=== PATIENT | female | born 1945 | race Caucasian/White ===

== ENCOUNTER 2022-12-19 10:20 | Emergency (ER) | payer MEDICARE, SELFPAY ==
[2022-12-19 10:25] VITALS: BP 154/72; PULSE 69; RESP 18; TEMP 36.7; O2SAT 98; BMI 26.5
--- NOTE | 2022-12-19 12:38 | ED.GENADUL1 ---
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 Patient was accidentally poked in her left eye last evening with a straw around 11 PM. Patient does not wear contacts. Patient does wear glasses. This did not happen at work. Patient is having tearing from her left eye secondary to irritation. Patient feels like there is an eyelash in the left eye. Patient has no redness around the eye. Patient has no other acute complaints at this time. Patient has no blurred vision, loss of vision, or painful vision. Patient does have a history of glaucoma. Patient does have an eye physician to follow-up with. Patient was worried about a scratch and infection. No yellow, greenish or purulent drainage. Patient's only having tearing from her left eye. No acute complaints at this time. This was accidental trauma to the left eye with a straw. . All systems are negative except as noted/marked. All systems reviewed and otherwise negative. . Nurses note and vital signs reviewed and patient is not hypoxic. General: The patient appears well and in no apparent distress. Patient is resting comfortably on cart. Patient is not toxic, lethargic, or listless Skin: Warm, dry, no pallor noted. There is no rash noted. No petechiae, purpura. Head: Normocephalic, atraumatic Eye: Normal conjunctiva, no drainage, EOMI. PERRL. Patient is tearing from the left eye, please see procedure note. Ears, Nose, Mouth, and Throat: oral mucosa is moist. Nares patent. Mouth without vesicles. Cardiovascular: Regular Rate and Rhythm, no murmur, gallop, rub Respiratory: Patient is in no distress, no accessory muscle use, lungs are clear to auscultation, no wheezing, rales or rhonchi Musculoskeletal: Patient has full range of motion of all of the extremities, no motor, sensory, or focal neurological deficits Neurological: A&O x3, normal speech Psychiatric: Cooperative Related Data Home Medications Medication Instructions Recorded Confirmed carvedilol 25 mg tablet 25 mg PO Q12H 12/19/22 12/19/22 Previous Rx's Medication Instructions Recorded tobramycin 0.3 % eye ointment 0.5 inch ophthalmic (eye) Q4H 7 12/19/22 (Tobrex) days #3.5 grams Allergies Allergy/AdvReac Type Severity Reaction Status Date / Time Penicillins AdvReac Intermediate Verified 12/19/22 10:38 Exam Constitutional Vital Signs, click to edit/add: Last Vital Signs Temp 98.1 F 12/19/22 10:25 Pulse 84 12/19/22 12:49 Resp 18 12/19/22 12:49 BP 138/98 H 12/19/22 12:49 Pulse Ox 97 12/19/22 12:49 O2 Del Method Room Air 12/19/22 12:49 Course Vital Signs Vital signs: Vital Signs Temperature 98.1 F 12/19/22 10:25 Pulse Rate 69 12/19/22 10:25 Respiratory Rate 18 12/19/22 10:25 Blood Pressure 154/72 H 12/19/22 10:25 Pulse Oximetry 98 12/19/22 10:25 Oxygen Delivery Method Room Air 12/19/22 10:25 Temperature 98.1 F 12/19/22 10:25 Pulse Rate 84 12/19/22 12:49 Respiratory Rate 18 12/19/22 12:49 Blood Pressure 138/98 H 12/19/22 12:49 Pulse Oximetry 97 12/19/22 12:49 Oxygen Delivery Method Room Air 12/19/22 12:49 Medical Decision Making MDM Narrative Medical decision making narrative: Patient has a corneal abrasion. Patient will be prescribed erythromycin ointment and will use tdar-[id number]-[id number] Naphcon drops to help with inflammation. Patient will call her eye doctor on Wednesday. Patient is instructed to use Tylenol Motrin as needed for pain as well. Patient does not appear to have much pain to left side compared to the tearing that she's having. Patient stated it was only aggravating, itchy, tearing, but no pain. No loss of vision or vision changes. Patient does wear glasses. No signs of infection, Cellulitis, or purulent drainage. No other acute complaints at this time. Discharge Plan Discharge Chief Complaint: Eye Problems Clinical Impression: Injury of conjunctiva and corneal abrasion of left eye without foreign body, Corneal abrasion Patient Disposition: Home, Self-Care Condition: Good Prescriptions / Home Meds: New Tobrex 0.3 % ointment 0.5 inch ophthalmic (eye) Q4H 7 Days Qty: 3.5 0RF No Action carvedilol 25 mg tablet 25 mg PO Q12H Instructions: Corneal Abrasion (ED) Additional Instructions: Use myna-dui-ubjunyx anti-inflammatory eyedrops Naphcon A to help with pain. Use the topical antibiotic eyedrops as well to help promote skin healing and prevent infection. Stand Alone Forms: Portal Instructions Referrals: Madison Perry MD [Primary Care Provider] - 1 week Discharge Date/Time: 12/19/22 12:51 Procedures ED Procedure Instructions Procedures Procedures: Procedure note of left eye. Patient had 3 tetracaine drops placed in the left eye. Visual acuity was done as well. Please acuity was done with glasses. Patient had upper and lower eyelid inverted, no foreign bodies noted. Patient patient has no foreign body noted to the left eye. Patient did have fluorescein drops placed, patient has a moderate size corneal abrasion over the pupil of her left thigh, approximately 3 x 2 mm in size. Patient also has a small corneal abrasion approximately 1 mm at the 9 o'clock position of the left eye. Patient has equal ocular motion, no signs of any other trauma or infection. Patient has no pain to the eye.
[2022-12-19 12:49] VITALS: BP 138/98; PULSE 84; RESP 18; O2SAT 97
== END 2022-12-19 12:51 | disposition home or self-care (01) ==
PROVIDERS: Emergency Provider Emergency Medicine; PCP Family Medicine
DX: S05.02XA Injury of conjunctiva and corneal abrasion without foreign body, left eye, initial encounter (principal); W22.8XXA Striking against or struck by other objects, initial encounter
CPT/HCPCS: 99284

== ENCOUNTER 2023-04-05 10:15 | Outpatient (OUT) | payer MEDICARE, SELFPAY ==
[2023-04-05 10:51] LABS: Basophils Absolute Auto 0.1 10^3/uL (0.0-0.1); Basophils Percent Auto 1.3 % (0.2-2.0); Eosinophils Absolute Auto 0.1 10^3/uL (0.0-0.7); Eosinophils Percent Auto 2.9 % (0.9-7.0); Hematocrit 40.5 % (36.0-48.0); Immature Granulocytes Abs Auto 0.03 10^3/uL (0.00-0.03); Immature Granulocytes Pct Auto 0.6 % (0.0-0.5); Lymphocytes Absolute Auto 1.2 10^3/uL (1.2-3.8); Lymphocytes Percent Auto 24.1 % (20.5-60.0); Mean Corpuscular HGB Conc 32.1 g/dL (29.9-35.2); Mean Corpuscular Hemoglobin 29.3 pg (26.7-34.0); Mean Corpuscular Volume 91.4 fL (81.0-99.0); Mean Platelet Volume 10.7 fL (9.5-13.5); Monocytes Absolute Auto 0.5 10^3/uL (0.3-0.8); Monocytes Percent Auto 9.6 % (1.7-12.0); Neutrophils Absolute Auto 2.9 10^3/uL (1.4-6.5); Neutrophils Percent Auto 61.5 % (43.0-75.0); Platelet Count 155 10^3/uL (150-450); Red Blood Count 4.43 10^6/uL (4.20-5.40); Red Cell Distribution Width 13.8 % (11.0-15.0); White Blood Count 4.8 10^3/uL (4.0-11.0)
[2023-04-05 11:16] LABS: Alanine Aminotransferase 23 U/L (14-59); Albumin Level 3.8 g/dL (3.4-5.0); Alkaline Phosphatase 72 U/L (46-116); Anion Gap 11.6; Aspartate Amino Transferase 12 U/L (15-37); BUN Creatinine Ratio 44.3; Bilirubin Total 0.3 mg/dL (0.2-1.0); Calcium 9.2 mg/dL (8.5-10.1); Carbon Dioxide 27.3 mmol/L (21.0-32.0); Chloride 108 mmol/L (98-107); Estimated GFR (African America >60 (>=60); Estimated GFR (Non-African Ame >60 (>=60); Globulin 3.8 g/dL; Glucose 92 mg/dL (74-106); Potassium 3.9 mmol/L (3.5-5.1); Sodium 143 mmol/L (136-145); Thyroid Stimulating Hormone 2.647 uIU/mL (0.358-3.740); Total Protein 7.6 g/dL (6.4-8.2)
[2023-04-05 18:42] LABS: Estimated Average Glucose 123 mg/dL; Glycohemoglobin A1C 5.9 % (4.5-6.2)
== END 2023-04-05 10:16 | disposition home or self-care (01) ==
LOC: LAB 10:18
PROVIDERS: PCP Family Medicine; Visit Provider Family Medicine
DX: E11.65 Type 2 diabetes mellitus with hyperglycemia (principal); I42.9 Cardiomyopathy, unspecified; R60.0 Localized edema; G62.9 Polyneuropathy, unspecified
CPT/HCPCS: 36415; 80053; 82728; 83036; 83880; 84443; 85025

== ENCOUNTER 2023-04-14 09:29 | Outpatient (OUT) | payer MEDICARE, SELFPAY ==
--- NOTE | 2023-04-14 09:31 | MM_ITS ---
Patient Name: NICK MCKEON MR#: [id number] : 1945 Exam Date: 04/14/2023 Ordering Doctor: DR Madison Perry M.D. RADIOLOGY REPORT PROCEDURE: MM TOMOSYNTHESIS SCREENING BI COMPARISON: MG [facility] SCRN W CAD DIG, 06/28/2013. MG M[facility]M [facility] DIAG W CAD DIG, 02/13/2015. INDICATIONS: Screening for malignant neoplasm Calculator Name NCI Breast Cancer Risk Assessment Tool 5 Year Breast Cancer Risk 1.50% Lifetime Breast Cancer Risk 3.10% Personal Breast Cancer No Personal Ovarian Cancer No Treatments None Family Cancers Daughter with ovarian cancer at age 43. LOCATION: [facility] BREAST COMPOSITION: Heterogeneously dense,which may obscure small masses. FINDINGS: DIAGNOSTIC CATEGORY 1--NEGATIVE. NO CHANGE FROM COMPARISON ASSESSMENT. Scattered benign-appearing calcifications are present. Scattered benign-appearing lymph nodes are present. RIGHT BREAST: No significant suspicious finding. LEFT BREAST: No significant suspicious finding. RECOMMENDATIONS: ROUTINE MAMMOGRAM AND CLINICAL EVALUATION IN 12 MONTHS. PLEASE NOTE: A NORMAL MAMMOGRAM DOES NOT EXCLUDE THE POSSIBILITY OF BREAST CANCER. A CLINICALLY SUSPICIOUS PALPABLE LUMP SHOULD BE BIOPSIED. Dictated by: Vinicio Young MD on 04/15/2023 at 07:44 Approved by: Vinicio Young MD on 04/15/2023 at 07:46
== END 2023-04-14 09:30 | disposition home or self-care (01) ==
LOC: MAMMO 09:29
PROVIDERS: PCP Family Medicine; Visit Provider Family Medicine
DX: Z12.31 Encounter for screening mammogram for malignant neoplasm of breast (principal); Z80.41 Family history of malignant neoplasm of ovary
CPT/HCPCS: 77063; 77067

== ENCOUNTER 2023-05-12 10:18 | Outpatient (OUT) | payer MEDICARE, OTHER, SELFPAY ==
--- NOTE | 2023-05-12 10:24 | XR_ITS ---
[address] [address] Patient Name: NICK MCKEON MRN: [id number] date: 1945 Sex: F Assigned Patient Location: [facility] Current Patient Location: [facility] Accession/Order Number: [id number] Exam Date: 05/12/2023 10:35 Report Date: 05/12/2023 11:00 At the request of: ADRIAN SINGH Procedure: XR chest 2V EXAM: CHEST 2 VIEWS HISTORY: Chronic Cough R05.3 TECHNIQUE: PA and lateral views chest. COMPARISON: None. FINDINGS: The lungs are mildly hyperinflated. There is no focal lung consolidation, pleural effusion or pneumothorax. Pulmonary vasculature is within normal limits. The cardiomediastinal silhouette is normal. XR/XR chest 2V IMPRESSION: 1. No acute cardiopulmonary disease. Electronically authenticated by: PARRIS SCOTT Date: 05/12/2023 11:00
== END 2023-05-12 10:19 | disposition home or self-care (01) ==
PROVIDERS: PCP Family Medicine; Visit Provider Family Medicine
DX: R05.3 Chronic cough (principal)
CPT/HCPCS: 71046

== ENCOUNTER 2023-07-06 11:29 | Outpatient (OUT) | payer MEDICARE, OTHER, SELFPAY ==
--- OUTSIDE RECORDS SUMMARY | 2023-07-06 11:43 | XMS_ITS | CCD ---
Author Name Unknown Address [address] [place] [address] Organization [facility] Care Team Providers Care Supply Chain Tech Name Role Phone Luis New Unavailable Unavailable Zahlcristal, Luis Unavailable Unavailable Luis New Unavailable Unavailable MADISON SINGH~[phone] UNKNOWN Unavailable Unavailable TIMMIS, DR STEINBERG Consulting Unavailable TIMMIS, DR STEINBERG Admitting Unavailable SINGH, DR MADISON Gonzalez Primary Care Unavailable TIMMIS, DR STEINBERG Attending Unavailable SOLDIERS GR[place], DR JOSE ALEJANDRO Jiménez Consulting Unavailable REQUEST, DR WEBSTER LISTED Attending Unavaila ble REQUEST, DR WEBSTER LISTED Consulting Unavaila ble REQUEST, DR WEBSTER LISTED Admitting Unavaila ble Unavailable Unavailable None, No PCP Unavailable Unavailable Madison Singh Unavailable Madison Singh Unavailable MD Madison Singh Attending Provider Madison Singh Attending Unavailable Madison Singh Admitting Unavailable NO FAMILY, PHYSICIAN Primary Care Unavailable Allergies Allergy Classification Reported Allergen(s) Allergy Type Date of Onset Reaction(s) Facility Penicillins (antibiotic) (1 source) Penicillins Drug Allergy 01-17-20 13 [facility] Repository (5 sources) penicillin; Translations: [penicillin] Drug Allergy 06-08-19 14 AOF, Unknown [facility] Repository (6 sources) Hmg-Coa Reductase Inhibitors (Statins); Translations: [Statins] Allergy to drug (finding) [facility] 250 DO Work Phone: (6 sources) Penicillins; Translations: [Penicillins] Allergy to drug (finding) [facility] 250 DO Work Phone: (8 sources) HMG-CoA reductase inhibitor Drug allergy 10-05-19 19 Unknown [facility] Other (8 sources) Penicillins (Antibiotic) Propensity to adverse reactions rash [facility] Other (8 sources) raNITIdine Drug Allergy 12-11-19 16 Unknown [facility] Other (4 sources) Allergies Reconciled Propensity to adverse reactions Unknown [facility] Other (8 sources) Substance with penicillin structure and antibacterial mechanism of action (substance) Drug allergy 02-29-20 18 PENICILLINS [facility] Other (4 sources) patient allergy list reviewed by nurse or physicia Propensity to adverse reactions 12-11-19 16 Comment:Done [facility] Other Medications Current Medications Medication Drug Class(es) Dates Sig (Normalized) Sig (Original) ascorbic acid 500 mg oral tablet (9 sources) Vitamin C take 1 tablet by yamile th every twenty-four hours Vitamin C 500 MG 1 tablet Orally Once a day for 30 day(s) Active take 1 capsule by mouth once ajay ly Vitamin C 500 MG Oral Capsule TAKE 1 CAPSULE Daily Quantity: 0 Refills: 0 Ordered: 09-Sep-2021 DO Active Aspir-81 81 MG (1 source) take 1 tablet by mouth once daily Aspir-81 81 MG 1 tablet Orally Once a day for 30 day(s) Active azithromycin 250 mg oral tablet (3 sources) Macrolide Antimicrobial Start : 05-18 Azithromycin 250 MG as directed Orally 2 tabs po today, then 1 tab daily x 4 more days for 5 Apr, Active B Complex (1 source) B Complex as dir ected Orally Active calcium carbonate 1500 mg / cholecalciferol 200 unt oral tablet (1 source) Vitamin D take 1 tablet by mouth once daily at mealtime Calcium + D 600-200 MG-UNIT 1 tablet with food Orally Once a day for 30 day(s) Active carvedilol 25 mg oral tablet (14 sources) alpha-Adrenergic Amber, beta-Adrenergic Amber Start : 07-28 Carvedilol 25MG Carvedilol( 25MG Oral two times daily ) Active -Hx Entry Oral two times daily for 0 *Pick strength-form from [employer] for eRX* Nov, Active [facility] Vitamin C 500MG (8 sources) Start : 12-15 take 500 mg by mouth once daily [facility] Vitamin C 500MG [facility] Vitamin C( 500MG Oral daily ) Active -Hx Entry Oral daily for 0 *Pick strength-form from [employer] for eRX* Nov, Active Glucosamine Complex (1 source) Glucosamine Comp shant as directed Orally Active latanoprost 0.05 mg/ml ophthalmic solution (1 source) Prostaglandin Analog take 1 drop(s) into the eye(s) once daily in the evening Latanoprost 0.005 % 1 drop into affected eye in the evening Ophthalmic Once a day Active 24 hr loratadine 10 mg / pseudoephedrine sulfate 240 mg extended release oral tablet (8 sources) alpha-Adrenergic Agonist take 1 tablet by mouth every twenty-four hours Allergy Relief D-24 10-240 MG 1 tablet Orally Once a day for 30 day(s) Active methylPREDNISolone 4 mg oral tablet (3 sources) Corticosteroid Start : 05-18 methylPREDNISolone 4 MG as directed Orally for 6 days Apr, Active Multivitamins (1 source) Multivitamins as directed Orally Active pravastatin sodium 10 mg oral tablet (1 source) HMG-CoA Reductase Inhibitor take 1 tablet by mouth every twenty-four hours Pravastatin Sodium 10 MG 1 tablet Orally Once a day for 30 day(s) Active predniSONE 10 mg oral tablet (1 source) Start : 12-15 take 1 tablet by mouth once daily Prednisone 10 MG predniSONE 10MG, 1 (one) Tablet 2 tabs po x 3 days then 1 tabs daily x 3 days # 9, 12/15/2021, No Refill. Active Oral 2 tabs po x 3 days then 1 tabs daily x 3 days for 0 Nov, Active raNITIdine 300 mg oral tablet (1 source) Histamine-2 Receptor Antagonist Start : 01-28 take 1 tablet by mouth once daily Zantac 300 MG 1 tablet Orally once daily Dec, Active True Metrix Blood Glucose Test - (8 sources) True Metrix Bloo d Glucose Test - USE DAILY TO TEST BLOOD SUGAR E11.65 for 90 Active Veramyst 27.5 MCG/SPRAY (8 sources) Start : 01-28 take 2 puff(s) nasal route once daily Veramyst 27.5 MCG/SPRAY 2 puffs in each nostril Nasally Once a day for 30 day(s) Dec, Active Completed/Discontinued Medications Medication Drug Class(es) Dates Sig (Normalized) Sig (Original) loratadine 10 mg oral tablet (1 source) take 1 tablet by mouth once daily Loratadine 10 MG Oral Tablet TAKE 1 TABLET DAILY. Quantity: 0 Refills: 0 Ordered: 09-Sep-2021 DO Active nitroglycerin 0.4 mg sublingual tablet (5 sources) Nitrate Vasodilator Start: 08-01-2021 Nitroglycerin 0.4 MG Sublingual Tablet Sublingual PLACE 1 TABLET UNDER THE TONGUE EVERY 5 MINUTES FOR UP TO 3 DOSES NEEDED FOR CHEST PAIN.CALL 911 IF PAIN PERSISTS. Quantity: 25 Refills: 3 Ordered: 01-Aug-2021 Robert Lynn DO Start : 01-Aug-2021 Active new start Problems Active Problems Problem Classification Problem Date Documented Date Episodic/Chronic Abdominal pain (2 sources) Unspecified abdominal pain; Translations: [Unspecified abdominal pain] Onset: 06-23-2023 Episodic Allergic reactions (8 sources) Allergic contact dermatitis due to plants, except food; Translations: [Allergic contact dermatitis due to plants, except food] Onset: 02-10-2016 Episodic Cardiac dysrhythmias (6 sources) Palpitations; Translations: [Palpitations] Episodic Diabetes mellitus with complications (14 sources) Hyperglycemia due to type 2 diabetes mellitus; Translations: [Type 2 diabetes mellitus with hyperglycemia] Onset: 07-19-2018 Chronic Diabetes mellitus without complication (1 source) Diabetes mellitus; Translations: [Diabetes mellitus without mention of complication, type II or unspecified type, not stated as uncontrolled] Chronic Disorders of lipid metabolism (6 sources) Hyperlipidemia; Translations: [Other and unspecified hyperlipidemia] Chronic Esophageal disorders (8 sources) Gastroesophageal reflux disease without esophagitis; Translations: [Gastro-esophageal reflux disease without esophagitis] Onset: 11-26-2016 Chronic Essential hypertension (6 sources) Hypertensive disorder; Translations: [Unspecified essential hypertension] Chronic Genitourinary symptoms and ill-defined conditions (8 sources) Genitourinary symptoms; Translations: [Unspecified symptoms and signs involving the genitourinary system] Episodic Glaucoma (4 sources) Glaucoma; Translations: [Unspecified glaucoma] Onset: 06-08-2013 Chronic Immunizations and screening for infectious disease (4 sources) Vaccination given; Translations: [Encounter for immunization] Episodic Nonmalignant breast conditions (4 sources) Pain of breast; Translations: [Mastodynia] Episodic Nonspecific chest pain (6 sources) Chest pain; Translations: [Chest pain, unspecified] Episodic Other ear and sense organ disorders (4 sources) Unspecified hearing loss, left ear; Translations: [UNSPECIFIED HEARING LOSS LEFT EAR] Onset: 10-23-2020 Chronic Other ear and sense organ disorders (4 sources) Impacted cerumen; Translations: [Impacted cerumen, bilateral] Episodic Other lower respiratory disease (4 sources) Cough; Translations: [Cough] Episodic Other nervous system disorders (7 sources) Polyneuropathy; Translations: [Polyneuropathy, unspecified] Chronic Other nervous system disorders (2 sources) Polyneuropathy, unspecified Chronic Other nervous system disorders (4 sources) Abnormal gait; Translations: [Other abnormalities of gait and mobility] Episodic Other nutritional; endocrine; and metabolic disorders (1 source) Overweight in adulthood with body mass index of 25 or more but less than 30; Translations: [Overweight] Episodic Other screening for suspected conditions (not mental disorders or infectious disease) (2 sources) Encounter for screening mammogram for malignant neoplasm of breast Episodic Other skin disorders (4 sources) Hypertrophic condition of skin; Translations: [Other hypertrophic disorders of the skin] Episodic Other upper respiratory disease (4 sources) Allergic rhinitis; Translations: [Allergic rhinitis, unspecified] Onset: 11-26-2016 Chronic Krystal-; endo-; and myocarditis; cardiomyopathy (except that caused by tuberculosis or sexually transmitted disease) (20 sources) Cardiomyopathy; Translations: [Other primary cardiomyopathies] Onset: 06-08-2013 Chronic Residual codes; unclassified (5 sources) Body mass index 20-24 - normal; Translations: [Body Mass Index between 19-24, adult] Episodic Residual codes; unclassified (6 sources) Insomnia; Translations: [Insomnia, unspecified] Episodic Residual codes; unclassified (2 sources) Localized edema Episodic Past or Other Problems Problem Classification Problem Date Documented Date Episodic/Chronic Hemorrhoids (4 sources) External hemorrhoids without complication; Translations: [External hemorrhoids without mention of complication] Onset: 01-25-2018 Episodic Malaise and fatigue (4 sources) Fatigue; Translations: [Other fatigue] Onset: 06-15-2013 Episodic Other circulatory disease (4 sources) H/O: cardiovascular disease; Translations: [Personal history of other diseases of circulatory system] Onset: 06-08-2013 Episodic Other ear and sense organ disorders (4 sources) Acute non-infective otitis externa; Translations: [Unspecified acute noninfective otitis externa, unspecified ear] Onset: 12-11-2015 Episodic Other injuries and conditions due to external causes (4 sources) Nonvenomous insect bite of multiple sites; Translations: [Other, multiple, and unspecified sites, insect bite, nonvenomous, without mention of infection] Onset: 11-26-2016 Episodic Other non-traumatic joint disorders (4 sources) Arthralgia of the lower leg; Translations: [Pain in joint, lower leg] Onset: 07-27-2016 Episodic Other skin disorders (4 sources) Atrophoderma; Translations: [Unspecified hypertrophic and atrophic condition of skin] Onset: 06-14-2018 Episodic Other skin disorders (4 sources) Disorder of skin and/or subcutaneous tissue; Translations: [Unspecified disorder of skin and subcutaneous tissue] Onset: 06-30-2018 Episodic Residual codes; unclassified (4 sources) Requires influenza virus vaccination; Translations: [Need for prophylactic vaccination and inoculation, Influenza] Onset: 02-28-2018 Episodic Unclassified (1 source) Never smoked tobacco; Translations: [Never a smoker] Unclassified (4 sources) Gynecological examination normal; Translations: [Routine gynecological examination] Unclassified (1 source) Chronic cough R05.3 Results Test Name Value Interpretation Reference Range Facility Urinalysis - DIPSTICKon 06-01 Appearance (U) Hazy [facility] Other Bilirubin Ql (U) Negative [employer] Other Color (U) Dark Yellow [facility] Other Glucose Ql (U) Negative [facility] Other Hemoglobin Ql (U) Negative [facility] Other Ketones Ql (U) Negative [facility] Other Leukocyte esterase Test strip Ql (U) Negative [facility] Other Nitrite Ql (U) Negative [facility] Other pH (U) 5.0 [pH] [facility] Other Protein Ql (U) + [facility] Other Specific gravity (U) [Rel density] 1.025 [facility] Other Urobilinogen (U) [Mass/Vol] 0.2 mg/dL [facility] Other Urinalysis - DIPSTICK [facility] Other Urine Cultureon 06-23-2023 Bacteria identified Cx Nom (U) ORGANISM: Klebsiella pneumoniae (O:KLEPNE) [place] Count 15,000 Aerobic SOY Charge (NMIC56) --- SUSCEPTIBILITY -- ORGANISM: O:KLEPNE ANTIBIOTIC INTERPRETATION SOY Amikacin S <16 Amoxacillin/K Clavulanate S <8 Ampicillin/Sulbactam S <4 Aztreonam S <4 Cefazolin S <2 Cefepime S <2 Ceftazidime S <1 Ceftazidime/Avibactam S <4 Ceftolozane/Tazobactam S <2 Ceftriaxone S <1 Cefuroxime S <4 Ciprofloxacin S <0.25 Ertapenem S <0.5 Gentamicin S <2 Levofloxacin S <0.5 Meropenem S <1 Meropenem/Vaborbactam S <2 Nitrofurantoin I 64 Piperacillin/Tazobacta m S <8 Tetracycline S <4 Tigecycline S <2 Tobramycin S <2 Trimethoprim/Sulfameth oxazole S <0.5 S = SUSCEPTIBLE I = INTERMEDIATE R = RESISTANT BLANK = DATA NOT AVAILABLE, OR DRUG NOT ADVISABLE OR TESTED R* = RESISTANCE DUE TO EXTENDED SPECTRUM BETA-LACTAMASES ESBL = EXTENDED SPECTRUM BETA-LACTAMASE TFG = THYMIDINE-DEPENDENT STRAIN LORRIE = BETA-LACTAMASE POSITIVE IB = INDUCIBLE BETA-LACTAMASE. APPEARS IN PLACE OF 'S' WITH SPECIES KNOWN TO POSSESS INDUCIBLE BETA-LACTAMASES. POTENTIALLY THEY MAY BECOME RESISTANT TO ALL B-LACTAM DRUGS. PERFORMED BY: [place] [address] PATHOLOGIST [employer]IST LEAH ACE M.D. Normal [facility] Comment on above: Performed By: #### C UU #### [address] Office Visit (Cardiology)on 09-09-2021 Follow-up visit Diagnoses/Problems Assessed Nonischemic cardiomyopathy (425.4) (I42.8) Diabetes (250.00) (E11.9) Hyperlipidemia (272.4) (E78.5) Hypertension (401.9) (I10) Overweight with body mass index (BMI) of 26 to 26.9 in adult (278.02,V85.22) (E66.3,Z68.26) Never a smoker Orders Hypertension Renew: Carvedilol 25 MG Oral Tablet; Take 1 tablet twice daily Overweight with body mass index (BMI) of 26 to 26.9 in adult Healthy Weight Tips; Status:Complete - Retrospective Authorization; Done: [id number] SocHx: Never a smoker Tobacco Use Screening; Status:Complete; Done: [id number] Tobacco Use Screening; Status:Complete; Done: [id number] Patient Instructions By signing my name below, I, Ivonne Saenz LPN, Scribe, attest that this documentation has been prepared under the direction and in the presence of Dr. Robert Lynn DO. All medical record entries made by the Scribe were at my direction and personally dictated by me. I have reviewed the chart and agree that the record accurately reflects my personal performance of the history, physical exam, discussion and plan. Please bring all medicines, vitamins, and herbal supplements with you when you come to the office. Prescriptions will not be filled unless you are compliant with your follow up appointments or have a follow up appointment scheduled as per instruction of your physician. Refills should be requested at the time of your visit Follow up as needed Chief Complaint NICK MCKEON is being seen for an annual follow-up of. Patient is a 75-year-old healthy female who returns for follow-up and doing well. She has history of nonischemic cardiomyopathy originally with severe LV dysfunction and has now normal LV function as evidenced by 2 separate imaging protocols. Last perfusion stress test from this past year was totally normal with normal ejection fraction. She does have mild essential hypertension we reviewed her blood pressure log, which reveals primarily well-controlled blood pressure other than 2 accelerated events within the last month. Recommendations, follow-up on a as needed basis, continue monitoring blood pressure, abstain from salt, encourage normal sleep patterns, will follow-up as needed Current Meds Medication NameInstruction Carvedilol 25 MG Oral TabletTake 1 tablet twice daily Loratadine 10 MG Oral TabletTAKE 1 TABLET DAILY. Nitroglycerin 0.4 MG Sublingual Tablet SublingualPLACE 1 TABLET UNDER THE TONGUE EVERY 5 MINUTES FOR UP TO 3 DOSES NEEDED FOR CHEST PAIN.CALL 911 IF PAIN PERSISTS. Vitamin C 500 MG Oral CapsuleTAKE 1 CAPSULE Daily Allergies Medication Penicillins Recorded By: Gogo Lombardo; 07/09/2021 10:00:54 AM rash Statins Recorded By: Gogo Lombardo; 07/09/2021 10:00:54 AM myalgias Social History Problems Caffeine use (V49.89) (Z78.9) Never a smoker No illicit drug use Social alcohol use (V49.89) (Z78.9) Review of Systems Constitutional: not feeling tired. Cardiovascular: no intermittent leg claudication and as noted in HPI. Respiratory: no cough and no shortness of breath. Gastrointestinal: no change in bowel habits and no blood in stools. Integumentary: no skin rashes. Neurological: no seizures and no frequent falls. All other systems have been reviewed and are negative for complaint. Vitals Vital Signs Recorded: [id number] 09:16AM Heart Rate69, L Radial Xptjexvo978, LUE, Sitting Ghjgxebye48, LUE, Sitting Height5 ft 4 in Ofrasp622 lb 12.8 oz BMI Jtaorizghu66.23 kg/m2 BSA Calculated1.74 Tobacco Useb) No PHQ-2 #1. Over the last 2 weeks have you felt down, depressed or hopeless? (If yes, answer PHQ-9 below)No PHQ-2 #2. Over the last 2 weeks have you felt little interest or pleasure in doing things? (If yes, answer PHQ-9 below)No Fall Screeninga) No falls within the last year Signatures Electronically signed by : Robert Lynn DO; Sep 09 2021 10:03AM EST (Author) Normal [employer] Tobacco Screening.on 022 Adult depression screening assessment No [facility] 250 DO Work Phone: Fall risk assessment a) No falls within the last year [facility] 250 DO Work Phone: Tobacco use status [facility] b) No [facility] 250 DO Work Phone: [facility] CARDIAC STRESS/REST INJE CTIONon 08-27-2021 [facility] CARDIAC STRESS/REST INJECTION Patient Name: NICK MCKEON STUDY: MYOCARDIAL PERFUSION STRESS TEST WITH EXERCISE Performing facility: [facility], [address] [place] [address], [address] Provider: Consuelo Lynn DO, [facility] PCP: Dr. Almas Singh Supervising provider: Consuelo Lynn DO FACParvin INDICATION: Chest Pain; Palpitations Hyperlipidemia HTN Cardiomyopathy HISTORY: Gender: F; Age: 75 y/o ; Height: 0 cm; Weight: 0 kg. High Cholesterol; HTN; Palpitations; Denies smoking. Cardiac catheterization on 2001. COMPARISON: Previous nuclear testing completed at [facility]. ACCESSION NUMBER(S): [id number]; [id number]; [id number] ORDERING CLINICIAN: ROBERT LYNN TECHNIQUE: ONE DAY protocol. Stress injection: Date:08-27-21, 35.0 mCi of Myoview IV at peak exercise. Rest injection: Date: 08-27-21, 11.5 mCi of Myoview IV at rest. Imaging was performed by gated tomographic technique. STRESS TEST DATA: Resting heart rate was 74 BPM. Resting blood pressure was 136/90 mmHg. The patient exercised using a Hans exercise protocol. 09:17 minutes exercised. 87% MPHR achieved for age. 10.5 METS achieved. Maximum heart rate was 127 BPM. Maximum blood pressure was 170/58 mmHg. DTS 4. TEST TERMINATED DUE TO: HR achieved, technical problems FINDINGS: STRESS TEST RESULTS: Resting electrocardiogram revealed normal sinus rhythm with non-specific ST and T changes. The patient had no significant ECG changes with maximal stress. The patient did not have chest pains/symptoms during the procedure. There was a normal recovery phase. There were no significant dysrhythmias. IMAGING RESULTS: Image quality was good. Rest and stress tomographic images were reviewed and revealed normal perfusion without evidence of ischemia, myocardial infarction, or left ventricular dilatation with stress. Overall left ventricular systolic function appeared to be normal without regional wall motion abnormalities. LV ejection fraction was 59 %. TID is 0.93 and is normal. There was no evidence of attenuation artifact. IMPRESSION: Normal exercise Myoview cardiac perfusion stress test. No evidence of ischemia or myocardial infarction by perfusion imaging. Normal left ventricular systolic function, ejection fraction 59%. No exercise provoked significant ischemic ECG changes or chest pain symptoms. When compared to a study from 2008 the perfusion scan is similar. Electronically signed by: TORO MAJOR MD Normal [facility] No Panel Informationon 08-27 Please click on the link to view the study images Normal -[facility] 250 DO Work Phone: Normal -[facility] 250 DO Work Phone: CREATININEon 10-23-2020 Creatinine [Mass/Vol] 0.90 mg/dL Normal 0.52-1.04 The [facility] Comment on above: Performed By: #### C BERNARDA #### [facility] [address] [place] [id number] Dean Mojgan EGFR-AF UGANDAN >60 Normal >=60 The [facility] Comment on above: Performed By: #### C BERNARDA #### [facility] [address] [id number] Dean Mojgan EGFR-NON AF UGANDAN >60 Normal >=60 [facility] Comment on above: Performed By: #### C BERNARDA #### [facility] [address] [place], [place] [id number] Dean Mojgan MRI BRAIN WO W CONon 021 MRI BRAIN WO W CON EXAMINATION: MRI BRA IN WO CON HISTORY: Hearing loss of left ear COMPARISON: No relevant comparison available. TECHNIQUE: A variety of imaging planes and parameters were utilized for visualization of suspected pathology. Images were performed with 12 ml Dotarem contrast. FINDINGS: CEREBRUM: No edema, hemorrhage, mass, acute infarction, or inappropriate atrophy. Moderate scattered hyperintense foci are present, typical for a patient of this age, most commonly caused by small vessel ischemic changes. CEREBELLUM: No edema, hemorrhage, mass, acute infarction, or inappropriate atrophy. BRAINSTEM: No edema, hemorrhage, mass, acute infarction, or inappropriate atrophy. CSF SPACES: Ventricles, cisterns, and sulci are appropriate for age. No hydrocephalus, subarachnoid hemorrhage, or mass. SKULL: No mass or other significant visible lesion. SINUSES: Limited views demonstrate no significant mucosal thickening or fluid. ORBITS: Limited views are unremarkable. OTHER: No abnormal meningeal or parenchymal enhancement. IMPRESSION: Moderate white matter disease. Chronic small vessel ischemic changes are favored. No acute infarct No abnormal enhancement within the internal auditory canals to suggest an acoustic neuroma Electronically authenticated by: JOSE ALEJANDRO MAJOR Date: 2020-10-23 10:21 Normal [facility] Coding Summary.on 06-23-2017 Coding Summary. 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 However, the narrative phrase printed from the coding software may appear abbreviated, or result in slightly different terminology. Coded By: Gabriella Rodriguez Date Saved: 06/23/2017 09:04 am Normal [facility] Vital Signs Date Time Vital Sign Value Performing Clinician Facility 05-12-2023 09:45-0500 Body height 162.56 cm Madison Singh Other [facility] Other 05-12-2023 09:45-0500 Body mass index (BMI) [Ratio] 28.9 kg/m2 Madison Singh Other [facility] Other 05-12-2023 09:45-0500 Body temperature 98 [degF] Madison Singh Other [facility] Other 05-12-2023 09:45-0500 Body weight 76.39 kg Madison iSngh Other [facility] Other 05-12-2023 09:45-0500 Diastolic blood pressure 66 mm[Hg] Madison Singh Other [facility] Other 05-12-2023 09:45-0500 SaO2% (BldA) [Mass fraction] 96 % Madison Singh Other [facility] Other 05-12-2023 09:45-0500 Systolic blood pressure 103 mm[Hg] Madison Singh Other [facility] Other 04-05-2023 09:00-0500 Body height 162.56 cm Madison Singh Other [facility] Other 04-05-2023 09:00-0500 Body mass index (BMI) [Ratio] 28.59 kg/m2 Madison Singh Other [facility] Other 04-05-2023 09:00-0500 Body weight 75.57 kg Madison Singh Other [facility] Other 04-05-2023 09:00-0500 Diastolic blood pressure 80 mm[Hg] Madison Singh Other [facility] Other 04-05-2023 09:00-0500 Systolic blood pressure 150 mm[Hg] Madison Singh Other [facility] Other 09-09-2021 09:16-0400 Body height 162.56 cm Madison Singh Work Phone: [facility] 250 DO Work Phone: 09-09-2021 09:16-0400 Body mass index (BMI) [Ratio] 26.23 kg/m2 Madison Singh Work Phone: [facility] 250 DO Work Phone: 09-09-2021 09:16-0400 Body surface area Derived from formula 1.74 m2 Madison Singh Work Phone: [facility] 250 DO Work Phone: 09-09-2021 09:16-0400 Body weight 69.31 kg Madison Singh Work Phone: [facility] 250 DO Work Phone: 09-09-2021 09:16-0400 Diastolic blood pressure 80 mm[Hg] Madison Singh Work Phone: [facility] 250 DO Work Phone: 09-09-2021 09:16-0400 Heart rate 69 /min Madison Singh Work Phone: [facility] 250 DO Work Phone: 09-09-2021 09:16-0400 Systolic blood pressure 130 mm[Hg] Madison Singh Work Phone: [facility] 250 DO Work Phone: 08-27-2021 08:00-0400 59 1 No PCP None [facility] Work Phone: Comment on above: [id number] Encounters Encounter Date Encounter Type Care Provider Facility Start: 06-23-2023 Nursing evaluation o f patient and report Madison Singh [facility] Start: 06-23-2023 End: 06-23-2023 ambulatory Madison Singh [facility] [email or web address] Other Start: 06-23-2023 End: 06-23-2023 Departed Referred MD Madison Singh Work Phone: [facility] [place] Work Phone: Start: 05-18-2023 End: 05-18-2023 ambulatory Madison Singh Other [facility] Other Start: 05-18-2023 Telephone encounter Madison Singh [facility] Start: 05-12-2023 End: 05-12-2023 ambulatory Madison Singh Other [facility] Other Start: 05-12-2023 Office outpatient vi sit 15 minutes Madison Singh [facility] Start: 05-12-2023 End: 05-12-2023 Patient encounter procedure MD Madison Singh Work Phone: [facility] Work Phone: Start: 04-28-2023 End: 04-28-2023 ambulatory Madison Singh Other [facility] Other Start: 04-28-2023 Telephone encounter Madison Singh [facility] Start: 04-06-2023 End: 04-06-2023 ambulatory Madison Singh Other [facility] Other Start: 04-06-2023 Telephone encounter Madison Singh [facility] Start: 04-05-2023 End: 04-05-2023 ambulatory Madison Singh Other [facility] Other Start: 04-05-2023 Patient encounter procedure Madison Singh [facility] Start: 04-05-2023 End: 04-05-2023 Patient encounter procedure MD Madison Singh Work Phone: [facility] Work Phone: Start: 02-04-2023 End: 02-04-2023 ambulatory Madison Singh Other [facility] Other Start: 02-04-2023 Nursing evaluation o f patient and report Madison Singh [facility] Start: 12-15-2021 Adult health examination Madison Singh Other [facility] Other Start: 09-09-2021 Office outpatient vi sit 15 minutes Madison Singh Work Phone: [facility] 250 DO Work Phone: Start: 09-01-2021 Chart Update No PCP None [facility] 250 DO Work Phone: Start: 08-27-2021 Patient encounter procedure No PCP None [facility] Work Phone: Start: 08-01-2021 AUDIT No PCP None [facility] 250 DO Work Phone: Start: 08-01-2021 Telephone encounter Lizzy Truong [employer] Work Phone: [facility] 250 DO Work Phone: Start: 07-28-2021 Rx Renewal Robert mabry DO Work Phone: [facility] 250 DO Work Phone: Start: 10-23-2020 End: 10-24-[address] MARYAN FOLEY Facility:[facility] Start: 08-05-2020 End: 08-06-[address] WEBSTER LISTED REQUEST Facility: Start: 06-22-2017 End: 06-22-2017 Ambulatory Luis [place] [place] Date Procedure Procedure Detail Performing Clinician Start: 10-04-2018 Screening mammography Olamide lawrence Singh Other Start: 06-15-2013 General examination of patient Madison Singh Other Cataract surgery Robert sarah DO Work Phone: Screening for malign ant neoplasm of breast Madison Singh Other Total colonoscopy Robert may DO Work Phone: Plan of Treatment Date Care Activity Detail Author Start: 06-23-2023 Bacteria identified in Urine by Culture [facility] Start: 09-09-2021 FUV, Provider: Robert Lynn, Status: Pen, Time: 9:00 AM FUV, Provider: Robert Lynn, Status: Pen, Time: 9:00 [facility] Work Phone: Start: 08-27-2021 STRESS NUC, Provider : NIKITA HHVI NUCLEAR 01,[id number], Status: Pen, Time: 8:00 AM STRESS NUC, Provider: NIKITA HHVI NUCLEAR 01,[id number], Status: Pen, Time: 8:00 AM [facility] 250 DO Work Phone: Immunizations Immunization Date Immunization Notes Care Provider Sherita jara 02-04-2023 influenza, high dose seasonal, preservative-free Madison Singh Other [employer] Other 02-18-2022 influenza virus vaccine, split virus (incl. purified surface antigen) Madison Singh Other [employer] Other 03-28-2021 Moderna COVID-19 Vaccine 100 MCG/0.5ML Intramuscular Suspension No PCP None [facility] 250 DO Work Phone: 02-07-2021 influenza virus vaccine, split virus (incl. purified surface antigen) Madison Singh Other [employer] Other 08-05-2020 Claudia COVID-19 Vaccine 0.5 ML Intramuscular Suspension Robert Lynn DO Work Phone: [facility] 250 DO Work Phone: 02-29-2020 influenza virus vaccine, split virus (incl. purified surface antigen) aMdison Singh Other [employer] Other 02-29-2020 influenza virus vaccine, unspecified formulation Robert Lynn DO Work Phone: [facility] 250 DO Work Phone: 02-28-2019 influenza virus vaccine, unspecified formulation Robert Lynn DO Work Phone: [facility] 250 DO Work Phone: 02-27-2019 influenza virus vaccine, split virus (incl. purified surface antigen) Madison Singh Other [employer] Other 02-28-2018 influenza virus vaccine, split virus (incl. purified surface antigen) Madison Singh Other [employer] Other 02-28-2018 Influenza, injectabl e, Madin Ginger Canine Kidney, quadrivalent with preservative No PCP None [place] [address] DO Work Phone: 01-29-2018 influenza virus vaccine, unspecified formulation Robert Lynn DO Work Phone: [place] [address] DO Work Phone: 02-11-2017 influenza virus vaccine, split virus (incl. purified surface antigen) Madison Singh Other [employer] Other 02-11-2017 influenza, high dose seasonal, preservative-free No PCP None [place] [address] DO Work Phone: 01-29-2017 influenza virus vaccine, unspecified formulation Robert Lynn DO Work Phone: [facility] 250 DO Work Phone: 02-10-2016 influenza virus vaccine, split virus (incl. purified surface antigen) Madison Singh Other [employer] Other 01-30-2016 influenza, injectabl e, quadrivalent, preservative free No PCP None [facility] 250 DO Work Phone: 03-27-2015 tetanus and diphther ia toxoids, adsorbed, preservative free, for adult use (5 Lf of tetanus toxoid and 2 Lf of diphtheria toxoid) Madison Singh Other [employer] Other 01-29-2015 influenza virus vaccine, unspecified formulation Robert Lynn DO Work Phone: [facility] [employer] DO Work Phone: 03-23-2014 tetanus and diphther ia toxoids, adsorbed, preservative free, for adult use (5 Lf of tetanus toxoid and 2 Lf of diphtheria toxoid) Madison Singh Other [employer] Other 02-28-2014 influenza virus vaccine, whole virus Robert Lynn DO Work Phone: [facility] [employer] DO Work Phone: 04-30-2012 pneumococcal polysaccharide vaccine, 23 valent Robert Lynn DO Work Phone: [facility] [employer] DO Work Phone: 04-11-2012 pneumococcal polysaccharide vaccine, 23 valent Madison Singh Other [employer] Other 02-29-2012 pneumococcal polysaccharide vaccine, 23 valent No PCP None [facility] [employer] DO Work Phone: 05-31-2011 influenza virus vaccine, unspecified formulation [facility] Lynn [facility] Work Phone: 05-31-2010 influenza virus vaccine, unspecified formulation Robert Lynn DO Work Phone: [facility] [employer] 250 DO Work Phone: 05-31-2009 influenza virus vaccine, unspecified formulation Robert Lynn DO Work Phone: [facility] [employer] 250 DO Work Phone: 03-31-2009 influenza virus vaccine, unspecified formulation Robert Lynn DO Work Phone: [facility] 250 DO Work Phone: Payers Date Payer Category Payer Private Health Insurance [id number] 2023 Self-pay 2017 Medicare [id number] 1958 Medicare [id number] 1958 Self-pay [id number] 1958 Unknown [id number] 1945 Unknown [id number] [facility] [id number] Unknown [id number] Unknown Unknown Julian [id number] Unknown [id number] Social History Date Type Detail Facility Social alcohol use Social alcohol use [facility] 250 DO Work Phone: Sex Assigned At Sex Assigned At Bir th [employer] Other Start: 1945 Sex Assigned At Female F [facility] Medical Equipment Procedure Code Equipment Code Equipment Origin al Text Equipment Identifier Dates Start: 05-05-2021 Evaluation note 06-23-2023 Note Date & Type Note Facility 06-23-2023 Evaluation note Encounter Date Diagnosis Assessment Notes May, Flank pain (ICD-10 - R10.9) [facility] Other Evaluation note 05-12-2023 Note Date & Type Note Facility 05-12-2023 Evaluation note Encounter Date Diagnosis Assessment Notes Apr, Chronic cough (ICD-10 - R05.3) Eval CXR due to length of cough. r/o pneumonia or other interstitial markings. Finish antibiotics and steroids. Call if cough continues for potential pulm referral. [facility] Other Evaluation note 04-05-2023 Note Date & Type Note Facility 04-05-2023 Evaluation note Encounter Date Diagnosis Assessment Notes Mar, Medicare annual wellness visit, subsequent (ICD-10 - Z00.00) Personalized health advice was given to the beneficiary including a written plan for screenings discussed and provided. Advanced care planning reviewed and/or information given as requested. Additional counseling was provided here today in regards to, [ ]. The above visit was performed by [ ], under direct supervision of [ ]. Document reviewed and amended by provider signed below. Mar, Type 2 diabetes mellitus with hyperglycemia, without long-term current use of insulin (ICD-10 - E11.65) Due for labs. Checks glucose at home. Notes mild weight gain after decreasing activity due to foot problems Mar, Lower extremity edema (ICD-10 - R60.0) Eval BNP to r/o CHF. trace edema presently Mar, Screening mammogram, encounter for (ICD-10 - Z12.31) Mar, Peripheral polyneuropathy (ICD-10 - G62.9) Discussed vitamin levels that could cause nerve pain. May, Cardiomyopathy, unspecified (ICD-10 - I42.9) CARDIOMYOPATHY assess labs [facility] Other Evaluation note Note Date & Type Note Facility Evaluation note No Information [employer] Other Evaluation note Note Date & Type Note Facility Evaluation note No assessment information [facility] Work Phone: History general Narrative - Reported Note Date & Type Note Facility History general Narrative - Reported Type Surgical History Problem Title : Card iac surgery, Problem Status : Active, Surgical History Problem Title : Dila tion and Curettage of Uterus, Problem Status : Active, Surgical History Problem Title : Gum surgery, Problem Status : Active, Surgical History Problem Title : past surgical history reviewed, Problem Description : past surgical history reviewed, Problem Comment : reviewed - no changes required, Problem Status : Active, Surgical History Problem Title : surg ical procedures, hx of, Problem Description : surgical procedures, hx of, Problem Comment : D&C [place] teeth Oral surgery Cataract Colonoscopy Normal - 06/16/2010, Problem Status : Active, Surgical History Problem Title : surg ical procedures, hx of, Problem Description : surgical procedures, hx of, Problem Comment : D&C [place] teeth Oral surgery Cataract, Problem Status : Active, Surgical History Problem Title : Tong ue surgery, Problem Status : Active, [facility] Other History general Narrative - Reported Note Date & Type Note Facility History general Narrative - Reported Type Medical History Problem Title : comp liance with medical treatment, Problem Description : compliance with medical treatment, Problem Comment : Done, Problem Status : Active,, Medical History Problem Title : Depr ession Screening, Problem Description : Depression Screening, Problem Comment : Negative, Problem Status : Active,, Medical History Problem Title : Depr ession: Baseline PHQ-9 total score?, Problem Description : Depression: Baseline PHQ-9 total score?, Problem Comment : 0, Problem Status : Active,, Medical History Problem Title : EXPO SURE TO NON-STD INFECTION: The patient has not been exposed to AIDS, HIV, hepatitis, TB, influenza, MMR, DPT, polio or tetanus. There have been no recent rashes or viral illnesses, Problem Status : Active,, Medical History Problem Title : Fall assessment-Total score, Problem Description : Fall assessment-Total score, Problem Comment : Complete Low Risk, Problem Status : Active,, Medical History Problem Title : Fall Risk Assessment: I am worried about falling, Problem Description : Fall Risk Assessment: I am worried about falling, Problem Comment : No, Problem Status : Active,, Medical History Problem Title : Fall Risk Assessment: Sometimes I feel unsteady when I am walking, Problem Description : Fall Risk Assessment: Sometimes I feel unsteady when I am walking, Problem Comment : No, Problem Status : Active,, Medical History Problem Title : fall s in the last twelve months, Problem Description : falls in the last twelve months, Problem Comment : Yes, Problem Status : Active,, Medical History Problem Title : Fall s: Risk Assessment - Patient screened for falls, fall risk, Problem Description : Falls: Risk Assessment - Patient screened for falls, fall risk, Problem Comment : Done, Problem Status : Active,, Medical History Problem Title : Inju ry sustained from fall(s)?, Problem Description : Injury sustained from fall(s)?, Problem Comment : No, Problem Status : Active,, Medical History Problem Title : Is P atient on Medicare. Used for Residency Programs to evaluate precepting guidelines from Medicare, Problem Description : Is Patient on Medicare. Used for Residency Programs to evaluate precepting guidelines from Medicare, Problem Comment : Yes, Problem Status : Active,, Medical History Problem Title : [facility]: Congestive heart failure, Problem Status : Active,, Medical History Problem Title : [facility]: Glaucoma, Problem Status : Active,, Medical History Problem Title : [facility] Annual Wellness Exam, Problem Description : Medicare Annual Wellness Exam, Problem Comment : [id number], Problem Status : Active,, Medical History Problem Title : [facility] Part B,CMOD Checklist #1, Problem Description : Medicare Part B,CMOD Checklist #1, Problem Comment : Yes, Problem Status : Active,, Medical History Problem Title : no k nown problems, Problem Description : no known problems, Problem Comment : F, Problem Status : Active,, Medical History Problem Title : Numb er of previous fall in past year, Problem Description : Number of previous fall in past year, Problem Comment : 0, Problem Status : Active,, Medical History Problem Title : past medical history E&M, Problem Description : past medical history E&M, Problem Comment : Hx cardiomyopathy - Dr. Lynn Hx Rheumatic fever w resultant hearing loss Glaucoma, Problem Status : Active,, Medical History Problem Title : past medical history reviewed, Problem Description : past medical history reviewed, Problem Comment : reviewed - no changes required, Problem Status : Active,, Medical History Problem Title : Corina ent Health Questionaire 9 item inventory, Problem Description : Patient Health Questionaire 9 item inventory, Problem Comment : None, Problem Status : Active,, Medical History Problem Title : PHQ- 9 (patient questionnaire) score, Problem Description : PHQ-9 (patient questionnaire) score, Problem Comment : 0, Problem Status : Active,, Medical History Problem Title : PHQ- 9 Diagnosis, Problem Description : PHQ-9 Diagnosis, Problem Comment : No indication of depression, Problem Status : Active,, Medical History Problem Title : PHQ2 Questionairre Score, Problem Description : PHQ2 Questionairre Score, Problem Comment : 0, Problem Status : Active,, Medical History Problem Title : PHQ9 Question One score, Problem Description : PHQ9 Question One score, Problem Comment : 0, Problem Status : Active,, Medical History Problem Title : PHQ9 Question Two score, Problem Description : PHQ9 Question Two score, Problem Comment : 0, Problem Status : Active,, Medical History Problem Title : Prob lems Reconciled, Problem Status : Active,, Medical History Problem Title : Time for Timed Up and Go (TUG), Problem Description : Time for Timed Up and Go (TUG), Problem Comment : Good < 12 seconds, Problem Status : Active,, Medical History Problem Title : Time d Up and Go Test, Problem Description : Timed Up and Go Test, Problem Comment : Patient exhibits No Problems, Problem Status : Active,, Medical History Problem Title : ABBASI SFUSION HISTORY: Patient has a history of receiving blood or blood product transfusion(s), Problem Status : Active,, Medical History Problem Title : very low density lipoproteins, Problem Description : very low density lipoproteins, Problem Comment : 29.0, Problem Status : Active,, Surgical History Problem Title : Card iac surgery, Problem Status : Active, Surgical History Problem Title : Dila tion and Curettage of Uterus, Problem Status : Active, Surgical History Problem Title : Gum surgery, Problem Status : Active, Surgical History Problem Title : past surgical history reviewed, Problem Description : past surgical history reviewed, Problem Comment : reviewed - no changes required, Problem Status : Active, Surgical History Problem Title : surg ical procedures, hx of, Problem Description : surgical procedures, hx of, Problem Comment : D&C [place] teeth Oral surgery Cataract Colonoscopy Normal - 06/16/2010, Problem Status : Active, Surgical History Problem Title : surg ical procedures, hx of, Problem Description : surgical procedures, hx of, Problem Comment : D&C [place] teeth Oral surgery Cataract, Problem Status : Active, Surgical History Problem Title : Grupo ue surgery, Problem Status : Active, [facility] Other History general Narrative - Reported Note Date & Type Note Facility History general Narrative - Reported Type Medical History Cardiomyopathy Medical History 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, without long-term current use of insulin Medical History Peripheral polyneuropathy Surgical History Cardiac surgery Surgical History Dilation and Curettage of Uteru s Surgical History Gum surgery Surgical History D&C [place] teeth Surgical History Problem Title : Tong ue surgery, Problem Status : Active, Hospitalization History see surgical history [facility] Other Summary Purpose Family History No Family History Records FoundUnknown Family Member Name Dates Details Family history of coronary a rtery disease: Father(V17.3, Z82.49) Status:Active Family history of diabetes m ellitus: Mother, Father, Sibling(V18.0, Z83.3) Status:Active Unknown Family Member Name Dates Details Family history of coronary a rtery disease: Father(V17.3, Z82.49) Status:Active Family history of diabetes m ellitus: Mother, Father, Sibling(V18.0, Z83.3) Status:Active Unknown Family Member Name Dates Details Family history of coronary a rtery disease: Father(V17.3, Z82.49) Status:Active Family history of diabetes m ellitus: Mother, Father, Sibling(V18.0, Z83.3) Status:Active Unknown Family Member Name Dates Details Family history of coronary a rtery disease: Father(V17.3, Z82.49) Status:Active Family history of diabetes m ellitus: Mother, Father, Sibling(V18.0, Z83.3) Status:Active Unknown Family Member Name Dates Details Family history of coronary a rtery disease: Father(V17.3, Z82.49) Status:Active Family history of diabetes m ellitus: Mother, Father, Sibling(V18.0, Z83.3) Status:Active Unknown Family Member Name Dates Details Family history of coronary a rtery disease: Father(V17.3, Z82.49) Status:Active Family history of diabetes m ellitus: Mother, Father, Sibling(V18.0, Z83.3) Status:Active Advance Directives No Advanced Directives Records FoundNo Advanced Directives Records FoundNo Advanced Directives Records FoundNo Advanced Directives Records FoundNo Advanced Directives Records Found Chief Complaint * NICK MCKEON is being seen for an annual follow-up of. * Patient is a 75-year-old healthy female who returns for follow-up and doing well. She has history of nonischemic cardiomyopathy originally with severe LV dysfunction and has now normal LV function asevidenced by 2 separate imaging protocols. Last perfusion stress test from this past year was totally normal with normal ejection fraction. She does have mild essential hypertension we reviewed her blood pressure log, which reveals primarily well-controlled blood pressure other than 2 accelerated events within the last month. * Recommendations, follow-up on a as needed basis, continue monitoring blood pressure, abstain from salt, encourage normal sleep patterns, will follow-up as needed Chief Complaint and Reason for Visit Chief Complaint Wellness On Going Cough For Months Additional Source Comments INFORMATION SOURCE (unrecogn ized section and content) DATE CREATED AUTHOR 11/22/2017 [facility] DATE CREATED AUTHOR AUTHOR'S ORGANIZ ATION 11/01/2020 [facility] DATE CREATED AUTHOR AUTHOR'S ORGANIZ ATION 09/10/2021 [employer] DATE CREATED AUTHOR AUTHOR'S ORGANIZ ATION 10/11/2021 [facility] DATE CREATED AUTHOR AUTHOR'S ORGANIZ ATION 06/30/2023 [facility] REASON FOR VISIT (unrecogniz ed section and content) FLU ShotlabsWELLNESSglucose meterWELLNESSOn Going Cough for MonthsCXRUA-Pain Care Teams (unrecognized sec tion and content) Team Status: Inactive Member Role Status Dates Madison Singh MD Attending Provider Active art: April 05, 2023 End: April 05, 2023 Team Status: Inactive Member Role Status Dates Madison Singh MD Attending Provider Active art: May 12, 2023 End: May 12, 2023 Team Status: Inactive Member Role Status Dates Madison Singh MD Attending Provider Active art: June 23, 2023 End: June 23, 2023 Goals (unrecognized section and content) Goals may be documented in a n alternate section FOR RECORDS PERTAINING TO PATIENTS WHO ARE OR HAVE BEEN ENROLLED IN A CHEMICAL DEPENDENCY/SUBSTANCEABUSE PROGRAM, SOME INFORMATION MAY BE OMITTED. This clinical summary was aggregated from multiple sources. Caution should be exercised in using it in the provision of clinical care. This summary normalizes information from multiple sources, and as a consequence, information in this document may materially change the coding, format and clinical context of patient data. In addition, data may be omitted in some cases. CLINICAL DECISIONS SHOULD BE BASED ON THE PRIMARY CLINICAL RECORDS. [facility] [employer] provides no warranty or guarantee of the accuracy or completeness of information in this document.
[2023-07-06 12:13] LABS: Bilirubin Urine NEGATIVE (NEGATIVE); Blood Urine NEGATIVE (NEGATIVE); Clarity Urine CLEAR (CLEAR); Color Urine LT. YELLOW (YELLOW); Glucose Urine UA NEGATIVE (NEGATIVE); Ketones Urine NEGATIVE (NEGATIVE); Leukocyte Esterase Urine NEGATIVE (NEGATIVE); Nitrite Urine NEGATIVE (NEGATIVE); Protein Urine NEGATIVE (NEG/TRACE); Urobilinogen Urine 0.2 EU/dL (0.2-1.0); pH Urine 5.5 (5.0-9.0)
== END 2023-07-06 11:30 | disposition home or self-care (01) ==
PROVIDERS: PCP Family Medicine; Visit Provider Family Medicine
DX: R30.0 Dysuria (principal)
CPT/HCPCS: 81003; 87086

== ENCOUNTER 2023-11-19 12:27 | Outpatient (OUT) | payer MEDICARE, OTHER, SELFPAY ==
--- NOTE | 2023-11-19 | CT_ITS ---
The [address] [address] Patient Name: NICK MCKEON MRN: [id number] date: 1945 Sex: F Assigned Patient Location: LAB Current Patient Location: LAB Accession/Order Number: [id number] Exam Date: 11/19/2023 14:00 Report Date: 11/19/2023 14:52 At the request of: ADRIAN SINGH Procedure: CT abdomen pelvis w con EXAM: CT abdomen pelvis w con HISTORY: LEFT LOWER QUADRANT ABDOMINAL PAIN. COMPARISON: None. TECHNIQUE: Images of the abdomen and pelvis were obtained with IV contrast. Dose reduction techniques were achieved by using automated exposure control and/or adjustment of mA and/or kV according to patient size and/or use of iterative reconstruction technique. FINDINGS: Lung bases are clear. No adrenal mass or adenopathy. No obstructive uropathy. Portal vein is patent. No biliary obstruction. Dense aortic atherosclerosis without aneurysm. There is no bowel obstruction, pneumatosis, or pneumoperitoneum. Edema is noted in the right lower quadrant and there is an area of irregular peripherally enhancing fluid collection measuring 1.8 x 1.2 x 3.6 cm. There is thickening of the wall of the cecum and adjacent ileum and the proximal appendix appears edematous with the distal appendix not well delineated. There is no pelvic adenopathy or ascites. Uterus is atrophic. Bladder is decompressed. CT/CT abdomen pelvis w con IMPRESSION: Inflammation in the right lower quadrant with wall thickening of the cecum, distal ileum, and appendix as well as a small fluid collection as documented. Constellation of findings in this region is most likely related to perforated appendicitis with small periappendiceal abscess although terminal ileitis is also on the differential. There is no evidence of visceral perforation or bowel obstruction. The fluid collection is unlikely amenable to drainage. Electronically authenticated by: THALIA LUNA Date: 11/19/2023 14:52
--- OUTSIDE RECORDS SUMMARY | 2023-11-19 12:31 | XMS_ITS | CCD ---
Author Organization [facility] CliniSysd Care Team Providers Care Academic Dean Name Role Phone Luis New Unavailable Unavailable Luis New Unavailable Unavailable Luis New Unavailable Unavailable MADISON SINGH~[phone] UNKNOWN Unavailable Unavailable TIMMIMain, DR STEINBERG Consulting Unavailable TIMMIS, DR STEINBERG Admitting Unavailable SINGH, DR MADISON Gonzalez Primary Care Unavailable TIMMIS, DR STEINBERG Attending Unavailable WEST, DR JOSE ALEJANDRO Jiménez Consulting Unavailable REQUEST, DR WEBSTER LISTED Attending Unavaila ble REQUEST, DR WEBSTER LISTED Consulting Unavaila ble REQUEST, DR WEBSTER LISTED Admitting Unavaila ble Unavailable Unavailable None, No PCP Unavailable Unavailable Madison Singh Unavailable Madison Singh Unavailable MD Madison Singh Attending Provider [phone] Madison Singh Attending Unavailable Madison Singh Admitting Unavailable NO FAMILY, PHYSICIAN Primary Care Unavailable Allergies Allergy Classification Reported Allergen(s) Allergy Type Date of Onset Reaction(s) Facility Penicillins (antibiotic) (2 sources) Penicillins Drug Allergy 01-17-20 13 PENICILLINS [facility] Repository raNITIdine (1 source) raNITIdine Drug Allergy 11-19-19 24 [facility] (5 sources) penicillin; Translations: [penicillin] Drug Allergy 06-08-19 14 AOF, Unknown [facility] Repository (6 sources) Hmg-Coa Reductase Inhibitors (Statins); Translations: [Statins] Allergy to drug (finding) [facility] 250 DO Work Phone: (6 sources) Penicillins; Translations: [Penicillins] Allergy to drug (finding) [facility] 250 DO Work Phone: (10 sources) HMG-CoA reductase inhibitor Drug allergy 10-05-19 19 Unknown [facility] Other (10 sources) Penicillins (Antibiotic) Propensity to adverse reactions rash [facility] Other (10 sources) raNITIdine Drug Allergy 12-11-19 16 Unknown [facility] Other (4 sources) Allergies Reconciled Propensity to adverse reactions Unknown [facility] Other (10 sources) Substance with penicillin structure and antibacterial mechanism of action (substance) Drug allergy 02-29-20 18 PENICILLINS [facility] Other (4 sources) patient allergy list reviewed by nurse or physicia Propensity to adverse reactions 12-11-19 16 Comment:Done [facility] Other (1 source) Penicillins Drug allergy (disorder) 05-12-20 [facility] Repository (1 source) raNITIdine Drug Allergy 05-12-20 [facility] Repository (2 sources) Fbrvgkh-ENY-WmE Reductase Inhibitor Drug allergy (disorder) 05-12-20 Hives [facility] Repository Medications Current Medications Medication Drug Class(es) Dates Sig (Normalized) Sig (Original) ascorbic acid 500 mg oral tablet (12 sources) Vitamin C Start: 11-19-2023 take 1 tablet by mouth once daily Ascorbic Acid (Vitamin C) Active 1 TAB PO Daily November 19, 2023 12:00am [employer] tablet Orally Once a day; Note: Source Status: Taking; Provider: Orlando Wallace ( ) take 1 tablet by yamile th every [...] day(s) Active azithromycin 250 mg oral tablet (5 sources) Macrolide Antimicrobial Start: 023 Azithromycin 250 MG as directed Orally 2 tabs po today, then 1 tab daily x 4 more days for 5 Apr, Active B Complex (1 source) B Complex as directed Orally Active calcium carbonate 1500 mg / cholecalciferol 200 unt oral tablet (1 source) Vitamin D take 1 tablet by mouth once daily at mealtime Calcium + D 600-200 MG-UNIT 1 tablet with food Orally Once a day for 30 day(s) Active carvedilol 25 mg oral tablet (20 sources) alpha-Adrenergic Amber, beta-Adrenergic Amber Start: End: take 1 tablet by mouth twice daily at mealtime Carvedilol Active 0 .ROUTE .COMPLEX 180 November 05, 2023 12:16pm TAKE 1 TABLET BY MOUTH TWICE A DAY WITH FOOD FOR 90 DAYS Start: 08-09-2023 End: 08-09-2023 take 25 mg by mouth twice daily Carvedilol Discontinued 25 MG PO Twice daily August 09, 2023 12:00am August 09, 2023 1:09pm Start: 07-28-2021 Carvedilol 25M G Carvedilol( 25MG Oral two times daily ) Active -Hx Entry Oral two times daily for 0 *Pick strength-form from [employer] for eRX* Nov, Active cetirizine hydrochloride 10 mg oral tablet (1 source) Histamine-1 Receptor Antagonist Start: 11-19-2023 take 1 tablet by mouth once daily Cetirizine (24hour Allergy) 10 mg tablet Active 10 MG PO Daily November 19, 2023 12:00am [facility] Vitamin C 500MG (10 sources) Start: 12-15-2021 take 500 mg by mouth once daily [facility] Vitamin [facility] 500MG [facility] Vitamin C( 500MG Oral daily ) Active -Hx Entry Oral daily for 0 *Pick strength-form from [employer] for eRX* Nov, Active Glucosamine Complex (1 [...] sulfate 240 mg extended release oral tablet (10 sources) alpha-Adrenergic Agonist take 1 tablet by mouth every twenty-fou r hours Allergy Relief D-24 10-240 MG 1 tablet Orally Once a day for 30 day(s) Active methylPREDNISolone 4 mg oral tablet (5 sources) Corticosteroid Start: 05-18-2023 methylPREDNISolone 4 MG as directed Orally for 6 days Apr, Active Multivitamins (1 source) Multivitamins as directed Orally Active pravastatin sodium 10 mg oral tablet (1 source) HMG-CoA Reductase Inhibitor take 1 tablet by mouth every twenty-fou r hours Pravastatin Sodium 10 MG 1 tablet Orally Once a day for 30 day(s) Active predniSONE 10 mg oral tablet (1 source) Start: 12-15-2021 take 1 tablet by mouth once daily Prednisone 10 MG predniSONE 10MG, 1 (one) Tablet 2 tabs po x 3 days then 1 tabs daily x 3 days # 9, 12/15/2021, No Refill. Active Oral 2 tabs po x 3 days then 1 tabs daily x 3 days for 0 Nov, Active raNITIdine 300 mg oral tablet (1 source) Histamine-2 Receptor Antagonist Start: 01-28-2011 take 1 tablet by mouth once daily Zantac 300 MG 1 tablet Orally once daily Dec, Active True Metrix Blood Glucose Test - (10 sources) True Metrix Bloo d Glucose Test - USE DAILY TO TEST BLOOD SUGAR E11.65 for 90 Active Veramyst 27.5 MCG/SPRAY (10 sources) Start: 01-28-2011 take 2 puff(s) nasal route once daily Veramyst 27.5 MCG/SPRAY 2 puffs in each nostril Nasally Once a day for 30 day(s) Dec, Active Completed/Discontinued Medications Medication Drug Class(es) Dates Sig (Normalized) Sig (Original) fluticasone furoate 0.0275 mg/actuat metered dose nasal spray (1 source) Corticosteroid Start: 11-19-2023 End: 11-19-2023 take 1 spray(s) nasal route once daily Fluticasone Furoate Discontinued 1 SPRAY INTRANASAL Daily November 19, 2023 12:00am November 19, 2023 11:30am into each nostril loratadine 10 mg oral tablet (1 source) [...] Problem Date Documented Date Episodic/Chronic Abdominal pain (4 sources) Unspecified abdominal pain; Translations: [Left lower quadrant pain] Onset: 06-23-2023 Episodic Allergic reactions (8 sources) Allergic contact dermatitis due to plants, except food; Translations: [Allergic contact dermatitis due to plants, except food] Onset: 02-10-2016 Episodic Cardiac dysrhythmias (6 sources) Palpitations; Translations: [Palpitations] Episodic Diabetes mellitus with complications (17 sources) Hyperglycemia due to type 2 diabetes [...] hypertension] Chronic Genitourinary symptoms and ill-defined conditions (9 sources) Genitourinary symptoms; Translations: [Unspecified symptoms and [...] Translations: [Cough] Episodic Other nervous system disorders (9 sources) Polyneuropathy; Translations: [Polyneuropathy, unspecified] Chronic Other [...] Urinalysis - DIPSTICKon 06-01 Appearance (U) Hazy [employer] Other Bilirubin Ql (U) Negative [employer] Other Color (U) Dark Yellow [facility] Other Glucose Ql (U) Negative [employer] Other Hemoglobin Ql (U) Negative [employer] Other Ketones Ql (U) Negative [employer] Other Leukocyte esterase Test strip Ql (U) Negative [facility] Other Nitrite Ql (U) Negative [employer] Other pH (U) 5.0 [pH] [facility] Other Protein Ql (U) + [employer] Other Specific gravity (U) [Rel density] 1.025 [facility] Other Urobilinogen (U) [Mass/Vol] 0.2 mg/dL [facility] Other Urinalysis - DIPSTICK [facility] Other Urine Cultureon 06-23-2023 Bacteria identified Cx Nom (U) ORGANISM: Klebsiella pneumoniae (O:KLEPNE) [place] Count 15,000 Aerobic SOY Charge ([id number]) --- [...] RESISTANT TO ALL B-LACTAM DRUGS. PERFORMED BY: [place] [id number] PATHOLOGIST ELECTRONICS TECHNICIAN APPRENTICE LEAH ACE M.D. [facility] Comment on above: Performed By: #### C UU #### [address] Office Visit (Cardiology)on 09-09-2021 Follow-up visit [...] Weight Tips; Status:Complete - Retrospective Authorization; Done: [id number] SocHx: Never a smoker Tobacco Use Screening; Status:Complete; Done: 09Sep2021 Tobacco Use Screening; Status:Complete; Done: 09Sep2021 Patient Instructions By signing my name below, I, Ivonne Saenz LPN, Scribe, attest that this documentation has been prepared under the direction and in the presence of Dr. Robert Lynn DO. All medical record entries made by the Anaisibe were at my direction and personally dictated [...] visit Follow up as needed Chief Complaint CECILIA NGUYEN is being seen for an annual follow-up [...] negative for complaint. Vitals Vital Signs Recorded: 09Sep2021 09:16AM Heart Rate69, L Radial Ebocamza970, LUE, Sitting Ydauwnmke29, LUE, Sitting Height5 ft 4 in Hfjurp372 lb 12.8 oz BMI Satefeisvd11.23 kg/m2 BSA Calculated1.74 Tobacco Useb) No PHQ-2 [...] Sep 09 2021 10:03AM EST (Author) Normal hike Tobacco Screening.on 022 Adult depression screening assessment [facility] DO Work Phone: Fall risk assessment a) No falls within the last year [facility] 250 DO Work Phone: Tobacco use status CP b) No -[facility] 250 DO Work Phone: [facility] CARDIAC STRESS/REST INJE CTIONon 08-27-2021 [facility] CARDIAC STRESS/REST INJECTION Patient Name: CECILIA NGUYEN STUDY: MYOCARDIAL PERFUSION STRESS TEST WITH EXERCISE Performing facility: [facility], [address] [place] [address], [address], [place] [address] [facility] Provider: Consuelo Lynn DO, FACC PCP: Dr. Almas Singh Supervising provider: Consuelo Lynn DO, FACC INDICATION: Chest Pain; Palpitations Hyperlipidemia HTN Cardiomyopathy HISTORY: Gender: F; Age: 75 y/o ; Height: 0 cm; Weight: 0 kg. High Cholesterol; HTN; Palpitations; Denies smoking. Cardiac catheterization on 2001. COMPARISON: Previous nuclear testing completed at [facility]. ACCESSION NUMBER(S): [id number]; [id number]; [id number] ORDERING CLINICIAN: ROBERT LYNN TECHNIQUE: ONE DAY [...] Electronically signed by: TORO MAJOR MD Normal [facility] No Panel Informationon 08-27 Please click on the link to view the study images Normal -[facility] 250 DO Work Phone: Normal -[facility] 250 DO Work Phone: CREATININEon 10-23-2020 Creatinine [Mass/Vol] 0.90 mg/dL Normal 0.52-1.04 [facility] Comment on above: Performed By: #### C BERNARDA #### [facility] [address] [place] [address] Dean Ulrich EGFR-AF ANGOLAN >60 Normal >=60 [facility] Comment on above: Performed By: #### C BERNARDA #### [facility] [address] [place] [address] Deancisco Contrerasen EGFR-NON AF ANGOLAN >60 Normal >=60 [facility] Comment on above: Performed By: #### C BERNARDA #### [facility] [address] [place] [address] Dean Ulrich MRI BRAIN WO W CONon 021 MRI BRAIN WO W CON EXAMINATION: MRI BRA IN WO W CON HISTORY: Hearing loss of left ear [...] JOSE ALEJANDRO MAJOR Date: 2020-10-23 10:21 Normal [facility] Coding Summary.on 06-23-2017 Coding Summary. 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 SECONDARY: PYMT PROC APC STAT DESCRIPTION DOCTOR NAME DATE 98477 5481 T Discission of secondary Luis New [...] Rodriguez Date Saved: 06/23/2017 09:04 am Normal [facility] Vital Signs Date Time Vital Sign Value Performing Clinician Facility 11-19-2023 11:20-0400 Body height 162.56 cm [facility] 11-19-2023 11:20-0400 Body mass index (BMI) [Ratio] 27.5 kg/m2 [facility] 11-19-2023 11:20-0400 Body temperature 98 [degF] [facility] 11-19-2023 11:20-0400 Body weight 72.8 kg [facility] 11-19-2023 11:20-0400 Diastolic blood pressure 59 mm[Hg] [facility] 11-19-2023 11:20-0400 Heart rate 80 /min [facility] 11-19-2023 11:20-0400 Systolic blood pressure 93 mm[Hg] [facility] 05-12-2023 09:45-0500 Body height 162.56 cm Madison Singh Other [facility] Other 05-12-2023 09:45-0500 Body mass index (BMI) [Ratio] 28.9 kg/m2 Madison Singh Other [facility] Other 05-12-2023 09:45-0500 Body temperature 98 [degF] Madison Singh Other [facility] Other 05-12-2023 09:45-0500 Body weight 76.39 kg Madison Singh Other [facility] Other 05-12-2023 09:45-0500 Diastolic blood pressure 66 mm[Hg] Madison Singh Other [facility] Other 05-12-2023 09:45-0500 SaO2% (BldA) [Mass fraction] 96 % Madison Singh Other [facility] Other 05-12-2023 09:45-0500 Systolic blood pressure 103 mm[Hg] Madison Singh Other [facility] Other 04-05-2023 09:00-0500 Body height 162.56 cm Madison Singh Other [facility] Other 04-05-2023 09:00-0500 Body mass index (BMI) [Ratio] 28.59 kg/m2 Madison Singh Other [facility] Other 04-05-2023 09:00-0500 Body weight 75.57 kg Madison Singh Other [facility] Other 04-05-2023 09:00-0500 Diastolic blood pressure 80 mm[Hg] Madison Singh Other [facility] Other 04-05-2023 09:00-0500 Systolic blood pressure 150 mm[Hg] Madison Singh Other [place] [facility] Other 09-09-2021 09:16-0400 Body height 162.56 cm Madison Singh Work Phone: [facility] 250 DO Work Phone: 09-09-2021 09:16-0400 Body mass index (BMI) [Ratio] 26.23 kg/m2 Madison Singh Work Phone: [facility] 250 DO Work Phone: 09-09-2021 09:16-0400 Body surface area Derived from formula 1.74 m2 Madison Singh Work Phone: [facility] 250 DO Work Phone: 09-09-2021 09:16-0400 Body weight 69.31 kg Madison Singh Work Phone: [facility] 250 DO Work Phone: 09-09-2021 09:16-0400 Diastolic blood pressure 80 mm[Hg] Madison Singh Work Phone: [facility] 250 DO Work Phone: 09-09-2021 09:16-0400 Heart rate 69 /min Madison Singh Work Phone: [facility] 250 DO Work Phone: 09-09-2021 09:16-0400 Systolic blood pressure 130 mm[Hg] Madison Singh Work Phone: [facility] 250 DO Work Phone: 08-27-2021 08:00-0400 59 1 No PCP None [facility] [place] Work Phone: Comment on above: [id number] Encounters Encounter Date Encounter Type Care Provider Facility Start: 11-19-2023 End: 11-19-2023 ambulatory [facility] Work Phone: Start: 11-19-2023 End: 11-19-2023 Patient encounter procedure [facility] Physician [facility] Work Phone: Start: 07-06-2023 End: 07-06-2023 ambulatory Madison Singh Other [facility] Other Start: 07-06-2023 Telephone encounter Madison Singh [facility] Start: 07-05-2023 End: 07-05-2023 ambulatory Madison Singh Other [facility] Other Start: 07-05-2023 Telephone encounter Madison Singh [facility] Start: 06-23-2023 Nursing evaluation o f patient and report Madison Singh [facility] Start: 06-23-2023 End: 06-23-2023 ambulatory Madison Singh [place] [facility] Other Start: 06-23-2023 End: 06-23-2023 Departed Referred MD Madison Singh Work Phone: [facility] [place] Work Phone: Start: 05-18-2023 End: 05-18-2023 ambulatory Madison Singh Other [facility] Other Start: 05-18-2023 Telephone encounter Madison Singh [facility] Start: 05-12-2023 End: 05-12-2023 ambulatory Madison Singh Other [facility] Other Start: 05-12-2023 Office outpatient vi sit 15 minutes Madison Singh [facility] Start: 05-12-2023 End: 05-12-2023 Patient encounter procedure MD Madison Singh Work Phone: [facility] Physician [facility] Work Phone: Start: 04-28-2023 End: 04-28-2023 ambulatory Madison Singh Other [facility] Other Start: 04-28-2023 Telephone encounter Madison Singh [facility] Start: 04-06-2023 End: 04-06-2023 ambulatory Madison Singh Other [facility] Other Start: 04-06-2023 Telephone encounter Madison Orlando [facility] Start: 04-05-2023 End: 04-05-2023 ambulatory Madison Singh Other [facility] Other Start: 04-05-2023 Patient encounter procedure Madison Singh [facility] Start: 04-05-2023 End: 04-05-2023 Patient encounter procedure MD Madison Singh Work Phone: [facility] Physician [facility] Work Phone: Start: 02-04-2023 End: 02-04-2023 ambulatory Madison Orlando Other [facility] Other Start: 02-04-2023 Nursing evaluation o f patient and report Madison Orlando [facility] Start: 12-15-2021 Adult health examination Madison Singh Other [facility] Other Start: 09-09-2021 Office outpatient vi sit 15 minutes Madison Singh Work Phone: [facility] 250 DO Work Phone: Start: 09-01-2021 Chart Update No PCP None -[facility] 250 DO Work Phone: Start: 08-27-2021 Patient encounter procedure No PCP None [facility] [place] Work Phone: Start: 08-01-2021 AUDIT No PCP None [facility] 250 DO Work Phone: Start: 08-01-2021 Telephone encounter Lizzy Truong REVIEW ASSISTANT-DISCHARGE RN Work Phone: [facility] 250 DO Work Phone: Start: 07-28-2021 Rx Renewal Robert mabry DO Work Phone: [facility] 250 DO Work Phone: Start: 10-23-2020 End: 10-24-[address] MARYAN FOLEY Facility: Start: 08-05-2020 End: 08-06-2020 ambulatory NONE LISTED REQUEST Facility: Start: 06-22-2017 End: 06-22-2017 Ambulatory Luis New Facility:[facility] Procedures Date Procedure Procedure Detail Performing Clinician [...] 06-23-2023 Bacteria identified in Urine by Culture [facility] Start: 09-09-2021 FUV, Provider: Robert Lynn, Status: Pen, Time: 9:00 AM FUV, Provider: Robert Lynn, Status: Pen, Time: 9:00 AM [facility] 250 DO Work Phone: Start: 08-27-2021 STRESS NUC, Provider : NIKITA HHVI NUCLEAR ,[id number], Status: Pen, Time: 8:00 AM STRESS NUC, Provider: NIKITA HHVI NUCLEAR ,[id number], Status: Pen, Time: 8:00 AM [facility] 250 DO Work Phone: Comprehensive metabo lic 2000 panel - Serum or Plasma [facility] CT Abdomen and Pelvi s W contrast IV [facility] Immunizations Immunization Date Immunization Notes Care Provider Fa cility 02-04-2023 influenza virus vaccine, unspecified formulation [facility] 02-04-2023 influenza, high dose seasonal, preservative-free Madison Singh Other [facility] Other 02-18-2022 influenza virus vaccine, split virus (incl. purified surface antigen) Madison Singh Other [facility] Other 02-18-2022 influenza virus vaccine, unspecified formulation [facility] 03-28-2021 Moderna COVID-19 Vaccine 100 MCG/0.5ML Intramuscular Suspension No PCP None [facility] 250 DO Work Phone: 02-07-2021 influenza virus vaccine, split virus (incl. purified surface antigen) Madison Singh Other [facility] Other 02-07-2021 influenza virus vaccine, unspecified formulation [facility] 08-05-2020 Claudia COVID-19 Vaccine 0.5 ML Intramuscular Suspension Robert Lynn DO Work Phone: [facility] 250 DO Work Phone: 02-29-2020 influenza virus vaccine, split virus (incl. purified surface antigen) Madison Singh Other [facility] Other 02-29-2020 influenza virus vaccine, unspecified formulation Robert Lynn DO Work Phone: [facility] 02-28-2019 influenza virus vaccine, unspecified formulation Robert Lynn DO Work Phone: [facility] 250 DO Work Phone: 02-27-2019 influenza virus vaccine, split virus (incl. purified surface antigen) Madison Singh Other [facility] Other 02-27-2019 influenza virus vaccine, unspecified formulation [facility] 02-28-2018 influenza virus vaccine, split virus (incl. purified surface antigen) Madison Singh Other [facility] Other 02-28-2018 influenza virus vaccine, unspecified formulation [facility] 02-28-2018 Influenza, injectabl e, Madin [place] Canine Kidney, quadrivalent with preservative No [facility]CP [facility] Work Phone: 01-29-2018 influenza virus vaccine, unspecified formulation Robert Lynn DO Work [facility]: [facility] Work Phone: 02-11-2017 influenza virus vaccine, split virus (incl. purified surface antigen) Madison Singh Other [facility] Other 02-11-2017 influenza virus vaccine, unspecified formulation [facility] 02-11-2017 influenza, high dose seasonal, preservative-free No PCP None [facility] 250 DO Work Phone: 01-29-2017 influenza virus vaccine, unspecified formulation Robert Lynn DO Work Phone: [facility] 250 DO Work Phone: 02-10-2016 influenza virus vaccine, split virus (incl. purified surface antigen) Madison Singh Other [facility] Other 02-10-2016 influenza virus vaccine, unspecified formulation [facility] 01-30-2016 influenza, injectabl e, quadrivalent, preservative free No PCP None [facility] 250 DO Work Phone: 03-27-2015 tetanus and diphther ia toxoids, adsorbed, preservative free, for adult use (5 Lf of tetanus toxoid and 2 Lf of diphtheria toxoid) Madison Singh Other [facility] 01-29-2015 influenza virus vaccine, unspecified formulation Robert Lynn DO Work Phone: [facility] 250 DO Work Phone: 03-23-2014 tetanus and diphther ia toxoids, adsorbed, preservative free, for adult use (5 Lf of tetanus toxoid and 2 Lf of diphtheria toxoid) Madison Singh Other [facility] 02-28-2014 influenza virus vaccine, whole virus Robert Lynn DO Work Phone: [facility] 250 DO Work Phone: 04-30-2012 pneumococcal polysaccharide vaccine, 23 valent Robert Lynn DO [facility] Work Phone: 04-11-2012 pneumococcal polysaccharide vaccine, 23 valent Madison Singh Other [facility] 02-29-2012 pneumococcal polysaccharide vaccine, 23 valent No PCP None [facility] 250 DO Work Phone: 05-31-2011 influenza virus vaccine, unspecified formulation [facility] Lynn DO [facility] Work Phone: 05-31-2010 influenza virus vaccine, unspecified formulation Robert Lynn DO Work Phone: [facility] Work Phone: 05-31-2009 influenza virus vaccine, unspecified formulation [facility] Lynn DO [facility] Work Phone: 03-31-2009 influenza virus vaccine, unspecified formulation Robert Lynn DO Work Phone: [facility] 250 DO Work Phone: Payers Date Payer Category Payer Private Health Insurance [facility] [id number] 2023 Self-pay 2017 Medicare [id number] 1958 Medicare [id number] 1958 Self-pay [id number] 1958 Unknown [id number] 1945 Unknown [id number] [facility] [id number] Unknown [id number] Unknown Unknown [place] [id number] Unknown [id number] Social History Date Type Detail Facility Social alcohol use Social alcohol use - [facility] 250 DO Work Phone: Sex Assigned At Sex Assigned At [facility] [facility] Other Start: 1945 Sex Assigned At Female F [facility] Start: 05-12-2023 Tobacco smoking status [facility] Tobacco smoking consumption unknown (finding) [facility] Equipment Procedure Code Equipment Code Equipment Origin al Text Equipment Identifier Dates Start: 05-05-2021 Blood Sugar Diagnostic (True Metrix Glucose Test Strip) strip Start: 11-08-2023 Lancets (Ultra T hin Lancets) 30 gauge misc Start: 08-17-2023 Blood Sugar Diagnostic (Onetouch Ultra Test) strip Start: 08-17-2023 End: 11-01-2023 Blood Sugar Diagnostic (True Metrix Glucose Test Strip) strip Start: 11-01-2023 End: 11-01-2023 Blood Sugar Diagnostic (True Metrix Glucose Test Strip) strip Start: 11-01-2023 End: 11-08-2023 Evaluation note 07-05-2023 Note Date & Type Note Facility 07-05-2023 Evaluation note Encounter Date Diagnosis Assessment Notes Jul, Dysuria (ICD-10 - R30.0) [place] [facility] Other Evaluation note 06-23-2023 Note Date & Type Note Facility 06-23-2023 Evaluation note Encounter Date Diagnosis Assessment Notes May, Flank pain (ICD-10 - R10.9) [facility] Other Evaluation note 05-12-2023 Note Date & Type Note Facility 05-12-2023 Evaluation note Encounter Date Diagnosis Assessment Notes Apr, Chronic cough (ICD-10 - R05.3) Eval CXR due to length of cough. r/o pneumonia or other interstitial markings. Finish antibiotics and steroids. Call if cough continues for potential pulm referral. [facility] Other Evaluation note 04-05-2023 Note Date & [...] unspecified (ICD-10 - I42.9) CARDIOMYOPATHY assess labs [facility] Other Evaluation note Note Date & Type Note Facility Evaluation note No Information [employer] Other Evaluation note Note Date & Type Note Facility Evaluation note No assessment information availa [facility] Work Phone: Evaluation note Note Date & Type Note Facility Evaluation note Diagnosis Onset Date LLQ abdominal pain acute [facility] Work Phone: History general Narrative - Reported [...] procedures, hx of, Problem Comment : D&C [place] teeth Oral surgery Cataract Colonoscopy Normal - 06/16/2010, Problem Status : Active, Surgical History Problem Title : surg ical procedures, hx of, Problem Description : surgical procedures, hx of, Problem Comment : D&C [place] teeth Oral surgery Cataract, Problem Status : Active, Surgical History Problem Title : Tong ue surgery, Problem Status : Active, [facility] Other History general Narrative - Reported Note [...] : Active,, Medical History Problem Title : [facility] MARIA LUISA: Congestive heart failure, Problem Status : Active,, Medical History Problem Title : [facility]: Glaucoma, Problem Status : Active,, Medical History Problem Title : [facility] Annual Wellness Exam, Problem Description : Medicare Annual Wellness Exam, Problem Comment : [id number], Problem Status : Active,, Medical History Problem Title : [facility] Part B,CMOD Checklist #1, Problem Description : [...] procedures, hx of, Problem Comment : D&C [place] teeth Oral surgery Cataract Colonoscopy Normal - 06/16/2010, Problem Status : Active, Surgical History Problem Title : surg ical procedures, hx of, Problem Description : surgical procedures, hx of, Problem Comment : D&C [place] teeth Oral surgery Cataract, Problem Status : Active, Surgical History Problem Title : Tong ue surgery, Problem Status : Active, [facility] Other History general Narrative - Reported Note Date & Type Note Facility History general Narrative - Reported Type Medical History Cardiomyopathy Medical History 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, without long-term current use of insulin Medical History Peripheral polyneuropathy Surgical History Cardiac surgery Surgical History Dilation and Curettage of Uteru s Surgical History Gum surgery Surgical History D&C [place] teeth Surgical History Problem Title : [employer] [facility] surgery, Problem Status : Active, Hospitalization History see surgical history [facility] Other Summary Purpose Family History Unknown Family Member Name Dates Details Family [...] m ellitus: Mother, Father, Sibling(V18.0, Z83.3) Status:Active Relationship Condition Age at Onset Recorded Date/T adrian brother Diabetes mellitus Unknown Heart disease Unknown Hypertension Unknown daughter History of ovarian cancer Unknown father Heart disease Unknown History of stroke Unknown Unknown Diabetes mellitus Unknown Not Specified Diabetes mellitus Unknown natural son Asthma Unknown sister Diabetes mellitus Unknown Advance Directives Advance Directive Response Recorded Date/ Time Advance Directives No June 25, 2023 10:16am Chief Complaint * CECILIA NGUYEN is being seen for an annual follow-up [...] Complaint Wellness On Going Cough For Months Chief Complaint stomach cramps , liq uids bowels Reason for Visit LLQ abdominal pain Additional Source Comments INFORMATION SOURCE (unrecogn ized section and content) DATE CREATED AUTHOR 11/22/2017 [facility] DATE CREATED AUTHOR AUTHOR'S ORGANIZ ATION 11/01/2020 [facility] DATE CREATED AUTHOR AUTHOR'S ORGANIZ ATION 09/10/2021 [employer] DATE CREATED AUTHOR AUTHOR'S ORGANIZ ATION 10/11/2021 [facility] DATE CREATED AUTHOR AUTHOR'S ORGANIZ ATION 07/09/2023 [facility] REASON FOR VISIT (unrecogniz ed section and content) FLU ShotlabsWELLNESSglucose meterWELLNESSOn Going Cough for MonthsCXRUA-PainmessageUA Care Teams (unrecognized sec tion and content) Team Status: Inactive Member Role Status Dates Madison Singh MD Attending Provider Active St art: April 05, 2023 End: April 05, 2023 Team Status: Inactive Member Role Status Dates Madison Singh MD Attending Provider Active St art: May 12, 2023 End: May 12, 2023 Team Status: Inactive Member Role Status Dates Madison Singh MD Attending Provider Active St art: June 23, 2023 End: June 23, 2023 Team Status: Active Member Role Status Dates PHYSICIAN NO FAMILY Primary Care Provider Active Team Status: Inactive Member Role Status Dates PHYSICIAN NO FAMILY Primary Care Provider Active Start: November 19, 2023 End: November 19, 2023 Madison Singh MD Attending Provider Active St art: November 19, 2023 End: November 19, 2023 Goals (unrecognized section and content) Goals [...] BE BASED ON THE PRIMARY CLINICAL RECORDS. [employer] provides no warranty or guarantee of the accuracy or completeness of information in this document.
[2023-11-19 13:00] LABS: Alanine Aminotransferase 18 U/L (14-59); Albumin Globulin Ratio 0.7; Albumin Level 3.1 g/dL (3.4-5.0); Alkaline Phosphatase 87 U/L (46-116); Anion Gap 18.5; Aspartate Amino Transferase 13 U/L (15-37); BUN Creatinine Ratio 21.8; Bilirubin Total 0.8 mg/dL (0.2-1.0); Carbon Dioxide 21.3 mmol/L (21.0-32.0); Chloride 102 mmol/L (98-107); Estimated GFR (African America 53 (>=60); Estimated GFR (Non-African Ame 44 (>=60); Globulin 4.5 g/dL; Glucose 99 mg/dL (74-106); Potassium 3.8 mmol/L (3.5-5.1); Sodium 138 mmol/L (136-145); Total Protein 7.6 g/dL (6.4-8.2)
[2023-11-19 13:02] LABS: Basophils Percent Auto 0.4 % (0.2-2.0); Eosinophils Absolute Auto 0.1 10^3/uL (0.0-0.7); Hematocrit 38.3 % (36.0-48.0); Hemoglobin 12.4 g/dL (12.0-16.0); Immature Granulocytes Abs Auto 0.04 10^3/uL (0.00-0.03); Immature Granulocytes Pct Auto 0.4 % (0.0-0.5); Lymphocytes Absolute Auto 0.9 10^3/uL (1.2-3.8); Lymphocytes Percent Auto 9.7 % (20.5-60.0); Mean Corpuscular HGB Conc 32.4 g/dL (29.9-35.2); Mean Corpuscular Hemoglobin 28.4 pg (26.7-34.0); Mean Corpuscular Volume 87.8 fL (81.0-99.0); Monocytes Absolute Auto 0.8 10^3/uL (0.3-0.8); Neutrophils Absolute Auto 7.6 10^3/uL (1.4-6.5); Neutrophils Percent Auto 80.5 % (43.0-75.0); Platelet Count 167 10^3/uL (150-450); Red Blood Count 4.36 10^6/uL (4.20-5.40); Red Cell Distribution Width 13.7 % (11.0-15.0); White Blood Count 9.5 10^3/uL (4.0-11.0)
== END 2023-11-19 12:28 | disposition home or self-care (01) ==
PROVIDERS: PCP Family Medicine; Visit Provider Family Medicine
DX: R10.32 Left lower quadrant pain (principal)
CPT/HCPCS: 36415; 74177; 80053; 85025; Q9967

== ENCOUNTER 2023-11-19 14:59 | Inpatient (IN) | payer MEDICARE, SELFPAY ==
--- NOTE | 2023-11-19 | CONS_ITS ---
CONSULTATION CONSULTATION DATE: ??11/19/2023 CHIEF COMPLAINT:? Abdominal pain, abnormal CT scan, diarrhea. HISTORY OF PRESENT ILLNESS: Patient is a 77-year-old female with history of hypertension, glaucoma, lupus anticoagulant disorder, who was in her normal state of health until four days ago, when she developed crampy bilateral lower abdominal pain. This was associated with some nausea and anorexia.? She was drinking liquids fine.? No emesis.? No fevers or chills.? This persisted for several days and yesterday she developed frequent loose stools that were watery with no blood.? She did see her physician. Dr. Perry, today who ordered some blood work, as well as a STAT abdominal/pelvic CT scan.? She had normal white blood cell count.? CT revealed evidence of thickening and inflammation of the cecum and terminal ileum with some small fluid collection around the terminal ileum.? The appendix was not significantly dilated, but was obviously caught up in this inflammatory process.? There was no free air.? No air within the fluid collection.? Patient was referred to the emergency room and admitted for further evaluation and workup. She has not gotten anything for pain.? Reports that she is not having severe pain, just the intermittent cramping, which is worse with eating, so she has not been eating, just drinking, which has not exacerbated the problem.? She has had no dysuria, frequency, urgency or hematuria.? No emesis. Continues to be afebrile.? She has had no previous abdominal surgeries.?? She does report that she had a colonoscopy five years ago at [facility], which she was told was normal.? She denies any recent travel, has had no recent antibiotic therapy.? No change in medications or [id number] medications.? No significant aspirin or NSAID use.? She does not smoke or use illicit drugs.? Negative for GI malignancy or inflammatory bowel disease.? ALLERGIES:? Patient does report allergies to penicillin which causes a rash. CORONARY MEDICATIONS:? Carvedilol for hypertension. PAST SURGICAL HISTORY:? Significant for cataract surgery as well as previous right heart catheterization.? FAMILY HISTORY:? Positive for diabetes in her parents and siblings, as well as hypertension. SOCIAL HISTORY:? Patient is a .? She denies tobacco use, alcohol use, illicit drug us. REVIEW OF SYSTEMS: ?Ten system review of systems is negative for recent weight loss or weight gain.? She denies increased fatigue or light-headedness.? She has had no earache or tinnitus.? No sinus congestion.? No sore throat or hoarseness.? No chest pain, palpitations or syncope.? No chronic cough, shortness of breath or hemoptysis.? She has had the crampy abdominal pain and nausea, anorexia, as well as frequent watery stools.? No melena, hematochezia or bright red blood per rectum.? No dysuria, frequency, urgency or hematuria.? No headaches, seizures or tremors.? No easy bruising or bleeding.? No heat or cold intolerance.? No polydipsia, polyphagia or polyuria. PHYSICAL EXAM:? VITAL SIGNS:? Patient is afebrile.? Blood pressure is 122/73.? Pulse is 80 and regular.? Respiratory rate is 16.? O2 saturation is 94% on room air.? GENERAL:? In general, she is a well developed, well nourished, elderly female, in no acute distress.? HEENT:? Normocephalic, atraumatic.? Sclerae anicteric.? Conjunctiva not injected.? Oral mucosa is moist without lesions.? NECK:? Supple.? There is no adenopathy, thyromegaly or JVD. LUNGS:? Clear bilaterally.? CARDIAC EXAM:? Regular rhythm and rate without appreciable murmurs, rubs or gallops. ABDOMEN:? Slightly distended.? It is soft.? There are normal active bowel sounds.? There is mild bilateral lower abdominal tenderness without peritoneal signs.? No masses.? No hepatosplenomegaly.? No hernias noted.? No CVA tenderness.? SKIN:? Warm and dry without lesions, rashes or ulcers. NEURO EXAM:? Non-focal.? Non-lateralizing.? Patient is awake, alert, oriented with appropriate affect. IMAGING/LABORATORY DATA: CT scan images were personally reviewed, as were the laboratory evaluation. ASSESSMENT: A 77-year-old female with four day history of crampy abdominal pain, now with frequent watery stools, anorexia and CT scan with evidence of inflammatory changes in the right lower quadrant, particularly of the terminal ileum and cecum, as well as a small fluid collection without air.? Normal white blood cell count, afebrile.? Of note is the patient does report two other episodes of these exact symptoms; one that was in May and one in August, she had attributed to UTIs; although she was never treated with antibiotics and these resolved spontaneously. Gastroenteritis, terminal ileitis versus cecal diverticulitis or even possibly a ruptured appendicitis, although I believe, given her clinical presentation, history and current findings and CT findings, that ruptured appendicitis is less likely. PLAN:? Certainly, at this point, four days out, with the inflammatory changes that would be treated with antibiotics as well as the diverticulitis or enteritis, I think the treatment would not change.? I recommend supportive care with bowel rest, IV hydration, empiric Levaquin and Flagyl since patient is allergic to penicillins, and I did order stool for enteric pathogen panel.? We will follow her serial labs and exams and continue supportive care. CC:? Madison Perry M.D. BHARAT
[2023-11-19 15:06] VITALS: BP 142/82; PULSE 85; TEMP 36.7; O2SAT 96; BMI 60.5
--- NOTE | 2023-11-19 15:24 | ED.ABDPAIN1 ---
HPI - Abdominal Pain General Chief Complaint: Abdominal Pain Stated Complaint: r side pain, poss appendix Time Seen by Provider: 11/19/23 15:04 Source: patient Mode of arrival: walk-in Limitations: no limitations History of Present Illness HPI narrative: 77-year-old female presents for abdominal pain. She has had it for 4 days and it has been across her lower abdomen has gotten worse in the right lower quadrant. She saw her PCP today who ordered some outpatient blood work and a CAT scan. The CAT scan was read by the radiologist as most likely acute ruptured appendicitis. She has had no fever. She has not been able to really eat or drink much in the past 3 days. Related Data Home Medications ?Medication ?Instructions ?Recorded ?Confirmed carvedilol 25 mg tablet 25 mg PO Q12H 12/19/22 11/19/23 Allergies Allergy/AdvReac Type Severity Reaction Status Date / Time Penicillins AdvReac Intermediate Verified 11/19/23 15:05 Review of Systems ROS Narrative A ten point review of systems is negative except as noted above. Exam Narrative Exam Narrative: Nurses note and vital signs reviewed and patient is not hypoxic. General: The patient appears well and in no apparent distress. Patient is resting comfortably on cart. Skin: Warm, dry, no pallor noted. There is no rash noted. Head: Normocephalic, atraumatic Eye: Normal conjunctiva, no drainage Ears, Nose, Mouth, and Throat: oral mucosa is moist. Nares patent. Cardiovascular: Regular Rate and Rhythm Respiratory: Patient is in no distress, no accessory muscle use, lungs are clear to auscultation, no wheezing, rales or rhonchi Back: non-tender GI: Tender in the right lower quadrant particular at McBurney's point. Musculoskeletal: The patient has no evidence of calf tenderness, no pitting edema, symmetrical pulses noted bilaterally Neurological: A&O, normal speech Psychiatric: Cooperative Constitutional Vital Signs, click to edit/add: Last Vital Signs Temp 98.1 F 11/19/23 15:06 Pulse 85 11/19/23 15:06 Resp 16 11/19/23 15:06 BP 142/82 H 11/19/23 15:06 Pulse Ox 96 11/19/23 15:06 O2 Del Method Room Air 11/19/23 15:06 Course Vital Signs Vital signs: Vital Signs Temperature 98.1 F 11/19/23 15:06 Pulse Rate 85 11/19/23 15:06 Respiratory Rate 16 11/19/23 15:06 Blood Pressure 142/82 H 11/19/23 15:06 Pulse Oximetry 96 11/19/23 15:06 Oxygen Delivery Method Room Air 11/19/23 15:06 Temperature 98.1 F 11/19/23 15:06 Pulse Rate 85 11/19/23 15:06 Respiratory Rate 16 11/19/23 15:06 Blood Pressure 142/82 H 11/19/23 15:06 Pulse Oximetry 96 11/19/23 15:06 Oxygen Delivery Method Room Air 11/19/23 15:06 MDM - Abdominal Pain MDM Narrative Medical decision making narrative: Acute ruptured appendicitis is identified. Case discussed with Dr. Du and the patient will be admitted for IV antibiotics. She was given Levaquin and Flagyl because of her allergy to penicillin. She will be kept NPO. Treatment diagnosis and disposition were discussed with the patient. There is no plan for immediate surgery. Differential Diagnosis Differential diagnosis: Likely abdominal pain, acute appendicitis, constipation and diverticulitis Lab Data Lab results narrative: WBC 9.5, performed as an outpatient this morning Imaging Data CT scan - abdomen: Radiologist's impression: Procedure: CT abdomen pelvis w con EXAM: CT abdomen pelvis w con HISTORY: LEFT LOWER QUADRANT ABDOMINAL PAIN. COMPARISON: None. TECHNIQUE: Images of the abdomen and pelvis were obtained with IV contrast. Dose reduction techniques were achieved by using automated exposure control and/or adjustment of mA and/or kV according to patient size and/or use of iterative reconstruction technique. FINDINGS: Lung bases are clear. No adrenal mass or adenopathy. No obstructive uropathy. Portal vein is patent. No biliary obstruction. Dense aortic atherosclerosis without aneurysm. There is no bowel obstruction, pneumatosis, or pneumoperitoneum. Edema is noted in the right lower quadrant and there is an area of irregular peripherally enhancing fluid collection measuring 1.8 x 1.2 x 3.6 cm. There is thickening of the wall of the cecum and adjacent ileum and the proximal appendix appears edematous with the distal appendix not well delineated. There is no pelvic adenopathy or ascites. Uterus is atrophic. Bladder is decompressed. IMPRESSION: Inflammation in the right lower quadrant with wall thickening of the cecum, distal ileum, and appendix as well as a small fluid collection as documented. Constellation of findings in this region is most likely related to perforated appendicitis with small periappendiceal abscess although terminal ileitis is also on the differential. There is no evidence of visceral perforation or bowel obstruction. The fluid collection is unlikely amenable to drainage. Electronically authenticated by: THALIA LUNA Date: 11/19/2023 14:52 Discharge Plan Discharge Chief Complaint: Abdominal Pain Clinical Impression: Acute appendicitis with appendiceal abscess Patient Disposition: Admitted As Inpatient Time of Disposition Decision: 15:31 Condition: Good
[2023-11-19] MEDS: METRONIDAZOLE/SODIUM CHLORIDE 500 MG/100 ML PREMIX 100 MG IV ×2 (15:54→21:50)
--- NOTE | 2023-11-19 16:02 | P.HP_ITS ---
HPI H&P: HPI History of Present Illness Chief complaint: r side pain, poss appendix Narrative: Patient is a pleasant 77 y.o with past medical history of HTN and Lupus anticoagulant who presents to the ER after about 1 week history of right lower quadrant pain. She denies fevers or chills. She thought maybe it was a UTI and developed diarrhea so she visited her PCP who ordered outpatient CT scan. She presented to the ER when CT scan results came back as ruptured appendix. Her pain is controlled at the time of admission exam. She denies n/v/d, fevers or chills. She has had D&C, a heart cath (15 years ago) and eye surgery in the past. Never any issues with anesthesia. She is a very active lady and can climb up 2 flights of stairs without chest pain or SOB. She takes Coreg daily as her only home medication. ER doctor discussed case with Dr. Du, construction controller General Surgery who recommended Levaquin and Flagyl, admission, NPO and he will evaluate in the morning. Opioid HPI Opioid Management Most Recent Pain and Opioid Data: Last ORT Total Score 0 11/19/23 16:34 Last ORT Risk Category Low Risk 11/19/23 16:34 Review of Systems ROS Narrative ROS: a complete review of systems were reviewed with patient and are positive as below or listed in History of Chief Complaint. General: no fever, chills, night sweats Head: no headache, trauma, visual changes, nausea or vomiting Skin: no reported rashes, itching or sores Eyes: no blurriness of vision Ears: no reported hearing loss, vertigo, earache, or tinnitus Throat: no sore throat, hoarseness, swelling of neck, or tongue pain Heart: no chest pain Lungs: no shortness of breath or cough GI: no diarrhea or vomiting/nausea, RLQ abdominal pain Urinary: no urinary urgency, frequency or pain Neuro: no numbness or tingling HEM: no bleeding issues or bruising ENDO: no thyroid problems Psych: no anxiety or depression [facility] Medical History (Updated 11/19/23 @ 17:13 by Lara Starks DO) Lupus anticoagulant disorder ?D68.62 - Lupus anticoagulant syndrome (ICD-10) Hypertension ?I10 - Essential (primary) hypertension (ICD-10) Glaucoma ?H40.9 - Unspecified glaucoma (ICD-10) Coagulation deficiency ?D68.9 - Coagulation defect, unspecified (ICD-10) History of left heart catheterization ?Z98.890 - Other specified postprocedural states (ICD-10) Surgical History History of cataract surgery ?Z98.49 - Cataract extraction status, unspecified eye (ICD-10) H/O right heart catheterization ?Z98.890 - Other specified postprocedural states (ICD-10) Family History Father Family history of CHF (congestive heart failure) Family history of diabetes mellitus Family history of stroke Sister Family history of CHF (congestive heart failure) Family history of diabetes mellitus Brother Family history of CHF (congestive heart failure) Family history of diabetes mellitus Family history of hypertension Daughter Family history of cancer Mother Family history of diabetes mellitus Family history of hypertension Family history of stroke Social History Within the past year, how often did you have a drink containing alcohol: never Within the past year, how many standard drinks containing alcohol did you have on a typical day: 1 or 2 Within the past year, how often did you have six or more drinks on one occasion: never Total score: 0 Score interpretation: A score less than 3 is consistent with normal alcohol consumption. Smoking status: Never smoker Second hand tobacco smoke exposure: No Previous occupational history: retired Known occupational exposures/hazards: No Do you want help with school or training: No In a typical week, how many times do you talk on the telephone with family, friends, or neighbors: 3 or more times per week How often do you get together with friends or relatives: 3 or more times per week How often do you attend mandaeism or orthodox services: never Do you belong to any clubs or organizations such as mandaeism groups unions, fraternal or athletic groups, or school groups: no Little interest or pleasure in doing things: not at all Feeling down, depressed, or hopeless: not at all Feel stressed/tense/nervous/anxious/difficulty sleeping: not at all Due to disability, difficulty making decisions: No Do you think of yourself as: straight/heterosexual Gender Identity: female Meds Home Medications and Allergies Home Medications ?Medication ?Instructions ?Recorded ?Confirmed ?Type carvedilol 25 mg tablet 25 mg PO Q12H 12/19/22 11/19/23 History Allergies Allergy/AdvReac Type Severity Reaction Status Date / Time Penicillins AdvReac Intermediate Verified 11/19/23 15:05 Exam Narrative Exam Narrative: General: Patient is alert, and oriented to person, place and time with normal affect, proper hygiene Skin: no visible rashes, or ulcers Head: atraumatic, acephalic Eyes: PERRLA, no nystagmus present, conjunctiva clear, no scleral icterus Ears: normal gross auditory acuity Heart: Normal rate and rhythm, no murmurs/rubs/gallops Lungs: no audible wheezes, crackles and normal breath sounds all lung wen Abdomen: sluggish bowel sounds, mild distension, rigidity and guarding present Musculoskeletal: no swelling bilateral lower extremities Neuro: CN II-X grossly intact Constitutional Vital Signs, click to edit/add: Last Vital Signs Temp 98.1 F 11/19/23 15:06 Pulse 85 11/19/23 15:06 Resp 16 11/19/23 15:06 BP 142/82 H 11/19/23 15:06 Pulse Ox 96 11/19/23 15:06 O2 Del Method Room Air 11/19/23 15:06 Assessment and Plan Assessment and Plan (1) Acute appendicitis with appendiceal abscess: Assessment and Plan: Diagnosis from CT scan. WBC's surprisingly normal at 9.5, hb 12.4, lactate normal. Consult to Dr. Du, patient is NPO, LR @150. Patient placed on Levaquin and Flagyl given PCN allergy. Pain control overnight and possible surgery tomorrow. (2) Lupus anticoagulant disorder: Assessment and Plan: History of (3) Hypertension: Assessment and Plan: continue coreg Qualifiers: Hypertension type: primary hypertension Qualified Code(s): I10 - Essential (primary) hypertension Plan patient is a full code SCD's for DVT prophylaxis Patient is in inpatient status given severity and potential for decompensation with her current ruptured appendix and need for surgical intervention, will cross 2 midnights.
--- OUTSIDE RECORDS SUMMARY | 2023-11-19 16:08 | XMS_ITS | CCD ---
Author Organization [facility] Care Team Providers Care Timber Framer Helper Name Role Phone Luis New Unavailable Unavailable Luis New Unavailable Unavailable Luis New Unavailable Unavailable MADISON SINGH~[id number] UNKNOWN Unavailable Unavailable TIMMIMain, DR STEINBERG Consulting [...] sources) Penicillins Drug Allergy 01-17-20 13 PENICILLINS [facility] Repository raNITIdine (1 source) raNITIdine Drug Allergy 11-19-19 [facility] (5 sources) penicillin; Translations: [penicillin] Drug Allergy 06-08-19 14 AOF, Unknown [facility] Repository (6 sources) Hmg-Coa Reductase Inhibitors (Statins); Translations: [Statins] Allergy to drug (finding) [facility] 250 DO Work Phone: (6 sources) Penicillins; Translations: [Penicillins] Allergy to drug (finding) [facility] 250 DO Work Phone: (10 sources) HMG-CoA reductase inhibitor Drug allergy 10-05-19 19 Unknown [facility] Other (10 sources) Penicillins (Antibiotic) Propensity to adverse reactions rash [facility] Other (10 sources) raNITIdine Drug Allergy 12-11-19 16 Unknown [facility] Other (4 sources) Allergies Reconciled Propensity to adverse reactions Unknown [facility] Other (10 sources) Substance with penicillin structure and antibacterial mechanism of action (substance) Drug allergy 02-29-20 18 PENICILLINS [facility] Other (4 sources) patient allergy list reviewed by nurse or physicia Propensity to adverse reactions 12-11-19 16 Comment:Done [facility] Other (1 source) Penicillins Drug allergy (disorder) 05-12-20 [facility] Repository (1 source) raNITIdine Drug Allergy 05-12-20 [facility] Repository (2 sources) Pegduvl-ROH-DzT Reductase Inhibitor Drug allergy (disorder) 05-12-20 Hives [facility] Repository Medications Current Medications Medication Drug Class(es) [...] times daily for 0 *Pick strength-form from [employer] for eRX* Nov, Active cetirizine hydrochloride 10 [...] Oral daily for 0 *Pick strength-form from [employer] for eRX* Nov, Active Glucosamine Complex (1 [...] Urinalysis - DIPSTICKon 06-01 Appearance (U) Hazy [employer] Other Bilirubin Ql (U) Negative [employer] Other Color (U) Dark Yellow [facility] Other Glucose Ql (U) Negative [employer] Other Hemoglobin Ql (U) Negative [employer] Other Ketones Ql (U) Negative [employer] Other Leukocyte esterase Test strip Ql (U) Negative [facility] Other Nitrite Ql (U) Negative [employer] Other pH (U) 5.0 [pH] [facility] Other Protein Ql (U) + [employer] Other Specific gravity (U) [Rel density] 1.025 [facility] Other Urobilinogen (U) [Mass/Vol] 0.2 mg/dL [facility] Other Urinalysis - DIPSTICK [facility] Other Urine Cultureon 06-23-2023 Bacteria identified Cx Nom (U) ORGANISM: Klebsiella pneumoniae (O:KLEPNE) [place] Count 15,000 Aerobic SOY Charge (NMIC56) --- [...] RESISTANT TO ALL B-LACTAM DRUGS. PERFORMED BY: [place] [id number] PATHOLOGIST WASHHOUSE WORKER LEAH ACE M.D. [facility] Comment on above: Performed By: #### C UU #### [address] Office Visit (Cardiology)on 09-09-2021 Follow-up visit [...] Weight Tips; Status:Complete - Retrospective Authorization; Done: [id number] SocHx: Never a smoker Tobacco Use Screening; [...] Recorded: 09Sep2021 09:16AM Heart Rate69, L Radial Gloexyye696, LUE, Sitting Noiqcxnbd78, LUE, Sitting Height5 ft 4 in Lvlvmw109 lb 12.8 oz BMI Qgrtizprnt92.23 kg/m2 BSA Calculated1.74 Tobacco Useb) No PHQ-2 #1. Over the last 2 weeks have you felt down, depressed or hopeless? (If yes, answer PHQ-9 below)No PHQ-2 #2. Over the last 2 weeks have you felt little interest or pleasure in doing things? (If yes, answer PHQ-9 below)No Fall Screeninga) No falls within the last year Signatures Electronically signed by : Roebrt Lynn DO; Sep 09 2021 10:03AM EST (Author) Normal [employer] Tobacco Screening.on 022 Adult depression screening assessment No [facility] [place] [facility] DO Work Phone: Fall risk assessment a) No falls within the last year [facility] [place] 250 DO Work Phone: Tobacco use status CP b) No -[facility] 250 DO Work Phone: [facility] CARDIAC STRESS/REST INJE CTIONon 08-27-2021 [facility] CARDIAC STRESS/REST INJECTION Patient Name: CECILIA NGUYEN STUDY: MYOCARDIAL PERFUSION STRESS TEST WITH EXERCISE Performing facility: [facility], [address] [place] [address], [address], [place] [address] [facility] Provider: Consuelo Lynn DO, FACC PCP: Dr. Almas Singh Supervising provider: Consuelo Lynn DO, FACC INDICATION: Chest Pain; Palpitations Hyperlipidemia HTN Cardiomyopathy HISTORY: Gender: F; Age: 75 y/o ; Height: 0 cm; Weight: 0 kg. High Cholesterol; HTN; Palpitations; Denies smoking. Cardiac catheterization on 2001. COMPARISON: Previous nuclear testing completed at [facility]. ACCESSION NUMBER(S): [id number]; [id number]; [id number] ORDERING CLINICIAN: ROBERT LYNN TECHNIQUE: ONE DAY [...] Electronically signed by: TORO MAJOR MD Normal [facility] No Panel Informationon 08-27 Please click on the link to view the study images Normal -[facility] 250 DO Work Phone: Normal -[facility] 250 DO Work Phone: CREATININEon 10-23-2020 Creatinine [Mass/Vol] 0.90 mg/dL Normal 0.52-1.04 [facility] Comment on above: Performed By: #### C BERNARDA #### [facility] [address] [place] [address] Dean Ulrich EGFR-AF MICRONESIAN >60 Normal >=60 [facility] Comment on above: Performed By: #### C BERNARDA #### [facility] [address] [place] [address] Deancisco Contrerasen EGFR-NON AF MICRONESIAN >60 Normal >=60 [facility] Comment on above: Performed By: #### C BERNRADA #### [facility] [address] [place] [address] Dean Ulrich MRI BRAIN WO W CONon [...] JOSE ALEJANDRO MAJOR Date: 2020-10-23 10:21 Normal [facility] Coding Summary.on 06-23-2017 Coding Summary. 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 SECONDARY: PYMT PROC APC STAT DESCRIPTION DOCTOR NAME DATE 22276 5481 T Discission of secondary Luis New [...] Rodriguez Date Saved: 06/23/2017 09:04 am Normal [facility] Vital Signs Date Time Vital Sign Value Performing Clinician Facility 11-19-2023 11:20-0400 Body height 162.56 cm [facility] 11-19-2023 11:20-0400 Body mass index (BMI) [Ratio] 27.5 kg/m2 [facility] 11-19-2023 11:20-0400 Body temperature 98 [degF] [facility] 11-19-2023 11:20-0400 Body weight 72.8 kg [facility] 11-19-2023 11:20-0400 Diastolic blood pressure 59 mm[Hg] [facility] 11-19-2023 11:20-0400 Heart rate 80 /min [facility] 11-19-2023 11:20-0400 Systolic blood pressure 93 mm[Hg] [facility] 05-12-2023 09:45-0500 Body height 162.56 cm Madison Singh Other [facility] Other 05-12-2023 09:45-0500 Body mass index (BMI) [Ratio] 28.9 kg/m2 Madison Singh Other [facility] Other 05-12-2023 09:45-0500 Body temperature 98 [degF] Madison Singh Other [facility] Other 05-12-2023 09:45-0500 Body weight 76.39 kg Madison Singh Other [facility] Other 05-12-2023 09:45-0500 Diastolic blood pressure 66 mm[Hg] Madison Singh Other [facility] Other 05-12-2023 09:45-0500 SaO2% (BldA) [Mass fraction] 96 % Madison Singh Other [facility] Other 05-12-2023 09:45-0500 Systolic blood pressure 103 mm[Hg] Madison Singh Other [facility] Other 04-05-2023 09:00-0500 Body height 162.56 cm Madison Singh Other [facility] Other 04-05-2023 09:00-0500 Body mass index (BMI) [Ratio] 28.59 kg/m2 Madison Singh Other [facility] Other 04-05-2023 09:00-0500 Body weight 75.57 kg Madison Singh Other [facility] Other 04-05-2023 09:00-0500 Diastolic blood pressure 80 mm[Hg] Madison Singh Other [facility] Other 04-05-2023 09:00-0500 Systolic blood pressure 150 mm[Hg] Madison Singh Other [facility] [employer] Other 09-09-2021 09:16-0400 Body height 162.56 cm Madison Singh Work Phone: [facility] 250 DO Work Phone: 09-09-2021 09:16-0400 Body mass index (BMI) [Ratio] 26.23 kg/m2 Madison Singh Work Phone: [facility] 250 DO Work Phone: 09-09-2021 09:16-0400 Body surface area Derived from formula 1.74 m2 Madison Singh Work Phone: [facility] 250 DO Work Phone: 09-09-2021 09:16-0400 Body weight 69.31 kg Madison Singh Work Phone: [facility] 250 DO Work Phone: 09-09-2021 09:16-0400 Diastolic blood pressure 80 mm[Hg] Madison Singh Work Phone: [facility] 250 DO Work Phone: 09-09-2021 09:16-0400 Heart rate 69 /min Madison Singh Work Phone: [facility] 250 DO Work Phone: 09-09-2021 09:16-0400 Systolic blood pressure 130 mm[Hg] Madison Singh Work Phone: [facility] 250 DO Work Phone: 08-27-2021 08:00-0400 59 1 No PCP None [facility] Work Phone: Comment on above: [id number] Encounters Encounter Date Encounter Type Care Provider Facility Start: 11-19-2023 End: 11-19-2023 ambulatory [facility] Work Phone: Start: 11-19-2023 End: 11-19-2023 Patient encounter procedure [facility] Work Phone: Start: 07-06-2023 End: 07-06-2023 ambulatory Madison Singh Other [facility] Other Start: 07-06-2023 Telephone encounter [facility] Start: 07-05-2023 End: 07-05-2023 ambulatory Madison Singh Other [facility] Other Start: 07-05-2023 Telephone encounter Madison Singh [facility] Start: 06-23-2023 Nursing evaluation o f patient and report Madison Singh [facility] Start: 06-23-2023 End: 06-23-2023 ambulatory Madison Singh [facility] Other Start: 06-23-2023 End: 06-23-2023 Departed Referred MD Madison Singh Work Phone: [facility] [place] Work Phone: Start: 05-18-2023 End: 05-18-2023 ambulatory Madison Singh Other [facility] Other Start: 05-18-2023 Telephone encounter Madison Singh [facility] Start: 05-12-2023 End: 05-12-2023 ambulatory Madison Singh Other [facility] Other Start: 05-12-2023 Office outpatient vi sit 15 minutes Madison Singh [facility] Start: 05-12-2023 End: 05-12-2023 Patient encounter procedure MD Madison Singh Work Phone: [facility] Work Phone: Start: 04-28-2023 End: 04-28-2023 ambulatory Madison Singh Other [facility] Other Start: 04-28-2023 Telephone encounter Madison Singh [facility] Start: 04-06-2023 End: 04-06-2023 ambulatory Madison Singh Other [facility] Other Start: 04-06-2023 Telephone encounter Madison Orlando [facility] Start: 04-05-2023 End: 04-05-2023 ambulatory Madison Singh Other [facility] Other Start: 04-05-2023 Patient encounter procedure Madison Singh [facility] Start: 04-05-2023 End: 04-05-2023 Patient encounter procedure MD Madison Singh Work Phone: [facility] Work Phone: Start: 02-04-2023 End: 02-04-2023 ambulatory Madison Orlando Other [facility] Other Start: 02-04-2023 Nursing evaluation o f patient and report Madison Orlando [facility] Start: 12-15-2021 Adult health examination Madison Singh Other [facility] Other Start: 09-09-2021 Office outpatient vi sit 15 minutes Madison Singh Work Phone: [facility] 250 DO Work Phone: Start: 09-01-2021 Chart Update No PCP None -[facility] 250 DO Work Phone: Start: 08-27-2021 Patient encounter procedure No PCP None [facility] Work Phone: Start: 08-01-2021 AUDIT No PCP None [facility] 250 DO Work Phone: Start: 08-01-2021 Telephone encounter Lizzy Truong DELICATESSEN SLICER-BINDER SELECTOR Work Phone: [facility] 250 DO Work Phone: Start: 07-28-2021 Rx Renewal Robert mabry DO Work Phone: [facility] 250 DO Work Phone: Start: 10-23-2020 End: 10-24-[address] MARYAN FOLEY Facility: Start: 08-05-2020 End: 08-06-2020 ambulatory NONE LISTED REQUEST Facility: Start: 06-22-2017 End: 06-22-2017 Ambulatory Luis New Facility:[facility] Procedures Date Procedure Procedure Detail Performing Clinician [...] 06-23-2023 Bacteria identified in Urine by Culture [facility] Start: 09-09-2021 FUV, Provider: Robert Lynn, Status: Pen, Time: 9:00 AM FUV, Provider: Robert Lynn, Status: Pen, Time: 9:00 AM [facility] 250 DO Work Phone: Start: 08-27-2021 STRESS NUC, Provider : INKITA HHVI NUCLEAR ,[id number], Status: Pen, Time: 8:00 AM STRESS NUC, Provider: NIKITA HHVI NUCLEAR ,[id number], Status: Pen, Time: 8:00 AM [facility] 250 DO Work Phone: Comprehensive metabo lic 2000 panel - Serum or Plasma [facility] CT Abdomen and Pelvi s W contrast IV [facility] Immunizations Immunization Date Immunization Notes Care Provider Fa cility 02-04-2023 influenza virus vaccine, unspecified formulation [facility] 02-04-2023 influenza, high dose seasonal, preservative-free Madison Singh Other [facility] [employer] Other 02-18-2022 influenza virus vaccine, split virus (incl. purified surface antigen) Madison Singh Other [facility] [employer] Other 02-18-2022 influenza virus vaccine, unspecified formulation [facility] 03-28-2021 Moderna COVID-19 Vaccine 100 MCG/0.5ML Intramuscular Suspension No PCP None [facility] [place] 250 DO Work Phone: 02-07-2021 influenza virus vaccine, split virus (incl. purified surface antigen) Madison Singh Other [facility] [employer] Other 02-07-2021 influenza virus vaccine, unspecified formulation [facility] 08-05-2020 Claudia COVID-19 Vaccine 0.5 ML Intramuscular Suspension Robert Lynn DO Work Phone: [facility] [place] 250 DO Work Phone: 02-29-2020 influenza virus vaccine, split virus (incl. purified surface antigen) Madison Singh Other [facility] [employer] Other 02-29-2020 influenza virus vaccine, unspecified formulation Robert Lynn DO Work Phone: [facility] 02-28-2019 influenza virus vaccine, unspecified formulation Robert Lynn DO Work Phone: [facility] [place] 250 DO Work Phone: 02-27-2019 influenza virus vaccine, split virus (incl. purified surface antigen) Madison Singh Other [facility] [employer] Other 02-27-2019 influenza virus vaccine, unspecified formulation [facility] 02-28-2018 influenza virus vaccine, split virus (incl. purified surface antigen) Madison Singh Other [facility] [employer] Other 02-28-2018 influenza virus vaccine, unspecified formulation [facility] 02-28-2018 Influenza, injectabl e, Madin Brady Canine Kidney, quadrivalent with preservative No [facility]CP [facility] Work Phone: 01-29-2018 influenza virus vaccine, unspecified formulation Robert Lynn DO [facility] DO Work Phone: 02-11-2017 influenza virus vaccine, split virus (incl. purified surface antigen) Madison Singh Other [facility] [employer] Other 02-11-2017 influenza virus vaccine, unspecified formulation [facility] 02-11-2017 influenza, high dose seasonal, preservative-free No PCP None [facility] 250 DO Work Phone: 01-29-2017 influenza virus vaccine, unspecified formulation Robert Lynn DO Work Phone: [facility] 250 DO Work Phone: 02-10-2016 influenza virus vaccine, split virus (incl. purified surface antigen) Madison Singh Other [facility] [employer] Other 02-10-2016 influenza virus vaccine, unspecified formulation [facility] 01-30-2016 influenza, injectabl e, quadrivalent, preservative free No PCP None [facility] 250 DO Work Phone: 03-27-2015 tetanus and diphther ia toxoids, adsorbed, preservative free, for adult use (5 Lf of tetanus toxoid and 2 Lf of diphtheria toxoid) Madison Singh Other [facility] 01-29-2015 influenza virus vaccine, unspecified formulation Robert Lynn DO Work Phone: [facility] 250 DO Work Phone: 03-23-2014 tetanus and diphther ia toxoids, adsorbed, preservative free, for adult use (5 Lf of tetanus toxoid and 2 Lf of diphtheria toxoid) Madison Singh Other [facility] 02-28-2014 influenza virus vaccine, whole virus Robert Lynn DO Work Phone: [facility] 250 DO Work Phone: 04-30-2012 pneumococcal polysaccharide vaccine, 23 valent Robert Lynn DO Work Phone: [facility] 250 DO Work Phone: 04-11-2012 pneumococcal polysaccharide vaccine, 23 valent Mdaison Singh Other [facility] 02-29-2012 pneumococcal polysaccharide vaccine, 23 valent No PCP None [facility] 250 DO Work Phone: 05-31-2011 influenza virus vaccine, unspecified formulation Robert Lynn DO Work Phone: [facility] 250 DO Work Phone: 05-31-2010 influenza virus vaccine, unspecified formulation Robert Lynn DO Work Phone: [facility] 250 DO Work Phone: 05-31-2009 influenza virus vaccine, unspecified formulation Robert Lynn DO Work Phone: [facility] 250 DO Work Phone: 03-31-2009 influenza virus vaccine, unspecified formulation Robert Lynn DO Work Phone: [facility] 250 DO Work Phone: Payers Date Payer Category Payer Private Health Insurance [facility] [id number] 2023 Self-pay 2017 Medicare [id number] 1958 Medicare [id number] 1958 Self-pay [id number] 1958 Unknown [id number] 1945 Unknown [id number] [facility] [id number] Unknown [id number] Unknown Unknown [place] [id number] Unknown [id number] Social History Date Type Detail Facility Social alcohol use Social alcohol use - [facility] 250 DO Work Phone: Sex Assigned At Sex Assigned At [facility] Other Start: 1945 Sex Assigned At Female F [facility] Start: 05-12-2023 Tobacco smoking status [facility] Tobacco smoking consumption unknown (finding) [facility] Medical Equipment Procedure Code Equipment Code [...] Assessment Notes Jul, Dysuria (ICD-10 - R30.0) [employer] Other Evaluation note 06-23-2023 Note Date & Type Note Facility 06-23-2023 Evaluation note Encounter Date Diagnosis Assessment Notes May, Flank pain (ICD-10 - R10.9) [facility] Other Evaluation note 05-12-2023 Note Date & Type Note Facility 05-12-2023 Evaluation note Encounter Date Diagnosis Assessment Notes Apr, Chronic cough (ICD-10 - R05.3) Eval CXR due to length of cough. r/o pneumonia or other interstitial markings. Finish antibiotics and steroids. Call if cough continues for potential pulm referral. [facility] Other Evaluation note 04-05-2023 Note Date & [...] unspecified (ICD-10 - I42.9) CARDIOMYOPATHY assess labs [facility] Other Evaluation note Note Date & Type Note Facility Evaluation note No Information [employer] Other Evaluation note Note Date & Type Note Facility Evaluation note No assessment information availa [facility] Work Phone: Evaluation note Note Date & Type Note Facility Evaluation note Diagnosis Onset Date LLQ abdominal pain acute [facility] Work Phone: History general Narrative - Reported [...] procedures, hx of, Problem Comment : D&C Bigelow teeth Oral surgery Cataract Colonoscopy Normal - 06/16/2010, Problem Status : Active, Surgical History Problem Title : surg ical procedures, hx of, Problem Description : surgical procedures, hx of, Problem Comment : D&C [place] teeth Oral surgery Cataract, Problem Status : Active, Surgical History Problem Title : Tong ue surgery, Problem Status : Active, [facility] Other History general Narrative - Reported Note [...] : Active,, Medical History Problem Title : [facility]: Congestive heart failure, Problem Status : Active,, Medical History Problem Title : [facility]: Glaucoma, Problem Status : Active,, Medical History Problem Title : [facility] Annual Wellness Exam, Problem Description : Medicare Annual Wellness Exam, Problem Comment : [id number], Problem Status : Active,, Medical History Problem Title : [facility] Part B,CMOD Checklist #1, Problem Description : [...] procedures, hx of, Problem Comment : D&C [place] teeth Oral surgery Cataract Colonoscopy Normal - 06/16/2010, Problem Status : Active, Surgical History Problem Title : surg ical procedures, hx of, Problem Description : surgical procedures, hx of, Problem Comment : D&C [place] teeth Oral surgery Cataract, Problem Status : Active, Surgical History Problem Title : Tong ue surgery, Problem Status : Active, [facility] Other History general Narrative - Reported Note Date & Type Note Facility History general Narrative - Reported Type Medical History Cardiomyopathy Medical History 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, without long-term current use of insulin Medical History Peripheral polyneuropathy Surgical History Cardiac surgery Surgical History Dilation and Curettage of Uteru s Surgical History Gum surgery Surgical History D&C [place]elow teeth Surgical History Problem Title : [employer] surgery, Problem Status : Active, Hospitalization History see surgical history [facility] Other Summary Purpose Family History Unknown Family [...] and content) DATE CREATED AUTHOR 11/22/2017 [facility] DATE CREATED AUTHOR AUTHOR'S ORGANIZ ATION 11/01/2020 [facility] DATE CREATED AUTHOR AUTHOR'S ORGANIZ ATION 09/10/2021 [employer] DATE CREATED AUTHOR AUTHOR'S ORGANIZ ATION 10/11/2021 [facility] DATE CREATED AUTHOR AUTHOR'S ORGANIZ ATION 07/09/2023 [facility] REASON FOR VISIT (unrecogniz ed section [...] BE BASED ON THE PRIMARY CLINICAL RECORDS. [employer] provides no warranty or guarantee of the accuracy or completeness of information in this document.
[2023-11-19 16:53] VITALS: BP 122/73; PULSE 80; TEMP 36.6; O2SAT 94; BMI 27.5
[2023-11-19] MEDS: LACTATED RINGER'S SOLUTION 1,000 ML 150 ML IV (17:10)
[2023-11-19] MEDS: LEVOFLOXACIN IN DEXTROSE 5 % 750 MG/150 ML IV.SOLN 100 MG IV (17:12)
--- NOTE | 2023-11-19 17:46 | PM.GSCN ---
History of Present Illness Consult details Consult date: 11/19/23 Narrative: patient seen/examined/chart and ct images reviewed/consult dictated; 77 yo female with 4 day h/o crampy bilateral lower abd pain, anorexia, now with frequent watery stools; history of similar symptoms in May and in August, resolved spontaneously without antibiotics; normal wbc, afebrile, normal vital signs; ct scan with thickening/inflammation of terminal ileum, small fluid collection in area without air; fairly normal appearing appendix withoufecalith or dilation; overall more consistent with terminal ileitis or cecal diverticulitis; cannot r/u ruptured appendicitis, but based on history, clinical presentation, labs and ct, that appears less likely; recommend bowel rest, IV hydration, empiric antibiotics; supportive care; will check stool for enteric pathogens; serial exams and labs. 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 - Lupus anticoagulant syndrome (ICD-10) Hypertension ?I10 - Essential (primary) hypertension (ICD-10) Glaucoma ?H40.9 - Unspecified glaucoma (ICD-10) Coagulation deficiency ?D68.9 - Coagulation defect, unspecified (ICD-10) History of left heart catheterization ?Z98.890 - Other specified postprocedural states (ICD-10) Surgical History History of cataract surgery ?Z98.49 - Cataract extraction status, unspecified eye (ICD-10) H/O right heart catheterization ?Z98.890 - Other specified postprocedural states (ICD-10) Family History Father Family history of CHF (congestive heart failure) Family history of diabetes mellitus Family history of stroke Sister Family history of CHF (congestive heart failure) Family history of diabetes mellitus Brother Family history of CHF (congestive heart failure) Family history of diabetes mellitus Family history of hypertension Daughter Family history of cancer Mother Family history of diabetes mellitus Family history of hypertension Family history of stroke Social History Within the past year, how often did you have a drink containing alcohol: never Within the past year, how many standard drinks containing alcohol did you have on a typical day: 1 or 2 Within the past year, how often did you have six or more drinks on one occasion: never Total score: 0 Score interpretation: A score less than 3 is consistent with normal alcohol consumption. Smoking status: Never smoker Second hand tobacco smoke exposure: No Previous occupational history: retired Known occupational exposures/hazards: No Do you want help with school or training: No In a typical week, how many times do you talk on the telephone with family, friends, or neighbors: 3 or more times per week How often do you get together with friends or relatives: 3 or more times per week How often do you attend spiritism or confucianism services: never Do you belong to any clubs or organizations such as spiritism groups unions, [employer] or athletic groups, or school groups: no Little interest or pleasure in doing things: not at all Feeling down, depressed, or hopeless: not at all Feel stressed/tense/nervous/anxious/difficulty sleeping: not at all Due to disability, difficulty making decisions: No Do you think of yourself as: straight/heterosexual Gender Identity: female Meds Home Medications and Allergies Home Medications ?Medication ?Instructions ?Recorded ?Confirmed ?Type carvedilol 25 mg tablet 25 mg PO Q12H 12/19/22 11/19/23 History Allergies Allergy/AdvReac Type Severity Reaction Status Date / Time Penicillins AdvReac Intermediate Verified 11/19/23 15:05 Exam Constitutional Vital Signs, click to edit/add: Last Vital Signs Temp 97.9 F 11/19/23 16:53 Pulse 80 11/19/23 16:53 Resp 14 11/19/23 16:53 BP 122/73 11/19/23 16:53 Pulse Ox 94 L 11/19/23 16:53 O2 Del Method Room Air 11/19/23 16:53 Results Labs Labs: All other labs normal. Assessment and Plan Assessment and Plan (1) Acute appendicitis with appendiceal abscess: (2) Lupus anticoagulant disorder: (3) Hypertension: Qualifiers: Hypertension type: primary hypertension Qualified Code(s): I10 - Essential (primary) hypertension
[2023-11-19 17:51] VITALS: PULSE 80
[2023-11-19 19:59] LABS: Adenovirus F 40/41 NOT DETECTED (NOT DETECTE); Astrovirus NOT DETECTED (NOT DETECTE); Campylobacter NOT DETECTED (NOT DETECTE); Cryptosporidium NOT DETECTED (NOT DETECTE); Cyclospora cayetanensis NOT DETECTED (NOT DETECTE); Entamoeba histolytica NOT DETECTED (NOT DETECTE); Enteroaggregative E.coli NOT DETECTED (NOT DETECTE); Enteropathogenic E.coli NOT DETECTED (NOT DETECTE); Enterotoxigenic E. coli NOT DETECTED (NOT DETECTE); Giardia lamblia NOT DETECTED (NOT DETECTE); Norovirus GI/GII NOT DETECTED (NOT DETECTE); Plesiomonas shigelloides NOT DETECTED (NOT DETECTE); Rotavirus A NOT DETECTED (NOT DETECTE); Salmonella NOT DETECTED (NOT DETECTE); Sapovirus NOT DETECTED (NOT DETECTE); Shiga-like toxin-producing E.C NOT DETECTED (NOT DETECTE); Shigella/Enteroinvasive E.coli NOT DETECTED (NOT DETECTE); Vibrio NOT DETECTED (NOT DETECTE); Vibrio cholerae NOT DETECTED (NOT DETECTE); Yersinia enterocolitica NOT DETECTED (NOT DETECTE)
[2023-11-19 20:00] VITALS: PULSE 79
[2023-11-19 20:09] VITALS: BP 124/74; PULSE 80; TEMP 36.8; O2SAT 95
[2023-11-19] MEDS: CARVEDILOL 25 MG TABLET PO (21:32)
[2023-11-19] MEDS: PANTOPRAZOLE SODIUM 40 MG VIAL IV (21:48)
[2023-11-19 21:56] LABS: Glucometer 98 mg/dL (74-106)
[2023-11-19 22:00] VITALS: PULSE 78
[2023-11-20] VITALS (15 sets, daily range): BP systolic 134–156; BP diastolic 71–79; PULSE 78–90; TEMP 36.6–36.9; O2SAT 93–95
[2023-11-20] MEDS: LACTATED RINGER'S SOLUTION 1,000 ML 150 ML IV ×3 (02:16→15:57)
[2023-11-20] MEDS: METRONIDAZOLE/SODIUM CHLORIDE 500 MG/100 ML PREMIX 100 MG IV ×4 (04:23→21:38)
[2023-11-20 04:59] LABS: Basophils Percent Auto 0.5 % (0.2-2.0); Eosinophils Absolute Auto 0.1 10^3/uL (0.0-0.7); Hematocrit 35.4 % (36.0-48.0); Hemoglobin 11.5 g/dL (12.0-16.0); Immature Granulocytes Abs Auto 0.03 10^3/uL (0.00-0.03); Immature Granulocytes Pct Auto 0.5 % (0.0-0.5); Lymphocytes Absolute Auto 0.7 10^3/uL (1.2-3.8); Lymphocytes Percent Auto 10.9 % (20.5-60.0); Mean Corpuscular HGB Conc 32.5 g/dL (29.9-35.2); Mean Corpuscular Hemoglobin 28.5 pg (26.7-34.0); Mean Corpuscular Volume 87.6 fL (81.0-99.0); Monocytes Absolute Auto 0.7 10^3/uL (0.3-0.8); Monocytes Percent Auto 11.4 % (1.7-12.0); Neutrophils Absolute Auto 4.5 10^3/uL (1.4-6.5); Neutrophils Percent Auto 74.7 % (43.0-75.0); Platelet Count 131 10^3/uL (150-450); Red Blood Count 4.04 10^6/uL (4.20-5.40); Red Cell Distribution Width 13.4 % (11.0-15.0)
[2023-11-20 05:17] LABS: Alanine Aminotransferase 14 U/L (14-59); Albumin Globulin Ratio 0.7; Albumin Level 2.7 g/dL (3.4-5.0); Alkaline Phosphatase 79 U/L (46-116); Aspartate Amino Transferase 10 U/L (15-37); BUN Creatinine Ratio 23.3; Bilirubin Total 0.7 mg/dL (0.2-1.0); Carbon Dioxide 20.5 mmol/L (21.0-32.0); Chloride 106 mmol/L (98-107); Estimated GFR (African America >60 (>=60); Estimated GFR (Non-African Ame >60 (>=60); Glucose 88 mg/dL (74-106); Potassium 3.5 mmol/L (3.5-5.1); Sodium 139 mmol/L (136-145); Total Protein 6.7 g/dL (6.4-8.2)
[2023-11-20 05:21] LABS: Lactate/Lactic Acid 0.9 mmol/L (0.4-2.0)
--- NOTE | 2023-11-20 08:33 | P.PN_ITS ---
Progress Note: Subjective Subjective Interval history: Patient was seen at the bedside on the medical surgical floor, patient states she does feel better than the previous day. Still with some pain. Has not been up and moving yet. Exam Constitutional Vital Signs, click to edit/add: Last Vital Signs Temp 97.8 F 11/20/23 07:27 Pulse 88 11/20/23 08:00 Resp 14 11/20/23 07:27 BP 156/74 H 11/20/23 07:27 Pulse Ox 95 11/20/23 07:27 O2 Del Method Room Air 11/20/23 07:27 Documenting provider has reviewed patient's vital signs: yes Common normals: no apparent distress Chest Common normals: inspection of chest normal Respiratory Common normals: normal respiratory effort, no retractions and no use of accessory muscles Cardio Common normals: regular rate and regular rhythm GI Common normals: Normal to inspection, nondistended, normoactive bowel sounds present and soft to palpation; tender Palpation: tender Details: RLQ and rebound tenderness present Progress Note: Objective Labs Labs: Short CBC 11/20/23 Range/Units 04:25 WBC 6.0 (4.0-11.0) 10^3/uL Hgb 11.5 L (12.0-16.0) g/dL Hct 35.4 L (36.0-48.0) % Plt Count 131 L (150-450) 10^3/uL BMP 11/20/23 04:25 Sodium 139 Potassium 3.5 Chloride 106 Carbon Dioxide 20.5 L BUN 21.0 H Creatinine 0.90 Glucose 88 Calcium 9.0 Liver Function 11/20/23 Range/Units 04:25 Total Bilirubin 0.7 (0.2-1.0) mg/dL AST 10 L (15-37) U/L ALT 14 (14-59) U/L Alkaline Phosphatase 79 (46-116) U/L Albumin 2.7 L (3.4-5.0) g/dL Progress Note: A&P Assessment and Plan (1) Acute appendicitis with appendiceal abscess: (2) Lupus anticoagulant disorder: (3) Hypertension: Qualifiers: Hypertension type: primary hypertension Qualified Code(s): I10 - Essential (primary) hypertension Plan Uncontrolled hypertension, acute abdomen, acute renal failure secondary to dehydration secondary to possible diverticulitis with small abscess. Consultation with surgery, at this point patient is stable we will proceed with just IV antibiotics. [place] surgical intervention if patient's condition changes Lupus anticoagulant disorder: Monitor for signs of clotting Hypertension: Fluctuating here, as needed hydralazine Thrombocytopenia-likely secondary to the above, monitor daily Acute renal failure-baseline creatinine of 0.7-progressed to a creatinine of 1.19- 170% above baseline.-Improved today continue to monitor Moderate protein calorie malnutrition-based on NIH criteria for albumin-monitor daily, advancing diet Possible acute blood loss anemia with hemoglobin drop of 1.5 g-monitor tomorrow if progresses check occult blood Admission status: Persisting need for IV antibiotics based on acute abdominal findings-medically necessary treatment will span 2 midnights. Inpatient status
[2023-11-20] MEDS: CARVEDILOL 25 MG TABLET PO ×2 (09:29→21:38)
--- NOTE | 2023-11-20 09:49 | P.GSPN_ITS ---
Progress Note: A&P Assessment and Plan (1) Acute appendicitis with appendiceal abscess: Assessment and Plan: no evidence of ruptured appendicitis or ongoing infection, but remains a less likely possibility; with this being patient's third episode of similar symptoms in past 5 months, would be more concerned with possible IBD or even malignancy; will obtain most recent colonoscopy report, patient believes it was 5 years ago at [facility]; check additional stool studies; CA 125, there is some thickening in right adnexa adjacent to a thicken loop of ileum; will advance to clear liquids, then full liquids as tolerated; will likely require outpatient endoscopy if continues to improve; continue empiric antibiotics; supportive care. (2) Lupus anticoagulant disorder: (3) Hypertension: Qualifiers: Hypertension type: primary hypertension Qualified Code(s): I10 - Essential (primary) hypertension Subjective Subjective Interval history: HD # 2 crampy pain improved, still sore bilateral lower abd, right > left; decreased loose stools, voiding well; no N/V, Exam Narrative Exam Narrative: afeb, VSS abd: soft, mild distension; normal bs; tender bilateral lower abd, right greater than left; no masses Constitutional Vital Signs, click to edit/add: Last Vital Signs Temp 97.8 F 11/20/23 07:27 Pulse 88 11/20/23 08:00 Resp 14 11/20/23 07:27 BP 156/74 H 11/20/23 07:27 Pulse Ox 95 11/20/23 07:27 O2 Del Method Room Air 11/20/23 07:27
[2023-11-20 11:03] LABS: Glucometer 82 mg/dL (74-106)
[2023-11-20 17:15] LABS: Glucometer 79 mg/dL (74-106)
[2023-11-20] MEDS: PANTOPRAZOLE SODIUM 40 MG VIAL IV (21:38)
[2023-11-20 21:47] LABS: Glucometer 111 mg/dL (74-106)
[2023-11-21] VITALS (7 sets, daily range): BP systolic 150–160; BP diastolic 74–78; PULSE 82–91; TEMP 36.7–36.8; O2SAT 93–96
[2023-11-21] MEDS: LACTATED RINGER'S SOLUTION 1,000 ML 150 ML IV ×2 (00:11→07:20)
[2023-11-21] MEDS: METRONIDAZOLE/SODIUM CHLORIDE 500 MG/100 ML PREMIX 100 MG IV ×4 (04:23→22:40)
[2023-11-21 05:02] LABS: Basophils Absolute Auto 0.1 10^3/uL (0.0-0.1); Basophils Percent Auto 0.7 % (0.2-2.0); Eosinophils Absolute Auto 0.1 10^3/uL (0.0-0.7); Eosinophils Percent Auto 1.8 % (0.9-7.0); Hematocrit 35.2 % (36.0-48.0); Hemoglobin 11.8 g/dL (12.0-16.0); Immature Granulocytes Abs Auto 0.04 10^3/uL (0.00-0.03); Immature Granulocytes Pct Auto 0.6 % (0.0-0.5); Lymphocytes Absolute Auto 0.7 10^3/uL (1.2-3.8); Lymphocytes Percent Auto 10.5 % (20.5-60.0); Mean Corpuscular HGB Conc 33.5 g/dL (29.9-35.2); Mean Corpuscular Hemoglobin 28.4 pg (26.7-34.0); Mean Corpuscular Volume 84.8 fL (81.0-99.0); Mean Platelet Volume 10.9 fL (9.5-13.5); Monocytes Absolute Auto 0.9 10^3/uL (0.3-0.8); Monocytes Percent Auto 12.8 % (1.7-12.0); Neutrophils Percent Auto 73.6 % (43.0-75.0); Platelet Count 142 10^3/uL (150-450); Red Blood Count 4.15 10^6/uL (4.20-5.40); Red Cell Distribution Width 13.1 % (11.0-15.0); White Blood Count 6.7 10^3/uL (4.0-11.0)
[2023-11-21 05:18] LABS: Alanine Aminotransferase 15 U/L (14-59); Albumin Globulin Ratio 0.7; Albumin Level 2.8 g/dL (3.4-5.0); Alkaline Phosphatase 83 U/L (46-116); Anion Gap 14.4; Aspartate Amino Transferase 9 U/L (15-37); BUN Creatinine Ratio 10.7; Bilirubin Total 0.5 mg/dL (0.2-1.0); Carbon Dioxide 24.6 mmol/L (21.0-32.0); Chloride 105 mmol/L (98-107); Estimated GFR (African America >60 (>=60); Estimated GFR (Non-African Ame >60 (>=60); Glucose 125 mg/dL (74-106); Sodium 141 mmol/L (136-145); Total Protein 6.8 g/dL (6.4-8.2)
[2023-11-21] MEDS: CARVEDILOL 25 MG TABLET PO ×2 (09:01→22:40)
[2023-11-21] MEDS: POTASSIUM CHLORIDE 40 MEQ in 0.9 % SODIUM CHLORIDE 250 ML 67.5 MEQ IV (09:01)
[2023-11-21 09:07] LABS: Cancer Antigen (CA) 125 6.8 U/mL (0.0-38.1)
--- NOTE | 2023-11-21 09:31 | XR_ITS ---
The [address] [address] Patient Name: NICK MCKEON MRN: [id number] date: 1945 Sex: F Assigned Patient Location: [place] Current Patient Location: [place] Accession/Order Number: [id number] Exam Date: 11/21/2023 10:00 Report Date: 11/21/2023 12:59 At the request of: ANGELINE BASHIR Procedure: XR acute abdomen series EXAM: XR acute abdomen series HISTORY: Abdomen pain COMPARISON: CT abdomen pelvis 11/19/2023. Chest x-ray 05/12/2023. TECHNIQUE: Upright chest x-ray, flat and upright abdomen x-ray. FINDINGS: Chest x-ray demonstrates stable lung wen without infiltrate edema or other acute process. Heart size and mediastinal contour unremarkable. No pleural effusion. Abdominal series demonstrates some faint contrast in right colon given for earlier CT. Mildly prominent small bowel loops in left flank. Colon does not appear distended. There is no free air or pneumatosis. XR/XR acute abdomen series IMPRESSION: Mildly prominent small bowel loops left flank without evidence of significant ileus or obstruction. No acute disease in the chest. Electronically authenticated by: ROBERT LOMBARDI Date: 11/21/2023 12:59
--- NOTE | 2023-11-21 09:53 | P.PN_ITS ---
Progress Note: Subjective Subjective Interval history: Patient states pain is somewhat worse this morning. Worse after she ate soft diet last night. Tolerating clear liquids. Exam Constitutional Vital Signs, click to edit/add: Last Vital Signs Temp 98.2 F 11/21/23 04:29 Pulse 85 11/21/23 06:00 Resp 16 11/21/23 04:29 BP 160/74 H 11/21/23 04:29 Pulse Ox 96 11/21/23 04:29 O2 Del Method Room Air 11/21/23 04:29 Documenting provider has reviewed patient's vital signs: yes Common normals: no apparent distress Chest Common normals: inspection of chest normal Respiratory Common normals: normal respiratory effort, no retractions and no use of accessory muscles Cardio Common normals: regular rate and regular rhythm GI Common normals: Normal to inspection, nondistended, normoactive bowel sounds present and soft to palpation; tender Palpation: tender Details: RLQ and rebound tenderness present Progress Note: Objective Labs Labs: Short CBC 11/21/23 Range/Units 04:28 WBC 6.7 (4.0-11.0) 10^3/uL Hgb 11.8 L (12.0-16.0) g/dL Hct 35.2 L (36.0-48.0) % Plt Count 142 L (150-450) 10^3/uL BMP 11/21/23 04:28 Sodium 141 Potassium 3.0 L Chloride 105 Carbon Dioxide 24.6 BUN 9.0 Creatinine 0.84 Glucose 125 H Calcium 9.0 Liver Function 11/21/23 Range/Units 04:28 Total Bilirubin 0.5 (0.2-1.0) mg/dL AST 9 L (15-37) U/L ALT 15 (14-59) U/L Alkaline Phosphatase 83 (46-116) U/L Albumin 2.8 L (3.4-5.0) g/dL Progress Note: A&P Assessment and Plan (1) Acute appendicitis with appendiceal abscess: (2) Lupus anticoagulant disorder: (3) Hypertension: Qualifiers: Hypertension type: primary hypertension Qualified Code(s): I10 - Essential (primary) hypertension Plan Admission findings: Uncontrolled hypertension, acute abdomen, acute renal failure secondary to dehydration secondary to possible diverticulitis with small abscess. Reviewed plan with general surgery. Endoscopy in AM. Elevated sedimentation rate-the above could be more colitis, hold off on steroids from a treat with steroids tomorrow based on findings at endoscopy Lupus anticoagulant disorder: Monitor for signs of clotting Hypertension: Fluctuating here, as needed hydralazine Thrombocytopenia-improved Acute renal failure-baseline creatinine of 0.7-progressed to a creatinine of 1.19- 170% above baseline.-Improved today continue to monitor Moderate protein calorie malnutrition-based on NIH criteria for albumin-monitor daily, advancing diet Possible acute blood loss anemia with hemoglobin drop of 1.5 g-monitor tomorrow if progresses check occult blood-stable today Admission status: Persisting need for IV antibiotics based on acute abdominal findings-medically necessary treatment will span 2 midnights. Inpatient status, endoscopy in a.m.
[2023-11-21 10:08] LABS: Erythrocyte Sedimentation Rate >130 mm/hr (<=30)
--- NOTE | 2023-11-21 10:36 | PM.GSPN ---
Progress Note: A&P Assessment and Plan (1) Acute appendicitis with appendiceal abscess: Assessment and Plan: HD # 3 normal labs; increased nausea and bloating with mashed potatoes, likely due to inflammation/narrowing of distal ileum; no obstruction on AAS; last colonoscopy report reviewed, was from 2010; just spasm of colon; will continue clear liquids, npo after MDN; plan Colonoscopy under anesthesia tomorrow for further evaluation, informed consent obtained. additional labs and stool studies pending. (2) Lupus anticoagulant disorder: (3) Hypertension: Qualifiers: Hypertension type: primary hypertension Qualified Code(s): I10 - Essential (primary) hypertension Subjective Subjective Interval history: tolerated clear liquids without problems; after mashed potatoes, had increased bloating and nausea; soft bm this am; no emesis, still some nausea Exam Narrative Exam Narrative: abd: soft, hyperactive bs, mild distension; lower abd tenderness, slightly improved Constitutional Vital Signs, click to edit/add: Last Vital Signs Temp 98.2 F 11/21/23 04:29 Pulse 85 11/21/23 06:00 Resp 16 11/21/23 04:29 BP 160/74 H 11/21/23 04:29 Pulse Ox 96 11/21/23 04:29 O2 Del Method Room Air 11/21/23 04:29
[2023-11-21] MEDS: HYOSCYAMINE SULFATE 0.125 MG TAB.SUBL SL (13:47)
[2023-11-21] MEDS: ONDANSETRON PF 4 MG/2 ML VIAL IV ×2 (13:47→19:38)
[2023-11-21 16:08] LABS: Glucometer 107 mg/dL (74-106)
[2023-11-21] MEDS: LEVOFLOXACIN IN DEXTROSE 5 % 750 MG/150 ML IV.SOLN 100 MG IV (16:51)
[2023-11-21 21:45] LABS: Glucometer 116 mg/dL (74-106)
[2023-11-21] MEDS: PANTOPRAZOLE SODIUM 40 MG VIAL IV (22:40)
--- NOTE | 2023-11-22 | OP_ITS ---
OPERATION DATE: 11/22/2023 PREOPERATIVE DIAGNOSIS: Abdominal abdominopelvic CT scan, lower abdominal pain, thickening of the terminal ileum. POSTOPERATIVE DIAGNOSIS: Normal colonoscopy to terminal ileum with biopsy of terminal ileum. PROCEDURE: Colonoscopy to terminal ileum with terminal ileal biopsy. SURGEON: Man Du M.D. ANESTHESIA: Monitored anesthesia care. ESTIMATED BLOOD LOSS: Less than 1 mL. INDICATIONS AND CONSENT: Patient is a 77-year-old female with five month history of intermittent lower abdominal pain, which worsened recently. She did have associated nausea and diarrhea. CT scan revealed evidence of inflammatory changes in the right lower quadrant with thickening of the terminal ileum and fluid in the right lower quadrant. She has had no signs of infection, no fever, normal white blood cell count. She has markedly elevated sed rate. She has been on antibiotics with no real improvement in her symptoms. Indications, risks, benefits, alternatives of proceeding with colonoscopy for further evaluation were explained extensively to the patient, including the risks of bleeding, colon perforation or anesthetic complications. All of her questions were answered. Informed consent was obtained. PROCEDURE: Patient brought to the operating room, placed in the left lateral decubitus position. Monitored anesthesia care was provided. Rectal exam was performed which showed no masses or blood. The scope was inserted into the anal canal. Under direct visualization was advanced. It was advanced to the cecum where cecal markings were clearly identified. There were no inflammatory changes around the appendiceal orifice. It was widely patent. There was no drainage or inflammation. No ulceration. The terminal ileum was intubated. The mucosa appeared normal with normal villi, did extend to approximately 10-12 cm without evidence of bleeding, ulceration or inflammatory changes. Biopsy was obtained with cold biopsy forceps with good hemostasis. Upon withdrawal of the scope, mucosal surfaces were carefully examined. There was some brown stool coating a large amount of the surfaces; however, it was partially irrigated clear. There was no evidence of large polyps, mass lesions or inflammatory changes. No evidence of bleeding. No significant diverticular disease. No significant hemorrhoidal disease. The scope was then withdrawn. Patient tolerated procedure well, was sent to recovery room in good condition. CC: Caitlin Garcia M.D. MTDD
[2023-11-22] MEDS: LACTATED RINGER'S SOLUTION 1,000 ML 50 ML IV ×2 (00:04→12:43)
[2023-11-22] MEDS: METRONIDAZOLE/SODIUM CHLORIDE 500 MG/100 ML PREMIX 100 MG IV ×2 (04:06→09:51)
[2023-11-22 04:15] VITALS: BP 155/80; PULSE 91; TEMP 36.4; O2SAT 90
[2023-11-22 05:15] LABS: Basophils Percent Auto 0.6 % (0.2-2.0); Eosinophils Absolute Auto 0.1 10^3/uL (0.0-0.7); Eosinophils Percent Auto 1.3 % (0.9-7.0); Hematocrit 35.3 % (36.0-48.0); Hemoglobin 11.5 g/dL (12.0-16.0); Immature Granulocytes Abs Auto 0.04 10^3/uL (0.00-0.03); Immature Granulocytes Pct Auto 0.6 % (0.0-0.5); Lymphocytes Absolute Auto 0.9 10^3/uL (1.2-3.8); Lymphocytes Percent Auto 12.4 % (20.5-60.0); Mean Corpuscular HGB Conc 32.6 g/dL (29.9-35.2); Mean Corpuscular Hemoglobin 28.3 pg (26.7-34.0); Mean Corpuscular Volume 86.7 fL (81.0-99.0); Mean Platelet Volume 10.9 fL (9.5-13.5); Monocytes Absolute Auto 0.9 10^3/uL (0.3-0.8); Monocytes Percent Auto 13.8 % (1.7-12.0); Neutrophils Absolute Auto 4.9 10^3/uL (1.4-6.5); Neutrophils Percent Auto 71.3 % (43.0-75.0); Platelet Count 144 10^3/uL (150-450); Red Blood Count 4.07 10^6/uL (4.20-5.40); Red Cell Distribution Width 13.1 % (11.0-15.0); White Blood Count 6.8 10^3/uL (4.0-11.0)
[2023-11-22 05:39] LABS: Alanine Aminotransferase 10 U/L (14-59); Albumin Globulin Ratio 0.6; Albumin Level 2.5 g/dL (3.4-5.0); Alkaline Phosphatase 73 U/L (46-116); Anion Gap 13.4; Aspartate Amino Transferase 10 U/L (15-37); BUN Creatinine Ratio 9.8; Bilirubin Total 0.5 mg/dL (0.2-1.0); Calcium 8.8 mg/dL (8.5-10.1); Carbon Dioxide 26.7 mmol/L (21.0-32.0); Chloride 103 mmol/L (98-107); Estimated GFR (African America >60 (>=60); Estimated GFR (Non-African Ame >60 (>=60); Glucose 117 mg/dL (74-106); Potassium 3.1 mmol/L (3.5-5.1); Sodium 140 mmol/L (136-145); Total Protein 6.5 g/dL (6.4-8.2)
--- NOTE | 2023-11-22 06:00 | US_ITS ---
The [address] [address] Patient Name: NICK MCKEON MRN: [id number] date: 1945 Sex: F Assigned Patient Location: [place] Current Patient Location: [place] Accession/Order Number: [id number] Exam Date: 11/22/2023 12:30 Report Date: 11/22/2023 13:40 At the request of: ANGELINE BASHIR Procedure: US pelvis EXAM: US pelvis HISTORY: Rule out ovarian mass COMPARISON: CT abdomen and CT pelvis studies dated 11/19/2023 TECHNIQUE: Transabdominal images of the pelvis were obtained. FINDINGS: Uterus appears grossly unremarkable and measures approximately 6.6 x 2.3 x 4.5 cm in longitudinal, AP and transverse dimensions. Central endometrial echo complex measures 0.47 cm which is within normal limits. Ovaries are not identified. Nonspecific area of mild decreased echogenicity in the expected location of the posterior cul-de-sac measuring approximately 2.7 x 2.2 x 2.1 cm. Complex fluid collection is considered. Given the inflammatory changes noted in the pelvis on the CT study, possibility of the above-noted finding being an abscess is difficult to exclude entirely. Ovarian mass less likely though difficult exclude entirely. Follow-up as needed. US/US pelvis IMPRESSION: Ultrasound study of the pelvis demonstrates what appears to be a complex fluid collection in the expected location of the posterior cul-de-sac as described. Possibility of abscess difficult to exclude entirely. Ovarian mass less likely although difficult to exclude entirely. Follow-up as needed. Electronically authenticated by: DELPHINE WORLEY Date: 11/22/2023 13:40
--- OUTSIDE RECORDS SUMMARY | 2023-11-22 06:09 | XMS_ITS ---
Patient Summarization (C-CDA 2.1 CCD) Created on: November 22, 2023 Cecilia Mckeon : 1945 Sex: Female Author Organization Sample organization Care Team Providers Care Supervisor Refining Name Role Phone Luis New Unavailable Unavailable Luis New Unavailable Unavailable Luis New Unavailable Unavailable MADISON SINGH~[id number] UNKNOWN Unavailable Unavailable TIMMIS, DR STEINBERG Consulting [...] Singh Unavailable MD Madison Singh Attending Provider [phone] Madison Singh Attending Unavailable Madison Singh Admitting Unavailable NO FAMILY, PHYSICIAN Primary Care Unavailable Allergies Allergy Classification Reported Allergen(s) Allergy Type Date of Onset Reaction(s) Facility Penicillins (antibiotic) (2 sources) Penicillins Drug Allergy 01-17-20 13 PENICILLINS [facility] Repository raNITIdine (1 source) raNITIdine Drug Allergy 11-19-19 24 [facility] (5 sources) penicillin; Translations: [penicillin] Drug Allergy 06-08-19 14 AOF, Unknown [facility] Repository (6 sources) Hmg-Coa Reductase Inhibitors (Statins); Translations: [Statins] Allergy to drug (finding) [facility] 250 DO Work Phone: (6 sources) Penicillins; Translations: [Penicillins] Allergy to drug (finding) [facility] 250 DO Work Phone: (10 sources) HMG-CoA reductase inhibitor Drug allergy 10-05-19 19 Unknown [facility] Other (10 sources) Penicillins (Antibiotic) Propensity to adverse reactions rash [facility] Other (10 sources) raNITIdine Drug Allergy 12-11-19 16 Unknown [facility] Other (4 sources) Allergies Reconciled Propensity to adverse reactions Unknown [facility] Other (10 sources) Substance with penicillin structure and antibacterial mechanism of action (substance) Drug allergy 02-29-20 18 PENICILLINS [facility] Other (4 sources) patient allergy list reviewed by nurse or physicia Propensity to adverse reactions 12-11-19 16 Comment:Done [facility] Other (1 source) Penicillins Drug allergy (disorder) 05-12-20 [facility] Repository (1 source) raNITIdine Drug Allergy 05-12-20 23 [facility] Repository (2 sources) Lmnuoym-PIF-OsM Reductase Inhibitor Drug allergy (disorder) 05-12-20 23 [facility] Repository Encounters Encounter Date Encounter Type Care Provider Facility Start: 11-19-2023 End: 11-19-2023 ambulatory [facility] Work Phone: Start: 11-19-2023 End: 11-19-2023 Patient encounter procedure [facility] Work Phone: Start: 07-06-2023 End: 07-06-2023 ambulatory Madison Singh Other [facility] Other Start: 07-06-2023 Telephone encounter Madison Singh [facility] Start: 07-05-2023 End: 07-05-2023 ambulatory Madison Singh Other [facility] Other Start: 07-05-2023 Telephone encounter Madison Singh [facility] Start: 06-23-2023 Nursing evaluation o f patient and report Madison Singh [facility] Start: 06-23-2023 End: 06-23-2023 ambulatory Madison Singh [facility] Other Start: 06-23-2023 End: 06-23-2023 Departed Referred MD Madison Singh Work Phone: [facility] [place] Work Phone: Start: 05-18-2023 End: 05-18-2023 ambulatory Madison Singh Other [facility] Other Start: 05-18-2023 Telephone encounter Madison Singh [facility] Start: 05-12-2023 End: 05-12-2023 ambulatory Madison Singh Other [facility] Other Start: 05-12-2023 Office outpatient vi sit 15 minutes Madison Singh [facility] Start: 05-12-2023 End: 05-12-2023 Patient encounter procedure MD Madison Singh Work Phone: [facility] Work Phone: Start: 04-28-2023 End: 04-28-2023 ambulatory Madison Singh Other [facility] Other Start: 04-28-2023 Telephone encounter Madison Orlando [facility] Start: 04-06-2023 End: 04-06-2023 ambulatory Madison Singh Other [facility] Other Start: 04-06-2023 Telephone encounter Madison Orlando [facility] Start: 04-05-2023 End: 04-05-2023 ambulatory Madison Singh Other [facility] Other Start: 04-05-2023 Patient encounter procedure Madison Singh [facility] Start: 04-05-2023 End: 04-05-2023 Patient encounter procedure MD Madison Singh Work Phone: [facility] Work Phone: Start: 02-04-2023 End: 02-04-2023 ambulatory Madison Singh Other [facility] Other Start: 02-04-2023 Nursing evaluation o f patient and report Madison Singh [facility] Start: 12-15-2021 Adult health examination Madison Singh Other [facility] Other Start: 09-09-2021 Office outpatient vi sit 15 minutes Madison Gonzalez Singh Work Phone: [facility] 250 DO Work Phone: Start: 09-01-2021 Chart Update No PCP None -[facility] 250 DO Work Phone: Start: 08-27-2021 Patient encounter procedure No PCP None [facility] Work Phone: Start: 08-01-2021 AUDIT No PCP None [facility] 250 DO Work Phone: Start: 08-01-2021 Telephone encounter Lizzy Truong TELEPHONE SEX WORKER-[employer] ADMINISTRATION SPECIALIST Work Phone: [facility] 250 DO Work Phone: Start: 07-28-2021 Rx Renewal Robert mabry DO Work Phone: [facility] 250 DO Work Phone: Start: 10-23-2020 End: 10-24-[address] MARYAN FOLEY Facility:[facility] Start: 08-05-2020 End: 08-06-2020 ambulatory NONE LISTED REQUEST Facility:[facility] Start: 06-22-2017 End: 06-22-2017 Ambulatory Luis New Facility:[facility] Medical Equipment Procedure Code Equipment Code Equipment [...] Test Strip) strip Start: 11-01-2023 End: 11-08-2023 Immunizations Immunization Date Immunization Notes Care Provider Fa cility 02-04-2023 influenza virus vaccine, unspecified formulation [facility] 02-04-2023 influenza, high dose seasonal, preservative-free Madison Singh Other [facility] Other 02-18-2022 influenza virus vaccine, split virus (incl. purified surface antigen) Madison Singh Other [facility] Other 02-18-2022 influenza virus vaccine, unspecified formulation [facility] 03-28-2021 Moderna COVID-19 Vaccine 100 MCG/0.5ML Intramuscular Suspension No PCP None [facility] 250 DO Work Phone: 02-07-2021 influenza virus vaccine, split virus (incl. purified surface antigen) Madison Singh Other [facility] Other 02-07-2021 influenza virus vaccine, unspecified formulation [facility] 08-05-2020 Claudia COVID-19 Vaccine 0.5 ML Intramuscular Suspension Robert Lynn DO Work Phone: [facility] 250 DO Work Phone: 02-29-2020 influenza virus vaccine, split virus (incl. purified surface antigen) Madison Singh Other [place] [email or web address] Other 02-29-2020 influenza virus vaccine, unspecified formulation Robert Lynn DO Work Phone: [facility] 02-28-2019 influenza virus vaccine, unspecified formulation [facility] Work Phone: 02-27-2019 influenza virus vaccine, split virus (incl. purified surface antigen) Madison Singh Other [facility] Other 02-27-2019 influenza virus vaccine, unspecified formulation [facility] 02-28-2018 influenza virus vaccine, split virus (incl. purified surface antigen) Madison Singh Other [facility] Other 02-28-2018 influenza virus vaccine, unspecified formulation [facility] 02-28-2018 Influenza, injectabl e, Madin Ginger Canine Kidney, quadrivalent with preservative No PCP None [place] [address] DO Work Phone: 01-29-2018 influenza virus vaccine, unspecified formulation Robert Lynn DO Work Phone: [place] [address] DO Work Phone: 02-11-2017 influenza virus vaccine, split virus (incl. purified surface antigen) Madison Singh Other [facility] Other 02-11-2017 influenza virus vaccine, unspecified formulation [facility] 02-11-2017 influenza, high dose seasonal, preservative-free No PCP None [facility] 250 DO Work Phone: 01-29-2017 influenza virus vaccine, unspecified formulation Robert Lynn DO Work Phone: [facility] 250 DO Work Phone: 02-10-2016 influenza virus vaccine, split virus (incl. purified surface antigen) Madison Singh Other [facility] Other 02-10-2016 influenza virus vaccine, unspecified formulation [facility] 01-30-2016 influenza, injectabl e, quadrivalent, preservative free No PCP None [facility] 250 DO Work Phone: 03-27-2015 tetanus and diphther ia toxoids, adsorbed, preservative free, for adult use (5 Lf of tetanus toxoid and 2 Lf of diphtheria toxoid) Madison Singh Other [facility] 01-29-2015 influenza virus vaccine, unspecified formulation Robert Lynn DO [facility] Phone: [facility] Work Phone: 03-23-2014 tetanus and diphther ia toxoids, adsorbed, preservative free, for adult use (5 Lf of tetanus toxoid and 2 Lf of diphtheria toxoid) Madison Singh Other [facility] 02-28-2014 influenza virus vaccine, whole virus Robert Lynn DO Work Phone: [facility] 250 DO Work Phone: 04-30-2012 pneumococcal polysaccharide vaccine, 23 valent Robert Lynn DO Work Phone: [facility] 250 DO Work Phone: 04-11-2012 pneumococcal polysaccharide vaccine, 23 valent Madison Singh Other [facility] 02-29-2012 pneumococcal polysaccharide vaccine, 23 valent No PCP None [facility] 250 DO Work Phone: 05-31-2011 influenza virus vaccine, unspecified formulation Robert Lynn DO Work Phone: [facility] 250 DO Work Phone: 05-31-2010 influenza virus vaccine, unspecified formulation Rboert Lynn DO Work Phone: [facility] 250 DO Work Phone: 05-31-2009 influenza virus vaccine, unspecified formulation Robert Lynn DO Work Phone: [facility] Work Phone: 03-31-2009 influenza virus vaccine, unspecified formulation Robert Lynn DO Work Phone: [facility] 250 DO Work Phone: Medications Current Medications Medication Drug Class(es) Dates [...] oral tablet (5 sources) Macrolide Antimicrobial Start: Azithromycin 250 MG as directed Orally 2 [...] times daily for 0 *Pick strength-form from Teepix for eRX* Nov, Active cetirizine hydrochloride 10 [...] Oral daily for 0 *Pick strength-form from Teepix for eRX* Nov, Active Glucosamine Complex (1 [...] DO Start : 01-Aug-2021 Active new start Payers Date Payer Category Payer Private Health Insurance I [id number] 2023 Self-pay 2017 Medicare [id number] 1958 Medicare [id number] 1958 Self-pay [id number] 1958 Unknown [id number] 1945 Unknown [id number] [email or web address]] [id number] Unknown [id number] Unknown Unknown Madison [id number] Unknown [id number] Plan of Treatment Date Care Activity Detail Author Start: 06-23-2023 Bacteria identified in Urine by Culture [facility] Start: 09-09-2021 FUV, Provider: Robert Lynn, Status: Pen, Time: 9:00 AM FUV, Provider: Robert Lynn, Status: Pen, Time: 9:00 AM [facility] 250 DO Work Phone: Start: 08-27-2021 STRESS NUC, Provider : NIKITA DDStocksI NUCLEAR 01,[id number], Status: Pen, Time: 8:00 AM STRESS NUC, Provider: NIKITA HHVI NUCLEAR ,[id number], Status: Pen, Time: 8:00 AM [facility] Work Phone: Comprehensive metabo lic 2000 panel - Serum or Plasma [facility] CT Abdomen and Pelvi s W contrast IV [facility] Problems Active Problems Problem Classification Problem Date [...] examination] Unclassified (1 source) Chronic cough R05.3 Procedures Date Procedure Procedure Detail Performing Clinician Start: 10-04-2018 Screening mammography M howard Singh Other Start: 06-15-2013 General examination of patient Madison Singh Other Cataract surgery Robert Mari tyrel DO Work Phone: Screening for malign ant neoplasm of breast Madison Singh Other Total colonoscopy Robert may DO Work Phone: Results Test Name Value Interpretation Reference Range Facility Urinalysis - DIPSTICKon 06-01 Appearance (U) Hazy [employer] Other Bilirubin Ql (U) Negative [employer] Other Color (U) Dark Yellow [facility] Other Glucose Ql (U) Negative [employer] Other Hemoglobin Ql (U) Negative [employer] Other Ketones Ql (U) Negative [employer] Other Leukocyte esterase Test strip Ql (U) Negative [employer] Other Nitrite Ql (U) Negative [employer] Other pH (U) 5.0 [pH] [employer] Other Protein Ql (U) + [employer] Other Specific gravity (U) [Rel density] 1.025 [employer] Other Urobilinogen (U) [Mass/Vol] 0.2 mg/dL [facility] Other Urinalysis - DIPSTICK [facility] Other Urine Cultureon 06-23-2023 Bacteria identified Cx Nom (U) ORGANISM: Klebsiella pneumoniae (O:KLEPNE) Eunice Count 15,000 Aerobic SOY Charge (NMIC56) --- [...] RESISTANT TO ALL B-LACTAM DRUGS. PERFORMED BY: [place] [address] [facility] DIRECTOR [employer] LEAH ACE M.D. [facility] Comment on above: Performed By: #### C UU #### [address] Office Visit (Cardiology)on 09-09-2021 Follow-up visit [...] Weight Tips; Status:Complete - Retrospective Authorization; Done: 09Sep2021 SocHx: Never a smoker Tobacco Use Screening; Status:Complete; Done: 09Sep2021 Tobacco Use Screening; Status:Complete; Done: 09Sep2021 Patient Instructions By signing my name below, I, Ivonne Saenz LPN, Scribe, attest that this documentation has been prepared under the direction and in the presence of Dr. Robert Lynn DO. All medical record entries made by the Evan were at my direction and personally dictated [...] Follow up as needed Chief Complaint CECILIA MCKEON is being seen for an annual [...] Recorded: 09Sep2021 09:16AM Heart Rate69, L Radial Nywozouo751, LUE, Sitting Tqtdfgyhs45, LUE, Sitting Height5 ft 4 in Iiiost246 lb 12.8 oz BMI Ktrtwtdmcr03.23 kg/m2 BSA Calculated1.74 Tobacco Useb) No PHQ-2 [...] Sep 09 2021 10:03AM EST (Author) Normal [facility] Tobacco Screening.on Adult depression screening assessment No [facility] 250 DO Work Phone: Fall risk assessment a) No falls within the last year [facility] 250 DO Work Phone: Tobacco use status CPHS b) No [facility] 250 DO Work Phone: [facility] CARDIAC STRESS/REST INJE CTIONon 08-27-2021 [facility] CARDIAC STRESS/REST INJECTION Patient Name: CECILIA MCKEON STUDY: MYOCARDIAL PERFUSION STRESS TEST WITH EXERCISE Performing facility: [facility], [address] [place] [address] Provider: Consuelo Lynn DO, FACC PCP: Dr. Almas Singh Supervising provider: Consuelo Lynn DO, FACC INDICATION: Chest Pain; Palpitations Hyperlipidemia HTN Cardiomyopathy HISTORY: Gender: F; Age: 75 y/o ; Height: 0 cm; Weight: 0 kg. High Cholesterol; HTN; Palpitations; Denies smoking. Cardiac catheterization on 2001. COMPARISON: Previous nuclear testing completed at [facility]. ACCESSION NUMBER(S): [id number]; [id number]; [id number] ORDERING CLINICIAN: ROBERT LYNN TECHNIQUE: ONE DAY [...] signed by: TORO MAJOR MD Normal [facility] No Panel Informationon 08-27 Please click on the link to view the study images Normal -[facility] 250 DO Work Phone: Normal [facility] 250 DO Work Phone: CREATININEon 10-23-2020 Creatinine [Mass/Vol] 0.90 mg/dL Normal 0.52-1.04 [facility] Comment on above: Performed By: #### C BERNARDA #### [facility] [address] [place] [address] Dean Ulrich EGFR-AF CITIZEN OF [place] >60 Normal >=60 [facility] Comment on above: Performed By: #### C BERNARDA #### [facility] [address] [place], [place] [address] Dean Ulrich EGFR-NON AF CITIZEN OF [place] >60 Normal >=60 [facility] Comment on above: Performed By: #### C BERNARDA #### [facility] [address] [place], [place] [address] Dean Ulrich MRI BRAIN WO W CONon [...] JOSE ALEJANDRO MAJOR Date: 2020-10-23 10:21 Normal [facility] Coding Summary.on 06-23-2017 Coding Summary. 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 SECONDARY: PYMT PROC APC STAT DESCRIPTION DOCTOR NAME DATE 52088 5421 T Discission of secondary Luis New DO [...] Rodriguez Date Saved: 06/23/2017 09:04 am Normal [facility] Social History Date Type Detail Facility Start: 05-12-2023 Tobacco smoking status NHIS Tobacco smoking consumption unknown (finding) [facility] Start: 1945 Sex Assigned At Female F [facility] Social alcohol use Social alcohol use - [place] [address] DO Work Phone: Sex Assigned At Sex Assigned At [facility] Other Vital Signs Date Time Vital Sign Value Performing Clinician Facility 11-19-2023 11:20-0400 Body height 162.56 cm [facility] 11-19-2023 11:20-0400 Body mass index (BMI) [Ratio] 27.5 kg/m2 [facility] 11-19-2023 11:20-0400 Body temperature 98 [degF] [facility] 11-19-2023 11:20-0400 Body weight 72.8 kg [facility] 11-19-2023 11:20-0400 Diastolic blood pressure 59 mm[Hg] [facility] 11-19-2023 11:20-0400 Heart rate 80 /min [facility] 11-19-2023 11:20-0400 Systolic blood pressure 93 mm[Hg] [facility] 05-12-2023 09:45-0500 Body height 162.56 cm Madison Singh Other [facility] Other 05-12-2023 09:45-0500 Body mass index (BMI) [Ratio] 28.9 kg/m2 Madison Singh Other [facility] Other 05-12-2023 09:45-0500 Body temperature 98 [degF] Madison Singh Other [facility] Other 05-12-2023 09:45-0500 Body weight 76.39 kg Madison Singh Other [facility] Other 05-12-2023 09:45-0500 Diastolic blood pressure 66 mm[Hg] Madison Singh Other [facility] Other 05-12-2023 09:45-0500 SaO2% (BldA) [Mass fraction] 96 % Madison Singh Other [facility] Other 05-12-2023 09:45-0500 Systolic blood pressure 103 mm[Hg] Madison Singh Other [facility] Other 04-05-2023 09:00-0500 Body height 162.56 cm Madison Singh Other [facility] Other 04-05-2023 09:00-0500 Body mass index (BMI) [Ratio] 28.59 kg/m2 Madison Singh Other [facility] Other 04-05-2023 09:00-0500 Body weight 75.57 kg Madison Singh Other [facility] Other 04-05-2023 09:00-0500 Diastolic blood pressure 80 mm[Hg] Madison Singh Other [facility] Other 04-05-2023 09:00-0500 Systolic blood pressure 150 mm[Hg] Madison Singh Other [facility] Other 09-09-2021 09:16-0400 Body height 162.56 cm Madison Singh Work Phone: [facility] 250 DO Work Phone: 09-09-2021 09:16-0400 Body mass index (BMI) [Ratio] 26.23 kg/m2 Madison Singh Work Phone: [facility] 250 DO Work Phone: 09-09-2021 09:16-0400 Body surface area Derived from formula 1.74 m2 Madison Singh Work Phone: [facility] 250 DO Work Phone: 09-09-2021 09:16-0400 Body weight 69.31 kg Madison Singh Work Phone: [facility] 250 DO Work Phone: 09-09-2021 09:16-0400 Diastolic blood pressure 80 mm[Hg] Madison Singh Work Phone: [facility] 250 DO Work Phone: 09-09-2021 09:16-0400 Heart rate 69 /min Madison Singh Work Phone: [facility] 250 DO Work Phone: 09-09-2021 09:16-0400 Systolic blood pressure 130 mm[Hg] Madison Singh Work Phone: [facility] 250 DO Work Phone: 08-27-2021 08:00-0400 59 1 No PCP None [facility] Work Phone: Comment on above: [id number] Evaluation note 07-05-2023 Note Date & Type Note Facility 07-05-2023 Evaluation note Encounter Date Diagnosis Assessment Notes Jul, Dysuria (ICD-10 - R30.0) [facility] Other Evaluation note 06-23-2023 Note Date & Type Note Facility 06-23-2023 Evaluation note Encounter Date Diagnosis Assessment Notes May, Flank pain (ICD-10 - R10.9) [facility] Other Evaluation note 05-12-2023 Note Date & Type Note Facility 05-12-2023 Evaluation note Encounter Date Diagnosis Assessment Notes Apr, Chronic cough (ICD-10 - R05.3) Eval CXR due to length of cough. r/o pneumonia or other interstitial markings. Finish antibiotics and steroids. Call if cough continues for potential pulm referral. [facility] Other Evaluation note 04-05-2023 Note Date & [...] unspecified (ICD-10 - I42.9) CARDIOMYOPATHY assess labs [facility] Other Evaluation note Note Date & Type Note Facility Evaluation note No Information [employer] Other Evaluation note Note Date & Type Note Facility Evaluation note No assessment information availa ble [facility] Work Phone: Evaluation note Note Date & Type Note Facility Evaluation note Diagnosis Onset Date LLQ abdominal pain acute [facility] Work Phone: History general Narrative - [...] procedures, hx of, Problem Comment : D&C [place] teeth Oral surgery Cataract Colonoscopy Normal - 06/16/2010, Problem Status : Active, Surgical History Problem Title : surg ical procedures, hx of, Problem Description : surgical procedures, hx of, Problem Comment : D[facility] [place] teeth Oral surgery Cataract, Problem Status : Active, Surgical History Problem Title : Tong ue surgery, Problem Status : Active, [facility] Other History general Narrative - Reported Note [...] : Active,, Medical History Problem Title : [facility] MARIA LUISA: Congestive heart failure, Problem Status : Active,, Medical History Problem Title : [facility] MARIA LUISA: Glaucoma, Problem Status : Active,, Medical History Problem Title : [facility] Annual Wellness Exam, Problem Description : Medicare Annual Wellness Exam, Problem Comment : [id number], Problem Status : Active,, Medical History Problem Title : [facility] Part B,CMOD Checklist #1, Problem Description [...] procedures, hx of, Problem Comment : D&[facility] [place] teeth Oral surgery Cataract Colonoscopy Normal - 06/16/2010, Problem Status : Active, Surgical History Problem Title : surg ical procedures, hx of, Problem Description : surgical procedures, hx of, Problem Comment : D&[facility] [place] teeth Oral surgery Cataract, Problem Status : Active, Surgical History Problem Title : Tong ue surgery, Problem Status : Active, [facility] Other History general Narrative - Reported Note Date & Type Note Facility History general Narrative - Reported Type Medical History Cardiomyopathy Medical History 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, without long-term current use of insulin Medical History Peripheral polyneuropathy Surgical History Cardiac surgery Surgical History Dilation and Curettage of Uteru s Surgical History Gum surgery Surgical History D&C [place] teeth Surgical History Problem Title : [facility] surgery, Problem Status : Active, Hospitalization History see surgical history [employer] Other Summary Purpose Family History Unknown Family [...] 25, 2023 10:16am Chief Complaint * CECILIA MCKEON is being seen for an annual [...] and content) DATE CREATED AUTHOR 11/22/2017 [facility] DATE CREATED AUTHOR AUTHOR'S ORGANIZ ATION 11/01/2020 [facility] DATE CREATED AUTHOR AUTHOR'S ORGANIZ ATION 09/10/2021 [facility] DATE CREATED AUTHOR AUTHOR'S ORGANIZ ATION 10/11/2021 [facility] DATE CREATED AUTHOR AUTHOR'S ORGANIZ ATION 07/09/2023 [facility] REASON FOR VISIT (unrecogniz ed section and [...] BE BASED ON THE PRIMARY CLINICAL RECORDS. [facility] provides no warranty or guarantee of the accuracy or completeness of information in this document.
[2023-11-22] MEDS: POTASSIUM CHLORIDE 40 MEQ in 0.9 % SODIUM CHLORIDE 250 ML 67.5 MEQ IV (07:46)
--- NOTE | 2023-11-22 08:04 | P.DS_ITS ---
DS: Providers Provider Date of admission: 11/19/23 16:02 Primary care physician: Madison Perry MD Consults: 11/19/23 15:58 Consult to General Surgeon Routine Consulting Provider: Man Du Reason for consultation: ruptured appendix Has provider been notified: Yes DS: Diagnosis Discharge Diagnosis (1) Acute appendicitis with appendiceal abscess: (2) Lupus anticoagulant disorder: (3) Hypertension: Qualifiers: Hypertension type: primary hypertension Qualified Code(s): I10 - Essential (primary) hypertension Plan Admission findings: Uncontrolled hypertension, acute abdomen, acute renal failure secondary to dehydration secondary to possible diverticulitis with small abscess. -Improving at the time of discharge Elevated sedimentation [id number] as an outpatient, likely steroids at discharge Lupus anticoagulant disorder: Monitor for signs of clotting Hypertension: Stable at the time of discharge Thrombocytopenia-improving at the time of discharge Acute renal failure-baseline creatinine of 0.7-progressed to a creatinine of 1.19- 170% above baseline.-Improving at the time of discharge Moderate protein calorie malnutrition-based on NIH criteria for albumin-follow as an outpatient Possible acute blood loss anemia with hemoglobin drop of 1.5 g-Down slightly at the time of discharge Admission status: Persisting need for IV antibiotics based on acute abdominal findings-medically necessary treatment will span 2 midnights. Inpatient status, endoscopy in a.m. ? DS: Summary Hospital Course Hospital Course: Patient initially admitted with increasing abdominal pain. CT scan suspicious for acute appendicitis versus diverticulitis. Patient was treated with IV antibiotics she is somewhat better today. But with her progression of symptoms and the significant elevated sedimentation rate, she will undergo a colonoscopy this morning. See operative report. If her colonoscopy is normal or shows evidence for colitis should be discharged home on steroids. Follow-up with her PCP as an outpatient. May need further gastrointestinal workup for possible Crohn's colitis. Positive family history. Overall patient is improving at the time of discharge prior to colonoscopy. Medication status. Status at Discharge Overall status at discharge: patient is not back to baseline Time Spent with Patient Time attestation: Total time spent providing and/or coordinating discharge services: Time spent: greater than 30 minutes Exam Constitutional Vital Signs, click to edit/add: Last Vital Signs Temp 97.6 F 11/22/23 04:15 Pulse 91 H 11/22/23 04:15 Resp 16 11/22/23 04:15 BP 155/80 H 11/22/23 04:15 Pulse Ox 90 L 11/22/23 04:15 O2 Del Method Room Air 11/22/23 04:15 Documenting provider has reviewed patient's vital signs: yes Common normals: no apparent distress Chest Common normals: inspection of chest normal Respiratory Common normals: normal respiratory effort, no retractions and no use of accessory muscles Cardio Common normals: regular rate and regular rhythm GI Common normals: Normal to inspection, nondistended, normoactive bowel sounds present and soft to palpation; tender (Much improved on the day of discharge) Palpation: tender (Much improved on the day of discharge) Details: RLQ and rebound tenderness present (Much improved on the day of discharge) DS: Data Data Completed and Pending Labs on day of discharge: Labs from last 24 hours 11/22/23 11/21/23 11/21/23 04:25 21:43 16:07 WBC 6.8 RBC 4.07 L Hgb 11.5 L Hct 35.3 L MCV 86.7 MCH 28.3 MCHC 32.6 RDW 13.1 Plt Count 144 L MPV 10.9 Neut % (Auto) 71.3 Lymph % (Auto) 12.[address] [place] % (Auto) 13.8 H Eos % (Auto) 1.3 Baso % (Auto) 0.6 Neut # (Auto) 4.9 Lymph # (Auto) 0.[address] [place] # (Auto) 0.9 H Eos # (Auto) 0.1 Baso # (Auto) 0.0 Abs Immat Gran (auto) 0.04 H Imm/Tot Granulo (auto) 0.6 H ESR Sodium 140 Potassium 3.1 L Chloride 103 Carbon Dioxide 26.7 Anion Gap 13.4 BUN 8.0 Creatinine 0.82 Est GFR ( Amer) >60 Est GFR (Non-Af Amer) >60 BUN/Creatinine Ratio 9.8 Glucose 117 H Calcium 8.8 Total Bilirubin 0.5 AST 10 L ALT 10 L Alkaline Phosphatase 73 Total Protein 6.5 Albumin 2.5 L Globulin 4.0 Albumin/Globulin Ratio 0.6 CA 125 ([place]) POC Glucose 116 H 107 H 11/21/23 11/20/23 04:28 09:52 WBC RBC Hgb Hct MCV MCH MCHC RDW Plt Count MPV Neut % (Auto) Lymph % (Auto) [place] % (Auto) Eos % (Auto) Baso % (Auto) Neut # (Auto) Lymph # (Auto) [place] # (Auto) Eos # (Auto) Baso # (Auto) Abs Immat Gran (auto) Imm/Tot Granulo (auto) ESR >130 H Sodium Potassium Chloride Carbon Dioxide Anion Gap BUN Creatinine Est GFR ( Amer) Est GFR (Non-Af Amer) BUN/Creatinine Ratio Glucose Calcium Total Bilirubin AST ALT Alkaline Phosphatase Total Protein Albumin Globulin Albumin/Globulin Ratio CA 125 ([place]) 6.8 POC Glucose Discharge Plan Discharge Disposition: Home, Self-Care Condition: Good Discharge Medications: New levofloxacin 750 mg tablet 750 mg PO DAILY 7 Days Qty: 7 0RF metronidazole 500 mg tablet 500 mg PO QID Qty: 28 0RF prednisone 20 mg tablet 40 mg PO BID Qty: 10 0RF Continued carvedilol 25 mg tablet 25 mg PO Q12H Print Language: Divehi Forms: Portal Instructions
--- NOTE | 2023-11-22 08:39 | CM.NOTE ---
Rounds made with Dr. Weinberg. Plan for Colonoscopy today and ultrasound abdomen. Potential discharge after scope if doing well. Important Message from Medicare reviewed and discussed with patient. Pt. verbalized understanding and signed the form. Original given to patient and copy placed in patient?s chart.
--- NOTE | 2023-11-22 12:06 | PC.NURSE ---
1201-91,18,144/67 95% 1216-84,18,174/75 95% 1220-85,18,183/80 95% PT RETURNES TOO THE FLOOR IN STABLE CONDITION
[2023-11-22 12:36] VITALS: BP 158/87; PULSE 84; TEMP 36.6; O2SAT 93
[2023-11-22] MEDS: CARVEDILOL 25 MG TABLET PO (12:44)
[2023-11-22 13:04] LABS: Glucometer 103 mg/dL (74-106)
[2023-11-22 13:07] VITALS: BP 152/80; PULSE 88; TEMP 36.6; O2SAT 94
--- NOTE | 2023-11-24 13:31 | CM.DCFOLLOWU ---
Person spoke with:patient How are you feeling? well, taking things slow How is your pain? managed Did you understand your discharge instructions? yes Do you have any questions about your discharge instructions? no Were you given any prescriptions at discharge? yes Were you able to get your prescriptions filled? yes Do you understand how to take your medications as ordered? yes Do you have any questions about your follow up appointment and do you plan to keep your follow up appointment? no questions, follow up tomorrow with PCP Is there anything else that you would like to discuss? no Questions/Comments/Concerns/Other: no
[2023-11-24 18:07] LABS: Calprotectin, Fecal 16 ug/g (0-120)
[2023-11-25 18:11] LABS: Ova + Parasite Exam Final report (.)
== END 2023-11-22 15:15 | disposition home or self-care (01) | DRG 391 ==
LOC: ER 15:50 → MS 11-20 00:19
PROVIDERS: Family Medicine; Surgery; Admitting Provider Family Medicine; Emergency Provider Emergency Medicine; PCP Family Medicine; Visit Provider Family Medicine
DX: K57.80 Diverticulitis of intestine, part unspecified, with perforation and abscess without bleeding (principal); K35.33 Acute appendicitis with perforation, localized peritonitis, and gangrene, with abscess; D62 Acute posthemorrhagic anemia; D68.62 Lupus anticoagulant syndrome; N17.9 Acute kidney failure, unspecified; E44.0 Moderate protein-calorie malnutrition; I10 Essential (primary) hypertension; E86.0 Dehydration; D69.6 Thrombocytopenia, unspecified; Z68.27 Body mass index [BMI] 27.0-27.9, adult; R10.32 Left lower quadrant pain; R70.0 Elevated erythrocyte sedimentation rate; T38.0X5A Adverse effect of glucocorticoids and synthetic analogues, initial encounter; Y92.239 Unspecified place in hospital as the place of occurrence of the external cause; Z83.79 Family history of other diseases of the digestive system; H40.9 Unspecified glaucoma; Z82.49 Family history of ischemic heart disease and other diseases of the circulatory system; Z88.0 Allergy status to penicillin; Z79.899 Other long term (current) drug therapy
CPT/HCPCS: 36415; 74022; 74177; 76856; 80053; 82948; 83605; 83993; 85025; 85652; 86304; 87045; 87046; 87177; 87209; 87427; 87493; 87507; 88305; 96365; 96366; 96367; 96368; 96375; 96376; 99285; G0328; J1836; J2405; J2704; J3480; Q9967

== ENCOUNTER 2024-01-05 08:26 | Outpatient (OUT) | payer MEDICARE, SELFPAY ==
--- OUTSIDE RECORDS SUMMARY | 2024-01-05 08:32 | XMS_ITS | CCD ---
Author Organization [facility] Care Team Providers Care Integrated Circuit Layout Designer Name Role Phone ALAINA, DR STEINBERG Consulting Unavailable TIMMIS, DR STEINBERG [...] Singh Unavailable MD Madison Singh Attending Provider NO FAMILY, PHYSICIAN Primary Care Provider Unava ilMD Man Osuna Attending Provider [phone] Man Du Admitting Unavailable NO FAMILY, PHYSICIAN Primary Care Unavailable Man Du Attending Unavailable Madison Singh Attending Unavailable Madison Singh Admitting Unavailable NO FAMILY, PHYSICIAN Primary Care Unavailable Man DU Attending Unavailable Allergies Allergy Classification Reported Allergen(s) Allergy Type Date of Onset Reaction(s) Facility Penicillins (antibiotic) (3 sources) Penicillins Drug Allergy 01-17-20 13 PENICILLINS [facility] Repository raNITIdine (2 sources) raNITIdine Drug Allergy 11-19-19 24 [facility] Unclassified (5 sources) Qmcrcvp-XLF-FjB Reductase Inhibitor; Translations: [Xaxgpjj-IUC-UfW Reductase Inhibitor] Allergy to substance 11-19-19 [facility] (6 sources) Hmg-Coa Reductase Inhibitors (Statins); Translations: [Statins] Allergy to drug (finding) [facility] 250 DO Work Phone: (8 sources) Penicillins; Translations: [Penicillins] Allergy to drug (finding) 11-25-19 24 PENICILLINS [facility] (10 sources) HMG-CoA reductase inhibitor Drug allergy 10-05-19 19 Unknown [facility] [employer] Other (5 sources) Penicillin; Translations: [penicillin] Drug Allergy 06-08-19 14 Unknown [facility] Repository (10 sources) Penicillins (Antibiotic) Propensity to adverse reactions rash [facility] [employer] Other (12 sources) raNITIdine Drug Allergy 12-11-19 16 Unknown, Hives [facility] (4 sources) Allergies Reconciled Propensity to adverse reactions Unknown [facility] [employer] Other (10 sources) Substance with penicillin structure and antibacterial mechanism of action (substance) Drug allergy 02-29-20 18 PENICILLINS [facility] [employer] Other (4 sources) patient allergy list reviewed by nurse or physicia Propensity to adverse reactions 12-11-19 16 Comment:Done [facility] [employer] Other (1 source) Penicillins Drug allergy (disorder) 11-19-19 24 [facility] Repository (1 source) raNITIdine Drug Allergy 11-19-19 [facility] Repository Medications Current Medications Medication Drug Class(es) Dates Sig (Normalized) Sig (Original) ascorbic acid 500 mg oral tablet (15 sources) Vitamin C Start: 11-19-2023 take 1 [...] mg oral tablet (5 sources) Macrolide Antimicrobial Start : 05-18 Azithromycin [...] Once a day for 30 day(s) Active cetirizine hydrochloride 10 mg oral tablet (4 sources) Histamine-1 Receptor Antagonist Start : 11-18 take 1 tablet by mouth once daily Cetirizine (24hour Allergy) 10 mg tablet Active 10 MG PO Daily November 19, 2023 12:00am [facility] Vitamin C 500MG (10 sources) Start : 12-15 take 500 mg by mouth once daily [facility] Vitamin C 500MG [facility] Vitamin C( 500MG Oral daily ) Active -Hx Entry Oral daily for 0 *Pick strength-form from [employer] for eRX* Nov, Active Glucosamine Complex (1 [...] 4 mg oral tablet (5 sources) Corticosteroid Start : 05-18 methylPREDNISolone 4 [...] 90 Active Veramyst 27.5 MCG/SPRAY (10 sources) Start : 01-28 take 2 puff(s) nasal route once daily Veramyst 27.5 MCG/SPRAY 2 puffs in each nostril Nasally Once a day for 30 day(s) Dec, Active Completed/Discontinued Medications Medication Drug Class(es) Dates Sig (Normalized) Sig (Original) carvedilol 25 mg oral tablet (20 sources) alpha-Adrenergic Amber, beta-Adrenergic Amber Start: 08-09-2023 End: 11-05-2023 take 1 tablet by mouth twice daily at mealtime Carvedilol Discontinued 0 .ROUTE .COMPLEX 180 August 16, 2023 10:04am November 05, 2023 12:16pm TAKE 1 TABLET [...] times daily for 0 *Pick strength-form from [employer] for eRX* Nov, Active fluticasone furoate 0.0275 mg/actuat metered dose nasal spray (4 sources) Corticosteroid Start: 11-19-2023 End: 11-19-2023 take 1 spray(s) nasal route once daily Fluticasone Furoate Discontinued 1 SPRAY INTRANASAL Daily November 19, 2023 12:00am November 19, 2023 11:30am into each nostril levoFLOXacin 750 mg oral tablet (1 source) Quinolone Antimicrobial Start: 11-25-2023 End: 12-07-2023 take 750 mg by mouth once daily Levofloxacin Discontinued 750 MG PO Daily November 25, 2023 12:00am December 07, 2023 9:24am loratadine 10 mg oral tablet (1 source) take 1 tablet by mouth once daily Loratadine 10 MG Oral Tablet TAKE 1 TABLET DAILY. Quantity: 0 Refills: 0 Ordered: 09-Sep-2021 DO Active metroNIDAZOLE 500 mg oral tablet (1 source) Nitroimidazole Antimicrobial Start: 11-25-2023 End: 12-07-2023 take 500 mg by mouth four times daily Metronidazole Discontinued 500 MG PO Four times daily November 25, 2023 12:00am December 07, 2023 9:24am nitroglycerin 0.4 mg sublingual tablet (5 sources) Nitrate Vasodilator Start: 08-01-2021 Nitroglycerin 0.4 MG Sublingual Tablet Sublingual PLACE 1 TABLET UNDER THE TONGUE EVERY 5 MINUTES FOR UP TO 3 DOSES NEEDED FOR CHEST PAIN.CALL 911 IF PAIN PERSISTS. Quantity: 25 Refills: 3 Ordered: 01-Aug-2021 Robert Lynn DO Start : 01-Aug-2021 Active new start Problems Active Problems Problem Classification Problem Date Documented Da te Episodic/Chronic Abdominal pain (16 sources) Unspecified abdominal pain; Translations: [Left lower quadrant pain] Onset: 4 Episodic Allergic reactions (8 sources) Allergic contact dermatitis due to plants, except food; Translations: [Allergic contact dermatitis due to plants, except food] Onset: 6 Episodic Cardiac dysrhythmias (6 sources) Palpitations; Translations: [Palpitations] Episodic Diabetes mellitus with complications (20 sources) Hyperglycemia due to type 2 diabetes mellitus; Translations: [Type 2 diabetes mellitus with hyperglycemia] Onset: 9 Chronic Diabetes mellitus without complication (1 source) Diabetes mellitus; Translations: [Diabetes mellitus without mention of complication, type II or unspecified type, not stated as uncontrolled] Chronic Disorders of lipid metabolism (6 sources) Hyperlipidemia; Translations: [Other and unspecified hyperlipidemia] Chronic Esophageal disorders (8 sources) Gastroesophageal reflux disease without esophagitis; Translations: [Gastro-esophageal reflux disease without esophagitis] Onset: 7 Chronic Essential hypertension (8 sources) Hypertensive disorder; Translations: [Unspecified essential hypertension] 12-07-2023 Chronic Genitourinary symptoms and ill-defined conditions (9 sources) Genitourinary symptoms; Translations: [Unspecified symptoms and signs involving the genitourinary system] Episodic Glaucoma (4 sources) Glaucoma; Translations: [Unspecified glaucoma] Onset: 4 Chronic Immunizations and screening for infectious disease (4 sources) Vaccination given; Translations: [Encounter for immunization] Episodic Noninfectious gastroenteritis (2 sources) Inflammatory bowel disease; Translations: [Noninfective gastroenteritis and colitis, unspecified] 11-25-2023 Episodic Nonmalignant breast conditions (4 sources) Pain of breast; Translations: [Mastodynia] Episodic Nonspecific chest pain (6 sources) Chest pain; Translations: [Chest pain, unspecified] Episodic Other ear and sense organ disorders (4 sources) Unspecified hearing loss, left ear; Translations: [UNSPECIFIED HEARING LOSS LEFT EAR] Onset: 1 Chronic Other ear and sense organ disorders (4 sources) Impacted cerumen; Translations: [Impacted cerumen, bilateral] Episodic Other gastrointestinal disorders (1 source) Intra-abdominal collection; Translations: [Other ascites] 12-07-2023 Episodic Other gastrointestinal disorders (1 source) Other ascites; Translations: [Other ascites] 12-07-2023 Episodic Other lower respiratory disease (4 sources) [...] Allergic rhinitis; Translations: [Allergic rhinitis, unspecified] Onset: 7 Chronic Krystal-; endo-; and myocarditis; cardiomyopathy (except that caused by tuberculosis or sexually transmitted disease) (20 sources) Cardiomyopathy; Translations: [Other primary cardiomyopathies] Onset: 4 Chronic Residual codes; unclassified (5 sources) Body [...] Test Name Value Interpretation Reference Range Facility Consultation Noteon 11-24-19 24 Consultation Note [id number] Normal [facility] Lab Reportson 11-24-2023 Lab Reports [id number] Normal [facility] Outside Colonoscopyon 2023 Outside Colonoscopy [id number] Normal [facility] Basophils Auto (Bld) [#/Vol] on 11-22-2023 Basophils (Bld) [#/Vol] 0.0 10 3/uL 0.0-0.1 [facility] Basophils/100 WBC Auto (Bld) on 11-22-2023 Basophils/100 WBC (Bld) 0.6 % 0.2-2.0 [facility] Eosinophils/100 WBC Auto (Bl d)on 11-22-2023 Eosinophils/100 WBC (Bld) 1.3 % 0.9-7.0 [facility] Erythrocyte distribution wid th Auto (RBC) [Ratio]on 11-22-2023 Erythrocyte distribution width (RBC) [Ratio] 13.1 % 11.0-15.0 [facility] Estimated glomerular filtrat ion rate (GFR) non- Americanon 11-22-2023 GFR/1.73 sq M.predicted among non-blacks MDRD (S/P/Bld) [Vol rate/Area] mL/min/{1.73_m2} >=60 [facility] Globulin Calc (S) [Mass/Vol] on 11-22-2023 Globulin (S) [Mass/Vol] 4.0 g/dL [facility] Hematocrit Auto (Bld) [Volum e fraction]on 11-22-2023 Hematocrit (Bld) [Volume fraction] 35.3 % Low 36.0-48.0 [facility] Hemoglobin [Mass/volume] in Bloodon 11-22-2023 Hemoglobin (Bld) [Mass/Vol] 11.5 g/dL Low 12.0-16.0 [facility] Nav 11-22-2023 L Specimen: [id number] Received: 11/24/23 Status: KERRY Gunter Num: [id number] Spec Type: Surgical Subm Dr: Man Du MD FACS Tissues: A Colon Biopsy (TERINAL ILEUM BX) Procedures: HE/2, Gross/Micro L4 Age/ Patient Sex Location Account Attending Physician Cecilia Mckeon 77/F [place] [id number] Man Du MD FACS SPEC NUM: [id number] RECD: 11/24/23 STATUS: SOU REQ NUM: [id number] MIKE: 11/22/[address]: Man Du MD FACS ENTERED: 11/24/23 [facility] DR: Trini Lebron SPEC TYPE: Surgical DEPT: DERREK OLGUIN ORDERED: HE/2, Gross/Micro L4 ORDERED: HE/2, Gross/Micro L4 Pathological Diagnosis Terminal ileum, biopsy: No significant pathologic abnormality. Clinical Information Normal, Pap pending Gross Description Received in formalin labeled with the patient's name, date of and terminal ileum BX are 2 brown mucosal tissue fragments measuring 0.3 x 0.3 x 0.1 cm and 0.2 x 0.1 x 0.1 cm, entirely submitted in A1. CPT Codes 17035 Specimen: [id number] Received: 11/24/23 Status: SOUT Req Num: [id number] Spec Type: Surgical Subm Dr: Man Du MD FACS Tissues: A Colon Biopsy (TERINAL ILEUM BX) Procedures: HE/2, Gross/Micro L4 Patient: Cecilia Mckeon [id number] (Continued) Signed (signature on file) Gabi Marquis MD 11/25/23 1617 Normal [facility] Laboratory - Chemistry and C hemistry - challengeon 11-22-2023 Albumin [Mass/Vol] 2.5 g/dL Low 3.4-5.[address] [facility] ALP [Catalytic activity/Vol] 73 U/L 46-116 [facility] ALT [Catalytic activity/Vol] 10 U/L Low 14-59 [facility] AST [Catalytic activity/Vol] 10 U/L Low 15-37 [facility] Bilirubin [Mass/Vol] 0.5 mg/dL 0.2-1.0 [facility] Calcium [Mass/Vol] 8.8 mg/dL 8.5-10.[address] [facility] Chloride [Moles/Vol] 103 mmol/L 98-107 [facility] CO2 [Moles/Vol] 26.7 mmol/L 21.0-32.0 [facility] Creatinine [Mass/Vol] 0.82 mg/dL 0.55-1.02 [facility] GFR/1.73 sq M.predicted MDRD (S/P/Bld) [Vol rate/Area] mL/min/{1.73_m2} >=60 [facility] Glucose [Mass/Vol] 117 mg/dL High 74-[address] [facility] Potassium [Moles/Vol] 3.1 mmol/L Low 3.5-5.1 [facility] Protein [Mass/Vol] 6.5 g/dL 6.4-8.[address] [facility] Sodium [Moles/Vol] 140 mmol/L 136-[address] [facility] Urea nitrogen [Mass/Vol] 8.0 mg/dL 7.0-18.0 [facility] Urea nitrogen/Creatinine [Mass ratio] 9.8 mg/mg [facility] Laboratory - Hematology and Cell countson 11-22-2023 Immature granulocytes/100 WBC (Bld) 0.6 % High 0.0-0.5 [facility] Leukocytes [#/volume] correc paul for nucleated erythrocytes in Blood by Automated counon 11-22-2023 WBC corrected for nucl RBC Auto (Bld) [#/Vol] 6.8 10 3/uL 4.0-11.0 [facility] Lymphocytes Auto (Bld) [#/Vo l]on 11-22-2023 Lymphocytes (Bld) [#/Vol] 0.9 10 3/uL Low 1.2-3.8 [facility] Lymphocytes/100 WBC Auto (Bl d)on 11-22-2023 Lymphocytes/100 WBC (Bld) 12.4 % Low 20.5-60.0 [facility] MCH Auto (RBC) [Entitic mass ]on 11-22-2023 MCH (RBC) [Entitic mass] 28.3 pg 26.7-34.0 [facility] MCHC Auto (RBC) [Mass/Vol]on 11-22-2023 MCHC (RBC) [Mass/Vol] 32.6 g/dL 29.9-35.2 [facility] MCV Auto (RBC) [Entitic vol] on 11-22-2023 MCV (RBC) [Entitic vol] 86.7 fL 81.0-99.0 [facility] Monocytes Auto (Bld) [#/Vol] on 11-22-2023 Monocytes (Bld) [#/Vol] 0.9 10 3/uL High 0.3-0.8 [facility] Monocytes/100 WBC Auto (Bld) on 11-22-2023 Monocytes/100 WBC (Bld) 13.8 % High 1.7-12.0 [facility] Neutrophils Auto (Bld) [#/Vo l]on 11-22-2023 Neutrophils (Bld) [#/Vol] 4.9 10 3/uL 1.4-6.5 [facility] Neutrophils/100 WBC Auto (Bl d)on 11-22-2023 Neutrophils/100 WBC (Bld) 71.3 % 43.0-75.0 [facility] No Panel Informationon 11-21 Eosinophils # (Auto) 0.1 10 3/uL 0.0-0.7 [facility] Immature Granulocyte # (Auto) 0.04 10 3/uL High 0.00-0.03 [facility] Platelet mean volume Auto (B ld) [Entitic vol]on 11-22-2023 Platelet mean volume (Bld) [Entitic vol] 10.9 fL 9.5-13.5 [facility] Platelets Auto (Bld) [#/Vol] on 11-22-2023 Platelets (Bld) [#/Vol] 144 10 3/uL Low 150-450 [facility] RBC Auto (Bld) [#/Vol]on RBC (Bld) [#/Vol] 4.07 10 6/uL Low 4.20-5.40 [facility] Serum or plasma albumin/glob ulin mass ratioon 11-22-2023 Albumin/Globulin [Mass ratio] 0.6 {ratio} [facility] Serum or plasma anion gap de terminationon 11-22-2023 Anion gap [Moles/Vol] 13.4 mmol/L [facility] Basophils Auto (Bld) [#/Vol] on 11-21-2023 Basophils (Bld) [#/Vol] 0.1 10 3/uL 0.0-0.1 [facility] Basophils/100 WBC Auto (Bld) on 11-21-2023 Basophils/100 WBC (Bld) 0.7 % 0.2-2.0 [facility] Eosinophils/100 WBC Auto (Bl d)on 11-21-2023 Eosinophils/100 WBC (Bld) 1.8 % 0.9-7.0 [facility] Erythrocyte distribution wid th Auto (RBC) [Ratio]on 11-21-2023 Erythrocyte distribution width (RBC) [Ratio] 13.1 % 11.0-15.0 [facility] Estimated glomerular filtrat ion rate (GFR) non- Americanon 11-21-2023 GFR/1.73 sq M.predicted among non-blacks MDRD (S/P/Bld) [Vol rate/Area] mL/min/{1.73_m2} >=60 [facility] Globulin Calc (S) [Mass/Vol] on 11-21-2023 Globulin (S) [Mass/Vol] 4.0 g/dL [facility] Hematocrit Auto (Bld) [Volum e fraction]on 11-21-2023 Hematocrit (Bld) [Volume fraction] 35.2 % Low 36.0-48.0 [facility] Hemoglobin [Mass/volume] in Bloodon 11-21-2023 Hemoglobin (Bld) [Mass/Vol] 11.8 g/dL Low 12.0-16.0 [facility] Laboratory - Chemistry and C hemistry - challengeon 11-21-2023 Albumin [Mass/Vol] 2.8 g/dL Low 3.4-5.[address] [facility] ALP [Catalytic activity/Vol] 83 U/L 46-116 [facility] ALT [Catalytic activity/Vol] 15 U/L 14-59 [facility] AST [Catalytic activity/Vol] 9 U/L Low 15-37 [facility] Bilirubin [Mass/Vol] 0.5 mg/dL 0.2-1.0 [facility] Calcium [Mass/Vol] 9.0 mg/dL 8.5-10.[address] [facility] Chloride [Moles/Vol] 105 mmol/L 98-107 [facility] CO2 [Moles/Vol] 24.6 mmol/L 21.0-32.0 [facility] Creatinine [Mass/Vol] 0.84 mg/dL 0.55-1.02 [facility] GFR/1.73 sq M.predicted MDRD (S/P/Bld) [Vol rate/Area] mL/min/{1.73_m2} >=60 [facility] Glucose [Mass/Vol] 125 mg/dL High 74-[address] [facility] Potassium [Moles/Vol] 3.0 mmol/L Low 3.5-5.1 [facility] Protein [Mass/Vol] 6.8 g/dL 6.4-8.[address] [facility] Sodium [Moles/Vol] 141 mmol/L 136-[address] [facility] Urea nitrogen [Mass/Vol] 9.0 mg/dL 7.0-18.0 [facility] Urea nitrogen/Creatinine [Mass ratio] 10.7 mg/mg [facility] Laboratory - Hematology and Cell countson 11-21-2023 ESR (Bld) [Velocity] mm/h High <=30 [facility] Immature granulocytes/100 WBC (Bld) 0.6 % High 0.0-0.5 [facility] Leukocytes [#/volume] correc paul for nucleated erythrocytes in Blood by Automated counon 11-21-2023 WBC corrected for nucl RBC Auto (Bld) [#/Vol] 6.7 10 3/uL 4.0-11.0 [facility] Lymphocytes Auto (Bld) [#/Vo l]on 11-21-2023 Lymphocytes (Bld) [#/Vol] 0.7 10 3/uL Low 1.2-3.8 [facility] Lymphocytes/100 WBC Auto (Bl d)on 11-21-2023 Lymphocytes/100 WBC (Bld) 10.5 % Low 20.5-60.0 [facility] MCH Auto (RBC) [Entitic mass ]on 11-21-2023 MCH (RBC) [Entitic mass] 28.4 pg 26.7-34.0 [facility] MCHC Auto (RBC) [Mass/Vol]on 11-21-2023 MCHC (RBC) [Mass/Vol] 33.5 g/dL 29.9-35.2 [facility] MCV Auto (RBC) [Entitic vol] on 11-21-2023 MCV (RBC) [Entitic vol] 84.8 fL 81.0-99.0 [facility] Monocytes Auto (Bld) [#/Vol] on 11-21-2023 Monocytes (Bld) [#/Vol] 0.9 10 3/uL High 0.3-0.8 [facility] Monocytes/100 WBC Auto (Bld) on 11-21-2023 Monocytes/100 WBC (Bld) 12.8 % High 1.7-12.0 [facility] Neutrophils Auto (Bld) [#/Vo l]on 11-21-2023 Neutrophils (Bld) [#/Vol] 5.0 10 3/uL 1.4-6.5 [facility] Neutrophils/100 WBC Auto (Bl d)on 11-21-2023 Neutrophils/100 WBC (Bld) 73.6 % 43.0-75.0 [facility] No Panel Informationon 11-20 Eosinophils # (Auto) 0.1 10 3/uL 0.0-0.7 [facility] Immature Granulocyte # (Auto) 0.04 10 3/uL High 0.00-0.03 [facility] Platelet mean volume Auto (B ld) [Entitic vol]on 11-21-2023 Platelet mean volume (Bld) [Entitic vol] 10.9 fL 9.5-13.5 [facility] Platelets Auto (Bld) [#/Vol] on 11-21-2023 Platelets (Bld) [#/Vol] 142 10 3/uL Low 150-450 [facility] RBC Auto (Bld) [#/Vol]on RBC (Bld) [#/Vol] 4.15 10 6/uL Low 4.20-5.40 [facility] Serum or plasma albumin/glob ulin mass ratioon 11-21-2023 Albumin/Globulin [Mass ratio] 0.7 {ratio} [facility] Serum or plasma anion gap de terminationon 11-21-2023 Anion gap [Moles/Vol] 14.4 mmol/L [facility] Basophils Auto (Bld) [#/Vol] on 11-20-2023 Basophils (Bld) [#/Vol] 0.0 10 3/uL 0.0-0.1 [facility] Basophils/100 WBC Auto (Bld) on 11-20-2023 Basophils/100 WBC (Bld) 0.5 % 0.2-2.0 [facility] Eosinophils/100 WBC Auto (Bl d)on 11-20-2023 Eosinophils/100 WBC (Bld) 2.0 % 0.9-7.0 [facility] Erythrocyte distribution wid th Auto (RBC) [Ratio]on 11-20-2023 Erythrocyte distribution width (RBC) [Ratio] 13.4 % 11.0-15.0 [facility] Estimated glomerular filtrat ion rate (GFR) non- Americanon 11-20-2023 GFR/1.73 sq M.predicted among non-blacks MDRD (S/P/Bld) [Vol rate/Area] mL/min/{1.73_m2} >=60 [facility] Globulin Calc (S) [Mass/Vol] on 11-20-2023 Globulin (S) [Mass/Vol] 4.0 g/dL [facility] Hematocrit Auto (Bld) [Volum e fraction]on 11-20-2023 Hematocrit (Bld) [Volume fraction] 35.4 % Low 36.0-48.0 [facility] Hemoglobin [Mass/volume] in Bloodon 11-20-2023 Hemoglobin (Bld) [Mass/Vol] 11.5 g/dL Low 12.0-16.0 [facility] Laboratory - Chemistry and C hemistry - challengeon 11-20-2023 Albumin [Mass/Vol] 2.7 g/dL Low 3.4-5.[address] [facility] ALP [Catalytic activity/Vol] 79 U/L 46-116 [facility] ALT [Catalytic activity/Vol] 14 U/L 14-59 [facility] AST [Catalytic activity/Vol] 10 U/L Low 15-37 [facility] Bilirubin [Mass/Vol] 0.7 mg/dL 0.2-1.0 [facility] Calcium [Mass/Vol] 9.0 mg/dL 8.5-10.[address] [facility] Chloride [Moles/Vol] 106 mmol/L 98-107 [facility] CO2 [Moles/Vol] 20.5 mmol/L Low 21.0-32.0 [facility] Creatinine [Mass/Vol] 0.90 mg/dL 0.55-1.02 [facility] GFR/1.73 sq M.predicted MDRD (S/P/Bld) [Vol rate/Area] mL/min/{1.73_m2} >=60 [facility] Glucose [Mass/Vol] 88 mg/dL 74-[address] [facility] Lactate [Moles/Vol] 0.9 mmol/L 0.4-2.0 [facility] Potassium [Moles/Vol] 3.5 mmol/L 3.5-5.1 [facility] Protein [Mass/Vol] 6.7 g/dL 6.4-8.[address] [facility] Sodium [Moles/Vol] 139 mmol/L 136-[address] [facility] Urea nitrogen [Mass/Vol] 21.0 mg/dL High 7.0-18.0 [facility] Urea nitrogen/Creatinine [Mass ratio] 23.3 mg/mg [facility] Laboratory - Hematology and Cell countson 11-20-2023 Immature granulocytes/100 WBC (Bld) 0.5 % 0.0-0.5 [facility] Leukocytes [#/volume] correc paul for nucleated erythrocytes in Blood by Automated counon 11-20-2023 WBC corrected for nucl RBC Auto (Bld) [#/Vol] 6.0 10 3/uL 4.0-11.0 [facility] Lymphocytes Auto (Bld) [#/Vo l]on 11-20-2023 Lymphocytes (Bld) [#/Vol] 0.7 10 3/uL Low 1.2-3.8 [facility] Lymphocytes/100 WBC Auto (Bl d)on 11-20-2023 Lymphocytes/100 WBC (Bld) 10.9 % Low 20.5-60.0 [facility] MCH Auto (RBC) [Entitic mass ]on 11-20-2023 MCH (RBC) [Entitic mass] 28.5 pg 26.7-34.0 [facility] MCHC Auto (RBC) [Mass/Vol]on 11-20-2023 MCHC (RBC) [Mass/Vol] 32.5 g/dL 29.9-35.2 [facility] MCV Auto (RBC) [Entitic vol] on 11-20-2023 MCV (RBC) [Entitic vol] 87.6 fL 81.0-99.0 [facility] Monocytes Auto (Bld) [#/Vol] on 11-20-2023 Monocytes (Bld) [#/Vol] 0.7 10 3/uL 0.3-0.8 [facility] Monocytes/100 WBC Auto (Bld) on 11-20-2023 Monocytes/100 WBC (Bld) 11.4 % 1.7-12.0 [facility] Neutrophils Auto (Bld) [#/Vo l]on 11-20-2023 Neutrophils (Bld) [#/Vol] 4.5 10 3/uL 1.4-6.5 [facility] Neutrophils/100 WBC Auto (Bl d)on 11-20-2023 Neutrophils/100 WBC (Bld) 74.7 % 43.0-75.0 [facility] No Panel Informationon 11-19 Ova & Parasite Result 1 Comment . [facility] Comment on above: No ova, cysts, or pa rasites seen.One negative specimen does not rule out the possibility ofa parasitic infection.Performed at: [facility] [id number] Director: Juan Messer PhD, Phone: [phone] Ova and Parasites (LAB) Final report . [facility] Comment on above: These results were o btained using wet preparation(s) andtrichrome stained smear. This test does not include testingfor Cryptosporidium parvum, Cyclospora, or Microsporidia. Stool Calprotectin 16 ug/g 0-[address] [facility] Comment on above: Concentration Interp retation Follow-Up< 5 - 50 ug/g Normal None>50 -120 ug/g Borderline Re-evaluate in 4-6 weeks >120 ug/g Abnormal Repeat as clinically indicatedPerformed at: [facility] [id number] Director: Saima Stewart MD, Phone: [phone] Eosinophils # (Auto) 0.1 10 3/uL 0.0-0.7 [facility] Immature Granulocyte # (Auto) 0.03 10 3/uL 0.00-0.03 [facility] Platelet mean volume Auto (B ld) [Entitic vol]on 11-20-2023 Platelet mean volume (Bld) [Entitic vol] 11.0 fL 9.5-13.5 [facility] Platelets Auto (Bld) [#/Vol] on 11-20-2023 Platelets (Bld) [#/Vol] 131 10 3/uL Low 150-450 [facility] RBC Auto (Bld) [#/Vol]on RBC (Bld) [#/Vol] 4.04 10 6/uL Low 4.20-5.40 [facility] Serum or plasma albumin/glob ulin mass ratioon 11-20-2023 Albumin/Globulin [Mass ratio] 0.7 {ratio} [facility] Serum or plasma anion gap de terminationon 11-20-2023 Anion gap [Moles/Vol] 16.0 mmol/L [facility] Serum or plasma cancer antig en 125 (CA-125) measurement (units/volume)on 11-20-2023 Cancer Ag 125 Qn 6.8 [arb'U]/mL 0.0-38.1 [facility] Comment on above: [facility] El ectrochemiluminescence Immunoassay(ECLIA)Values obtained with different assay methods or kits cannotbe used interchangeably. Results cannot be interpreted asabsolute evidence of the presence or absence of malignantdisease.Performed at: [facility] [id number] Director: Juan Messer PhD, Phone: [phone] Basophils Auto (Bld) [#/Vol] on 11-19-2023 Basophils (Bld) [#/Vol] 0.0 10 3/uL 0.0-0.1 [facility] Basophils/100 WBC Auto (Bld) on 11-19-2023 Basophils/100 WBC (Bld) 0.4 % 0.2-2.0 [facility] Detection in stool of any of Campylobacter coli, Campylobacter jejuni, and Campylobacon 11-19-2023 C. coli+jejuni+upsalien sis DNA LARY+non-probe Ql (Stl) Not detected NOT DETECTE [facility] Detection in stool of any of Vibrio cholerae, Vibrio parahaemolyticus, and Vibrio vulon 11-19-2023 V. cholerae+parahaemoly ticus+vulnificus DNA LARY+non-probe Ql (Stl) Not detected NOT DETECTE [facility] Detection in stool of either or both Salmonella enterica and Salmonella bongori DNA bon 11-19-2023 S. enterica+bongori DNA LARY+non-probe Ql (Stl) Not detected NOT DETECTE [facility] Detection in stool of either or both enteroaggregative Escherichia coli Paulino plasmid aon 11-19-2023 E. coli enteroaggregative Paulino plasmid aggR+aatA genes LARY+non-probe Ql (Stl) Not detected NOT DETECTE [facility] Eosinophils/100 WBC Auto (Bl d)on 11-19-2023 Eosinophils/100 WBC (Bld) 1.0 % 0.9-7.0 [facility] Erythrocyte distribution wid th Auto (RBC) [Ratio]on 11-19-2023 Erythrocyte distribution width (RBC) [Ratio] 13.7 % 11.0-15.0 [facility] Escherichia coli Stx1 and St x2 toxin stx1+stx2 genes [Presence] in Stool by LARY withon 11-19-2023 E. coli stx1+stx2 genes LARY+non-probe Ql (Stl) Not detected NOT DETECTE [facility] Escherichia coli enteropatho genic eae gene [Presence] in Stool by LARY with non-probeon 11-19-2023 E. coli enteropathogenic eae gene LARY+non-probe Ql (Stl) Not detected NOT DETECTE [facility] Escherichia coli enterotoxig enic ltA+st1a+st1b genes [Presence] in Stool by LARY withon 11-19-2023 E. coli enterotoxigenic ltA+st1a+st1b genes LARY+non-probe Ql (Stl) Not detected NOT DETECTE [facility] Estimated glomerular filtrat ion rate (GFR) non- Americanon 11-19-2023 GFR/1.73 sq M.predicted among non-blacks MDRD (S/P/Bld) [Vol rate/Area] 44 mL/min/{1.73_m2} Low >=60 [facility] Globulin Calc (S) [Mass/Vol] on 11-19-2023 Globulin (S) [Mass/Vol] 4.5 g/dL [facility] Hematocrit Auto (Bld) [Volum e fraction]on 11-19-2023 Hematocrit (Bld) [Volume fraction] 38.3 % 36.0-48.0 [facility] Hemoglobin [Mass/volume] in Bloodon 11-19-2023 Hemoglobin (Bld) [Mass/Vol] 12.4 g/dL 12.0-16.0 [facility] Laboratory - Chemistry and C hemistry - challengeon 11-19-2023 Albumin [Mass/Vol] 3.1 g/dL Low 3.4-5.[address] [facility] ALP [Catalytic activity/Vol] 87 U/L 46-116 [facility] ALT [Catalytic activity/Vol] 18 U/L 14-59 [facility] AST [Catalytic activity/Vol] 13 U/L Low 15-37 [facility] Bilirubin [Mass/Vol] 0.8 mg/dL 0.2-1.0 [facility] Calcium [Mass/Vol] 9.0 mg/dL 8.5-10.[address] [facility] Chloride [Moles/Vol] 102 mmol/L 98-107 [facility] CO2 [Moles/Vol] 21.3 mmol/L 21.0-32.0 [facility] Creatinine [Mass/Vol] 1.19 mg/dL High 0.55-1.02 [facility] GFR/1.73 sq M.predicted MDRD (S/P/Bld) [Vol rate/Area] 53 mL/min/{1.73_m2} Low >=60 [facility] Glucose [Mass/Vol] 99 mg/dL 74-[address] [facility] Potassium [Moles/Vol] 3.8 mmol/L 3.5-5.1 [facility] Protein [Mass/Vol] 7.6 g/dL 6.4-8.[address] [facility] Sodium [Moles/Vol] 138 mmol/L 136-[address] [facility] Urea nitrogen [Mass/Vol] 26.0 mg/dL High 7.0-18.0 [facility] Urea nitrogen/Creatinine [Mass ratio] 21.8 mg/mg [facility] Laboratory - Hematology and Cell countson 11-19-2023 Immature granulocytes/100 WBC (Bld) 0.4 % 0.0-0.5 [facility] Laboratory - Specimen inform ationon 11-19-2023 Specimen type Nom (Spec) Stool [facility] Leukocytes [#/volume] correc paul for nucleated erythrocytes in Blood by Automated counon 11-19-2023 WBC corrected for nucl RBC Auto (Bld) [#/Vol] 9.5 10 3/uL 4.0-11.0 [facility] Lymphocytes Auto (Bld) [#/Vo l]on 11-19-2023 Lymphocytes (Bld) [#/Vol] 0.9 10 3/uL Low 1.2-3.8 [facility] Lymphocytes/100 WBC Auto (Bl d)on 11-19-2023 Lymphocytes/100 WBC (Bld) 9.7 % Low 20.5-60.0 [facility] MCH Auto (RBC) [Entitic mass ]on 11-19-2023 MCH (RBC) [Entitic mass] 28.4 pg 26.7-34.0 [facility] MCHC Auto (RBC) [Mass/Vol]on 11-19-2023 MCHC (RBC) [Mass/Vol] 32.4 g/dL 29.9-35.2 [facility] MCV Auto (RBC) [Entitic vol] on 11-19-2023 MCV (RBC) [Entitic vol] 87.8 fL 81.0-99.0 [facility] Monocytes Auto (Bld) [#/Vol] on 11-19-2023 Monocytes (Bld) [#/Vol] 0.8 10 3/uL 0.3-0.8 [facility] Monocytes/100 WBC Auto (Bld) on 11-19-2023 Monocytes/100 WBC (Bld) 8.0 % 1.7-12.0 [facility] Neutrophils Auto (Bld) [#/Vo l]on 11-19-2023 Neutrophils (Bld) [#/Vol] 7.6 10 3/uL High 1.4-6.5 [facility] Neutrophils/100 WBC Auto (Bl d)on 11-19-2023 Neutrophils/100 WBC (Bld) 80.5 % High 43.0-75.0 [facility] No Panel Informationon 11-18 Adenovirus Types 40, 41 Not detected NOT DETECTE [facility] C. difficile Antigen and Toxins A,B Not detected NOT DETECTE [facility] Giardia lamblia Interpretation Not detected NOT DETECTE [facility] Miscellaneous Test Comment See comment [facility] Comment on above: Specimen Source: - Stool - Stool - 700.100 Stool Astrovirus (PCR) Not detected NOT DETECTE [facility] Stool Campylobacter Culture Res 1 \R\ Campylobacter Culture\R\ No Campylobacter species isolated. [facility] Comment on above: [facility], Stool Cryptosporidium Confirmation Not detected NOT DETECTE [facility] Stool Cyclospora cayetanensis (PCR) Not detected NOT DETECTE [facility] Stool Entamoeba (PCR) Not detected NOT DETECTE [facility] Stool Norovirus GI/GII PCR Not detected NOT DETECTE [facility] Stool Rotavirus (PCR) Not detected NOT DETECTE [facility] Stool Sapovirus (PCR) Not detected NOT DETECTE [facility] Stool Yersinia enterocolitica (PCR) Not detected NOT DETECTE [facility] Eosinophils # (Auto) 0.1 10 3/uL 0.0-0.7 [facility] Immature Granulocyte # (Auto) 0.04 10 3/uL High 0.00-0.03 [facility] No Panel InformationOrdered By: Man Du on 11-19-2023 E coli Shiga Toxin EIA [facility] Salmonella/Shigella Screen [facility] Platelet mean volume Auto (B ld) [Entitic vol]on 11-19-2023 Platelet mean volume (Bld) [Entitic vol] 11.0 fL 9.5-13.5 [facility] Platelets Auto (Bld) [#/Vol] on 11-19-2023 Platelets (Bld) [#/Vol] 167 10 3/uL 150-450 [facility] RBC Auto (Bld) [#/Vol]on RBC (Bld) [#/Vol] 4.36 10 6/uL 4.20-5.40 [facility] Serum or plasma albumin/glob ulin mass ratioon 11-19-2023 Albumin/Globulin [Mass ratio] 0.7 {ratio} [facility] Serum or plasma anion gap de terminationon 11-19-2023 Anion gap [Moles/Vol] 18.5 mmol/L [facility] Shigella species+EIEC invasi on plasmid antigen H ipaH gene [Presence] in Stool by NAAon 11-19-2023 Shigella species+EIEC invasion plasmid antigen H ipaH gene LARY+non-probe Ql (Stl) Not detected NOT DETECTE [facility] Stool Plesiomonas shigelloid es DNA detection by non-probe and target amplification meon 11-19-2023 P. shigelloides DNA LARY+non-probe Ql (Stl) Not detected NOT DETECTE [facility] Vibrio cholerae DNA [Presenc e] in Stool by LARY with non-probe detectionon 11-19-2023 V. cholerae DNA LARY+non-probe Ql (Stl) Not detected NOT DETECTE [facility] Urinalysis - DIPSTICKon 06-01 Appearance (U) Hazy [employer] Other Bilirubin Ql (U) Negative [facility] Other Color (U) Dark Yellow [employer] Other Glucose Ql (U) Negative [employer] Other Hemoglobin Ql (U) Negative [facility] Other Ketones Ql (U) Negative [employer] Other Leukocyte esterase Test strip Ql (U) Negative [employer] [facility] Other Nitrite Ql (U) Negative [employer] Other pH (U) 5.0 [pH] [employer] Other Protein Ql (U) + [employer] Other Specific gravity (U) [Rel density] 1.025 [employer] Other Urobilinogen (U) [Mass/Vol] 0.2 mg/dL [employer] Other Urinalysis - DIPSTICK [employer] Other Urine Cultureon 06-23-2023 Bacteria identified Cx Nom (U) ORGANISM: Klebsiella pneumoniae (O:KLEPNE) [place] Count 15,000 Aerobic SOY Charge ([id number]) SUSCEPTIBILITY ORGANISM: O:KLEPNE ANTIBIOTIC INTERPRETATION SOY Amikacin S <16 Amoxacillin/K Clavulanate S <8 Ampicillin/Sulbactam S <4 Aztreonam S <4 Cefazolin S <2 Cefepime S <2 Ceftazidime S <1 Ceftazidime/Avibactam S <4 Ceftolozane/Tazobactam S <2 Ceftriaxone S <1 Cefuroxime S <4 Ciprofloxacin S <0.25 Ertapenem S <0.5 Gentamicin S <2 Levofloxacin S <0.5 Meropenem S <1 Meropenem/Vaborbactam S <2 Nitrofurantoin I 64 Piperacillin/Tazobactam S <8 Tetracycline S <4 Tigecycline S <2 Tobramycin S <2 Trimethoprim/Sulfamethoxaz ole S <0.5 S = SUSCEPTIBLE I = [...] RESISTANT TO ALL B-LACTAM DRUGS. PERFORMED BY: [address] [id number] PATHOLOGIST [employer] MECHANIC LEAH Rajput [facility] Comment on above: Performed By: #### C UU #### [place] [id number] [facility] Office Visit (Cardiology)on 09-09-2021 Follow-up visit Diagnoses/Problems [...] Weight Tips; Status:Complete - Retrospective Authorization; Done: [id number] SocHx: Never a smoker Tobacco Use Screening; Status:Complete; Done: [id number] Tobacco Use Screening; Status:Complete; Done: [id number] Patient Instructions By signing my name below, [...] Recorded: 09Sep2021 09:16AM Heart Rate69, L Radial [id number], LUE, Sitting Rdxwascom59, LUE, Sitting Height5 ft 4 in Siugqc471 lb 12.8 oz BMI Hzgntmrdlu34.23 kg/m2 BSA Calculated1.74 Tobacco Useb) No PHQ-2 [...] Sep 09 2021 10:03AM EST (Author) [facility] [employer] Tobacco Screening.on 022 Adult depression screening assessment No [facility] [facility] [facility] 250 DO Work Phone: Fall risk assessment a) No falls within the last year [facility] Daniel [facility] 250 DO Work Phone: Tobacco use status [facility] b) No [facility] 250 DO Work Phone: [facility] CARDIAC STRESS/REST INJE CTIONon 08-27-2021 [facility] CARDIAC STRESS/REST INJECTION Patient Name: CECILIA MCKEON STUDY: MYOCARDIAL PERFUSION STRESS TEST WITH EXERCISE Performing facility: [facility], [address] [place] [address], [address], [place], [place] [address] Provider: Consuelo Lynn DO, [facility] PCP: Dr. Almas Singh Supervising provider: Consuelo Lynn DO, [facility] INDICATION: Chest Pain; Palpitations Hyperlipidemia HTN Cardiomyopathy HISTORY: Gender: F; Age: 75 y/o ; Height: 0 cm; Weight: 0 kg. High Cholesterol; HTN; Palpitations; Denies smoking. Cardiac catheterization on 2001. COMPARISON: Previous nuclear testing completed at [facility]. ACCESSION NUMBER(S): [id number]; [id number]; [id number] ORDERING CLINICIAN: ROBERT LYNN TECHNIQUE: ONE DAY [...] link to view the study images Normal [facility] [facility] 250 DO Work Phone: [facility] Work Phone: CREATININEon 10-23-2020 Creatinine [Mass/Vol] 0.90 mg/dL Normal 0.52-1.04 [facility] Comment on above: Performed By: #### C BERNARDA #### [facility] [address] [place] [address] Dean Mojgan EGFR-AF ISRAELI >60 Normal >=60 [facility] Comment on above: Performed By: #### C BERNARDA #### [facility] [address] [place] [address] Dean Mojgan EGFR-NON AF ISRAELI >60 Normal >=60 [facility] Comment on above: Performed By: #### C BERNARDA #### [facility] [address] [place], [place] [id number] Dean Mojgan MRI BRAIN WO W CONon 021 MRI BRAIN WO W CON EXAMINATION: MRI BRA IN CON HISTORY: Hearing loss of left ear [...] JOSE ALEJANDRO MAJOR Date: 2020-10-23 10:21 Normal [facility] Vital Signs Date Time Vital Sign Value Performing Clinician Facility 12-07-2023 09:15-0400 Body height 162.56 cm PHYSICIAN NO [facility] 12-07-2023 09:15-0400 Body mass index (BMI) [Ratio] 27.6 kg/m2 PHYSICIAN NO [facility] 12-07-2023 09:15-0400 Body weight 73.02 kg PHYSICIAN NO [facility] 12-07-2023 09:15-0400 Diastolic blood pressure 79 mm[Hg] PHYSICIAN NO [facility] 12-07-2023 09:15-0400 Heart rate 79 /min PHYSICIAN NO [facility] 12-07-2023 09:15-0400 Systolic blood pressure 151 mm[Hg] PHYSICIAN NO [facility] 11-25-2023 09:53-0400 Body height 162.56 cm PHYSICIAN NO [facility] 11-25-2023 09:53-0400 Body mass index (BMI) [Ratio] 27.1 kg/m2 PHYSICIAN NO [facility] 11-25-2023 09:53-0400 Body weight 71.66 kg PHYSICIAN NO [facility] 11-25-2023 09:53-0400 Diastolic blood pressure 79 mm[Hg] PHYSICIAN NO [facility] 11-25-2023 09:53-0400 Heart rate 84 /min PHYSICIAN NO [facility] 11-25-2023 09:53-0400 Systolic blood pressure 155 mm[Hg] PHYSICIAN NO FAMILY [facility] 11-19-2023 11:20-0400 Body height 162.56 cm [facility] 11-19-2023 11:20-0400 Body mass index (BMI) [Ratio] 27.5 kg/m2 [facility] 11-19-2023 11:20-0400 Body temperature 98 [degF] [facility] 11-19-2023 11:20-0400 Body weight 72.8 kg [facility] 11-19-2023 11:20-0400 Diastolic blood pressure 59 mm[Hg] [facility] 11-19-2023 11:20-0400 Heart rate 80 /min [facility] 11-19-2023 11:20-0400 Systolic blood pressure 93 mm[Hg] [facility] 05-12-2023 09:45-0500 Body height 162.56 cm Madison Singh Other [facility] [employer] Other 05-12-2023 09:45-0500 Body mass index (BMI) [Ratio] 28.9 kg/m2 Madison Singh Other [employer] [employer] Other 05-12-2023 09:45-0500 Body temperature 98 [degF] Madison Singh Other [employer] Other 05-12-2023 09:45-0500 Body weight 76.39 kg Madison Singh Other [facility] [employer] Other 05-12-2023 09:45-0500 Diastolic blood pressure 66 mm[Hg] Madison Singh Other [employer] Other 05-12-2023 09:45-0500 SaO2% (BldA) [Mass fraction] 96 % Madison Singh Other [facility] [employer] Other 05-12-2023 09:45-0500 Systolic blood pressure 103 mm[Hg] Madison Singh Other [employer] Other 04-05-2023 09:00-0500 Body height 162.56 cm Madison Singh Other [employer] Other 04-05-2023 09:00-0500 Body mass index (BMI) [Ratio] 28.59 kg/m2 Madison Singh Other [employer] Other 04-05-2023 09:00-0500 Body weight 75.57 kg Madison Singh Other [employer] Other 04-05-2023 09:00-0500 Diastolic blood pressure 80 mm[Hg] Madison Singh Other [employer] Other 04-05-2023 09:00-0500 Systolic blood pressure 150 mm[Hg] Madison Singh Other [employer] Other 09-09-2021 09:16-0400 Body height 162.56 cm Madison Singh Work Phone: [employer] 250 DO Work Phone: 09-09-2021 09:16-0400 Body mass index (BMI) [Ratio] 26.23 kg/m2 Madison Singh Work Phone: [facility] [employer] 250 DO Work Phone: 09-09-2021 09:16-0400 Body surface area Derived from formula 1.74 m2 Madison Singh Work Phone: [employer] 250 DO Work Phone: 09-09-2021 09:16-0400 Body weight 69.31 kg Madison Singh Work Phone: [facility] [employer] 250 DO Work Phone: 09-09-2021 09:16-0400 Diastolic blood pressure 80 mm[Hg] Madison E Orlando Work Phone: [facility] 250 DO Work Phone: 09-09-2021 09:16-0400 Heart rate 69 /min Madison Gonzalez [place] Work Phone: [facility] 250 DO Work Phone: 09-09-2021 09:16-0400 Systolic blood pressure 130 mm[Hg] Madison Gonzalez [place] Work Phone: [facility] 250 DO Work Phone: 08-27-2021 08:00-0400 [address] [facility] Work Phone: Comment on above: [id number] Encounters Encounter Date Encounter Type Care Provider Facility Start: 12-07-2023 End: 12-07-2023 ambulatory PHYSICIAN NO [facility] Work Phone: Start: 12-07-2023 End: 12-07-2023 Patient encounter procedure PHYSICIAN NO [facility] Work Phone: Start: 11-25-2023 End: 11-25-2023 ambulatory PHYSICIAN NO [facility] Work Phone: Start: 11-25-2023 End: 11-25-2023 Patient encounter procedure PHYSICIAN NO [facility] Work Phone: Start: 11-24-2023 ambulatory [facility] Facility:[facility] Start: 11-22-2023 End: 11-22-2023 ambulatory PHYSICIAN NO [facility] Work Phone: Start: 11-22-2023 End: 11-22-2023 Departed Referred PHYSICIAN NO [facility] Start: 11-22-2023 Non-patient / Non-visit PHYSICIAN NO [facility] Work Phone: Start: 11-21-2023 Non-patient / Non-visit PHYSICIAN NO [facility] Work Phone: Start: 11-20-2023 Non-patient / Non-visit PHYSICIAN NO [facility] Work Phone: Start: 11-19-2023 End: 11-19-2023 ambulatory [facility] Work Phone: Start: 11-19-2023 End: 11-19-2023 Patient encounter procedure [facility] Work Phone: Start: 11-19-2023 End: 11-23-2023 ambulatory Man DU Facility:[id number] Start: 07-06-2023 End: 07-06-2023 ambulatory Madison Singh Other [employer] Other Start: 07-06-2023 Telephone encounter Madison Singh [facility] Start: 07-05-2023 End: 07-05-2023 ambulatory Madison Singh Other [employer] Other Start: 07-05-2023 Telephone encounter Madison Singh [facility] Start: 06-23-2023 Nursing evaluation o f patient and report Madison Singh [facility] Start: 06-23-2023 End: 06-23-2023 ambulatory Madison Singh [employer] Other Start: 06-23-2023 End: 06-23-2023 Departed Referred MD Madison Singh Work Phone: [facility] [place] Work Phone: Start: 05-18-2023 End: 05-18-2023 ambulatory Madison Singh Other [employer] Other Start: 05-18-2023 Telephone encounter Madison Singh [facility] Start: 05-12-2023 End: 05-12-2023 ambulatory Madison Singh Other [employer] Other Start: 05-12-2023 Office outpatient vi sit 15 minutes Madison Singh [facility] Start: 05-12-2023 End: 05-12-2023 Patient encounter procedure MD Madison Singh Work Phone: [facility] Work Phone: Start: 04-28-2023 End: 04-28-2023 ambulatory Madison Singh Other [employer] Other Start: 04-28-2023 Telephone encounter Madison Singh [facility] Start: 04-06-2023 End: 04-06-2023 ambulatory Madison Singh Other [employer] Other Start: 04-06-2023 Telephone encounter Madison Singh [facility] Start: 04-05-2023 End: 04-05-2023 ambulatory Madison Singh Other [employer] Other Start: 04-05-2023 Patient encounter procedure Madison Singh [facility] Start: 04-05-2023 End: 04-05-2023 Patient encounter procedure MD Madison Singh Work Phone: [facility] Work Phone: Start: 02-04-2023 End: 02-04-2023 ambulatory Madison Singh Other [employer] Other Start: 02-04-2023 Nursing evaluation o f patient and report Madison Singh [facility] Start: 12-15-2021 Adult health examination Madison Singh Other [employer] Other Start: 09-09-2021 Office outpatient vi sit 15 minutes Madison Singh Work Phone: [facility] 250 DO Work Phone: Start: 09-01-2021 Chart Update No PCP None [facility] 250 DO Work Phone: Start: 08-27-2021 Patient encounter procedure No PCP None [facility] Work Phone: Start: 08-01-2021 AUDIT No PCP None 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 250 DO Work Phone: Start: 07-28-2021 Rx Renewal Robert mabry DO Work Phone: [facility] 250 DO Work Phone: Start: 10-23-2020 End: 10-24-[address] MARYAN FOLEY Facility: Start: 08-05-2020 End: 08-06-2020 ambulatory NONE LISTED REQUEST Facility: Procedures Date Procedure Procedure Detail Performing Clinician Start: 11-19-2023 E coli Shiga Toxin EIA PHYSICIAN NO FAMILY Start: 11-19-2023 Salmonella/Shigella Screen PHYSICIAN NO FAMILY Start: 10-04-2018 Screening mammography Olamide Singh Other Start: 06-15-2013 General examination of patient Madison Singh Other Cataract surgery Robert sarah DO Work Phone: Screening for malign ant neoplasm of breast Madison Singh Other Total colonoscopy Robert may DO Work Phone: Plan of Treatment Date Care Activity Detail Author Start: 06-23-2023 Bacteria identified in Urine by Culture [facility] Start: 09-09-2021 FUV, Provider: Robert Lynn, Status: Pen, Time: 9:00 AM FUV, Provider: Robert Lynn, Status: Pen, Time: 9:[address] [facility] 250 DO Work Phone: Start: 08-27-2021 STRESS NUC, Provider : NIKITA HHVI NUCLEAR 01,[id number], Status: Pen, Time: 8:00 AM STRESS NUC, Provider: NIKITA HHVI NUCLEAR 01,[id number], Status: Pen, Time: 8:00 AM [facility] 250 DO Work Phone: Comprehensive metabo lic 2000 panel - Serum or Plasma [facility] CT Abdomen and Pelvi s W contrast IV [facility] US Pelvis [facility] Immunizations Immunization Date Immunization Notes Care Provider Fa cility 02-04-2023 influenza virus vaccine, unspecified formulation [facility] 02-04-2023 influenza, high dose seasonal, preservative-free Madison Singh Other [facility] [place] Other 02-18-2022 influenza virus vaccine, split virus (incl. purified surface antigen) Madison Singh Other [facility] Other 02-18-2022 influenza virus vaccine, unspecified formulation [facility] 03-28-2021 Moderna COVID-19 Vaccine 100 MCG/0.5ML Intramuscular Suspension No PCP [facility] Work Phone: 02-07-2021 influenza virus vaccine, split virus (incl. purified surface antigen) Madison Singh Other [facility] [employer] Other 02-07-2021 influenza virus vaccine, unspecified formulation [facility] 08-05-2020 Claudia COVID-19 Vaccine 0.5 ML Intramuscular Suspension Robert Lynn DO Work Phone: [facility] 250 DO Work Phone: 02-29-2020 influenza virus vaccine, split virus (incl. purified surface antigen) Madison Singh Other [facility] [employer] Other 02-29-2020 influenza virus vaccine, unspecified formulation Robert Lynn DO Work Phone: [facility] 02-28-2019 influenza virus vaccine, unspecified formulation [facility] Work Phone: 02-27-2019 influenza virus vaccine, split virus (incl. purified surface antigen) Madison Singh Other [facility] [employer] Other 02-27-2019 influenza virus vaccine, unspecified formulation [facility] 02-28-2018 influenza virus vaccine, split virus (incl. purified surface antigen) Madison Singh Other [facility] [employer] Other 02-28-2018 influenza virus vaccine, unspecified formulation [facility] 02-28-2018 Influenza, injectabl e, Madin Ginger Canine Kidney, quadrivalent with preservative No PCP None [place] [address] DO Work Phone: 01-29-2018 influenza virus vaccine, unspecified formulation Robert Lynn DO Work Phone: [facility] 250 DO Work Phone: 02-11-2017 influenza virus vaccine, split virus (incl. purified surface antigen) Madison Singh Other [facility] [employer] Other 02-11-2017 influenza virus vaccine, unspecified formulation [facility] 02-11-2017 influenza, high dose seasonal, preservative-free No PCP None [facility] 250 DO Work Phone: 01-29-2017 influenza virus vaccine, unspecified formulation Robert Lynn DO Work Phone: [facility] 250 DO Work Phone: 02-10-2016 influenza virus vaccine, split virus (incl. purified surface antigen) Madison Singh Other [facility] [employer] Other 02-10-2016 influenza virus vaccine, unspecified formulation [facility] 01-30-2016 influenza, injectabl e, quadrivalent, preservative free No PCP None [facility] 250 DO Work Phone: 03-27-2015 tetanus and diphther ia toxoids, adsorbed, preservative free, for adult use (5 Lf of tetanus toxoid and 2 Lf of diphtheria toxoid) Madison Singh Other [facility] 01-29-2015 influenza virus vaccine, unspecified formulation Robert Lynn DO [facility] Phone: [facility] Work Phone: 03-23-2014 tetanus and diphther ia toxoids, adsorbed, preservative free, for adult use (5 Lf of tetanus toxoid and 2 Lf of diphtheria toxoid) Madison Singh Other [facility] 02-28-2014 influenza virus vaccine, whole virus Robert Lynn DO Work Phone: [facility] 250 DO Work Phone: 04-30-2012 pneumococcal polysaccharide vaccine, 23 valent Robert Lynn DO Work Phone: [facility] 250 DO Work Phone: 04-11-2012 pneumococcal polysaccharide vaccine, 23 valent Madison Singh Other [facility] 02-29-2012 pneumococcal polysaccharide vaccine, 23 valent No PCP None [facility] 250 DO Work Phone: 05-31-2011 influenza virus vaccine, unspecified formulation Robert Lynn DO Work Phone: [facility] 250 DO Work Phone: 05-31-2010 influenza virus vaccine, unspecified formulation Robert Lynn DO [facility] Phone[facility] Work Phone: 05-31-2009 influenza virus vaccine, unspecified formulation Robert Lynn DO [facility] Phone[facility] DO Work Phone: 03-31-2009 influenza virus vaccine, unspecified formulation [facility] Lynn [facility] Work Phone: Payers Date Payer Category Payer Self-pay 2017 Medicare [id number] 2017 Private Health Insurance ACI [id number] 1959 Medicare [id number] 1959 Self-pay [id number] 1959 Unknown [id number] 1945 Unknown [id number] 1945 Unknown [id number] [id number] [id number] 1945 Unknown [id number] [id number] [id number] [facility] [id number] Unknown [id number] [id number] [id number] Unknown Unknown [place] [id number] Unknown [id number] [id number] [id number] Unknown [id number] 2.16.8 [id number] Social History Date Type Detail Facility Social [facility] use [facility]: Sex Assigned At Sex Assigned At [facility] [employer] Other Start: 1945 Sex Assigned At Female F [facility] Start: 05-12-2023 Tobacco smoking status NEIS Tobacco smoking consumption unknown (finding) [facility] Medical Equipment Procedure [...] Test Strip) strip Start: 11-01-2023 End: 11-08-2023 Blood Sugar Diagnostic (True Metrix Glucose Test Strip) strip Start: 11-08-2023 Lancets (Ultra T hin Lancets) 30 gauge misc Start: 08-17-2023 Blood Sugar Diagnostic (Onetouch Ultra Test) strip Start: 08-17-2023 End: 11-01-2023 Blood Sugar Diagnostic (True Metrix Glucose Test Strip) strip Start: 11-01-2023 End: 11-01-2023 Blood Sugar Diagnostic (True Metrix Glucose Test Strip) strip Start: 11-01-2023 End: 11-08-2023 Blood Sugar Diagnostic (True Metrix Glucose Test Strip) strip Start: 11-08-2023 Lancets (Ultra T hin Lancets) 30 gauge misc Start: 08-17-2023 Blood Sugar Diagnostic (Onetouch Ultra Test) strip Start: 08-17-2023 End: 11-01-2023 Blood Sugar Diagnostic (True Metrix Glucose Test Strip) strip Start: 11-01-2023 End: 11-01-2023 Blood Sugar Diagnostic (True Metrix Glucose Test Strip) strip Start: 11-01-2023 End: 11-08-2023 Blood Sugar Diagnostic (True Metrix Glucose Test Strip) strip Start: 11-08-2023 Lancets (Ultra T hin Lancets) 30 gauge misc Start: 08-17-2023 Blood Sugar Diagnostic (Onetouch Ultra Test) strip Start: 08-17-2023 End: 11-01-2023 Blood Sugar Diagnostic (True Metrix Glucose Test Strip) strip Start: 11-01-2023 End: 11-01-2023 Blood Sugar Diagnostic (True Metrix Glucose Test Strip) strip Start: 11-01-2023 End: 11-08-2023 Clinical Notes 04-05-2023 to 07-05-2023 Note Date & Type Note Facility 07-05-2023 Evaluation note Encounter Date Diagnosis Assessment Notes Jul, Dysuria (ICD-10 - R30.0) [facility] Other 01-24-2024 Evaluation note* Encounter Date Diagnosis Assessment Notes Treatment Notes Treatment Clinical Notes May, Flank pain (ICD-10 - R10.9) [facility] Other 12-13-2023 Evaluation note* Encounter Date Diagnosis Assessment Notes Treatment Notes Treatment Clinical Notes Apr, Chronic cough (ICD-10 - R05.3) Eval CXR due to length of cough. r/o pneumonia or other interstitial markings. Finish antibiotics and steroids. Call if cough continues for potential pulm referral. [facility] Other 11-06-2023 Evaluation note* Encounter Date Diagnosis Assessment Notes Treatment Notes Treatment Clinical Notes Mar, Medicare annual wellness visit, subsequent [...] unspecified (ICD-10 - I42.9) CARDIOMYOPATHY assess labs [facility] Other Evaluation noteNo [facility] Other Evaluation noteNo assessment information available [facility] Work Phone: Evaluation note* Diagnosis Onset Date Resolution Status LLQ abdominal pain acute [facility] Work Phone: evaluation note* Diagnosis Onset Date Resolution Status LLQ abdominal pain acute RLQ abdominal pain acute [facility] Work Phone: evaluation note* Diagnosis Onset Date Resolution Status LLQ abdominal pain acute RLQ abdominal pain acute Inflammatory bowel disease a cute Abdominal fluid collection a cute Benign essential HTN acute [id number] acute [facility] Work Phone: [facility] general Narrative - Reported* Type Description Date Surgical History Problem Title : Cardiac surgery , Problem Status : Active, Surgical History Problem Title : Dila tion and Curettage of Uterus, Problem Status : Active, Surgical History Problem Title : Gum surgery, Pr oblem Status : Active, Surgical History Problem Title : past surgical history reviewed, Problem Description : past surgical history reviewed, Problem Comment : reviewed - no changes required, Problem Status : Active, Surgical History Problem Title : surg ical procedures, hx of, Problem Description : surgical procedures, hx of, Problem Comment : D&C Morrison teeth Oral surgery Cataract Colonoscopy Normal - 06/16/2010, Problem Status : Active, Surgical History Problem Title : surg ical procedures, hx of, Problem Description : surgical procedures, hx of, Problem Comment : D&C Morrison teeth Oral surgery Cataract, Problem Status : Active, Surgical History Problem Title : Tongue surgery, Problem Status : Active, [place] [facility] Other [facility] general Narrative - Reported* Type Description Date Medical History Problem Title : comp liance [...] : Active,, Medical History Problem Title : [facility] MARIA LUISA: Congestive heart failure, Problem Status : Active,, Medical History Problem Title : MEDICAL: [place] a, Problem Status : Active,, Medical History Problem Title : [facility] Annual Wellness Exam, Problem Description : Medicare Annual Wellness Exam, Problem Comment : [id number], Problem Status : Active,, Medical History Problem Title : [facility] Part B,CMOD Checklist #1, Problem Description : [...] : Active,, Medical History Problem Title : Problems Reconci led, Problem Status : Active,, Medical History Problem [...] : Active,, Surgical History Problem Title : Cardiac surgery , Problem Status : Active, Surgical History Problem Title : Dila tion and Curettage of Uterus, Problem Status : Active, Surgical History Problem Title : Gum surgery, Pr oblem Status : Active, Surgical History Problem Title : past surgical history reviewed, Problem Description : past surgical history reviewed, Problem Comment : reviewed - no changes required, Problem Status : Active, Surgical History Problem Title : surg ical procedures, hx of, Problem Description : surgical procedures, hx of, Problem Comment : D&C Morrison teeth Oral surgery Cataract Colonoscopy Normal - 06/16/2010, Problem Status : Active, Surgical History Problem Title : surg ical procedures, hx of, Problem Description : surgical procedures, hx of, Problem Comment : D&C [place] teeth Oral surgery Cataract, Problem Status : Active, Surgical History Problem Title : Tongue surgery, Problem Status : Active, [facility] Other History general Narrative - Reported* Type Description Date Medical History Cardiomyopathy Medical History 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, without long-term current use of insulin Medical History Peripheral polyneuropathy Surgical History Cardiac surgery Surgical History Dilation and Curettage of Uteru s Surgical History Gum surgery Surgical History D&C Morrison teeth Surgical History Problem Title : Tongue surgery, Problem Status : Active, Hospitalization History see surgical history [facility] Other Summary Purpose Family History Unknown Family [...] son Asthma Unknown sister Diabetes mellitus Unknown Relationship Condition Age at Onset Recorded Date/T adrian brother Diabetes mellitus Unknown Heart disease Unknown Hypertension Unknown daughter History of ovarian cancer Unknown father Heart disease Unknown History of stroke Unknown Unknown Diabetes mellitus Unknown mother Diabetes mellitus Unknown son Asthma Unknown sister Diabetes mellitus Unknown [...] bowels Reason for Visit LLQ abdominal pain Chief Complaint stomach cramps , liq uids bowels Unknown Reason for Visit LLQ abdominal pain RLQ abdominal pain Chief Complaint stomach cramps , liq uids bowels Unknown hospital follow up Reason for Visit LLQ abdominal pain RLQ abdominal pain Chief Complaint stomach cramps , liq uids bowels Unknown hospital follow up [facility] f/u, stomach pain Reason for Visit LLQ abdominal pain RLQ abdominal pain Inflammatory bowel disease Abdominal fluid collection Benign essential HTN [id number] Additional Source Comments INFORMATION SOURCE (unrecogn ized section and content) DATE CREATED AUTHOR 11/01/2020 [facility] DATE CREATED AUTHOR AUTHOR'S ORGANIZ ATION 09/10/2021 [employer] DATE CREATED AUTHOR AUTHOR'S ORGANIZ ATION 10/11/2021 [facility] DATE CREATED AUTHOR AUTHOR'S ORGANIZ ATION 11/27/2023 [facility] DATE CREATED AUTHOR AUTHOR'S ORGANIZ ATION 11/28/2023 [facility] REASON FOR VISIT (unrecogniz ed section and [...] November 19, 2023 End: November 19, 2023 Team Status: Active Member Role Status Dates PHYSICIAN NO FAMILY Primary Care Provider Active Start: November 20, 2023 Lara Starks Attending Provider Active Start: 2023 Team Status: Active Member Role Status Dates PHYSICIAN NO FAMILY Primary Care Provider Active Start: November 21, 2023 Lara Starks Attending Provider Active Start: 2023 Team Status: Active Member Role Status Dates PHYSICIAN NO FAMILY Primary Care Provider Active Start: November 22, 2023 Lara Starks Attending Provider Active Start: 2023 Team Status: Inactive Member Role Status Dates PHYSICIAN NO FAMILY Primary Care Provider Active Start: November 22, 2023 End: November 22, 2023 Man Du MD FACS Attending Provider Active Start: November 22, 2023 End: November 22, 2023 Team Status: Inactive Member Role Status Dates PHYSICIAN NO FAMILY Primary Care Provider Active Start: November 25, 2023 End: November 25, 2023 Madison Singh MD Attending Provider Active St art: November 25, 2023 End: November 25, 2023 Team Status: Inactive Member Role Status Dates PHYSICIAN NO FAMILY Primary Care Provider Active Start: December 07, 2023 End: December 07, 2023 Madison Singh MD Attending Provider Active St art: December 07, 2023 End: December 07, 2023 Goals (unrecognized section and content) Goals [...] BE BASED ON THE PRIMARY CLINICAL RECORDS. [facility] [employer] [facility]. provides no warranty or guarantee of the accuracy or completeness of information in this document.
--- NOTE | 2024-01-05 08:39 | US_ITS ---
[address] [address] Patient Name: NICK MCKEON MRN: [id number] date: 1945 Sex: F Assigned Patient Location: Current Patient Location: Accession/Order Number: [id number] Exam Date: 01/05/2024 08:50 Report Date: 01/06/2024 05:40 At the request of: ADRIAN SINGH Procedure: US pelvis w/ transvaginal EXAMINATION: US pelvis w/ transvaginal HISTORY: Abdominal Fluid Collection R18.8 , pain COMPARISON: No relevant comparison available. TECHNIQUE: Transabdominal and/or transvaginal sonographic examination was performed as indicated by examination type. FINDINGS: UTERUS: Normal size and appearance. Uterus size: 6.1 x 2.7 x 4.2 cm ENDOMETRIUM: Normal homogeneous appearance. Endometrial thickness: 4 mm RIGHT OVARY: Not seen. No suspicious adnexal findings. LEFT OVARY: Not seen. No suspicious adnexal findings. CUL-DE-SAC: Unremarkable. No significant free fluid. BLADDER: Unremarkable. OTHER: None. US/US pelvis w/ transvaginal IMPRESSION: 1. Unremarkable uterus. 2. Neither ovary could be identified. No suspicious adnexal findings. Electronically authenticated by: WILFRED MCMILLAN Date: 01/06/2024 05:40
[2024-01-05 08:43] LABS: Basophils Absolute Auto 0.1 10^3/uL (0.0-0.1); Basophils Percent Auto 1.2 % (0.2-2.0); Eosinophils Absolute Auto 0.1 10^3/uL (0.0-0.7); Eosinophils Percent Auto 2.4 % (0.9-7.0); Hematocrit 38.4 % (36.0-48.0); Hemoglobin 12.6 g/dL (12.0-16.0); Immature Granulocytes Abs Auto 0.02 10^3/uL (0.00-0.03); Immature Granulocytes Pct Auto 0.5 % (0.0-0.5); Mean Corpuscular HGB Conc 32.8 g/dL (29.9-35.2); Mean Corpuscular Hemoglobin 29.1 pg (26.7-34.0); Mean Corpuscular Volume 88.7 fL (81.0-99.0); Mean Platelet Volume 11.1 fL (9.5-13.5); Monocytes Absolute Auto 0.5 10^3/uL (0.3-0.8); Monocytes Percent Auto 11.7 % (1.7-12.0); Neutrophils Absolute Auto 2.5 10^3/uL (1.4-6.5); Neutrophils Percent Auto 60.2 % (43.0-75.0); Platelet Count 139 10^3/uL (150-450); Red Blood Count 4.33 10^6/uL (4.20-5.40); Red Cell Distribution Width 14.8 % (11.0-15.0); White Blood Count 4.2 10^3/uL (4.0-11.0)
[2024-01-05 09:12] LABS: Anion Gap 11.9; BUN Creatinine Ratio 33.3; Calcium 9.2 mg/dL (8.5-10.1); Carbon Dioxide 24.8 mmol/L (21.0-32.0); Chloride 108 mmol/L (98-107); Chol HDL Ratio 3.9; Cholesterol 228 mg/dL (<=200); Estimated GFR (African America >60 (>=60); Estimated GFR (Non-African Ame >60 (>=60); Glucose 113 mg/dL (74-106); HDL Cholesterol 58 mg/dL (40-60); Potassium 3.7 mmol/L (3.5-5.1); Sodium 141 mmol/L (136-145); Triglycerides 116 mg/dL (<=150); VLDL CHOLESTEROL 23.2 mg/dL
[2024-01-05 09:22] LABS: Estimated Average Glucose 120 mg/dL; Glycohemoglobin A1C 5.8 % (4.5-6.2)
== END 2024-01-05 08:27 | disposition home or self-care (01) ==
LOC: US 08:27
PROVIDERS: PCP Family Medicine; Visit Provider Family Medicine
DX: R18.8 Other ascites (principal); E11.65 Type 2 diabetes mellitus with hyperglycemia; I10 Essential (primary) hypertension
CPT/HCPCS: 36415; 76830; 76856; 80048; 80061; 83036; 85025

== ENCOUNTER 2024-05-04 10:05 | Outpatient (RCR) | payer MEDICARE, SELFPAY | END 2024-05-30 14:34 | disposition home or self-care (01) | LOC: PT 10:05 | PROVIDERS: PCP Family Medicine; Visit Provider Family Medicine | DX: M54.2 Cervicalgia (principal); G44.86 Cervicogenic headache; R42 Dizziness and giddiness | CPT/HCPCS: 97010; 97110; 97140; 97163; G0283 ==

== ENCOUNTER 2024-05-31 11:12 | Outpatient (RCR) | payer MEDICARE, SELFPAY | END 2024-06-27 15:44 | disposition home or self-care (01) | LOC: PT 11:12 | PROVIDERS: PCP Family Medicine; Visit Provider Family Medicine | DX: M54.2 Cervicalgia (principal); G44.86 Cervicogenic headache; R42 Dizziness and giddiness | CPT/HCPCS: 97110; 97140 ==

== ENCOUNTER 2025-02-07 08:37 | Outpatient (OUT) | payer MEDICARE, SELFPAY ==
--- OUTSIDE RECORDS SUMMARY | 2025-02-07 08:42 | XMS_ITS | Clinical Summary ---
Author Organization [facility] Address [address] [place] [address] Care Team Providers Care Department Clerk Name Role Phone Unavailable Primary Care Provider Unavailabl e Social History Tobacco Use Types Packs/Day Years Used Date Smoking Tobacco: Never Assessed Comments Unknown Sex and Gender Information Value Date Recorded Sex Assigned at Not on file Legal Sex Female 8:35 PM EDT Gender Identity Not on file Sexual Orientation Not on file Last Filed Vital Signs Vital Sign Reading Time Taken Comments Blood Pressure 143/85 05/14/2022 12:00 PM EST Pulse - - Temperature - - Respiratory Rate - - Oxygen Saturation - - Inhaled Oxygen Concentration - - Weight 68.5 kg (151 lb) 05/14/2022 12:00 PM EST Height 161.3 cm (5' 3.5 ) 05/14/2022 12:00 PM ES T Body Mass Index 26.33 05/14/2022 12:00 PM EST Plan of Treatment Health Maintenance Due Date Last Done Comments Pneumococcal Vaccine: 65+ Ye ars (2 of 2 - PCV) 04/11/2013 04/11/2012, 02/29/2012 Influenza Vaccine (#1) 2025 , 02/04/2023, 02/18/2022, Additional history exists Insurance MEDICARE
--- OUTSIDE RECORDS SUMMARY | 2025-02-07 08:42 | XMS_ITS | Clinical Summary ---
Author Organization [facility] Address [address] [place] [id number] Care Team Providers Care Retail Custodial Associate Name Role Phone Unavailable Primary Care Provider Unavailabl e Allergies Active Allergy Reactions Criticality Noted Date Comments Penicillin [Other] 08/29/1998 Suprax [Other] 08/29/1998 Medications Xalatan 0.005 % Ophthalmic 0.0 solution Ophthalmic once 0.0 0 9 Active Coumadin 5 mg Oral 0.5 tablet Oral once 0.0 0 9 Active Aldactone 50 mg Oral 1.0 tablet Oral qd 92.0 tablet 0 9 Active Prinivil 10 mg Oral 1.0 tablet Oral qd 92.0 tablet 0 9 Active Lasix 40 mg Oral 1.0 tablet Oral qd 92.0 tablet 0 9 Active Lanoxin 0.25 mg Oral 1.0 tablet Oral qd 92.0 tablet 0 9 05/31/19 11 Active Problems Problem Noted Date Diagnosed Date Congestive Heart Failure 08/29/1998 Glaucoma 08/29/1998 Social History Tobacco Use Types Packs/Day Years Used Date Smoking Tobacco: Never Assessed Comments Unknown Sex and Gender Information Value Date Recorded Sex Assigned at Not on file Legal Sex Female 9:28 AM EST Gender Identity Not on file Sexual Orientation Not on file Plan of Treatment Not on file
--- OUTSIDE RECORDS SUMMARY | 2025-02-07 09:02 | XMS_ITS | CCD ---
Author Organization [facility] Care Team Providers Care Warranty Administrator Name Role Phone ALAINA, DR STEINBERG Consulting Unavailable TIMMIS, DR STEINBERG Admitting Unavailable DR ADRIAN SINGH Primary Care Unavailable TIMMIS, DR STEINBERG Attending Unavailable COLUMBIA, DR JOSE ALEJANDRO Jiménez Consulting Unavailable REQUEST, DR WEBSTER LISTED Attending Unavaila ble REQUEST, DR WEBSTER LISTED Consulting Unavaila ble REQUEST, DR WEBSTER LISTED Admitting Unavaila ble Unavailable Unavailable None, No PCP Unavailable Unavailable Adrian Singh Unavailable Adrian Singh Unavailable MD Adrian Singh Attending Provider NO FAMILY, PHYSICIAN Primary Care Provider Unava ilMD Man Osuna Attending Provider [phone] Man Dale Admitting Unavailable NO FAMILY, PHYSICIAN Primary Care Unavailable Man Dale Attending Unavailable Adrian Singh Attending Unavailable Adrian Singh Admitting Unavailable NO FAMILY, PHYSICIAN Primary Care Unavailable Man DALE Attending Unavailable ADRIAN SINGH Primary Care Unavailable KETAN SEALS MD Admitting Unavailable MALICK SARGENT MD Attending Unavailable EDUARDO OATES MD Consulting Unavailable LORAINE THOMAS MD Consulting Unavailable THALIA RAY Attending Unavailable Unavailable Primary Care Provider UnavailAdrian Hurd MD Primary Care Provider Adrian Singh MD Attending Provider Allergies Allergy Classification Reported Allergen(s) Allergy Type Date of Onset Reaction(s) Facility Penicillins (antibiotic) (3 sources) Penicillins Drug Allergy 01-17-20 13 [facility] Repository raNITIdine (2 sources) raNITIdine Drug Allergy 11-19-19 24 [facility] Unclassified (8 sources) Rjrrxdy-DNM-KbK Reductase Inhibitor; Translations: [Gqqnqhe-VIX-QcE Reductase Inhibitor] Allergy to substance 11-19-19 [facility] Comment on above: Onset Date: 10/05/19 19 (6 sources) Hmg-Coa Reductase Inhibitors (Statins); Translations: [Statins] Allergy to drug (finding) -[facility] DO Work Phone: (11 sources) Penicillins; Translations: [Penicillins] Allergy to drug (finding) 11-25-19 24 [facility] Comment on above: Onset Date: 02/29/20 18 (10 sources) HMG-CoA reductase inhibitor Drug allergy 10-05-19 19 Unknown [place] Other (5 sources) Penicillin; Translations: [penicillin] Drug Allergy 06-08-19 14 Unknown [facility] Repository (10 sources) Penicillins (Antibiotic) Propensity to adverse reactions rash [employer] [facility] [place] Other (15 sources) raNITIdine Drug Allergy 12-11-19 16 Unknown, [facility] Comment on above: Onset Date: 12/11/19 16 (4 sources) Allergies Reconciled Propensity to adverse reactions Unknown [place] Other (10 sources) Substance with penicillin structure and antibacterial mechanism of action (substance) Drug allergy 02-29-20 18 P[facility]INS [facility] [place] Other (4 sources) patient allergy list reviewed by nurse or physicia Propensity to adverse reactions 12-11-19 16 Comment:Done [place] Other (1 source) Penicillins Drug allergy (disorder) 11-19-19 24 [facility] Repository (1 source) raNITIdine Drug Allergy 11-19-19 [facility] Repository Medications Current Medications Medication Drug Class(es) Dates Sig (Normalized) Sig (Original) ascorbic acid 500 mg oral tablet (18 sources) Vitamin C Start: 11-19-2023 take 1 tablet by mouth once daily Ascorbic Acid (Vitamin C) 500 mg tablet Active 1 TAB PO Daily November 19, 2023 12:00am Free[employer] tablet Orally Once a day; Note: Source Status: Taking; Provider: Orlando Wallace ( ) Complies with drug therapy take 1 tablet by yamile th every [...] 25 mg oral tablet (20 sources) alpha-Adrenergic Uriel, beta-Adrenergic Uriel Start: 024 End: 025 take 1 tablet by mouth twice daily at mealtime Carvedilol 25 mg tablet Active 0 .ROUTE .COMPLEX 180 November 27, 2024 12:11pm TAKE 1 TABLET BY MOUTH TWICE A DAY WITH FOOD FOR 90 DAYS Complies with drug therapy Start: 08-09-2023 End: 08-09-2023 take 1 tablet by mouth twice daily Carvedilol 25 mg tablet Discontinued 25 MG PO Twice daily August 09, 2023 12:00am August 09, 2023 1:09pm Start: 07-28-2021 Carvedilol 25M G Carvedilol( 25MG Oral two times daily ) Active -Hx Entry Oral two times daily for 0 *Pick strength-form from [employer] for eRX* Nov, Active cetirizine hydrochloride 10 mg oral tablet (7 sources) Histamine-1 Receptor Antagonist Start: 11-19-2023 take 1 tablet by mouth once daily as needed Cetirizine (24hour Allergy) 10 mg tablet Active 10 MG PO Daily as needed November 19, 2023 12:00am Complies with drug therapy [facility] Vitamin C 500MG (10 sources) Start: 12-15-2021 take 500 mg by mouth once daily [facility] Vitamin C 500MG [facility] Vitamin C( 500MG Oral daily ) Active -Hx Entry Oral daily for 0 *Pick strength-form from [employer] for eRX* Nov, Active dextromethorphan hydrobromide 20 mg / guaiFENesin 400 mg oral tablet (1 source) Uncompetitive Q-pgldqy-X-aspart ate Receptor Antagonist, Sigma-1 Agonist Start: 02-05-2025 take 1 tablet by mouth four times daily as needed Dextromethorphan-Guaif enesin (Mucus Relief Dm) 20-400 mg tablet Active 1 TAB PO Four times daily as needed February 05, 2025 12:00am Complies with drug therapy Glucosamine Complex (1 source) Glucosamine Comp shant as directed Orally Active hydroCHLOROthiazide 25 mg oral tablet (1 source) Thiazide Diuretic Start: 02-05-2025 take 1 tablet by mouth once daily Hydrochlorothiazide 25 mg tablet Active 25 MG PO Daily 90 February 05, 2025 12:00am Complies with drug therapy latanoprost 0.05 mg/ml ophthalmic solution (1 source) [...] Once a day for 30 day(s) Active raNITIdine 300 mg oral tablet (1 [...] Drug Class(es) Dates Sig (Normalized) Sig (Original) ezetimibe 10 mg oral tablet (3 sources) Dietary Cholesterol Absorption Inhibitor Start: 02-15-2024 End: 05-01-2024 take 1 tablet by mouth once daily Ezetimibe (Zetia) 10 mg tablet Discontinued 10 MG PO Daily February 15, 2024 12:00am May 01, 2024 9:46am fluticasone furoate 0.0275 mg/actuat metered dose nasal spray (7 sources) Corticosteroid Start: 11-19-2023 End: 11-19-2023 take 1 spray(s) nasal route once daily Fluticasone Furoate 27.5 mcg/actuation spray,suspension Discontinued 1 SPRAY INTRANASAL Daily November 19, 2023 12:00am November 19, 2023 11:30am into each nostril levoFLOXacin 750 mg oral tablet (4 sources) Quinolone Antimicrobial Start: 11-25-2023 End: 12-07-2023 take 1 tablet by mouth once daily Levofloxacin 750 mg tablet Discontinued 750 MG PO Daily November 25, 2023 12:00am December 07, 2023 9:24am loratadine 10 mg oral tablet (1 source) take 1 tablet by mouth once daily Loratadine 10 MG Oral Tablet TAKE 1 TABLET DAILY. Quantity: 0 Refills: 0 Ordered: 09-Sep-2021 DO Active metroNIDAZOLE 500 mg oral tablet (4 sources) Nitroimidazole Antimicrobial Start: 11-25-2023 End: 12-07-2023 take 1 tablet by mouth four times daily Metronidazole 500 mg tablet Discontinued 500 MG PO Four times daily November 25, 2023 12:00am December 07, 2023 9:24am nitroglycerin 0.4 mg sublingual tablet (5 sources) Nitrate Vasodilator Start: 08-01-2021 Nitroglycerin 0.4 MG Sublingual Tablet Sublingual PLACE 1 TABLET UNDER THE TONGUE EVERY 5 MINUTES FOR UP TO 3 DOSES NEEDED FOR CHEST PAIN.CALL 911 IF PAIN PERSISTS. Quantity: 25 Refills: 3 Ordered: 01-Aug-2021 Chad Adams DO Start : 01-Aug-2021 Active new start predniSONE 10 mg oral tablet (4 sources) Start: 02-15-2024 End: 05-01-2024 Prednisone 10 mg tablet Discontinued 10 MG PO As Directed February 15, 2024 12:00am May 01, 2024 9:46am see taper instructions; 2 tabs po x 3 days - then 1 daily x 3 days Start: 12-15-2021 take 1 tablet by yamile th once daily Prednisone 10 MG predniSONE 10MG, 1 (one) Tablet 2 tabs po x 3 days then 1 tabs daily x 3 days # 9, 12/15/2021, No Refill. Active Oral 2 tabs po x 3 days then 1 tabs daily x 3 days for 0 Nov, Active Problems Active Problems Problem Classification Problem Date Documented Da te Episodic/Chronic Abdominal pain (20 sources) Unspecified abdominal pain; Translations: [Left lower [...] as uncontrolled] Chronic Disorders of lipid metabolism (9 sources) Hyperlipidemia; Translations: [Other and unspecified hyperlipidemia] 02-15-2024 Chronic Esophageal disorders (8 sources) Gastroesophageal reflux disease without esophagitis; Translations: [Gastro-esophageal reflux disease without esophagitis] Onset: 7 Chronic Essential hypertension (14 sources) Hypertensive disorder; Translations: [Unspecified essential hypertension] 12-07-2023 Chronic Genitourinary symptoms and ill-defined conditions (9 sources) Genitourinary symptoms; Translations: [Unspecified symptoms and signs involving the genitourinary system] Episodic Glaucoma (4 sources) Glaucoma; Translations: [Unspecified glaucoma] Onset: 4 Chronic Immunizations and screening for infectious disease (4 sources) Vaccination given; Translations: [Encounter for immunization] Episodic Malaise and fatigue (6 sources) Fatigue; Translations: [Other fatigue] Onset: 4 02-05-2025 Episodic Noninfectious gastroenteritis (6 sources) Inflammatory bowel disease; Translations: [Noninfective gastroenteritis and colitis, unspecified] 11-25-2023 Episodic Nonmalignant breast conditions (4 sources) Pain of breast; Translations: [Mastodynia] Episodic Nonspecific chest pain (6 sources) Chest pain; Translations: [Chest pain, unspecified] Episodic Other ear and sense organ disorders (4 sources) Unspecified hearing loss, left ear; Translations: [UNSPECIFIED HEARING LOSS LEFT EAR] Onset: Chronic Other ear and sense organ disorders (2 sources) Sensorineural hearing loss, bilateral; Translations: [Sensorineural hearing loss, bilateral] 04-17-2024 Chronic Other ear and sense organ disorders (4 sources) Impacted cerumen; Translations: [Impacted cerumen, bilateral] Episodic Other gastrointestinal disorders (4 sources) Intra-abdominal collection; Translations: [Other ascites] 12-07-2023 Episodic Other gastrointestinal disorders (2 sources) Other ascites; Translations: [Other ascites] 12-07-2023 Episodic Other lower respiratory disease (4 sources) Cough; Translations: [Cough] Episodic Other nervous system disorders (9 sources) Polyneuropathy; Translations: [Polyneuropathy, unspecified] Chronic Other nervous system disorders (2 sources) Polyneuropathy, unspecified Chronic Other nervous system disorders (4 sources) Abnormal gait; Translations: [Other abnormalities of gait and mobility] Episodic Other nervous system disorders (2 sources) Impairment of balance; Translations: [Other abnormalities of gait and mobility] 05-01-2024 Episodic Other nutritional; endocrine; and metabolic disorders [...] codes; unclassified (2 sources) Localized edema Episodic Spondylosis; intervertebral disc disorders; other back problems (1 source) Muscle spasm of thoracic back; Translations: [Muscle spasm of back] 05-01-2024 Episodic Transient cerebral ischemia (3 sources) Transient global amnesia; Translations: [Transient global amnesia] 02-15-2024 Chronic Past or Other Problems Problem Classification Problem Date Documented Date Episodic/Chronic Hemorrhoids (4 sources) External hemorrhoids without complication; Translations: [External hemorrhoids without mention of complication] Onset: 01-25-2018 Episodic Other circulatory disease (4 sources) H/O: [...] Test Name Value Interpretation Reference Range Facility Consult Reporton 02-12-2024 Consult Report Patient: Parvin MCKEON Age: 78 years Sex: Female : 1945 Associated Diagnoses: None Author: TREVOR VALDEZ, [facility] History of Present Illness 78-year-old lady. Confusion. Stroke alert. Last known well 1330 hrs. Horseback riding with family when suddenly became confused with short-term memory. No pain injury or loss of consciousness. I reviewed ER records. No trauma. Never happened before. Memory difficulty and asking similar questions. NIH stroke scale 0. Alert and oriented in the ER. I interviewed the patient. She remembers taking her medical insurance card and putting it in her purse. She vaguely remembers getting into a car. Remember nothing about the horseback ride. She has a photograph to prove it. Then she remembered being in the hospital. No headache this time. She has had migraine intermittently for years. Back of the head and frontal region. She would get visual distortion at times. She would take a mixture of Tylenol caffeine and aspirin at home when she gets a headache. In the past when she was with her son?about 50+ years ago she had somewhat of a similar memory failure. She was told that she had something like a mini stroke but she could not remember details. No history of seizures. No head injury. Other relevant history?diabetes mellitus. Migraine. Antiphospholipid antibody syndrome BUN was 26 and now 24 creatinine 0.9 cholesterol 242 LDL 158 troponin elevated WBC normal. Hemoglobin hematocrit okay. Platelet count 143,000 LDL 158 MRI brain 02/06/2024?I independently reviewed the images?moderate nonspecific white matter changes. No acute findings. No definite infarct. Carotid ultrasound?mild plaque right internal carotid artery, mild to moderate plaque left internal carotid artery?preliminary result I reviewed labs Last Month Chemistry BUN 24 mg/dL 02/06/24 Na 145 mmol/L 02/06/24 K 3.5 mmol/L 02/06/24 Chloride 110 mmol/L 02/06/24 CO2, venous 26.0 mmol/L 02/06/24 Creatinine 0.9 mg/dL 02/06/24 Total Protein 6.9 g/dL 02/05/24 Calcium 9.4 mg/dL 02/06/24 Cholesterol 242 mg/dL 02/06/24 Triglycerides 95 mg/dL 02/06/24 HDL Cholesterol 65 mg/dL 02/06/24 Calculated LDL Cholesterol 158 mg/dL 02/06/24 Total Chol/HDL Chol Ratio 3.7 02/06/24 Bilirubin, Total 0.40 mg/dL 02/05/24 Alk Phos 76 unit/L 02/05/24 GOT 33 unit/L 02/05/24 GPT 29 unit/L 02/05/24 BUN/Creat Ratio 26.7 02/06/24 Calculated Osmolality 294 mOsm/kg 02/06/24 Globulin 3.0 g/dL 02/05/24 A/G Ratio 1.3 02/05/24 HGB A1C 5.4 % 02/06/24 ALB 3.9 g/dL 02/05/24 Glomerular Filtration Rate >60 mL/min/1.73m? 02/06/24 Glucose 120 mg/dL 02/06/24 GFR AA >60 02/06/24 Estimated Creatinine Clearance 45.20 mL/min 02/06/24 Troponin HS 0 Hr 9 pg/mL 02/05/24 Troponin HS 2 Hr 48 pg/mL 02/05/24 Troponin HS 6 Hr 121 pg/mL 02/05/24 Delta Troponin 2 Hr 39 pg/mL 02/05/24 Delta Troponin 6 Hr 73 pg/mL 02/05/24 Coagulation Protime Patient 10.8 seconds 02/05/24 INR 1.0 02/05/24 APTT Patient 34.4 seconds 02/05/24 Hematology WBC 5.6 x103/uL 02/06/24 RBC 4.82 x106/uL 02/06/24 HGB 13.9 g/dL 02/06/24 HCT 42.1 % 02/06/24 MCV 87.4 fL 02/06/24 MCH 28.8 pg 02/06/24 MCHC 32.9 g/dL 02/06/24 RDW 15.4 % 02/06/24 Platelet 143 x103/uL 02/06/24 MPV 8.9 fL 02/06/24 Lymph % 22.4 % 02/05/24 [place] % 11.9 % 02/05/24 Neutrophil % 62.3 % 02/05/24 Eosin % 2.3 % 02/05/24 Basos % 1.1 % 02/05/24 Lymph Count 1.12 x1000 02/05/24 [place] Count 0.60 x1000 02/05/24 Neutrophil Count (ANC) 3.13 x1000 02/05/24 Eos Count 0.12 x1000 02/05/24 Baso Count 0.06 x1000 02/05/24 Nucleated RBC 0 /100WBC 02/05/24 MDW 18.68 02/05/24 Point of Care Lab Testing POC Glucose 134 mg/dL 02/05/24 Urine Analysis Color, U Colorless 02/05/24 Appearance, U Clear 02/05/24 Specific [place], U 1.005 02/05/24 pH, U 6.5 02/05/24 Protein, U Negative 02/05/24 Glucose Qual, U Negative 02/05/24 Ketones, U Negative 02/05/24 Bilirubin, U Negative 02/05/24 Blood, U Negative 02/05/24 Urobilinogen Qual, U < 2 mg/dl 02/05/24 Nitrite, U Negative 02/05/24 Leukocyte Esterase, U Negative 02/05/24 Review of Systems Health Status Allergies: Allergic Reactions (All) No Known Allergies Medications (18) Active Scheduled: (8) ASPIRIN 300 MG SUPP 300 mg 1 supp, Rectal, DAILY ASPIRIN 325 MG TAB 325 mg 1 tabs, ORAL, DAILY WITH BREAKFAST ATORVASTATIN 40MG TAB 80 mg 2 tabs, ORAL, QHS CARVEDILOL 25 MG TAB 25 mg 1 tabs, ORAL, BID DOCUSATE SODIUM 100MG CAPSULE 100 mg 1 caps, ORAL, BID ENOXAPARIN 40MG/0.4ML INJ 40 mg 0.4 mL, Subcutaneous, QHS SODIUM CHLORIDE SYR/VIAL 10ML 3 mL, IV Push, [id number] SODIUM CHLORIDE SYR/VIAL 10ML 3 mL, IV Push, [id number] Continuous: (0) PRN: (10) ACETAMINOPHEN 325 MG TAB 650 mg 2 tabs, ORAL, [id number] ACETAMINOPHEN 325 MG TAB 650 mg 2 tabs, ORAL, [id number] ACETAMINOPHEN 325 MG TAB 650 mg 2 tabs, ORAL, [id number] HydrALAZINE 20MG/1ML INJ 10 mg 0.5 mL, IV Pus (more content not included)... Normal [facility] EEG Reporton 02-12-2024 EEG Report Patient: Parvin MCKEON Age: 78 years Sex: Female : 1945 Associated Diagnoses: None Author: LORAINE THOMAS MD REASON : Seizure A standard 10-20 system was used to record an EEG on a 78-year-old lady The posterior background activity consisted of 8?9 hz low voltage activity distributed symmetrically in the posterior head regions. Attenuation to eye opening was difficult to discern. Beta activity was 15Hz low voltage distributed symmetrically predominantly in the frontocentral regions. Photic stimulation elicited a driving response at some frequencies and this was time locked to the signal and distributed symmetrically in the posterior head regions. Hyperventilation did not produce any change in the EEG During part of the recording the predominant activity was 7 Hz medium voltage activity distributed symmetrically?drowsiness. During part of the recording sleep pattern Impression Overall unremarkable EEG.?Awake/drowsy/sleep No definite evidence of epileptiform activity. Clinical correlation suggested. Normal [facility] ACETAMINOPHEN 325 MG TABon 0 02-06-2024 ACETAMINOPHEN 325 MG TAB PRN Response Entered On: 02/06/2024 6:49 EDT Performed On: 02/06/2024 7:36 EDT by Esau Silverman RN Intervention Information: acetaminophen Performed by Esau Silverman RN on 02/06/2024 06:36:00 EDT acetaminophen,650mg ORAL,Mild Pain PRN Medication Response PRN Medication used for : Pain PRN Medication Effectiveness : Yes PRN Response Pain Scales : Numeric (8yrs & older) Numeric Pain Scale Age : Numeric (8yrs & older) Actual time of reassessment : Yes Esau Silverman RN - 02/06/2024 6:48 EDT Numeric Pain Scale Numeric Pain Scale : 1 = Mild Pain Numeric Pain Score : 1 Esau Silverman RN - 02/06/2024 6:48 EDT Normal [facility] Comment on above: Order Comment: Stand romie treatment for mild pain (level 1-3). - Can give PRIOR to opiate medications for moderate to severe pain per patient preference. In this situation use acetaminophen 1 hour before choosing to use opiate. - DELETE this order if any other medications are ordered for mild pain. - Do not exceed 4000 mg/day in healthy patients under age 65. - Do not exceed 3000 mg/day (q6hour dosing) in patients over the age of 65. - Do not use in patients with severe hepatic dysfunction (child-winters score greather than 9 or bilirubin greater than 4).Check for other orders containing acetaminophen before administering. Max total daily amount is 4000 mg. BASICMETAon 02-06-2024 Calcium [Mass/Vol] 9.4 mg/dL Normal 8.7-10.4 [facility] Comment on above: Performed By: #### 1 [id number], [id number], [id number] ####[facility] [id number] [place] [id number] Medical Director: Jesse Gross MD Chloride [Moles/Vol] 110 mmol/L High 98-107 [facility] Comment on above: Performed By: #### 1 [id number], [id number], [id number] ####[facility] [address] [place] [address] Medical Director: Jesse Gross MD CO2 [Moles/Vol] 26.0 mmol/L Normal 20.0-31.0 [facility] Comment on above: Performed By: #### 1 60479, 230883, [id number] ####[facility] [address] [place] [address] Medical Director: Jesse Gross MD Creatinine [Mass/Vol] 0.9 mg/dL High 0.5-0.8 [facility] Comment on above: Performed By: #### 1 17340, [id number], [id number] ####[facility] [address] [place] [address] Medical Director: Jesse Gross MD GFR AA >60 Normal [facility] Comment on above: Result Comment: Afri can Lithuanian GFR Calc Medical judgement is necessary to interpret GFR. The calculated GFR may not accurately reflect renal status in patients >70 years, women, acutely ill hospitalized patients and patients with acute renal failure or known renal disease. The MDRD GFR formula is valid only for adults greater than 18 years of age. Note: Creatinine clearance (not GFR) should be used for drug dosing. Performed By: #### 1 08918, 322309, [id number] ####[facility] [address] [place], [place] [id number]) [phone] Director: Jesse Gross MD Glomerular Filtration Rate >60 Normal [facility] Comment on above: Result Comment: Non- GFR Calc Medical judgement is necessary to interpret GFR. The calculated GFR may not accurately reflect renal status in patients >70 years, women, acutely ill hospitalized patients and patients with acute renal failure or known renal disease. The MDRD GFR formula is valid only for adults greater than 18 years of age. Note: Creatinine clearance (not GFR) should be used for drug dosing. Performed By: #### 1 49340, [id number], [id number] ####[facility] [address] [place] [address] Medical Director: Jesse Gross MD Glucose [Mass/Vol] 120 mg/dL High 74-106 [facility] Comment on above: Performed By: #### 1 25371, 104431, [id number] ####[facility] [address] [place] [address] Medical Director: Jesse Gross MD Osmolality [Osmolality] 294 mosm/kg Normal 275-295 [facility] Comment on above: Performed By: #### 1 37154, 797113, [id number] ####[facility] [address] [place] [address] Medical Director: Jesse Gross MD Potassium [Moles/Vol] 3.5 mmol/L Normal 3.5-5.1 [facility] Comment on above: Performed By: #### 1 32012, 660603, [id number] ####[facility] [address] [place] [address] Medical Director: Jesse Gross MD Sodium [Moles/Vol] 145 mmol/L Normal 135-145 [facility] Comment on above: Performed By: #### 1 72357, 335508, [id number] ####[facility] [address] [place] [address] Medical Director: Jesse Gross MD Urea nitrogen [Mass/Vol] 24 mg/dL High 9-23 [facility] Comment on above: Result Comment: - Ve nipuncture should occur prior to N-Acetyl Cysteine (NAC) or Metamizole (Sulpyrine) administration due to the potential for falsely depressed results. - Blood samples from some patients with monoclonal gammopathies may produce falsely elevated results Performed By: #### 1 28343, 894777, [id number] ####[facility] [address] [place] [address] Medical Director: Jesse Gross MD Urea nitrogen/Creatinine [Mass ratio] 26.7 mg/mg Normal [facility] Comment on above: Performed By: #### 1 11383, 230883, [id number] ####[facility] [address] [place] [address] Medical Director: Jesse Gross MD CBCNDon 02-06-2024 Erythrocyte distribution width (RBC) [Ratio] 15.4 % High 11.5-14.5 [facility] Comment on above: Performed By: #### 1 72991, 830075, [id number] ####[facility] [address] [place] [address] Medical Director: Jesse Gross MD Hematocrit (Bld) [Volume fraction] 42.1 % Normal 36.0-46.0 [facility] Comment on above: Performed By: #### 1 40216, 325165, [id number] ####[facility] [address] [place] [address] Medical Director: Jesse Gross MD Hemoglobin (Bld) [Mass/Vol] 13.9 g/dL Normal 12.0-16.0 [facility] Comment on above: Performed By: #### 1 35708, 180336, [id number] ####[facility] [address] [place] [address] Medical Director: Jesse Gross MD Instr WBC ND 5.6 Normal [facility] Comment on above: Performed By: #### 1 71664, 919999, [id number] ####[facility] [address] [place] [address] Medical Director: Jesse Gross MD MCH (RBC) [Entitic mass] 28.8 pg Normal 27.0-34.0 [facility] Comment on above: Performed By: #### 1 [id number], [id number], [id number] ####[facility] [address] [place] [address] Medical Director: Jesse Gross MD MCHC (RBC) [Mass/Vol] 32.9 g/dL Normal 32.0-37.0 [facility] Comment on above: Performed By: #### 1 97815, [id number], [id number] ####[facility] [address] [place] [address] Medical Director: Jesse Gross MD MCV (RBC) [Entitic vol] 87.4 fL Normal 80.0-100.0 [facility] Comment on above: Performed By: #### 1 70884, [id number], [id number] ####[facility] [address] [place] [address] Medical Director: Jesse Gross MD Platelet 143 x10 Low 150-450 [facility] Comment on above: Performed By: #### 1 91494, [id number], [id number] ####[facility] [address] [place], [place] [id number]) [phone] Director: Jesse Gross MD Platelet mean volume (Bld) [Entitic vol] 8.9 fL Normal 7.4-10.4 [facility] Comment on above: Performed By: #### 1 00490, [id number], [id number] ####[facility] [id number] [place], [place] [id number]) [phone] Director: Jesse Gross MD RBC 4.82 x10 Normal 4.20-5.40 [facility] Comment on above: Result Comment: Note : RBC morphology is normal unless otherwise stated. Evaluation performed only if differential is requested. Performed By: #### 1 11444, [id number], [id number] ####[facility] [id number] [place], [place] [id number]) [phone] Director: Jesse Gross MD WBC 5.6 x10 Normal 4.5-11.0 [facility] Comment on above: Performed By: #### 1 68866, 710410, [id number] ####[facility] [address] [place], [place] [id number]) [phone] Director: Jesse Gross MD Consult Reporton 02-06-2024 Consult Report Patient: Parvin MCKEON Age: 78 years Sex: Female : 1945 Associated Diagnoses: None Author: ИВАН VALDEZ, [facility] Consult Note IMPRESSION: Elevated troponin Transient global amnesia Hx of Cardioymopathy, LVEF recovered as per patient Hyperlipidemia HTN PLAN: Elevated troponin: Patient denies any anginal symptoms. ECG does not show any acute ischemic changes. Cardiac biomarkers are elevated however not suggestive of acute coronary syndrome. Troponin elevation likely supply/demand ischemia in the setting of hypertension. Echocardiogram reviewed showing preserved LV function and no significant structural heart disease. Hypertension: Blood pressures are now better controlled. Continue current medical therapy Patient is up with a regular milk sampler in [facility], she can get a stress test done at that time. No further inpatient cardiac workup is needed okay to discharge --- Reason for Consult: Elevated troponin Primary Floor Molder: Cardiology in [facility] History of Presenting Illness: 78-year-old female with the above-mentioned history who states she had history of a nonischemic cardiomyopathy back in the late with LVEF recovering. It seems that she had gone a horse ride with her children and she cannot recall the event and as per the notes she was speaking send this is a did not make sense. Therefore she is brought to the emergency room for further evaluation here workup has been negative patient feels she is back to her baseline. Neuroimaging has been negative Cardiology consulted for mildly elevated troponin Denies chest pain palpitations syncope loss of conscious Cardiac Medications: Home Medications (1) Active Coreg 25 mg oral tablet 25 mg = 1 tabs, ORAL, BID Medications (17) Active Scheduled: (8) ASPIRIN 300 MG SUPP 300 mg 1 supp, Rectal, DAILY ASPIRIN 325 MG TAB 325 mg 1 tabs, ORAL, DAILY WITH BREAKFAST ATORVASTATIN 40MG TAB 80 mg 2 tabs, ORAL, QHS CARVEDILOL 25 MG TAB 25 mg 1 tabs, ORAL, BID DOCUSATE SODIUM 100MG CAPSULE 100 mg 1 caps, ORAL, BID ENOXAPARIN 40MG/0.4ML INJ 40 mg 0.4 mL, Subcutaneous, QHS SODIUM CHLORIDE SYR/VIAL 10ML 3 mL, IV Push, [id number] SODIUM CHLORIDE SYR/VIAL 10ML 3 mL, IV Push, [id number] Continuous: (0) PRN: (9) ACETAMINOPHEN 325 MG TAB 650 mg 2 tabs, ORAL, [id number] ACETAMINOPHEN 325 MG TAB 650 mg 2 tabs, ORAL, [id number] ACETAMINOPHEN 325 MG TAB 650 mg 2 tabs, ORAL, [id number] HydrALAZINE 20MG/1ML INJ 10 mg 0.5 mL, IV Push, [id number] MELATONIN 5MG TAB 5 mg 1 tabs, ORAL, [id number] NALOXONE 0.4MG/1ML INJ 0.4 mg 1 mL, IV Push, PRN SODIUM CHLORIDE SYR/VIAL 10ML 3 mL, IV Push, PRN SODIUM CHLORIDE SYR/VIAL 10ML 3 mL, IV Push, PRN SODIUM CHLORIDE SYR/VIAL 10ML 8 mL, IV Push, PRN Allergies: Allergies (1) Active Severity Reaction No Known Allergies None Documented Review of Systems: As per HPI, all other systems reviewed and negative Cardiac History: As above Past Medical History: As above Surgical History: Reviewed Social History: Social & Psychosocial History Social History Alcohol Denies Alcohol Use Substance Abuse Denies Substance Abuse Tobacco Denies Tobacco Use Psychosocial History No active psychosocial history has been recorded Family History: No qualifying data available. PHYSICAL EXAM: Vital Signs (last 24 hrs) Last Charted Temp Oral 36.5 degC (FEB 05 11:00) Heart Rate Peripheral 76 bpm (FEB 05:24) Resp Rate 15 br/min (FEB 05:) SBP 127 mmHg (FEB 05:) DBP 72 mmHg (FEB 05:) BMI 28.49 (FEB 04 22:05) General: Stable, with no apparent distress. Neck: JVP 7cm @ 45deg. No carotid bruits. CV: RRR no MRG; Normal S1S2; non-sustained, non-displaced PMI. Lungs: Clear to auscultation bilaterally. Abdomen: Benign. Extremities: No clubbing, cyanosis, or edema. Intact peripheral pulses. Skin: no rashes or erythema of the exposed surfaces ECG/Telemetry: NSR with no acute ischemic changes Radiology: CXR without infiltrate or effusion Labs (Last four charted values) WBC 5.6 (FEB 05) 5.0 (FEB 04) Hgb 13.9 (FEB 05) 13.6 (FEB 04) Hct 42.1 (FEB 05) 41.4 (FEB 04) Plt L 143 (FEB 05) L 145 (FEB 04) Na 145 (FEB 05) 145 (FEB 04) K 3.5 (FEB 05) 4.2 (FEB 04) CO2 26.0 (FEB 05) 25.0 (FEB 04) Cl H 110 (FEB 05) H 112 (FEB 04) Cr H 0.9 (FEB 05) H 0.9 (FEB 04) BUN H 24 (FEB 05) H 26 (FEB 04) Glucose Random H 120 (FEB 05) H 131 (FEB 04) Ca 9.4 (FEB 05) 10.0 (FEB 04) INR 1.0 (FEB 04) Troponin HS 0 Hr: 9 pg/mL (02/05/24 14:28:00) Troponin HS 2 Hr: 48 pg/mL High (02/05/24 15:58:00) Troponin HS 6 Hr: 121 pg/mL Critical (02/05/24 19:30:00) Lipids Cholesterol: 242 mg/dL High (02/06/24) HDL Cholesterol: 65 mg/dL High (02/06/24) Total Chol/HDL Chol Ratio: 3.7 (02/06/24) Triglycerides: 95 mg/dL (09 (more content not included)... Normal [facility] HGB A1Con 02-06-2024 HbA1c (Bld) [Mass fraction] 5.4 % Normal [facility] Comment on above: Order Comment: if no t already done Result Comment: Refe rence Range: Diabetic Greater than or equal to 6.5 % Prediabetic 5.7?6.4 % Normal Less than 5.7 % Performed By: #### 1 [id number] ####[facility] [address] [place] [address] Medical Director: Jesse Gross MD Inpatient Patient Summaryon 02-06-2024 Inpatient Patient Summary [facility] Discharge Instructions [address] [place] [address] (Patient Copy) Name: CECILIA MCKEON : 1945 Diagnosis: 1:Acute confusion Allergies: No Known Allergies Registration Date: 02/05/24 [facility]#: [id number] Current Date Time: 02/06/2024 15:58:48 Address: [address] [place] [address] Primary Care Provider: Name: ADRIAN SINGH Phone: [phone] Thank you for choosing [facility] for your care. You are very important to us. Our goal is to demonstrate our high quality medical care and provide you with a very good patient experience. You may receive a survey about our service. Please take the time to complete the survey and return it so we can continue to enhance our service. Thank you again for allowing [facility] to care for your medical needs. If you have any questions about your care or follow up information please contact your doctor. Follow-up Instructions The following Appointments have been made for you: Please Note: the first letters listed in the order is the location code, followed by the appointment date, and scheduled provider Future Appointments No Future Appointments Scheduled Provider Follow Ups: With: Address: When: LORAINE THOMAS, Neurology [address], [address] [place] [address] Business (1) With: Address: When: EDUARDO OATES, Cardiology, Radiology [address] [facility] [facility] [place] [phone] Business (1) If you have had an intravenous catheter (IV) during your stay, keep the dressing dry and do not remove it from the site for at least 24 hours or as instructed by your provider to prevent problems. Medication Information Only Take The Medicines On This List. Keep This List and Bring It To Your Next Appointment. Medicines To Take At Home: Medicine Name (Generic Name) Amount to Take How to Take it How Often to Take it Additional Instructions Next Dose Due atorvastatin 40 mg oral tablet * (atorvastatin) 40 mg By Mouth AT BEDTIME Coreg 25 mg oral tablet (carvedilol) 25 mg By Mouth TWICE A DAY Understanding your home medicine is important to keeping you healthy. If you are taking medications that are not on the preceding list, please call your doctor to see if you are to continue taking that medication. It is important that you do not skip or make up doses. If you are ordered an antibiotic, finish taking all the medicine unless your doctor tells you otherwise. Call your doctor if you have any questions or problems. Take the medicine list with you to all follow up appointments. Patient education materials, if any, will display below Transient Global Amnesia (TGA): Care Instructions Overview Transient global amnesia (TGA) is a rare type of amnesia that causes sudden memory loss. When this happens you cannot remember events from your recent past or make new memories. You may also not know where you are, why you are there, or what the date is. You may ask the same question many times. Unlike other types of amnesia, you do know who you are and you can recognize people that you know. An episode usually does not last more than 6 hours and it rarely happens again. What causes TGA is not fully known. But, in some cases, an intense workout, sex, or stress may cause an episode. People who get migraines are more likely to have TGA. Your doctor probably did an exam and ran some tests to rule out certain health problems that can also cause sudden memory loss, such as a stroke, brain tumor, seizure, head injury, or an infection. If your doctor did not find any of these things to be the cause of your memory loss, you will not need treatment and you can go back to your usual activities. Although you may never be able to remember what happened right before or during the episode, the rest of your memory should come back. TGA does not increase the chance that you will have a stroke or seizures in the future. Follow-up care is a ackerman part of your treatment and safety. Be sure to make and go to all appointments, and call your doctor if you are having problems. It is also a good idea to know your test results and keep a list of the medicines you take. How can you care for yourself at home? ? There is no treatment for TGA. Expect your symptoms to go away with time. ? Take good care of yourself. Eat a healthy diet. Get plenty of rest. Limit how much alcohol you drink. Do not smoke. If you need help quitting, talk to your doctor about stop-smoking programs and medicines. These can increase your chances of quitting for good. ? Find healthy ways to deal with stress. Regular exercise is a good way to manage stress. ? Talk to your doctor if you have questions about TGA. When should you call for help? Call 911 anytime you think you may need emergency care. For example, call if: ? You passed out (lost consciousness) (more content not included)... Normal [facility] Intake and Outputon 02-06-20 24 Intake and Output Intake and Output En tered On: 02/06/2024 14:06 EDT Performed On: 02/06/2024 14:00 EDT by Celsa Miller RN I&O Oral : 100 mL Urine Voided : 500 mL Celsa Miller RN - 02/06/2024 14:06 EDT Supplement/Percentage Intake Diet Type : Diet Order - 02/05/2024 16:45:00 EDT, Heart Healthy Breakfast : 100 % Lunch : 100 % Celsa Miller RN - 02/06/2024 14:06 EDT Normal [facility] Intake and Output Intake and Output En tered On: 02/06/2024 6:50 EDT Performed On: 02/06/2024 6:50 EDT by Esau Silverman RN I&O Urine Voided : 600 mL Esau Silverman RN - 02/06/2024 6:50 EDT Normal [facility] Intake and Output Intake and Output En tered On: 02/06/2024 2:04 EDT Performed On: 02/06/2024 2:04 EDT by Esau Silverman RN I&O Urine Voided : 600 mL Esau Silverman RN - 02/06/2024 2:04 EDT Normal [facility] LIPID PNLon 02-06-2024 Calculated LDL Cholesterol 158 mg/dL High 60-130 [facility] Comment on above: Order Comment: 12 ho ur fast Result Comment: <100 mg/dl Optimal 100-129 mg/dl Near Optimal 130-159 mg/dl Borderline High 160-189 mg/dl High >=190 mg/dl Very High Performed By: #### 1 25669, [id number], [id number] ####[facility] [address] [place] [id number] Medical Director: Jesse Gross MD Cholesterol [Mass/Vol] 242 mg/dL High 100-200 [facility] Comment on above: Order Comment: 12 ho ur fast Result Comment: Miladis puncture should occur prior to N-Acetyl Cysteine (NAC) or Metamizole (Sulpyrine) administration due to the potential for falsely depressed results. Performed By: #### 1 31508, [id number], [id number] ####[facility] [address] [place], [place] [id number] Medical Director: Jesse Gross MD Cholesterol in HDL [Mass/Vol] 65 mg/dL High 40-60 [facility] Comment on above: Order Comment: 12 ho ur fast Result Comment: Dire ct HDL Venipuncture should occur prior to metamizole (sulpyrine) administration due to the potential for falsely depressed results Performed By: #### 1 59275, [id number], [id number] ####[facility] [address] [place] [address] Medical Director: Jesse Gross MD Total Chol/HDL Chol Ratio 3.7 Normal [facility] Comment on above: Order Comment: 12 ho ur fast Performed By: #### 1 93773, [id number], [id number] ####[facility] [address] [place] [address] Medical Director: Jesse Gross MD Triglyceride [Mass/Vol] 95 mg/dL Normal 30-150 [facility] Comment on above: Order Comment: 12 ho ur fast Result Comment: - Ve nipuncture should occur prior to N-Acetyl Cysteine (NAC) or Metamizole (Sulpyrine) administration due to the potential for falsely depressed results - Use of this assay is not recommended for patients being treated with etamsylate because it causes falsely decreased results Performed By: #### 1 03544, [id number], [id number] ####[facility] [address] [place] [address] [facility] Director: Jesse Gross MD MR BRAIN WO CONTRASTon 02-05 MR BRAIN WO CONTRAST MR BRAIN WITHOUT CO NTRAST HISTORY:Confusion. Sudden onset symptoms. COMPARISON:CT brain 02/05/2024. TECHNIQUE: MRI of the brain was performed without intravenous contrast using standard department protocol. The following sequences were acquired: Sagittal T1, axial FLAIR, axial T2, axial GRE and axial DWI/ADC. FINDINGS: There is no midline shift, mass effect, or hydrocephalus. There is no acute territorial infarct or acute intracranial hemorrhage. There is moderate patchy periventricular and subcortical white matter T2 prolongation, nonspecific but likely on the basis of chronic small vessel ischemic change. Basilar cisterns patent. Sinuses and mastoids grossly clear. IMPRESSION: No acute findings. Moderate nonspecific white matter disease, likely on the basis of chronic small vessel ischemic change. Electronically signed by: Henok Robles MD 02/06/2024 09:15 AM EDT RP Technologist: RUTHANN Dictated By: HENOK ROBLES MD Signed By: HENOK ROBLES MD Signed Out: 02/06/24 09:15:38 Normal [facility] Nursing Clinical Noteon 09-0 Nursing Clinical Note 0730 WALKING ROUND COMPLTED. Hand off information received. 1034 Dr Thomas spoke with pt's sonNhan via phone at this time. [address] Oates, orders obtained, ok for pt ot be discharged. [address] Thomas, ok to be discharged, per dr Thomas. 1518 RN awaiting discharge med rec to be completed. 1530 Pt's son is on his way to transport pt home, per pt travel time is at least 1 hour from her son's home. 1630 RN reviewed every detail of pt's discharge with pt, medications, prescriptions, follow-up care, when to call 911 or come back to , depart, s/s of a stroke and hearty attack. All belongings gathered. IV out. tele off. 1756 Pt's son is here to transport pt home. Normal [facility] Nursing Dysphagia Screeningo n 02-06-2024 Nursing Dysphagia Screening Nursing Dysphagia Screening Entered On: 02/06/2024 2:03 EDT Performed On: 02/06/2024 2:03 EDT by Esau Silverman RN Dysphagia Screening Pt alert follows simple commands : Yes Clear strong voice upon request : Yes Pt speech not slurred or garbled : Yes Pt has voluntary cough : Yes Pt able to swallow own secretions : Yes Swallows 60ml water w/o issue : Yes W/O cough, throat clearing sev mins after screen : Yes Esau Silverman RN - 02/06/2024 2:03 EDT Normal [facility] Comment on above: Order Comment: If pt passes Dysphagia Screening Nursing, order safe diet, dysphagia pureed with honey-thick liquids and administer PO meds with honey-think liquids. Cattery Operator Detailson 2023 Cattery Operator Details Cattery Operator Details Entered On: 02/06/2024 2:04 EDT Performed On: 02/06/2024 2:04 EDT by Esau Silverman RN Cattery Operator Details Transport Mode Order Detail EV : Wheelchair Isolation Precautions RTF : Communication CONSTANT Order, 02/07/2024 08:00:00 EDT, Constant Order, Check PLT count on Day 2 after initiation of Heparin or Lovenox, Notify Physician if PLTs less than 100,000 Repeat PLT count every 3 days., Ordered Aspiration Precautions, 02/05/2024 16:45:00 EDT, Constant Order, per protocol, Ordered Communication CONSTANT Order, 02/05/2024 16:45:00 EDT, Constant Order, Current ACLS Provider may, Initiate [employer] Advanced Cardiac Life support Algorithm per patient code status, Ordered Communication CONSTANT Order, 02/05/2024 16:45:00 EDT, Constant Order, STAT EKG for Chest Pain, STAT ABGs for Acute Respiratory Distress, STAT Potassium/Magnesium for any significant change in condition/rhythm, Ordered Communication CONSTANT Order, 02/05/2024 16:45:00 EDT, Constant Order, Refer to ED Nursing Flowsheet for Dysphagia screening results. If passed, initiate Safe Diet consistency. Dysphagia pureed-honey like liquids until Dysphagia evaluation. If failed, keep NPO including medicati..., Ordered Consult Physician, 02/05/2024 16:45:00 EDT, TREVOR VALDEZ, LORAINE, tia vs tga, Neurology, Completed [facility] Nutrition Task to Nursing, 02/05/2024 16:45:00 EDT, Constant Order, Initiate diet/consistency as specified per Speech Therapy recommendation, Ordered Notify Provider, 02/05/2024 16:45:00 EDT, Constant Order, Notify Physician of blood glucose results greater than 150 or less than 70., Ordered Oxygen Therapy, 02/05/2024 16:45:00 EDT, 2-3L Normal [facility] Comment on above: Order Comment: Order entered secondary to admission Rehabilitation Inpt - Assign ment - Texton 02-06-2024 Rehabilitation Inpt - Assignment - Text Rehabilitation Inpatient - Assignment Entered On: 02/06/2024 13:05 EDT Performed On: 02/06/2024 13:05 EDT by Jose PRATHER/Valarie Reyes Rehabilitation Inpatient - Assignment Occupational Therapy : PMRPending , Valarie Harris - 02/06/2024 13:05 EDT Normal [facility] Rehabilitation Inpt - Assignment - Text Rehabilitation Inpatient - Assignment Entered On: 02/06/2024 12:11 EDT Performed On: 02/06/2024 12:11 EDT by Herb ALVA CCC/SENIOR SALES OPERATIONS ANALYST, Gabriel Beal Rehabilitation Inpatient - Assignment Speech Therapy : PMRPending , Naif Estevez MA, CCC/SENIOR SALES OPERATIONS ANALYST, Gabriel NZoila - 02/06/2024 12:11 EDT Normal [facility] Rehabilitation Inpt - Assignment - Text Rehabilitation Inpatient - Assignment Entered On: 02/06/2024 11:33 EDT Performed On: 02/06/2024 11:33 EDT by Dequan EPSTEIN, DPT, Manju Rehabilitation Inpatient - Assignment Physical Therapy : PMRPending Naif PT, DPT, Manju - 02/06/2024 11:33 EDT Normal [facility] Rehabilitation Inpt - Assignment - Text Rehabilitation Inpatient - Assignment Entered On: 02/06/2024 8:51 EDT Performed On: 02/06/2024 8:51 EDT by Herb ALVA CCC/SENIOR SALES OPERATIONS ANALYST, Gabriel Beal Rehabilitation Inpatient - Assignment Speech Therapy : Herb ALVA CCC/SENIOR SALES OPERATIONS ANALYST, Gabriel NZoila Estevez MA, CCC/SENIOR SALES OPERATIONS ANALYST, Gabriel NZoila - 02/06/2024 8:51 EDT Normal [facility] Rehabilitation Inpt - Assignment - Text Rehabilitation Inpatient - Assignment Entered On: 02/06/2024 7:24 EDT Performed On: 02/06/2024 7:24 EDT by Dequan PT, DPT, Manju Rehabilitation Inpatient - Assignment Physical Therapy : Dequan PT, DPT, Manju Dequan PT, DPT, Mnaju - 02/06/2024 7:24 EDT Normal [facility] Rehabilitation Inpt - Assignment - Text Rehabilitation Inpatient - Assignment Entered On: 02/06/2024 7:14 EDT Performed On: 02/06/2024 7:13 EDT by Valarie Gardiner Rehabilitation Inpatient - Assignment Occupational Therapy : Valarie Gardiner Kathryn E - 02/06/2024 7:13 EDT Normal [facility] SENIOR SALES OPERATIONS ANALYST Acute Time Spent With Pa tient-Texton 02-06-2024 SENIOR SALES OPERATIONS ANALYST Acute Time Spent With Patient-Text SENIOR SALES OPERATIONS ANALYST Acute Time Spent With Patient Entered On: 02/06/2024 11:43 EDT Performed On: 02/06/2024 11:42 EDT by Herb ALVA CCC/SENIOR SALES OPERATIONS ANALYSTGabriel Time Spent with Patient SENIOR SALES OPERATIONS ANALYST Time In : 11:35 EDT SENIOR SALES OPERATIONS ANALYST Time Out : 11:35 EDT Evaluate for Dysphagia (43277) (ref) : 0 units SENIOR SALES OPERATIONS ANALYST Pharyngeal Swallow Eval Time : 0 minutes SENIOR SALES OPERATIONS ANALYST Total Untimed Code Treatment Minutes : 0 minutes *Total Treatment Time : 0 minutes PMR Chart Review - SENIOR SALES OPERATIONS ANALYST : Yes Herb ALVA CCC/Gabriel BAUM - 02/06/2024 11:42 EDT SENIOR SALES OPERATIONS ANALYST Units Lost Grid SENIOR SALES OPERATIONS ANALYST Units Lost #1 Reason : Other: Pt alert, speech clear. Pt does not have personal memory of events leading to admission, however, recalls information provided to her and recent events. Pt denied need for further assessment. Gabriel Bach MA - 02/06/2024 11:42 EDT Normal [facility] Utilization Review Noteon Utilization Review Note OBS advised, and obs ordered. Acute confusion. DC WRITTEN, AFTER EEG, WITH CONSULT APPROVAL. CLEARED FOR DC PER CARDIO. PENDING NEURO CONSULT. CLEARED FOR DC PER NEURO. PLAN IS DC HOME. ED UM TO F/U. Normal [facility] Vascular Lab Reporton 2023 Vascular Lab Report VASCULAR LAB PRELIMI NARY RESULTS: Bilateral carotid Duplex is completed. There mild plaque in the right internal carotid artery and mild to moderate plaque in the left internal carotid artery. report to follow. Normal [facility] ACETAMINOPHEN 325 MG TABon 0 02-05-2024 ACETAMINOPHEN 325 MG TAB PRN Response Entered On: 02/05/2024 21:28 EDT Performed On: 02/05/2024 21:53 EDT by Esau Silverman RN Intervention Information: acetaminophen Performed by Rafia Zavaleta RN on 02/05/2024 20:53:00 EDT acetaminophen,650mg ORAL,Headache PRN Medication Response PRN Medication used for : Pain PRN Medication Effectiveness : Yes PRN Response Pain Scales : Numeric (8yrs & older) Numeric Pain Scale Age : Numeric (8yrs & older) Actual time of reassessment : Yes Esau Silverman RN - 02/05/2024 21:28 EDT Numeric Pain Scale Numeric Pain Scale : 2 = Mild Pain Numeric Pain Score : 2 Esau Silverman RN - 02/05/2024 21:28 EDT Normal [facility] Comment on above: Order Comment: - Do not exceed 4000 mg/day in healthy patients under age 65. - Do not exceed 3000 mg/day (q6hour dosing) in patients over the age of 65. - Do not use in patients with severe hepatic dysfunction (child-winters score greather than 9 or bilirubin greater than 4).Check for other orders containing acetaminophen before administering. Max total daily amount is 4000 mg. APTTon 02-05-2024 aPTT Coag (Bld) [Time] 34.4 s Normal 27.0-38.0 [facility] Comment on above: Result Comment: APTT Interpretation: This test has not been validated to monitor heparin therapy. APTT test is used as an initial test for suspected bleeding disorder. Anti-Xa UFH test is used to monitor heparin therapy. Performed By: #### 1 65807, 250562, CD:[id number], 194999, 179071, 4764519 #### [facility] [address] [place] [address] Rubber Off: Jesse Gross MD AUTO DIFFon 02-05-2024 Baso Count 0.06 x1000 Normal 0.00-0.20 [facility] Comment on above: Performed By: #### 1 38087, 700468, CD:[id number], 587612, 366750, [id number] ####[facility] [address] [place] [address] Medical Director: Jesse Gross MD Basos % 1.1 % Normal [facility] Comment on above: Performed By: #### 1 02845, 893756, CD:[id number], 854434, 113561, 6249289 ####[facility] [address] [place] [id number] Medical Director: Jesse Gross MD Eos Count 0.12 x1000 Normal 0.00-0.50 [facility] Comment on above: Performed By: #### 1 09010, 644577, CD:[id number], 953762, 952014, 3863092 ####[facility] [address] [place] [address] Medical Director: Jesse Gross MD Eosinophils/100 WBC (Bld) 2.3 % Normal [facility] Comment on above: Performed By: #### 1 36579, 958290, CD:[id number], 015832, 575583, 9416364 ####[facility] [address] [place] [address] Medical Director: Jesse Gross MD Lymph Count 1.12 x1000 Low 1.20-4.80 [facility] Comment on above: Performed By: #### 1 39046, 323569, CD:[id number], 747149, 499390, 1135370 ####[facility] [address] [place] [address] Medical Director: Jesse Gross MD Lymphocytes/100 WBC (Bld) 22.4 % Normal [facility] Comment on above: Performed By: #### 1 29100, 403660, CD:[id number], 882739, 025716, 5818014 ####[facility] [address] [place] [address] Medical Director: Jesse Gross MD Mariposa Count 0.60 x1000 Normal 0.10-1.00 [facility] Comment on above: Performed By: #### 1 45715, 493700, CD:[id number], 828089, 329940, 7828476 ####[facility] [address] [place] [address] Medical Director: Jesse rGoss MD Monocytes/100 WBC (Bld) 11.9 % Normal [facility] Comment on above: Performed By: #### 1 72177, 560428, CD:[id number], 074855, 951068, 9884386 ####[facility] [address] [place] [address] Medical Director: Jesse Gross MD Neutrophil Count (ANC) 3.13 x1000 Normal 1.40-8.80 [facility] Comment on above: Performed By: #### 1 62766, 135862, CD:[id number], 542603, 806348, 3442773 ####[facility] [address] [place] [address] Medical Director: Jesse Gross MD Neutrophils/100 WBC (Bld) 62.3 % Normal [facility] Comment on above: Performed By: #### 1 14893, 127959, CD:[id number], 600760, 220824, 7780881 ####[facility] [address] [place] [address] Medical Director: Jesse Gross MD Basic Admission Informationo n 02-05-2024 Basic Admission Information Basic Admission Information Entered On: 02/05/2024 22:09 EDT Performed On: 02/05/2024 22:05 EDT by Czechowski , Karoline Admission Height/Weight Height/Length Measured : 162.56 cm(Converted to: 5.33 ft, 64.00 in) Height/Length Dosing : 162.56 cm(Converted to: 5.33 ft, 64.00 in) Weight Measured : 75.3 kg(Converted to: 166 lb 0 oz, 166.008 lb) Weight Dosing : 75.3 kg(Converted to: 2,656.130 oz, 166.008 lb) BSA Measured : 1.84 BSA Dosing : 1.84 Body Mass Index Measured : 28.49 kg/m2 Body Mass Index Dosing : 28 Weight Measured Type of Scale : Bed Scale (digital) Last Documented Height/Length : Height/Length Estimated: No results available. Height/Length Measured: No results available. Height/Length Dosing: No results available. Last Documented Weight and Type of Scale Used : Weight Measured Type of Scale: No results available. Weight Measured: No results available. Weight Dosing: No results available. Karoline Parra 02/05/2024 22:05 EDT Belongings Valuables/Belongings Grid Valuables at Bedside Clothes : Jacket, Pants, Shirt, Shoes, Undergarments, Other: vest Electronic Devices : Cell phone, Other: Ashok Jewelry : Watch Monetary Items : Credit cards, Money, Wallet Personal Devices : Hearing aid, right Karoline Parra 02/05/2024 22:05 EDT Room Orientation/Facility Policy Reviewed : Yes Room Orientation/Policy Reviewed With : Patient Patient Safety : Bed / Chair Alarm, Bed in low position, Call device within reach, Fall ibm websphere commerce consultant ID Band, Falling [place], ID band check, Mobility support items readily available, Night light, Non-Slip footwear, Personal items within reach, Sensory aids within reach, Upper/Half-length side-rails up, Traffic path in room free of clutter, Wheels locked Demonstrates Ability to Use Call Light Successfully : Yes Karoline Parra 02/05/2024 22:05 EDT Normal [facility] Comment on above: Order Comment: Order entered secondary to admission COMPMETAon 02-05-2024 Albumin [Mass/Vol] 3.9 g/dL Normal 3.4-5.0 [facility] Comment on above: Performed By: #### 1 63095, 969435, CD:[id number], 506986, 384327, 4761055 #### [facility] [address] [place] [address] Rubber Off: Jesse Gross MD Albumin/Globulin [Mass ratio] 1.3 {ratio} Normal [facility] Comment on above: Performed By: #### 1 04084, 272281, CD:[id number], 771699, 132822, 8982598 #### [facility] [address] [place] [address] Rubber Off: Jesse Gross MD Alk Phos 76 unit/L Normal 45-117 [facility] Comment on above: Performed By: #### 1 29367, 149348, CD:[id number], 348557, 151285, 3301811 #### [facility] [address] [place], [place] [address] Rubber Off: Jesse Gross MD Bilirubin [Mass/Vol] 0.40 mg/dL Normal 0.30-1.20 [facility] Comment on above: Result Comment: Use of this assay is not recommended for patients undergoing treatment with eltrombopag due to the potential for falsely elevated results. Performed By: #### 1 10849, 568998, CD:[id number], 944750, 634528, 0996558 #### [facility] [address] [place], [place] [address] Rubber Off: Jesse Gross MD Calcium [Mass/Vol] 10.0 mg/dL Normal 8.7-10.4 [facility] Comment on above: Performed By: #### 1 31242, 868583, CD:[id number], 367493, 846434, 9827164 #### [facility] [address] [place] [address] Rubber Off: Jesse Gross MD Chloride [Moles/Vol] 112 mmol/L High 98-107 [facility] Comment on above: Performed By: #### 1 12363, 350769, CD:[id number], 041880, 874224, 3896361 #### [facility] [address] [place] [address] Rubber Off: Jesse Gross MD CO2 [Moles/Vol] 25.0 mmol/L Normal 20.0-31.0 [facility] Comment on above: Performed By: #### 1 38193, 667138, CD:[id number], 707336, 670319, 1355838 #### [facility] [address] [place] [address] Rubber Off: Jesse Gross MD Creatinine [Mass/Vol] 0.9 mg/dL High 0.5-0.8 [facility] Comment on above: Performed By: #### 1 49293, 474443, CD:[id number], 217068, 532002, 5164283 #### [facility] [address] [place] [address] Rubber Off: Jesse Gross MD GFR AA >60 Normal [facility] Comment on above: Result Comment: Afri can Lithuanian GFR Calc Medical judgement is necessary to interpret GFR. The calculated GFR may not accurately reflect renal status in patients >70 years, women, acutely ill hospitalized patients and patients with acute renal failure or known renal disease. The MDRD GFR formula is valid only for adults greater than 18 years of age. Note: Creatinine clearance (not GFR) should be used for drug dosing. Performed By: #### 1 38926, 036795, CD:[id number], 823776, 867605, 2670990 #### [facility] [address] [place] [address] Rubber Off: Jesse Gross MD Globulin (S) [Mass/Vol] 3.0 g/dL Normal [facility] Comment on above: Performed By: #### 1 61225, 680637, CD:[id number], 914128, 314870, 1180272 #### [facility] [address] [place] [address] Rubber Off: Jesse Gross MD Glomerular Filtration Rate >60 Normal [facility] Comment on above: Result Comment: Non- GFR Calc Medical judgement is necessary to interpret GFR. The calculated GFR may not accurately reflect renal status in patients >70 years, women, acutely ill hospitalized patients and patients with acute renal failure or known renal disease. The MDRD GFR formula is valid only for adults greater than 18 years of age. Note: Creatinine clearance (not GFR) should be used for drug dosing. Performed By: #### 1 93575, 276634, CD:[id number], 329012, 877184, 7027630 #### [facility] [address] [place] [address] Rubber Off: Jesse Gross MD Glucose [Mass/Vol] 131 mg/dL High 74-106 [facility] Comment on above: Performed By: #### 1 15753, 689401, CD:[id number], 969456, 131128, 3855763 #### [facility] [address] [place] [address] Rubber Off: Jesse Gross MD GOT 33 unit/L Normal 15-37 [facility] Comment on above: Performed By: #### 1 83446, 678314, CD:[id number], 190820, 611230, 4346965 #### [facility] [address] [place] [address] Rubber Off: Jesse Gross MD GPT 29 unit/L Normal 10-49 [facility] Comment on above: Performed By: #### 1 66386, 727376, CD:[id number], 204473, 930783, 7932102 #### [facility] [address] [place] [address] Rubber Off: Jesse Gross MD Osmolality [Osmolality] 295 mosm/kg Normal 275-295 [facility] Comment on above: Performed By: #### 1 39539, 086034, CD:[id number], 082297, 796940, 5493989 #### [facility] [address] [place] [address] Rubber Off: Jesse Gross MD Potassium [Moles/Vol] 4.2 mmol/L Normal 3.5-5.1 [facility] Comment on above: Performed By: #### 1 85530, 985767, CD:[id number], 659481, 622321, 1178630 #### [facility] [address] [place] [address] Rubber Off: Jesse Gross MD Protein [Mass/Vol] 6.9 g/dL Normal 5.7-8.2 [facility] Comment on above: Result Comment: Tota l Protein results may be increased in patients receiving dextran as a blood volume clinical care leader Performed By: #### 1 53546, 200335, CD:[id number], 628795, 591978, 8628320 #### [facility] [address] [place] [address] Rubber Off: Jesse Gross MD Sodium [Moles/Vol] 145 mmol/L Normal 135-145 [facility] Comment on above: Performed By: #### 1 69208, 992479, CD:[id number], 400995, 364119, 9373258 #### [facility] [address] [place] [address] Rubber Off: Jesse Gross MD Urea nitrogen [Mass/Vol] 26 mg/dL High 9-23 [facility] Comment on above: Result Comment: - Ve nipuncture should occur prior to N-Acetyl Cysteine (NAC) or Metamizole (Sulpyrine) administration due to the potential for falsely depressed results. - Blood samples from some patients with monoclonal gammopathies may produce falsely elevated results Performed By: #### 1 99197, 136838, CD:[id number], 867611, 016987, 3251127 #### [facility] [address] [place] [address] Rubber Off: Jesse Gross MD Urea nitrogen/Creatinine [Mass ratio] 28.9 mg/mg Normal [facility] Comment on above: Performed By: #### 1 08963, 349989, CD:[id number], 635109, 082973, 6364893 #### [facility] [address] [place] [address] Rubber Off: Jesse Gross MD CT BRAIN HEAD WO CONTRASTon 02-05-2024 CT BRAIN HEAD WO CONTRAST ADDENDUM #1 THIS REPORT CONTAINS FINDINGS THAT MAY BE CRITICAL TO PATIENT CARE: The findings were verbally discussed via telephone conference with Dr. Ketan Seals by Dr. Coreas on 02/05/2024 1:22 PM CDT .The results were acknowledged and understood. Electronically signed by: Kenton Coreas MD 02/05/2024 02:28 PM EDT RP ORIGINAL REPORT EXAM DESCRIPTION: CT BRAIN HEAD WO CONTRAST 02/05/2024 1:04 PM CDT CLINICAL HISTORY: 78 years Female, CONFUSION; ; WHAT SYMPTOMS ARE YOU EXPERIENCING?; STROKE ALERT, SUDDEN ONSET CONFUSION AND FORGETFULLNESS COMPARISON: None. Technical factors: All CT scans at this facility use dose modulation, iterative reconstruction, and/or weight-based dosing when appropriate to reduce radiation dose to as low as reasonably achievable. No intravenous contrast was administered. FINDINGS: Evaluation of the brain parenchyma reveals mild paraventricular and patchy subcortical white matter low-attenuation. No acute intracranial hemorrhage, mass effect, or extra-axial fluid is seen. Ventricles and sulcal spaces are overall normal in size and configuration. Globes and orbits show no acute abnormality. Paranasal sinuses and mastoid air cells are clear. There are no depressed skull fractures. Calcifications are evident about the parasellar carotid arteries. IMPRESSION: No acute intracranial hemorrhage or mass effect. Mild chronic microvascular ischemic change. Electronically signed by: Kenton Coreas MD 02/05/2024 02:19 PM EDT RP Technologist: SK,YOANA,SK Dictated By: KENTON COREAS MD Signed By: KENTON COREAS MD Signed Out: 02/05/24 14:28:42 Normal [facility] [address] CERVICAL SPINE WO CONTRAS Ton 02-05-2024 CT CERVICAL SPINE WO CONTRAST INDICATION: confusion;OTHER REASON EXAMINATION: CT CERVICAL SPINE - CT CERVICAL SPINE WITHOUT IV CONTRAST TECHNIQUE: Helically acquired images were obtained of the cervical spine. 2D reformatted images were reviewed. A radiation dose optimization technique was used for this scan. IV Contrast dosage and agent: None. COMPARISON: None. FINDINGS: VERTEBRAE: No evidence of fracture. Normal alignment. DISCS, FACET JOINTS and SPINAL CANAL: There is multilevel degenerative disc disease and facet arthropathy. The central canal is widely patent NECK SOFT TISSUES: No prevertebral soft tissue swelling. LUNG APICES: Clear. IMPRESSION: Degenerative changes with no evidence of fracture. Electronically signed by: Lacho Olguin MD 02/05/2024 02:25 PM EDT RP Technologist: YOANA KEENE SK Dictated By: Contributor_system, PSCRIBE Signed By: Contributor_system, PSCRIBE Signed Out: 02/05/24 14:25:31 Normal [facility] ED Data LEAD TRAINER - Texton 024 ED Data LEAD TRAINER - Text ED Data LEAD TRAINER Entered On: 02/05/2024 16:51 EDT Performed On: 02/05/2024 16:50 EDT by Stacie Hylton RN ED General Intake Information Information Given By : Patient, Family member Isabella Coma : Document Isabella Coma Scale Problem History : Document Problem History Procedure History : Document Procedure History Safety Screening : Document Safety Screening Referral Source : Home Mode of Arrival * : Car / Walk-In ED KINDER1 Falls Risk : Document Falls Assessment Infection Screening : Document Infection Screening Depression Screening : Document Depression Screening Would you accept a blood transfusion if necessary? : Yes Social History : Document Social History Currently or : Not applicable Stacie Hylton RN - 02/05/2024 16:50 EDT Isabella Coma Scale Eye Opening : Spontaneously Best Verbal Response : Oriented Best Motor Response : Obeys simple commands [place] Coma Score (Ref) : 15 Stacie Hylton RN - 02/05/2024 16:50 EDT Problem History (As Of: 02/05/2024 16:51:33 EDT) Problems(Active) At risk for falls (SNOMED CT :[id number] ) Name of Problem: At risk for falls ; Recorder: SYSTEM; Confirmation: Confirmed ; Classification: Nursing ; Code: 192200749 ; Last Updated: 02/05/2024 16:11 EDT ; Life Cycle Date: 02/05/2024 ; Life Cycle Status: Active ; Vocabulary: SNOMED CT ; Comments: 02/05/2024 16:11 - SYSTEM Problem added automatically by system based on documentation of a admission to the hospital. Diagnoses(Active) Acute confusion Date: 02/05/2024 ; Diagnosis Type: Discharge ; Confirmation: Confirmed ; Clinical Dx: Acute confusion ; Classification: Medical ; Code: ICD-10-CM ; Probability: 0 ; Diagnosis Code: R41.0 Procedure History ED Urinary Catheter Present on Admit to ED? : No Devices Present on Arrival To ED : None Stacie Hylton RN 02/05/2024 16:50 EDT - Procedure History (As Of: 02/05/2024 16:51:33 EDT) Safety Screening Abuse/Violence Concerns? : Patient denies Does the patient have a medically restricted extremity? : No Stacie Hylton RN 02/05/2024 16:50 EDT KINDER1 Fall Risk Assessment *Presents to ED Because of Falls : No *Age > 70 : No *Altered Mental Status : Yes *Impaired Mobility : No *Nursing Judgment : No Falls Risk Assessment : High risk for falls Fall Interventions Initiated : Hourly rounding, Use safety measures with beds, recliners, chairs, and wheelchairs, Call light within reach and education provided Stacie Hylton RN 02/05/2024 16:50 EDT Infection Screening Travel outside [place] within past 21 days : No Positive COVID test in the last 10 days? : No Exposure to and/or close contact with a person who has a laboratory-confirmed COVID test within the last 48 hours. : No Stacie Hylton RN 02/05/2024 16:50 EDT Depression Screening Patient able to verbalize? : Yes Feeling Down, Depressed, Hopeless : Not at all Little Interest - Pleasure in Activities : Not at all Initial Depression Screen Score : 0 Depression Screening Score 0 : No IP Pt being evaluated or treated for BH conditions : No Stacie Hylton RN - 02/05/2024 16:50 EDT Social History Are you being seen for an alcohol related problem? : No Do you or one of your family members feel like you have a drinking problem? : No Stacie Hylton RN - 02/05/2024 16:50 EDT Social History (As Of: 02/05/2024 16:51:33 EDT) Alcohol: Denies Alcohol Use (Last Updated: 02/05/2024 16:51:27 EDT by Stacie Hylton RN ) Tobacco: Denies Tobacco Use (Last Updated: 02/05/2024 16:51:29 EDT by Stacie Hylton RN ) Substance Abuse: Denies Substance Abuse (Last Updated: 02/05/2024 16:51:30 EDT by Stacie Hylton RN ) Normal [facility] ED Discharge Educationon ED Discharge Education Normal [facility] ED Emergency Severity Index Adult-Texton 02-05-2024 ED Emergency Severity Index Adult-Text TACHO - Adult Entered On: 02/05/2024 14:13 EDT Performed On: 02/05/2024 14:13 EDT by Jennifer Perdue RN DCP GENERIC CODE Visit Reason : CONFUSED LKW [id number] Tracking Triage Date/Time : 02/05/2024 14:13 EDT Tracking Reg Status : Requested Tracking Acuity : 2-Emergent Tracking Group : [facility] Tracking Jennifer Perdue RN - 02/05/2024 14:13 EDT Normal [facility] ED Patient Summaryon 024 ED Patient Summary [facility] Emergency Department Discharge Instructions [id number] [place] [address] (Patient Copy) Name: CECILIA MCKEON : 1945 Allergies: No Known Allergies Diagnosis: 1:Acute confusion Visit Date: 02/05/2024 13:57:01 Current Date Time: 02/05/2024 20:56:50 Address: [address] [place] [address] Primary Care Provider: Name: ADRIAN SNIGH Phone: [phone] Emergency Department Care Providers: Primary Physician: MALICK SARGENT MD Thank you for choosing [facility] for your emergency care. You are very important to us. Our goal is to demonstrate our high quality medical care, and provide you with a very good patient experience. You may receive a survey about our service. Please take the time to complete the survey and return it so we can continue to enhance our service. Thank you again for allowing the [facility] Emergency Department to care for your medical needs. If you have questions about your care or follow up information please contact us at [phone]. Follow-Up Instructions CECILIA MCKEON has been given these follow-up instructions: Patient Education Materials CECILIA MCKEON has been given the following patient education materials: BEFORE YOU LEAVE Set up your [facility] [employer] account! [employer] is a secure, online health management tool that connects you to portions of your hospital-based electronic medical record, allowing you to see test results, manage appointments, access discharge care instructions and much more. You can access [employer] from a computer, tablet or smartphone. Enrollment/registration is required. If you do not have a [employer] account, please provide us with an email address before you leave so that we may set up an account for you. New to [employer]! You may now securely connect some of the health management apps you use (e.g., fitness trackers, dietary trackers, etc.) to your health record in [facility] [employer]. This new feature provides expanded access to your health and wellness data, which will help you and your care team make informed decisions about your health care. If you are interested in using a health management maco not currently connected to [employer], contact a Low Emission Automobile Designer at [phone] or [email or web address]. We will determine if the maco meets the technical requirements to connect to [facility] [employer] and assure the security of your private health information. Medication Information CECILIA MCKEON has been given the following medication information: Only Take The Medicines On This List. Keep This List and Bring It To Your Next Appointment. Medicines To Take At Home: Medicine Name (Generic Name) Amount to Take How to Take it How Often to Take it Additional Instructions Next Dose Due Coreg 25 mg oral tablet (carvedilol) 25 mg By Mouth TWICE A DAY Understanding your home medicine is important to keeping you healthy. If you are taking medications that are not on the preceding list, please call your doctor to see if you are to continue that medication. It is important that you do not skip or make up doses. If you are ordered an antibiotic, finish taking all the medicine, unless your doctor tells you otherwise. Call your doctor if you have questions or problems. Take the medicine list with you to all follow up appointments. If you or a loved one is struggling with a mental health or substance abuse issue, please call [facility] at [phone] or the National Suicide Prevention Lifeline at . MIKE Kearns CECILIA, have received the follow-up provider(s) list, medication information and patient education materials/instructions and have verbalized understanding. Patient Signature Date Time Provider Signature Date Time Normal [facility] ED Physician Reporton 2023 ED Physician Report CECILIA MCKEON :1945 Registration Date:02/05/2024 Basic Information Time Seen: [1403] Arrival Mode: Ambulance [] History Source: EMS Patient _ [] History limitation: None [] History of Present Illness This is a 78 y/o female, with pmhx of DM, presenting to the ED via EMS for an evaluation of confusion with last known well time as 1330. Pt notes that she was horseback riding with her children, when she had sudden onset confusion. She notes of no facial deficits or one-sided weakness. Pt denies fever, chills, nausea, chest or abdominal pain. The pt has voiced no other complaints, symptoms, or concerns at this time. Per history obtained by family, no reported trauma and this is never happened before. Patient now with short-term memory and asking similar questions Review of Systems Constitutional symptoms: Negative except as documented in HPI. Skin symptoms: Negative except as documented in HPI. Eye symptoms: Negative except as documented in HPI. ENMT symptoms: Negative except as documented in HPI. Respiratory symptoms: Negative except as documented in HPI. Cardiovascular symptoms: Negative except as documented in HPI. Gastrointestinal symptoms: Negative except as documented in HPI. Genitourinary symptoms: Negative except as documented in HPI. Musculoskeletal symptoms: Negative except as documented in HPI. Psychiatric symptoms: Negative except as documented in HPI. Neurologic symptoms: Negative except as documented in HPI. Additional review of systems information: All other systems reviewed and otherwise negative, Systems negative except as stated in the H&P. Physical Exam Vital Signs: Per nurse's notes. General: Alert Skin: Warm, dry, no rash. Head: Normocephalic, atraumatic. Neck: Supple, trachea midline. Eye: Pupils are equal, round and reactive to light, extraocular movements are intact, normal conjunctiva. Ears, nose, mouth and throat: Tympanic membranes clear, oral mucosa moist. Cardiovascular: Regular rate and rhythm, no murmur. Respiratory: Lungs are clear to auscultation, respirations are non-labored, breath sounds are equal. Chest wall: No tenderness, no deformity. Back: Nontender, normal range of motion, normal alignment. Musculoskeletal: Normal ROM, normal strength, no tenderness, no swelling, no deformity. Gastrointestinal: Soft, nontender, non distended, normal bowel sounds. Genitourinary: deferred. Lymphatics: No lymphadenopathy. Psychiatric: Cooperative, appropriate mood & affect, confusion. Neurological: Alert and oriented to person, place, time, and situation, no focal neurological deficit observed. Procedure NIH STROKE SCALE Date/Time: [1403] Level of consciousness: alert = 0 Current month and age: answers one correctly = 1 confusion Open and close eyes/doughmaker release hand: obeys both correctly = 0 Best gaze: normal = 0 Visual field testing: no visual field loss = 0 Facial paresis: normal symmetric movement = 0 Motor function left arm: normal = 0 Motor function right arm: normal = 0 Motor function left leg: normal = 0 Motor function right leg: normal = 0 Limb ataxia: no ataxia = 0 Sensory: normal = 0 Best language: no aphasia = 0 Dysarthria: normal articulation = 0 Extinction and inattention: normal = 0 Total Score: [1] (severe deficit > 22) Notes: [] Medical Decision Making [facility] Data Pertinent history elements: _Sudden onset confusion Differential diagnosis: _Intracranial bleed intracranial mass subdural epidural subarachnoid Documents reviewed: _ _ _ _ _ Decision rules/scores evaluated: _ MDM Testing Review Lab interpretation: _No UBALDO no leukocytosis Radiology interpretation: _No intracranial bleed Additional interpretation: _ MDM Treatment ED course: _Patient presents to the emergency department for evaluation of acute confusion. Patient with NIH of 1. Discussed case with Dr. Thomas, who is in agreement with no TNK no angios. Shared decision making at the bedside with sons given that patient appears confused and reasked questions shortly following conversations. In agreement with aspirin therapy only at this time. Do not want TNK Will admit for further management. Permissive hypertension Physician consultation: _ [facility] Disposition Disposition: _Admit Discussed with: family patient _ _ Shared decision making: _Yes Code status: _Full Discharge/Plan *Discharge Disposition NO DISCHARGE DISPOSITION DOCUMENTED Assessment This Visit Diagnosis 1. Acute confusion R41.0 Orders: sodium chloride(Saline Flush), 3 mL, IV Push, [id number] sodium chloride(Saline Flush), 3 mL, IV Push, PRN, PRN APTT, STAT, 02/05/2024 14:06:00 EDT CBCWD, STAT, 02/05/2024 14:06:00 EDT COMPMETA, STAT, 02/05/2024 14:06:00 EDT Consult Physician, 02/05/2024 15:25:00 EDT, TREVOR VALDEZ, LORAINE, acute confusion CT BRAIN HEAD WO CONTRAST, 02/05/2024 14:06:00 EDT, STAT, CONFUSION, Cart CT CERV (more content not included)... Normal [facility] ED Progress Noteon ED Progress Note stroke alert see pac ket no tnk 1432 see emr for future charting 1630 - dr sargent to bedside to update family 1900- Report from ODIN Quinones. 193- Pt son @ bedside and brought food for pt. Nursing dysphagia screen complete. Pt and son updated on POC. VSS on RA @ this time. Call light within reach, safety maintained. 2053- Pt c/o tension CHIU, pt medicated with PRN Tylenol as ordered in JUL. Report to ODIN Cifuentes on . Normal [facility] HEMOon 02-05-2024 DIFF? No Normal [facility] Comment on above: Order Comment: Malorie gonzalez top to be drawn when line is accessed per TJ..02/05/2024 14:29:34 EDT HE Performed By: #### 1 27626, [id number], [id number], [id number], [id number], [id number] #### [facility] [address] [place] [address] Rubber Off: Jesse Gross MD Erythrocyte distribution width (RBC) [Ratio] 15.4 % High 11.5-14.5 [facility] Comment on above: Order Comment: Purpl e top to be drawn when line is accessed per TJ..02/05/2024 14:29:34 EDT HE Performed By: #### 1 02662, 901761, CD:[id number], 987162, 541076, [id number] #### [facility] [address] [place] [address] Rubber Off: Jesse Gross MD Hematocrit (Bld) [Volume fraction] 41.4 % Normal 36.0-46.0 [facility] Comment on above: Order Comment: Purpl e top to be drawn when line is accessed per TJ..02/05/2024 14:29:34 EDT HE Performed By: #### 1 69292, 636667, CD:[id number], 130125, 827509, [id number] #### [facility] [address] [place] [address] Rubber Off: Jesse Gross MD Hemoglobin (Bld) [Mass/Vol] 13.6 g/dL Normal 12.0-16.0 [facility] Comment on above: Order Comment: Purpl e top to be drawn when line is accessed per TJ..02/05/2024 14:29:34 EDT HE Performed By: #### 1 31562, 875548, CD:[id number], 845751, 651124, [id number] #### [facility] [address] [place] [address] Rubber Off: Jesse Gross MD Instr WBC 5.0 Normal [facility] Comment on above: Order Comment: Purpl e top to be drawn when line is accessed per TJ..02/05/2024 14:29:34 EDT HE Performed By: #### 1 12616, 885732, CD:[id number], 490649, 493662, [id number] #### [facility] [address] [place] [address] [id number] Rubber Off: Jesse Gross MD MCH (RBC) [Entitic mass] 28.8 pg Normal 27.0-34.0 [facility] Comment on above: Order Comment: Purpl e top to be drawn when line is accessed per TJ..02/05/2024 14:29:34 EDT HE Performed By: #### 1 22517, 328893, CD:[id number], 026267, 277648, [id number] #### [facility] [address] [place], [place] [id number] Rubber Off: Jesse Gross MD MCHC (RBC) [Mass/Vol] 32.9 g/dL Normal 32.0-37.0 [facility] Comment on above: Order Comment: Purpl e top to be drawn when line is accessed per TJ..02/05/2024 14:29:34 EDT HE Performed By: #### 1 88619, 334217, CD:[id number], 643716, 886788, [id number] #### [facility] [address] [place], [place] [address] Rubber Off: Jesse Gross MD MCV (RBC) [Entitic vol] 87.5 fL Normal 80.0-100.0 [facility] Comment on above: Order Comment: Purpl e top to be drawn when line is accessed per TJ..02/05/2024 14:29:34 EDT HE Performed By: #### 1 87491, 493931, CD:[id number], 109610, 827754, [id number] #### [facility] [address] [place], [place] [address] Rubber Off: Jesse Gross MD MDW 18.68 Normal 13.98-20.0 0 [facility] Comment on above: Order Comment: Purpl e top to be drawn when line is accessed per TJ..02/05/2024 14:29:34 EDT HE Result Comment: MDW Interpretation: - For adults age 18-89 in ED, MDW >20.0 may be associated with a higher risk of Sepsis during the first 12 hours of hospital admission. - The predictive value of MDW for identifying Sepsis in patients with hematological abnormalities has not been established. - Interpret with caution when immature granulocytes, variant lymphs, or blast cells are noted on the differential. - Confirm patient age is within intended use population (18-89 years) for MDW. - For ED adults suspected of Sepsis, MDW less than or equal to 20.0 does not rule out Sepsis or the risk of Sepsis. Performed By: #### 1 21806, 893498, CD:[id number], 397490, 857658, [id number] #### [facility] [address] [place] [address] Rubber Off: Jesse Gross MD Nucleated RBC 0 /100WBC Normal [facility] Comment on above: Order Comment: Purpl e top to be drawn when line is accessed per TJ..02/05/2024 14:29:34 EDT HE Performed By: #### 1 96347, 581278, CD:[id number], 397634, 515046, [id number] #### [facility] [address] [place] [address] Rubber Off: Jesse Gross MD Platelet 145 x10 Low 150-450 [facility] Comment on above: Order Comment: Purpl e top to be drawn when line is accessed per TJ..02/05/2024 14:29:34 EDT HE Performed By: #### 1 41879, 760098, CD:[id number], 656578, 196698, [id number] #### [facility] [address] [place] [address] Rubber Off: Jesse Gross MD Platelet mean volume (Bld) [Entitic vol] 8.8 fL Normal 7.4-10.4 [facility] Comment on above: Order Comment: Purpl e top to be drawn when line is accessed per TJ..02/05/2024 14:29:34 EDT HE Performed By: #### 1 86057, 718753, CD:[id number], 079686, 216126, 6272331 #### [facility] [address] [place] [address] Rubber Off: Jesse Gross MD RBC 4.72 x10 Normal 4.20-5.40 [facility] Comment on above: Order Comment: Purpl e top to be drawn when line is accessed per TJ..02/05/2024 14:29:34 EDT HE Result Comment: Note : RBC morphology is normal unless otherwise stated. Evaluation performed only if differential is requested. Performed By: #### 1 21367, 962892, CD:[id number], 078597, 630097, [id number] #### [facility] [address] [place], [place] [id number] Rubber Off: Jesse Gross MD WBC 5.0 x10 Normal 4.5-11.0 [facility] Comment on above: Order Comment: Purpl e top to be drawn when line is accessed per TJ..02/05/2024 14:29:34 EDT HE Performed By: #### 1 55560, 570056, CD:[id number], 735102, 493127, [id number] #### [facility] [address] [place] [id number] Rubber Off: Jesse Gross MD MR BRAIN WO CONTRASTon 02-04 MR BRAIN WO CONTRAST MRI Checklist Enter ed On: 02/05/2024 21:34 EDT Performed On: 02/05/2024 21:32 EDT by Esau Silverman RN MRI Checklist Have all personal electronic devices been secured in the patient room or with a patient : Yes Has the patient been changed into a hospital gown and/or hospital pants? : Yes Have all EKG/Telemetry electrodes been removed from the patient? : Yes Hazardous Factors MR OED EV : ALL items answered NO Interfering Factors MR OED EV : Other: Cataract stents Information Given by : Patient, Family member Esau Silverman RN - 02/05/2024 21:32 EDT Normal [facility] Nursing Dysphagia Screening- Texton 02-05-2024 Nursing Dysphagia Screening- Text Nursing Dysphagia Screening Entered On: 02/05/2024 19:38 EDT Performed On: 02/05/2024 19:38 EDT by Rhea Bell RN Dysphagia Screening Pt alert follows simple commands : Yes Clear strong voice upon request : Yes Pt speech not slurred or garbled : Yes Pt has voluntary cough : Yes Pt able to swallow own secretions : Yes Swallows 60ml water w/o issue : Yes W/O cough, throat clearing sev mins after screen : Yes Rhea Bell RN - 02/05/2024 19:38 EDT Normal [facility] Cattery Operator Detailson 2023 Cattery Operator Details Cattery Operator Details Entered On: 02/05/2024 21:32 EDT Performed On: 02/05/2024 21:32 EDT by Esau Silverman RN Cattery Operator Details Transport Mode Order Detail EV : Wheelchair Isolation Precautions RTF : Communication CONSTANT Order, 02/07/2024 08:00:00 EDT, Constant Order, Check PLT count on Day 2 after initiation of Heparin or Lovenox, Notify Physician if PLTs less than 100,000 Repeat PLT count every 3 days., Ordered Aspiration Precautions, 02/05/2024 16:45:00 EDT, Constant Order, per protocol, Ordered Communication CONSTANT Order, 02/05/2024 16:45:00 EDT, Constant Order, Current ACLS Provider may, Initiate [employer] Advanced Cardiac Life support Algorithm per patient code status, Ordered Communication CONSTANT Order, 02/05/2024 16:45:00 EDT, Constant Order, STAT EKG for Chest Pain, STAT ABGs for Acute Respiratory Distress, STAT Potassium/Magnesium for any significant change in condition/rhythm, Ordered Communication CONSTANT Order, 02/05/2024 16:45:00 EDT, Constant Order, Refer to ED Nursing Flowsheet for Dysphagia screening results. If passed, initiate Safe Diet consistency. Dysphagia pureed-honey like liquids until Dysphagia evaluation. If failed, keep NPO including medicati..., Ordered Consult Physician, 02/05/2024 16:45:00 EDT, TREVOR VALDEZ, LORAINE, tia vs tga, Neurology, Ordered [facility] Nutrition Task to Nursing, 02/05/2024 16:45:00 EDT, Constant Order, Initiate diet/consistency as specified per Speech Therapy recommendation, Ordered Notify Provider, 02/05/2024 16:45:00 EDT, Constant Order, Notify Physician of blood glucose results greater than 150 or less than 70., Ordered Oxygen Therapy, 02/05/2024 16:45:00 EDT, 2-3L Normal [facility] Comment on above: Order Comment: Order entered secondary to admission POC Glucoseon 02-05-2024 Glucose [Mass/Vol] 134 mg/dL High 72-100 [facility] Comment on above: Performed By: #### 1 [id number] ####[facility] [id number] [place] [address] Medical Director: Jesse Gross MD PT INRon 02-05-2024 INR Coag (PPP) [Relative time] 1.0 {INR} Normal [facility] Comment on above: Result Comment: INR Reference Range: Normal reference range for INR on patients not on anticoagulant therapy: 0.9-1.1 General therapeutic range for patients on anticoagulant therapy: 2.0-3.5 Performed By: #### 1 07414, 325763, CD:[id number], 639068, 523682, [id number] #### [facility] [address] [place] [address] [id number] Rubber Off: Jesse Gross MD Protime Patient 10.8 seconds Normal 9.8-12.8 [facility] Comment on above: Performed By: #### 1 24491, 684518, CD:[id number], 484360, 709065, 5732644 #### [facility] [address] [place], [place] [id number] Rubber Off: Jesse Gross MD Pharmacy Clinical Interventi ons-Texton 02-05-2024 Pharmacy Clinical Interventions-Text Pharmacy Clinical Interventions Entered On: 02/05/2024 14:33 EDT Performed On: 02/05/2024 14:33 EDT by Quinn Robledo RPh Interventions Intervention Type Pharmacy : Stroke Pharmacy Order Initiated By : Pharmacist Clinical Importance Pharmacy : Potentially severe Prescriber Response Pharmacy : Accepted Pharmacy Prescribing Physician : KETAN SEALS MD Patient Clinical Outcome Pharmacy : Avoided potential risk Pharmacist Intervention Time : 10 Pharmacy Additional Information : no thrombolytic @ 1432 Quinn Robledo RPh - 02/05/2024 14:33 EDT Normal [facility] Pharmacy Clinical Interventions-Text Pharmacy Clinical Interventions Entered On: 02/05/2024 14:29 EDT Performed On: 02/05/2024 14:29 EDT by Quinn Robledo RPh Interventions Intervention Type Pharmacy : Medication history Pharmacy Order Initiated By : Pharmacist Clinical Importance Pharmacy : Potentially minor Prescriber Response Pharmacy : Corrected prior to contact Patient Clinical Outcome Pharmacy : Avoided potential risk Pharmacist Intervention Time : 10 Quinn Robledo RPh - 02/05/2024 14:29 EDT Med History Med History Grid Location : ED Medications reviewed with : [facility], pt unable to provide info Medications added : coreg Allergies updated : NKA Patient pharmacy : [facility] Robledo RPh Quinn - 02/05/2024 14:29 EDT Normal [facility] TROPONIN HS 0HRon 02-05-2024 Troponin HS 0 Hr 9 pg/mL Normal 3-34 [facility] Comment on above: Result Comment: Spec imens from some individuals with pathologically high gamma globulin levels may demonstrate depressed troponin values Performed By: #### 1 76471, 268785, CD:[id number], 203747, 160407, 5568571 #### [facility] [address] [place] [address] Rubber Off: Jesse Gross MD TROPONIN HS 2HRon 02-05-2024 Delta Troponin 2 Hr 39 pg/mL High 0-14 [facility] Comment on above: Result Comment: The term acute myocardial infarction should be used when there is acute myocardial injury with clinical evidence of acute myocardial ischemia and the rise or fall of serial Troponin HS values (delta troponin) greater than or equal to 15 pg/mL with at least one Troponin HS value above the 99th percentile reference range Performed By: #### C [id number] #### [facility] [address] [place] [address] Rubber Off: Jesse Gross MD Troponin HS 2 Hr 48 pg/mL High 3-34 [facility] Comment on above: Result Comment: Spec imens from some individuals with pathologically high gamma globulin levels may demonstrate depressed troponin values Performed By: #### C [id number] #### [facility] [address] [place] [address] Rubber Off: Jesse Gross MD TROPONIN HS 6HRon 02-05-2024 Delta Troponin 6 Hr 73 pg/mL High 0-14 [facility] Comment on above: Result Comment: The term acute myocardial infarction should be used when there is acute myocardial injury with clinical evidence of acute myocardial ischemia and the rise or fall of serial Troponin HS values (delta troponin) greater than or equal to 15 pg/mL with at least one Troponin HS value above the 99th percentile reference range Performed By: #### C [id number] ####[facility] [id number] [place] [address] Medical Director: Jesse Gross MD Troponin HS 6 Hr 121 pg/mL Critically abnormal 3-34 [facility] Comment on above: Result Comment: Crit ical Result(s) called at: 21:04:18 on 02/05/2024 by: Stacie Han rechecked, RBR to: BR on 1DOU Specimens from some individuals with pathologically high gamma globulin levels may demonstrate depressed troponin values Performed By: #### C [id number] ####[facility] [id number] [place] [address] Medical Director: Jesse Gross MD UAon 02-05-2024 Appearance, U Clear Normal Clear [facility] Comment on above: Performed By: #### 1 53412 #### [facility] [address] [place] [address] Rubber Off: Jesse Gross MD Bilirubin, U Negative Normal Negative [facility] Comment on above: Result Comment: Bili stewart, U: Initial positive urine bilirubin results are not confirmed. Interfering substances may include elevated urobilinogen. Trace = 0.5-1.0 mg/dL Small = 2.0-4.0 mg/dL Moderate = 6.0-8.0 mg/dL Large = 10 mg/dl and greater Performed By: #### 1 70941 #### [facility] [address] [place] [address] Rubber Off: Jesse Gross MD Blood, U Negative Normal Negative [facility] Comment on above: Result Comment: Bloo d, U: Trace = 0.03-0.05 mg/dL Small = 0.06-0.1 mg/dL Moderate = 0.2-0.5 mg/dL Large = 1.0 mg/dL and greater Performed By: #### 1 98059 #### [facility] [address] [place] [address] Rubber Off: Jesse Gross MD Color, U Colorless Normal Yellow [facility] Comment on above: Performed By: #### 1 26135 #### [facility] [address] [place] [address] Rubber Off: Jesse Gross MD Glucose Qual, U Negative Normal Negative [facility] Comment on above: Performed By: #### 1 06897 #### [facility] [address] [place] [address] Rubber Off: Jesse Gross MD Ketones, U Negative Normal Negative [facility] Comment on above: Performed By: #### 1 08385 #### [facility] [address] [place], [place] [address] Rubber Off: Jesse Gross MD Leukocyte Esterase, U Negative Normal Negative [facility] Comment on above: Result Comment: Leuk ocyte Esterase, U: Trace = 25 León/uL Small = 75 León/uL Moderate = 250 León/uL Large = 500 León/uL and greater Performed By: #### 1 48850 #### [facility] [address] [place], [place] [address] Rubber Off: Jesse Gross MD Nitrite, U Negative Normal Negative [facility] Comment on above: Performed By: #### 1 34455 #### [facility] [address] [place], [place] [address] Rubber Off: Jesse Gross MD pH, U 6.5 Normal 4.5-8.0 [facility] Comment on above: Performed By: #### 1 85024 #### [facility] [address] [place], [place] [address] Rubber Off: Jeses Gross MD Protein, U Negative Normal Negative [facility] Comment on above: Performed By: #### 1 80148 #### [facility] [address] [place] [address] Rubber Off: Jesse Gross MD Specific [place], U 1.005 Normal 1.001-1. 03 5 [facility] Comment on above: Performed By: #### 1 64795 #### [facility] [address] [place] [address] Rubber Off: Jesse Gross MD U MICRO Not Indicated Normal [facility] Comment on above: Performed By: #### 1 75643 #### [facility] [address] [place], [place] [address] Rubber Off: Jesse Gross MD Urobilinogen Qual, U < 2 mg/dl Normal < 2 mg/dl [facility] Comment on above: Result Comment: Urob ilinogen, U: EU/dl and mg/dl are equivalent units. Performed By: #### 1 76182 #### [facility] [address] [place], [place] [address] Rubber Off: Jesse Gross MD XR CHEST PORTABLEon 02-05-20 XR CHEST PORTABLE EXAM DESCRIPTION: XR CHEST PORTABLE CLINICAL HISTORY: 78 years Female, CHEST PAIN COMPARISON: None. FINDINGS: Cardiomediastinal silhouette is not enlarged. Mild hyperinflation. No suspicious lung, pleural or bone abnormalities. IMPRESSION: Mild hyperinflation. No acute findings. Electronically signed by: Nnamdi Chaves MD 02/05/2024 02:39 PM EDT Technologist: QUEENIE TERRY Dictated By: NNAMDI CHAVES MD Signed By: NNAMDI CHAVES MD Signed Out: 02/05/24 14:39:19 Normal [facility] Basophils Auto (Bld) [#/Vol] on 01-05-2024 Basophils (Bld) [#/Vol] 0.1 10 3/uL 0.0-0.1 [facility] Basophils/100 WBC Auto (Bld) on 01-05-2024 Basophils/100 WBC (Bld) 1.2 % 0.2-2.0 [facility] Cholesterol in LDL Calc [Mas s/Vol]on 01-05-2024 Cholesterol in LDL [Mass/Vol] 147.0 mg/dL [facility] Comment on above: <100 mg/dl [id number] 0-129 mg/dl NEAR OR ABOVE [id number] mg/dl BORDERLINE [id number] mg/dl HIGH>190 mg/dl VERY HIGH Cholesterol in VLDL Calc [Ma ss/Vol]on 01-05-2024 Cholesterol in VLDL [Mass/Vol] 23.2 mg/dL [facility] Eosinophils/100 WBC Auto (Bl d)on 01-05-2024 Eosinophils/100 WBC (Bld) 2.4 % 0.9-7.0 [facility] Erythrocyte distribution wid th Auto (RBC) [Ratio]on 01-05-2024 Erythrocyte distribution width (RBC) [Ratio] 14.8 % 11.0-15.0 [facility] Estimated glomerular filtrat ion rate (GFR) non- Americanon 01-05-2024 GFR/1.73 sq M.predicted among non-blacks MDRD (S/P/Bld) [Vol rate/Area] mL/min/{1.73_m2} >=60 [facility] Glucose mean value [Mass/vol ume] in Blood Estimated from glycated hemoglobinon 01-05-2024 Average glucose Estimated from glycated hemoglobin (Bld) [Mass/Vol] 120 mg/dL [facility] Hematocrit Auto (Bld) [Volum e fraction]on 01-05-2024 Hematocrit (Bld) [Volume fraction] 38.4 % 36.0-48.0 [facility] Hemoglobin [Mass/volume] in Bloodon 01-05-2024 Hemoglobin (Bld) [Mass/Vol] 12.6 g/dL 12.0-16.0 [facility] Laboratory - Chemistry and C hemistry - challengeon 01-05-2024 Calcium [Mass/Vol] 9.2 mg/dL 8.5-10.1 [facility] Chloride [Moles/Vol] 108 mmol/L High 98-107 [facility] Cholesterol [Mass/Vol] 228 mg/dL High <=200 [facility] Cholesterol in HDL [Mass/Vol] 58 mg/dL 40-60 [facility] Comment on above: > or =60 mg/dl - LOW CARDIOVASCULAR RISK<40 mg/dl - HIGH CARDIOVASCULAR RISK CO2 [Moles/Vol] 24.8 mmol/L 21.0-32.0 [facility] Creatinine [Mass/Vol] 0.78 mg/dL 0.55-1.02 [facility] GFR/1.73 sq M.predicted MDRD (S/P/Bld) [Vol rate/Area] mL/min/{1.73_m2} >=60 [facility] Glucose [Mass/Vol] 113 mg/dL High 74-106 [facility] Potassium [Moles/Vol] 3.7 mmol/L 3.5-5.1 [facility] Sodium [Moles/Vol] 141 mmol/L 136-145 [facility] Triglyceride [Mass/Vol] 116 mg/dL <=150 [facility] Urea nitrogen [Mass/Vol] 26.0 mg/dL High 7.0-18.0 [facility] Urea nitrogen/Creatinine [Mass ratio] 33.3 mg/mg [facility] Laboratory - Hematology and Cell countson 01-05-2024 HbA1c (Bld) [Mass fraction] 5.8 % 4.5-6.2 [facility] Comment on above: ADA RECOMMENDED LIMI T 4.0 - 6.0ADA THERAPEUTIC TARGET < 7.0ACTION SUGGESTED> 7.0 Immature granulocytes/100 WBC (Bld) 0.5 % 0.0-0.5 [facility] Leukocytes [#/volume] correc paul for nucleated erythrocytes in Blood by Automated counon 01-05-2024 WBC corrected for nucl RBC Auto (Bld) [#/Vol] 4.2 10 3/uL 4.0-11.0 [facility] Lymphocytes Auto (Bld) [#/Vo l]on 01-05-2024 Lymphocytes (Bld) [#/Vol] 1.0 10 3/uL Low 1.2-3.8 [facility] Lymphocytes/100 WBC Auto (Bl d)on 01-05-2024 Lymphocytes/100 WBC (Bld) 24.0 % 20.5-60.0 [facility] MCH Auto (RBC) [Entitic mass ]on 01-05-2024 MCH (RBC) [Entitic mass] 29.1 pg 26.7-34.0 [facility] MCHC Auto (RBC) [Mass/Vol]on 01-05-2024 MCHC (RBC) [Mass/Vol] 32.8 g/dL 29.9-35.2 [facility] MCV Auto (RBC) [Entitic vol] on 01-05-2024 MCV (RBC) [Entitic vol] 88.7 fL 81.0-99.0 [facility] Monocytes Auto (Bld) [#/Vol] on 01-05-2024 Monocytes (Bld) [#/Vol] 0.5 10 3/uL 0.3-0.8 [facility] Monocytes/100 WBC Auto (Bld) on 01-05-2024 Monocytes/100 WBC (Bld) 11.7 % 1.7-12.0 [facility] Neutrophils Auto (Bld) [#/Vo l]on 01-05-2024 Neutrophils (Bld) [#/Vol] 2.5 10 3/uL 1.4-6.5 [facility] Neutrophils/100 WBC Auto (Bl d)on 01-05-2024 Neutrophils/100 WBC (Bld) 60.2 % 43.0-75.0 [facility] No Panel Informationon 01-04 Eosinophils # (Auto) 0.1 10 3/uL 0.0-0.7 [facility] Immature Granulocyte # (Auto) 0.02 10 3/uL 0.00-0.03 [facility] Platelet mean volume Auto (B ld) [Entitic vol]on 01-05-2024 Platelet mean volume (Bld) [Entitic vol] 11.1 fL 9.5-13.5 [facility] Platelets Auto (Bld) [#/Vol] on 01-05-2024 Platelets (Bld) [#/Vol] 139 10 3/uL Low 150-450 [facility] RBC Auto (Bld) [#/Vol]on RBC (Bld) [#/Vol] 4.33 10 6/uL 4.20-5.40 [facility] Serum or plasma anion gap de terminationon 01-05-2024 Anion gap [Moles/Vol] 11.9 mmol/L [facility] Serum or plasma total choles terol/high density lipoprotein (HDL) cholesterol mass tai 01-05-2024 Cholesterol.total/Ch olesterol in HDL [Mass ratio] 3.9 {ratio} [facility] Comment on above: 3.3 - 4.4 LOW RISK4. 4 - 7.1 AVERAGE RISK7.1 - 11.0 MODERATE RISK>11.0 HIGH RISK Consultation Noteon 11-24-19 Consultation Note [id number] Normal [facility] Lab Reportson 11-24-2023 Lab Reports [id number]#[id number] Normal [facility] Outside Colonoscopyon 2023 Outside Colonoscopy [id number]#[id number] Normal [facility] Basophils Auto (Bld) [#/Vol] on 11-22-2023 Basophils (Bld) [#/Vol] 0.0 10 3/uL 0.0-0.1 [facility] Basophils/100 WBC Auto (Bld) on 11-22-2023 Basophils/100 WBC (Bld) 0.6 % 0.2-2.0 [facility] Eosinophils/100 WBC Auto (Bl d)on 11-22-2023 Eosinophils/100 WBC (Bld) 1.3 % 0.9-7.0 [facility] Erythrocyte distribution wid th Auto (RBC) [Ratio]on 11-22-2023 Erythrocyte distribution width (RBC) [Ratio] 13.1 % 11.0-15.0 [facility] Estimated glomerular filtrat ion rate (GFR) non- Americanon 11-22-2023 GFR/1.73 sq M.predicted among non-blacks MDRD (S/P/Bld) [Vol rate/Area] mL/min/{1.73_m2} >=60 [facility] Globulin Calc (S) [Mass/Vol] on 11-22-2023 Globulin (S) [Mass/Vol] 4.0 g/dL [facility] Hematocrit Auto (Bld) [Volum e fraction]on 11-22-2023 Hematocrit (Bld) [Volume fraction] 35.3 % Low 36.0-48.0 [facility] Hemoglobin [Mass/volume] in Bloodon 11-22-2023 Hemoglobin (Bld) [Mass/Vol] 11.5 g/dL Low 12.0-16.0 [facility] Nav 11-22-2023 L Specimen: [id number] Received: 11/24/23 Status: KERRY Gunter Num: [id number] Spec Type: Surgical Subm Dr: Man Dale MD FACS Tissues: A Colon Biopsy (TERINAL ILEUM BX) Procedures: HE/2, Gross/Micro L4 Age/ Patient Sex Location Account Attending Physician Cecilia Mckeon 77/F [facility] [id number] Man Dale MD FACS SPEC NUM: [id number] RECD: 11/24/23 STATUS: KERRY SENTaj NUM: [id number] MIKE: 11/22/[address]: Man Dale MD FACS ENTERED: 11/24/23 [facility] DR: Bernardino,Lab SPEC TYPE: Surgical DEPT: DERREK OLGUIN ORDERED: [...] cm, entirely submitted in A1. CPT Codes 67964 Specimen: [id number] Received: 11/24/23 Status: KERRY Gunter Num: [id number] Spec Type: Surgical Subm Dr: Man Dale MD FACS Tissues: A Colon Biopsy (TERINAL ILEUM BX) Procedures: GERA/Henry, Gross/Micro L4 Patient: Cecilia Mckeon [id number] (Continued) Signed (signature on file) Gabi Marquis MD 11/25/23 1311 Normal [facility] Laboratory - Chemistry and C hemistry - challengeon 11-22-2023 Albumin [Mass/Vol] 2.5 g/dL Low 3.4-5.0 [facility] ALP [Catalytic activity/Vol] 73 U/L 46-116 [facility] ALT [Catalytic activity/Vol] 10 U/L Low 14-59 [facility] AST [Catalytic activity/Vol] 10 U/L Low 15-37 [facility] Bilirubin [Mass/Vol] 0.5 mg/dL 0.2-1.0 [facility] Calcium [Mass/Vol] 8.8 mg/dL 8.5-10.1 [facility] Chloride [Moles/Vol] 103 mmol/L 98-107 [facility] CO2 [Moles/Vol] 26.7 mmol/L 21.0-32.0 [facility] Creatinine [Mass/Vol] 0.82 mg/dL 0.55-1.02 [facility] GFR/1.73 sq M.predicted MDRD (S/P/Bld) [Vol rate/Area] mL/min/{1.73_m2} >=60 [facility] Glucose [Mass/Vol] 117 mg/dL High 74-106 [facility] Potassium [Moles/Vol] 3.1 mmol/L Low 3.5-5.1 [facility] Protein [Mass/Vol] 6.5 g/dL 6.4-8.2 [facility] Sodium [Moles/Vol] 140 mmol/L 136-145 [facility] Urea nitrogen [Mass/Vol] 8.0 mg/dL 7.0-18.0 [facility] Urea nitrogen/Creatinine [Mass ratio] 9.8 mg/mg [facility] Laboratory - Hematology and Cell countson 11-22-2023 Immature granulocytes/100 WBC (Bld) 0.6 % High 0.0-0.5 [facility] Leukocytes [#/volume] correc paul for nucleated erythrocytes in Blood by Automated counon 11-22-2023 WBC corrected for nucl RBC Auto (Bld) [#/Vol] 6.8 10 3/uL 4.0-11.0 [facility] Lymphocytes Auto (Bld) [#/Vo l]on 11-22-2023 Lymphocytes (Bld) [#/Vol] 0.9 10 3/uL Low 1.2-3.8 [facility] Lymphocytes/100 WBC Auto (Bl d)on 11-22-2023 Lymphocytes/100 WBC (Bld) 12.4 % Low 20.5-60.0 [facility] MCH Auto (RBC) [Entitic mass ]on 11-22-2023 MCH (RBC) [Entitic mass] 28.3 pg 26.7-34.0 [facility] MCHC Auto (RBC) [Mass/Vol]on 11-22-2023 MCHC (RBC) [Mass/Vol] 32.6 g/dL 29.9-35.2 [facility] MCV Auto (RBC) [Entitic vol] on 11-22-2023 MCV (RBC) [Entitic vol] 86.7 fL 81.0-99.0 [facility] Monocytes Auto (Bld) [#/Vol] on 11-22-2023 Monocytes (Bld) [#/Vol] 0.9 10 3/uL High 0.3-0.8 [facility] Monocytes/100 WBC Auto (Bld) on 11-22-2023 Monocytes/100 WBC (Bld) 13.8 % High 1.7-12.0 [facility] Neutrophils Auto (Bld) [#/Vo l]on 11-22-2023 Neutrophils (Bld) [#/Vol] 4.9 10 3/uL 1.4-6.5 [facility] Neutrophils/100 WBC Auto (Bl d)on 11-22-2023 Neutrophils/100 WBC (Bld) 71.3 % 43.0-75.0 [facility] No Panel Informationon 11-21 Eosinophils # (Auto) 0.1 10 3/uL 0.0-0.7 [facility] Immature Granulocyte # (Auto) 0.04 10 3/uL High 0.00-0.03 [facility] Platelet mean volume Auto (B ld) [Entitic vol]on 11-22-2023 Platelet mean volume (Bld) [Entitic vol] 10.9 fL 9.5-13.5 [facility] Platelets Auto (Bld) [#/Vol] on 11-22-2023 Platelets (Bld) [#/Vol] 144 10 3/uL Low 150-450 [facility] RBC Auto (Bld) [#/Vol]on RBC (Bld) [#/Vol] 4.07 10 6/uL Low 4.20-5.40 [facility] Serum or plasma albumin/glob ulin mass ratioon 11-22-2023 Albumin/Globulin [Mass ratio] 0.6 {ratio} [facility] Serum or plasma anion gap de terminationon 11-22-2023 Anion gap [Moles/Vol] 13.4 mmol/L [facility] Basophils Auto (Bld) [#/Vol] on 11-21-2023 Basophils (Bld) [#/Vol] 0.1 10 3/uL 0.0-0.1 [facility] Basophils/100 WBC Auto (Bld) on 11-21-2023 Basophils/100 WBC (Bld) 0.7 % 0.2-2.0 [facility] Eosinophils/100 WBC Auto (Bl d)on 11-21-2023 Eosinophils/100 WBC (Bld) 1.8 % 0.9-7.0 [facility] Erythrocyte distribution wid th Auto (RBC) [Ratio]on 11-21-2023 Erythrocyte distribution width (RBC) [Ratio] 13.1 % 11.0-15.0 [facility] Estimated glomerular filtrat ion rate (GFR) non- Americanon 11-21-2023 GFR/1.73 sq M.predicted among non-blacks MDRD (S/P/Bld) [Vol rate/Area] mL/min/{1.73_m2} >=60 [facility] Globulin Calc (S) [Mass/Vol] on 11-21-2023 Globulin (S) [Mass/Vol] 4.0 g/dL [facility] Hematocrit Auto (Bld) [Volum e fraction]on 11-21-2023 Hematocrit (Bld) [Volume fraction] 35.2 % Low 36.0-48.0 [facility] Hemoglobin [Mass/volume] in Bloodon 11-21-2023 Hemoglobin (Bld) [Mass/Vol] 11.8 g/dL Low 12.0-16.0 [facility] Laboratory - Chemistry and C hemistry - challengeon 11-21-2023 Albumin [Mass/Vol] 2.8 g/dL Low 3.4-5.0 [facility] ALP [Catalytic activity/Vol] 83 U/L 46-116 [facility] ALT [Catalytic activity/Vol] 15 U/L 14-59 [facility] AST [Catalytic activity/Vol] 9 U/L Low 15-37 [facility] Bilirubin [Mass/Vol] 0.5 mg/dL 0.2-1.0 [facility] Calcium [Mass/Vol] 9.0 mg/dL 8.5-10.1 [facility] Chloride [Moles/Vol] 105 mmol/L 98-107 [facility] CO2 [Moles/Vol] 24.6 mmol/L 21.0-32.0 [facility] Creatinine [Mass/Vol] 0.84 mg/dL 0.55-1.02 [facility] GFR/1.73 sq M.predicted MDRD (S/P/Bld) [Vol rate/Area] mL/min/{1.73_m2} >=60 [facility] Glucose [Mass/Vol] 125 mg/dL High 74-106 [facility] Potassium [Moles/Vol] 3.0 mmol/L Low 3.5-5.1 [facility] Protein [Mass/Vol] 6.8 g/dL 6.4-8.2 [facility] Sodium [Moles/Vol] 141 mmol/L 136-145 [facility] Urea nitrogen [Mass/Vol] 9.0 mg/dL 7.0-18.0 [facility] Urea nitrogen/Creatinine [Mass ratio] 10.7 mg/mg [facility] Laboratory - Hematology and Cell countson 11-21-2023 ESR (Bld) [Velocity] mm/h High <=30 [facility] Immature granulocytes/100 WBC (Bld) 0.6 % High 0.0-0.5 [facility] Leukocytes [#/volume] correc paul for nucleated erythrocytes in Blood by Automated counon 11-21-2023 WBC corrected for nucl RBC Auto (Bld) [#/Vol] 6.7 10 3/uL 4.0-11.0 [facility] Lymphocytes Auto (Bld) [#/Vo l]on 11-21-2023 Lymphocytes (Bld) [#/Vol] 0.7 10 3/uL Low 1.2-3.8 [facility] Lymphocytes/100 WBC Auto (Bl d)on 11-21-2023 Lymphocytes/100 WBC (Bld) 10.5 % Low 20.5-60.0 [facility] MCH Auto (RBC) [Entitic mass ]on 11-21-2023 MCH (RBC) [Entitic mass] 28.4 pg 26.7-34.0 [facility] MCHC Auto (RBC) [Mass/Vol]on 11-21-2023 MCHC (RBC) [Mass/Vol] 33.5 g/dL 29.9-35.2 [facility] MCV Auto (RBC) [Entitic vol] on 11-21-2023 MCV (RBC) [Entitic vol] 84.8 fL 81.0-99.0 [facility] Monocytes Auto (Bld) [#/Vol] on 11-21-2023 Monocytes (Bld) [#/Vol] 0.9 10 3/uL High 0.3-0.8 [facility] Monocytes/100 WBC Auto (Bld) on 11-21-2023 Monocytes/100 WBC (Bld) 12.8 % High 1.7-12.0 [facility] Neutrophils Auto (Bld) [#/Vo l]on 11-21-2023 Neutrophils (Bld) [#/Vol] 5.0 10 3/uL 1.4-6.5 [facility] Neutrophils/100 WBC Auto (Bl d)on 11-21-2023 Neutrophils/100 WBC (Bld) 73.6 % 43.0-75.0 [facility] No Panel Informationon 11-20 Eosinophils # (Auto) 0.1 10 3/uL 0.0-0.7 [facility] Immature Granulocyte # (Auto) 0.04 10 3/uL High 0.00-0.03 [facility] Platelet mean volume Auto (B ld) [Entitic vol]on 11-21-2023 Platelet mean volume (Bld) [Entitic vol] 10.9 fL 9.5-13.5 [facility] Platelets Auto (Bld) [#/Vol] on 11-21-2023 Platelets (Bld) [#/Vol] 142 10 3/uL Low 150-450 [facility] RBC Auto (Bld) [#/Vol]on RBC (Bld) [#/Vol] 4.15 10 6/uL Low 4.20-5.40 [facility] Serum or plasma albumin/glob ulin mass ratioon 11-21-2023 Albumin/Globulin [Mass ratio] 0.7 {ratio} [facility] Serum or plasma anion gap de terminationon 11-21-2023 Anion gap [Moles/Vol] 14.4 mmol/L [facility] Basophils Auto (Bld) [#/Vol] on 11-20-2023 Basophils (Bld) [#/Vol] 0.0 10 3/uL 0.0-0.1 [facility] Basophils/100 WBC Auto (Bld) on 11-20-2023 Basophils/100 WBC (Bld) 0.5 % 0.2-2.0 [facility] Eosinophils/100 WBC Auto (Bl d)on 11-20-2023 Eosinophils/100 WBC (Bld) 2.0 % 0.9-7.0 [facility] Erythrocyte distribution wid th Auto (RBC) [Ratio]on 11-20-2023 Erythrocyte distribution width (RBC) [Ratio] 13.4 % 11.0-15.0 [facility] Estimated glomerular filtrat ion rate (GFR) non- Americanon 11-20-2023 GFR/1.73 sq M.predicted among non-blacks MDRD (S/P/Bld) [Vol rate/Area] mL/min/{1.73_m2} >=60 [facility] Globulin Calc (S) [Mass/Vol] on 11-20-2023 Globulin (S) [Mass/Vol] 4.0 g/dL [facility] Hematocrit Auto (Bld) [Volum e fraction]on 11-20-2023 Hematocrit (Bld) [Volume fraction] 35.4 % Low 36.0-48.0 [facility] Hemoglobin [Mass/volume] in Bloodon 11-20-2023 Hemoglobin (Bld) [Mass/Vol] 11.5 g/dL Low 12.0-16.0 [facility] Laboratory - Chemistry and C hemistry - challengeon 11-20-2023 Albumin [Mass/Vol] 2.7 g/dL Low 3.4-5.0 [facility] ALP [Catalytic activity/Vol] 79 U/L 46-116 [facility] ALT [Catalytic activity/Vol] 14 U/L 14-59 [facility] AST [Catalytic activity/Vol] 10 U/L Low 15-37 [facility] Bilirubin [Mass/Vol] 0.7 mg/dL 0.2-1.0 [facility] Calcium [Mass/Vol] 9.0 mg/dL 8.5-10.1 [facility] Chloride [Moles/Vol] 106 mmol/L 98-107 [facility] CO2 [Moles/Vol] 20.5 mmol/L Low 21.0-32.0 [facility] Creatinine [Mass/Vol] 0.90 mg/dL 0.55-1.02 [facility] GFR/1.73 sq M.predicted MDRD (S/P/Bld) [Vol rate/Area] mL/min/{1.73_m2} >=60 [facility] Glucose [Mass/Vol] 88 mg/dL 74-106 [facility] Lactate [Moles/Vol] 0.9 mmol/L 0.4-2.0 [facility] Potassium [Moles/Vol] 3.5 mmol/L 3.5-5.1 [facility] Protein [Mass/Vol] 6.7 g/dL 6.4-8.2 [facility] Sodium [Moles/Vol] 139 mmol/L 136-145 [facility] Urea nitrogen [Mass/Vol] 21.0 mg/dL High 7.0-18.0 [facility] Urea nitrogen/Creatinine [Mass ratio] 23.3 mg/mg [facility] Laboratory - Hematology and Cell countson 11-20-2023 Immature granulocytes/100 WBC (Bld) 0.5 % 0.0-0.5 [facility] Leukocytes [#/volume] correc paul for nucleated erythrocytes in Blood by Automated counon 11-20-2023 WBC corrected for nucl RBC Auto (Bld) [#/Vol] 6.0 10 3/uL 4.0-11.0 [facility] Lymphocytes Auto (Bld) [#/Vo l]on 11-20-2023 Lymphocytes (Bld) [#/Vol] 0.7 10 3/uL Low 1.2-3.8 [facility] Lymphocytes/100 WBC Auto (Bl d)on 11-20-2023 Lymphocytes/100 WBC (Bld) 10.9 % Low 20.5-60.0 [facility] MCH Auto (RBC) [Entitic mass ]on 11-20-2023 MCH (RBC) [Entitic mass] 28.5 pg 26.7-34.0 [facility] MCHC Auto (RBC) [Mass/Vol]on 11-20-2023 MCHC (RBC) [Mass/Vol] 32.5 g/dL 29.9-35.2 [facility] MCV Auto (RBC) [Entitic vol] on 11-20-2023 MCV (RBC) [Entitic vol] 87.6 fL 81.0-99.0 [facility] Monocytes Auto (Bld) [#/Vol] on 11-20-2023 Monocytes (Bld) [#/Vol] 0.7 10 3/uL 0.3-0.8 [facility] Monocytes/100 WBC Auto (Bld) on 11-20-2023 Monocytes/100 WBC (Bld) 11.4 % 1.7-12.0 [facility] Neutrophils Auto (Bld) [#/Vo l]on 11-20-2023 Neutrophils (Bld) [#/Vol] 4.5 10 3/uL 1.4-6.5 [facility] Neutrophils/100 WBC Auto (Bl d)on 11-20-2023 Neutrophils/100 WBC (Bld) 74.7 % 43.0-75.0 [facility] No Panel Informationon 11-19 Ova & Parasite Result 1 Comment . [facility] Comment on above: No ova, cysts, or pa rasites seen.One negative specimen does not rule out the possibility ofa parasitic infection.Performed at: - [facility] [address] [id number] Director: Juan Messer PhD, Phone: [phone] Ova and Parasites (LAB) Final report . [facility] Comment on above: These results were o btained using wet preparation(s) andtrichrome stained smear. This test does not include testingfor Cryptosporidium parvum, Cyclospora, or Microsporidia. Stool Calprotectin 16 ug/g 0-120 [facility] Comment on above: Concentration Interp retation Follow-Up< 5 - 50 ug/g Normal None>50 -120 ug/g Borderline Re-evaluate in 4-6 weeks >120 ug/g Abnormal Repeat as clinically indicatedPerformed at: - [facility] [id number] Director: Saima Stewart MD, Phone: [phone] Eosinophils # (Auto) 0.1 10 3/uL 0.0-0.7 [facility] Immature Granulocyte # (Auto) 0.03 10 3/uL 0.00-0.03 [facility] Platelet mean volume Auto (B ld) [Entitic vol]on 11-20-2023 Platelet mean volume (Bld) [Entitic vol] 11.0 fL 9.5-13.5 [facility] Platelets Auto (Bld) [#/Vol] on 11-20-2023 Platelets (Bld) [#/Vol] 131 10 3/uL Low 150-450 [facility] RBC Auto (Bld) [#/Vol]on RBC (Bld) [#/Vol] 4.04 10 6/uL Low 4.20-5.40 [facility] Serum or plasma albumin/glob ulin mass ratioon 11-20-2023 Albumin/Globulin [Mass ratio] 0.7 {ratio} [facility] Serum or plasma anion gap de terminationon 11-20-2023 Anion gap [Moles/Vol] 16.0 mmol/L [facility] Serum or plasma cancer antig en 125 (CA-125) measurement (units/volume)on 11-20-2023 Cancer Ag 125 Qn 6.8 [arb'U]/mL 0.0-38.1 [facility] Comment on above: [facility] [employer] ectrochemiluminescence Immunoassay(ECLIA)Values obtained with different assay methods or kits cannotbe used interchangeably. Results cannot be interpreted asabsolute evidence of the presence or absence of malignantdisease.Performed at: [facility] [id number] Director: Juan Messer PhD, Phone: [phone] Basophils Auto (Bld) [#/Vol] on 11-19-2023 Basophils (Bld) [#/Vol] 0.0 10 3/uL 0.0-0.1 [facility] Basophils/100 WBC Auto (Bld) on 11-19-2023 Basophils/100 WBC (Bld) 0.4 % 0.2-2.0 [facility] Detection in stool of any of Campylobacter coli, Campylobacter jejuni, and Campylobacon 11-19-2023 C. coli+jejuni+upsalien sis DNA LARY+non-probe Ql (Stl) Not detected NOT DETECTE [facility] Detection in stool of any of Vibrio cholerae, Vibrio parahaemolyticus, and Vibrio vulon 11-19-2023 V. cholerae+parahaemoly ticus+vulnificus DNA LARY+non-probe Ql (Stl) Not detected NOT DETECTE [facility] Detection in stool of either or both Salmonella enterica and Salmonella bongori DNA bon 11-19-2023 S. enterica+bongori DNA LARY+non-probe Ql (Stl) Not detected NOT DETECTE [facility] Detection in stool of either or both enteroaggregative Escherichia coli Paulino plasmid aon 11-19-2023 E. coli enteroaggregative Paulino plasmid aggR+aatA genes LARY+non-probe Ql (Stl) Not detected NOT DETECTE [facility] Eosinophils/100 WBC Auto (Bl d)on 11-19-2023 Eosinophils/100 WBC (Bld) 1.0 % 0.9-7.0 [facility] Erythrocyte distribution wid th Auto (RBC) [Ratio]on 11-19-2023 Erythrocyte distribution width (RBC) [Ratio] 13.7 % 11.0-15.0 [facility] Escherichia coli Stx1 and St x2 toxin stx1+stx2 genes [Presence] in Stool by LARY withon 11-19-2023 E. coli stx1+stx2 genes LARY+non-probe Ql (Stl) Not detected NOT DETECTE [facility] Escherichia coli enteropatho genic eae gene [Presence] in Stool by LARY with non-probeon 11-19-2023 E. coli enteropathogenic eae gene LARY+non-probe Ql (Stl) Not detected NOT DETECTE [facility] Escherichia coli enterotoxig enic ltA+st1a+st1b genes [Presence] in Stool by LARY withon 11-19-2023 E. coli enterotoxigenic ltA+st1a+st1b genes LARY+non-probe Ql (Stl) Not detected NOT DETECTE [facility] Estimated glomerular filtrat ion rate (GFR) non- Americanon 11-19-2023 GFR/1.73 sq M.predicted among non-blacks MDRD (S/P/Bld) [Vol rate/Area] 44 mL/min/{1.73_m2} Low >=60 [facility] Globulin Calc (S) [Mass/Vol] on 11-19-2023 Globulin (S) [Mass/Vol] 4.5 g/dL [facility] Hematocrit Auto (Bld) [Volum e fraction]on 11-19-2023 Hematocrit (Bld) [Volume fraction] 38.3 % 36.0-48.0 [facility] Hemoglobin [Mass/volume] in Bloodon 11-19-2023 Hemoglobin (Bld) [Mass/Vol] 12.4 g/dL 12.0-16.0 [facility] Laboratory - Chemistry and C hemistry - challengeon 11-19-2023 Albumin [Mass/Vol] 3.1 g/dL Low 3.4-5.0 [facility] ALP [Catalytic activity/Vol] 87 U/L 46-116 [facility] ALT [Catalytic activity/Vol] 18 U/L 14-59 [facility] AST [Catalytic activity/Vol] 13 U/L Low 15-37 [facility] Bilirubin [Mass/Vol] 0.8 mg/dL 0.2-1.0 [facility] Calcium [Mass/Vol] 9.0 mg/dL 8.5-10.1 [facility] Chloride [Moles/Vol] 102 mmol/L 98-107 [facility] CO2 [Moles/Vol] 21.3 mmol/L 21.0-32.0 [facility] Creatinine [Mass/Vol] 1.19 mg/dL High 0.55-1.02 [facility] GFR/1.73 sq M.predicted MDRD (S/P/Bld) [Vol rate/Area] 53 mL/min/{1.73_m2} Low >=60 [facility] Glucose [Mass/Vol] 99 mg/dL 74-106 [facility] Potassium [Moles/Vol] 3.8 mmol/L 3.5-5.1 [facility] Protein [Mass/Vol] 7.6 g/dL 6.4-8.2 [facility] Sodium [Moles/Vol] 138 mmol/L 136-145 [facility] Urea nitrogen [Mass/Vol] 26.0 mg/dL High 7.0-18.0 [facility] Urea nitrogen/Creatinine [Mass ratio] 21.8 mg/mg [facility] - Hematology and Cell countson 11-19-2023 Immature granulocytes/100 WBC (Bld) 0.4 % 0.0-0.5 [facility] - Specimen inform ationon 11-19-2023 Specimen type Nom (Spec) Stool [facility] Leukocytes [#/volume] correc paul for nucleated erythrocytes in Blood by Automated counon 11-19-2023 WBC corrected for nucl RBC Auto (Bld) [#/Vol] 9.5 10 3/uL 4.0-11.0 [facility] Lymphocytes Auto (Bld) [#/Vo l]on 11-19-2023 Lymphocytes (Bld) [#/Vol] 0.9 10 3/uL Low 1.2-3.8 [facility] Lymphocytes/100 WBC Auto (Bl d)on 11-19-2023 Lymphocytes/100 WBC (Bld) 9.7 % Low 20.5-60.0 [facility] MCH Auto (RBC) [Entitic mass ]on 11-19-2023 MCH (RBC) [Entitic mass] 28.4 pg 26.7-34.0 [facility] MCHC Auto (RBC) [Mass/Vol]on 11-19-2023 MCHC (RBC) [Mass/Vol] 32.4 g/dL 29.9-35.2 [facility] MCV Auto (RBC) [Entitic vol] on 11-19-2023 MCV (RBC) [Entitic vol] 87.8 fL 81.0-99.0 [facility] Monocytes Auto (Bld) [#/Vol] on 11-19-2023 Monocytes (Bld) [#/Vol] 0.8 10 3/uL 0.3-0.8 [facility] Monocytes/100 WBC Auto (Bld) on 11-19-2023 Monocytes/100 WBC (Bld) 8.0 % 1.7-12.0 [facility] Neutrophils Auto (Bld) [#/Vo l]on 11-19-2023 Neutrophils (Bld) [#/Vol] 7.6 10 3/uL High 1.4-6.5 [facility] Neutrophils/100 WBC Auto (Bl d)on 11-19-2023 Neutrophils/100 WBC (Bld) 80.5 % High 43.0-75.0 [facility] No Panel Informationon 11-18 Adenovirus Types 40, 41 Not detected NOT DETECTE [facility] C. difficile Antigen and Toxins A,B Not detected NOT DETECTE [facility] Health Giardia lamblia Interpretation Not detected NOT DETECTE [facility] Miscellaneous Test Comment See comment [facility] Comment on above: Specimen Source: ST - Stool - Stool - 700.100 Stool Astrovirus (PCR) Not detected NOT DETECTE [facility] Stool Campylobacter Culture Res 1 \R\ Campylobacter Culture\R\ No Campylobacter species isolated. [facility] Comment on above: [facility], Stool Cryptosporidium Confirmation Not detected NOT DETECTE [facility] Stool Cyclospora cayetanensis (PCR) Not detected NOT DETECTE [facility] Stool Entamoeba (PCR) Not detected NOT DETECTE [facility] Stool Norovirus GI/GII PCR Not detected NOT DETECTE [facility] Stool Rotavirus (PCR) Not detected NOT DETECTE [facility] Stool Sapovirus (PCR) Not detected NOT DETECTE [facility] Stool Yersinia enterocolitica (PCR) Not detected NOT DETECTE [facility] Eosinophils # (Auto) 0.1 10 3/uL 0.0-0.7 [facility] Immature Granulocyte # (Auto) 0.04 10 3/uL High 0.00-0.03 [facility] No Panel InformationOrdered By: Man Dale on 11-19-2023 E coli Shiga Toxin EIA [facility] Salmonella/Shigella Screen [facility] Platelet mean volume Auto (B ld) [Entitic vol]on 11-19-2023 Platelet mean volume (Bld) [Entitic vol] 11.0 fL 9.5-13.5 [facility] Platelets Auto (Bld) [#/Vol] on 11-19-2023 Platelets (Bld) [#/Vol] 167 10 3/uL 150-450 [facility] RBC Auto (Bld) [#/Vol]on RBC (Bld) [#/Vol] 4.36 10 6/uL 4.20-5.40 [facility] Serum or plasma albumin/glob ulin mass ratioon 11-19-2023 Albumin/Globulin [Mass ratio] 0.7 {ratio} [facility] Serum or plasma anion gap de terminationon 11-19-2023 Anion gap [Moles/Vol] 18.5 mmol/L [facility] Shigella species+EIEC invasi on plasmid antigen H ipaH gene [Presence] in Stool by NAAon 11-19-2023 Shigella species+EIEC invasion plasmid antigen H ipaH gene LARY+non-probe Ql (Stl) Not detected NOT DETECTE [facility] Stool Plesiomonas shigelloid es DNA detection by non-probe and target amplification meon 11-19-2023 P. shigelloides DNA LARY+non-probe Ql (Stl) Not detected NOT DETECTE [facility] Vibrio cholerae DNA [Presenc e] in Stool by LARY with non-probe detectionon 11-19-2023 V. cholerae DNA LARY+non-probe Ql (Stl) Not detected NOT DETECTE [facility] Urinalysis - DIPSTICKon 06-01 Appearance (U) Hazy [employer] Other Bilirubin Ql (U) Negative [employer] Other Color (U) Dark Yellow [facility] Other Glucose Ql (U) Negative [employer] Other Hemoglobin Ql (U) Negative [employer] Other Ketones Ql (U) Negative [employer] Other Leukocyte esterase Test strip Ql (U) Negative [employer] Other Nitrite Ql (U) Negative [employer] Other pH (U) 5.0 [pH] [employer] Other Protein Ql (U) + [employer] Other Specific gravity (U) [Rel density] 1.025 [employer] Other Urobilinogen (U) [Mass/Vol] 0.2 mg/dL [employer] Other Urinalysis - DIPSTICK [employer] Other Urine Cultureon 06-23-2023 Bacteria identified Cx Nom (U) ORGANISM: Klebsiella pneumoniae (O:KLEPNE) [place] Count 15,000 Aerobic SOY Charge (NMIC56) SUSCEPTIBILITY [...] RESISTANT TO ALL B-LACTAM DRUGS. PERFORMED BY: [place] [address] PATHOLOGIST LINE MAINTAINER SECTION LEAH ACE M.D. Normal [facility] Comment on above: Performed By: #### C UU #### [address] Office Visit (Cardiology)on 09-09-2021 Follow-up visit [...] Patient Instructions By signing my name below, Ivonne Kearns LPN ,Evan, attest that this documentation has been prepared under the direction and in the presence of Dr. Chad Adams DO. All medical record entries made by the Anaisiblisy were at my direction and personally dictated [...] Recorded: 09Sep2021 09:16AM Heart Rate69, L Radial Qjcsarvn671, LUE, Sitting Hrasghpza91, LUE, Sitting Height5 ft 4 in Qqvoqq226 lb 12.8 oz BMI Ltembnzgif94.23 kg/m2 BSA Calculated1.74 Tobacco Useb) No PHQ-2 #1. Over the last 2 weeks have you felt down, depressed or hopeless? (If yes, answer PHQ-9 below)No PHQ-2 #2. Over the last 2 weeks have you felt little interest or pleasure in doing things? (If yes, answer PHQ-9 below)No Fall Screeninga) No falls within the last year Signatures Electronically signed by : Chad Adams DO; Sep 09 2021 10:03AM EST (Author) Normal [email or web address] Tobacco Screening.on 022 Adult depression screening assessment No [facility] DO Work Phone: Fall risk assessment a) No falls within the last year [facility] DO Work Phone: Tobacco use status [facility] b) No [facility] DO Work Phone: [facility] CARDIAC STRESS/REST INJE CTIONon 08-27-2021 [facility] CARDIAC STRESS/REST INJECTION Patient Name: CECILIA MCKEON STUDY: MYOCARDIAL PERFUSION STRESS TEST WITH EXERCISE Performing facility: [facility], [address] [place] [address], Suite [facility], [address] Provider: Consuelo Adams DO, FACC PCP: Dr. Almas Singh Supervising provider: Consuelo Adams DO, FACC INDICATION: Chest Pain; Palpitations Hyperlipidemia HTN Cardiomyopathy HISTORY: Gender: F; Age: 75 y/o ; Height: 0 cm; Weight: 0 kg. High Cholesterol; HTN; Palpitations; Denies smoking. Cardiac catheterization on 2001. COMPARISON: Previous nuclear testing completed at [facility]. ACCESSION NUMBER(S): [id number]; [id number]; [id number] ORDERING CLINICIAN: CHAD ADAMS TECHNIQUE: ONE DAY protocol. Stress injection: Date:08-27-21, [...] Electronically signed by: TORO MAJOR MD Normal [facility] No Panel Informationon 08-27 Please click on the link to view the study images Normal [facility] DO Work Phone: Normal [facility] DO Work Phone: CREATININEon 10-23-2020 Creatinine [Mass/Vol] 0.90 mg/dL Normal 0.52-1.04 [facility] Comment on above: Performed By: #### C BERNARDA #### [facility] [address] [address] Dean Ulrich EGFR-AF DANISH >60 Normal >=60 [facility] Comment on above: Performed By: #### C BERNARDA #### [facility] [address] [place], [place] [address] Dean Ulrich EGFR-NON AF DANISH >60 Normal >=60 [facility] Comment on above: Performed By: #### C BERNARDA #### [facility] [address] [place], [place] [address] Dean Ulrich MRI BRAIN WO W CONon [...] JOSE ALEJANDRO MAJOR Date: 2020-10-23 10:21 Normal [facility] Vital Signs Date Time Vital Sign Value Performing Clinician Facility 02-05-2025 11:33-0400 Diastolic blood pressure 80 mm[Hg] Adrian Singh MD Work Phone: [facility] 02-05-2025 11:33-0400 Systolic blood pressure 162 mm[Hg] Adrian Singh MD Work Phone: [facility] 02-05-2025 10:52-0400 Body height 162.56 cm Adrian Singh MD Work Phone: [facility] 02-05-2025 10:52-0400 Body mass index (BMI) [Ratio] 29.8 kg/m2 Adrian Singh MD Work Phone: [facility] 02-05-2025 10:52-0400 Body weight 78.92 kg Adrian Singh MD Work Phone: [facility] 02-05-2025 10:52-0400 Heart rate 69 /min Adrian Singh MD Work Phone: [facility] 02-15-2024 08:37-0400 Body height 162.56 cm PHYSICIAN NO [facility] 02-15-2024 08:37-0400 Body mass index (BMI) [Ratio] 28.5 kg/m2 PHYSICIAN NO [facility] 02-15-2024 08:37-0400 Body weight 75.29 kg PHYSICIAN NO [facility] 02-15-2024 08:37-0400 Diastolic blood pressure 62 mm[Hg] PHYSICIAN NO [facility] 02-15-2024 08:37-0400 Heart rate 87 /min PHYSICIAN NO [facility] 02-15-2024 08:37-0400 Systolic blood pressure 164 mm[Hg] PHYSICIAN NO [facility] 12-07-2023 09:15-0400 Body height 162.56 cm PHYSICIAN NO [facility] 12-07-2023 09:15-0400 Body mass index (BMI) [Ratio] 27.6 kg/m2 PHYSICIAN NO [facility] 12-07-2023 09:15-0400 Body weight 73.02 kg PHYSICIAN NO [facility] 12-07-2023 09:15-0400 Diastolic blood pressure 79 mm[Hg] PHYSICIAN NO [facility] 12-07-2023 09:15-0400 Heart rate 79 /min PHYSICIAN NO [facility] 12-07-2023 09:15-0400 Systolic blood pressure 151 mm[Hg] PHYSICIAN NO [facility] 11-25-2023 09:53-0400 Body height 162.56 cm PHYSICIAN NO [facility] 11-25-2023 09:53-0400 Body mass index (BMI) [Ratio] 27.1 kg/m2 PHYSICIAN NO [facility] 11-25-2023 09:53-0400 Body weight 71.66 kg PHYSICIAN NO [facility] 11-25-2023 09:53-0400 Diastolic blood pressure 79 mm[Hg] PHYSICIAN NO [facility] 11-25-2023 09:53-0400 Heart rate 84 /min PHYSICIAN NO [facility] 11-25-2023 09:53-0400 Systolic blood pressure 155 mm[Hg] PHYSICIAN NO [facility] 11-19-2023 11:20-0400 Body height 162.56 cm [facility] 11-19-2023 11:20-0400 Body mass index (BMI) [Ratio] 27.5 kg/m2 [facility] 11-19-2023 11:20-0400 Body temperature 98 [degF] [facility] 11-19-2023 11:20-0400 Body weight 72.8 kg [facility] 11-19-2023 11:20-0400 Diastolic blood pressure 59 mm[Hg] [facility] 11-19-2023 11:20-0400 Heart rate 80 /min [facility] 11-19-2023 11:20-0400 Systolic blood pressure 93 mm[Hg] [facility] 05-12-2023 09:45-0500 Body height 162.56 cm Adrian Singh Other [employer] [facility] Other 05-12-2023 09:45-0500 Body mass index (BMI) [Ratio] 28.9 kg/m2 Adrian Singh Other [employer] [facility] Other 05-12-2023 09:45-0500 Body temperature 98 [degF] Adrian Singh Other [employer] Other 05-12-2023 09:45-0500 Body weight 76.39 kg Adrian Singh Other [employer] Other 05-12-2023 09:45-0500 Diastolic blood pressure 66 mm[Hg] Adrian Beckett [employer] Other 05-12-2023 09:45-0500 SaO2% (BldA) [Mass fraction] 96 % Adrian Singh Other [employer] Other 05-12-2023 09:45-0500 Systolic blood pressure 103 mm[Hg] Adrian Singh Other [employer] Other 04-05-2023 09:00-0500 Body height 162.56 cm Adrian Singh Other [employer] Other 04-05-2023 09:00-0500 Body mass index (BMI) [Ratio] 28.59 kg/m2 Adrian Singh Other [employer] Other 04-05-2023 09:00-0500 Body weight 75.57 kg Adrian Singh Other [employer] Other 04-05-2023 09:00-0500 Diastolic blood pressure 80 mm[Hg] Adrian Singh Other [employer] Other 04-05-2023 09:00-0500 Systolic blood pressure 150 mm[Hg] Adrian Singh Other [employer] Other 09-09-2021 09:16-0400 Body height 162.56 cm Adrian Singh Work Phone: [employer] [facility] DO Work Phone: 09-09-2021 09:16-0400 Body mass index (BMI) [Ratio] 26.23 kg/m2 Adrian Singh Work Phone: [employer] DO Work Phone: 09-09-2021 09:16-0400 Body surface area Derived from formula 1.74 m2 Adrian Singh Work Phone: [facility] 250 DO Work Phone: 09-09-2021 09:16-0400 Body weight 69.31 kg Adrian Singh Work Phone: [facility] 250 DO Work Phone: 09-09-2021 09:16-0400 Diastolic blood pressure 80 mm[Hg] Adrian Singh Work Phone: [facility] 250 DO Work Phone: 09-09-2021 09:16-0400 Heart rate 69 /min Adrian Singh Work Phone: [facility] 250 DO Work Phone: 09-09-2021 09:16-0400 Systolic blood pressure 130 mm[Hg] Adrian Singh Work Phone: [facility] 250 DO Work Phone: 08-27-2021 08:00-0400 59 1 No PCP None [facility] [place] Work Phone: Comment on above: [id number] Encounters Encounter Date Encounter Type Care Provider Facility Start: 02-05-2025 End: 02-05-2025 ambulatory Adrian Singh MD Work Phone: [facility] Work Phone: Start: 02-05-2025 End: 02-05-2025 Patient encounter procedure Adrian Singh MD -[facility] Work Phone: Start: 05-01-2024 Patient encounter procedure Adrian Singh MD Work Phone: [facility] Start: 04-17-2024 End: 04-17-2024 Bamboo flowsheet Thalia Ray AUD Work Phone: [facility] Start: 04-17-2024 End: 04-17-2024 Bamboo flowsheet Thalia Ray AUD Work Phone: [facility] Start: 04-17-2024 End: 04-17-2024 ambulatory THALIA RAY Not Available Start: 04-17-2024 End: 04-17-2024 Patient encounter procedure Thalia Ray AUD Work Phone: [facility] Comment on above: Sensorineural hearin g loss, bilateral (Primary Dx) Start: 03-15-2024 End: 03-15-2024 ambulatory [facility] Work Phone: Start: 03-15-2024 End: 03-15-2024 Patient encounter procedure [facility] Work Phone: Start: 02-15-2024 End: 02-15-2024 ambulatory PHYSICIAN NO [facility] Work Phone: Start: 02-15-2024 End: 02-15-2024 Patient encounter procedure PHYSICIAN NO [facility] Work Phone: Start: 02-05-2024 End: 02-06-2024 ambulatory ADRIAN SINGH Facility:[id number] Start: 01-05-2024 Non-patient / Non-visit PHYSICIAN NO [facility] Work Phone: Start: 12-07-2023 End: 12-07-2023 ambulatory PHYSICIAN NO [facility] Work Phone: Start: 12-07-2023 End: 12-07-2023 Patient encounter procedure [facility]: Start: 11-25-2023 End: 11-25-2023 ambulatory PHYSICIAN NO [facility] Work Phone: Start: 11-25-2023 End: 11-25-2023 Patient encounter procedure PHYSICIAN NO [facility] Work Phone: Start: 11-24-2023 ambulatory Man DALE Facility:Ana Maguire Start: 11-22-2023 End: 11-22-2023 ambulatory PHYSICIAN NO [facility] Work Phone: Start: 11-22-2023 End: 11-22-2023 Departed Referred PHYSICIAN NO [facility] Start: 11-22-2023 Non-patient / Non-visit PHYSICIAN NO [facility] Work Phone: Start: 11-21-2023 Non-patient / Non-visit PHYSICIAN NO [facility] Work Phone: Start: 11-20-2023 Non-patient / Non-visit PHYSICIAN NO [facility] Work Phone: Start: 11-19-2023 End: 11-19-2023 ambulatory [facility] Work Phone: Start: 11-19-2023 End: 11-19-2023 Patient encounter [facility] Physician [facility] Work Phone: Start: 11-19-2023 End: 11-23-2023 ambulatory Man Figueroa ELOINAAmy Facility:[id number] Start: 07-06-2023 End: 07-06-2023 ambulatory Adrian Singh Other [employer] Other Start: 07-06-2023 Telephone encounter Adrian Singh [facility] Start: 07-05-2023 End: 07-05-2023 ambulatory Adrian Singh Other [employer] Other Start: 07-05-2023 Telephone encounter Adrian Singh [facility] Start: 06-23-2023 Nursing evaluation o f patient and report Adrian Singh [facility] Start: 06-23-2023 End: 06-23-2023 ambulatory Adrian Singh [employer] Other Start: 06-23-2023 End: 06-23-2023 Departed Referred MD Adrian Singh Work Phone: [facility] [place] Work Phone: Start: 05-18-2023 End: 05-18-2023 ambulatory Adrian Singh Other [employer] Other Start: 05-18-2023 Telephone encounter Adrian Singh [facility] Start: 05-12-2023 End: 05-12-2023 ambulatory Adrian Singh Other [employer] Other Start: 05-12-2023 Office outpatient vi sit 15 minutes Adrian Singh [facility] Start: 05-12-2023 End: 05-12-2023 Patient encounter procedure MD Adrian Singh Work Phone: [facility] Work Phone: Start: 04-28-2023 End: 04-28-2023 ambulatory Adrian Singh Other [employer] Other Start: 04-28-2023 Telephone encounter Adrian Singh [facility] Start: 04-06-2023 End: 04-06-2023 ambulatory Adrian Singh Other [employer] Other Start: 04-06-2023 Telephone encounter Adrian Singh [facility] Start: 04-05-2023 End: 04-05-2023 ambulatory Adrian Singh Other [employer] Other Start: 04-05-2023 Patient encounter procedure Adrian Singh [facility] Start: 04-05-2023 End: 04-05-2023 Patient encounter procedure MD Adrian Singh Work Phone: [facility] Work Phone: Start: 02-04-2023 End: 02-04-2023 ambulatory Adrian Singh Other [employer] Other Start: 02-04-2023 Nursing evaluation o f patient and report Adrian Singh [facility] Start: 12-15-2021 Adult health examination Kayla Singh Other [facility] [employer] Other Start: 09-09-2021 Office outpatient vi sit 15 minutes Adrian Signh Work Phone: [facility] 250 DO Work Phone: Start: 09-01-2021 Chart Update No PCP None [facility] 250 DO Work Phone: Start: 08-27-2021 Patient encounter procedure No PCP None [facility] Work Phone: Start: 08-01-2021 AUDIT No PCP None [facility] 250 DO Work Phone: Start: 08-01-2021 Telephone encounter Lizzy Truong [employer] REPAIRER Work Phone: [facility] 250 DO Work Phone: Start: 07-28-2021 Rx Renewal Chad mbary DO Work Phone: [facility] 250 DO Work Phone: Start: 10-23-2020 End: 10-24-[address] MARYAN FOLEY Facility: Start: 08-05-2020 End: 08-06-[address] WEBSTER LISTED REQUEST Facility:[facility]1 Procedures Date Procedure Procedure Detail Performing Clinician Start: 11-19-2023 E coli Shiga Toxin EIA PHYSICIAN NO FAMILY Start: 11-19-2023 Salmonella/Shigella Screen PHYSICIAN NO FAMILY Start: 10-04-2018 Screening mammography Olamide lawrence Singh Other Start: 06-15-2013 General examination of patient Adrian Singh Other Cataract surgery Chad sarah DO Work Phone: Screening for malign ant neoplasm of breast Adrian Singh Other Total colonoscopy Chad may DO Work Phone: Plan of Treatment Date Care Activity Detail Author Start: 06-23-2023 Bacteria identified in Urine by Culture [facility] Start: 09-09-2021 FUV, Provider: Chad Adams, Status: Pen, Time: 9:00 AM FUV, Provider: Chad Adams, Status: Pen, Time: 9:00 AM [facility] 250 DO Work Phone: Start: 08-27-2021 STRESS NUC, [facility],[id number], Status: Pen, Time: 8:00 AM STRESS NUC, Provider: [facility]INO [facility] NUCLEAR 01,[id number], Status: Pen, Time: 8:00 AM [facility] 250 DO Work Phone: Start: 04-11-2013 Pneumococcal Vaccine: 65+ Years (2 of 2 - PCV) Pneumococcal Vaccine: 65+ Years (2 of 2 - PCV) [facility] metabo lic 1999 panel - Serum or Plasma [facility] Comprehensive metabo lic 1999 panel - Serum or Plasma [facility] CT Abdomen and Pelvi s W contrast IV [facility] US Pelvis [facility] Immunizations Immunization Date Immunization Notes Care Provider Sherita jara 02-15-2024 influenza, high dose seasonal, preservative-free PHYSICIAN NO FAMILY [facility] 02-04-2023 influenza virus vaccine, unspecified formulation [facility] 02-04-2023 influenza, high dose seasonal, preservative-free Adrian Singh Other [employer] [facility] [employer] Other 02-18-2022 influenza virus vaccine, split virus (incl. purified surface antigen) Adrian Singh Other [employer] [facility] Other 02-18-2022 influenza virus vaccine, unspecified formulation [facility] 03-28-2021 Moderna COVID-19 Vaccine 100 MCG/0.5ML Intramuscular Suspension No PCP [facility] Work Phone: 02-07-2021 influenza virus vaccine, split virus (incl. purified surface antigen) Adrian Singh Other [employer] Other 02-07-2021 influenza virus vaccine, unspecified formulation [facility] 08-05-2020 Claudia COVID-19 Vaccine 0.5 ML Intramuscular Suspension Chad Adams DO Work Phone: [facility] [place] 250 DO Work Phone: 02-29-2020 influenza virus vaccine, split virus (incl. purified surface antigen) Adrian Singh Other [facility] [employer] Other 02-29-2020 influenza virus vaccine, unspecified formulation Chad Adams DO Work Phone: [facility] 02-28-2019 influenza virus vaccine, unspecified formulation Chad Adams DO Work Phone: [facility] Wild DO Work Phone: 02-27-2019 influenza virus vaccine, split virus (incl. purified surface antigen) Adrian Singh Other [facility] [employer] Other 02-27-2019 influenza virus vaccine, unspecified formulation [facility] 02-28-2018 influenza virus vaccine, split virus (incl. purified surface antigen) Adrian Singh Other [facility] [employer] Other 02-28-2018 influenza virus vaccine, unspecified formulation [facility] 02-28-2018 Influenza, injectabl e, Madin [place] Canine Kidney, quadrivalent with preservative No PCP None [facility] 250 DO Work Phone: 01-29-2018 influenza virus vaccine, unspecified formulation Chad Adams DO Work Phone: [facility] [employer] 250 DO Work Phone: 02-11-2017 influenza virus vaccine, split virus (incl. purified surface antigen) Adrian Singh Other [facility] [employer] Other 02-11-2017 influenza virus vaccine, unspecified formulation [facility] 02-11-2017 influenza, high dose seasonal, preservative-free No PCP None [place] [address] DO Work Phone: 01-29-2017 influenza virus vaccine, unspecified formulation Chad Adams DO Work Phone: [place] [address] DO Work Phone: 02-10-2016 influenza virus vaccine, split virus (incl. purified surface antigen) Adrian Singh Other [facility] [employer] Other 02-10-2016 influenza virus vaccine, unspecified formulation [facility] 01-30-2016 influenza, injectabl e, quadrivalent, preservative free No PCP None [place] [address] DO Work Phone: 03-27-2015 tetanus and diphther ia toxoids, adsorbed, preservative free, for adult use (5 Lf of tetanus toxoid and 2 Lf of diphtheria toxoid) Adrian Singh Other [facility] 01-29-2015 influenza virus vaccine, unspecified formulation Chad Adams DO Work Phone: [place] [address] DO Work Phone: 03-23-2014 tetanus and diphther ia toxoids, adsorbed, preservative free, for adult use (5 Lf of tetanus toxoid and 2 Lf of diphtheria toxoid) Adrian Singh Other [facility] 02-28-2014 influenza virus vaccine, whole virus Chad Adams DO Work Phone: [place] [address] DO Work Phone: 04-30-2012 pneumococcal polysaccharide vaccine, 23 valent Chad Adams DO Work Phone: [place] [address] DO Work Phone: 04-11-2012 pneumococcal polysaccharide vaccine, 23 valent Adrian Singh Other [facility] 02-29-2012 pneumococcal polysaccharide vaccine, 23 valent No PCP None [facility] DO Work Phone: 05-31-2011 influenza virus vaccine, unspecified formulation Chad Adams DO Work Phone: [facility] DO Work Phone: 05-31-2010 influenza virus vaccine, unspecified formulation Chad Adams DO Work Phone: [facility] 250 DO Work Phone: 05-31-2009 influenza virus vaccine, unspecified formulation Chad Adams DO Work Phone: [facility] 250 DO Work Phone: 03-31-2009 influenza virus vaccine, unspecified formulation Chad Adams DO Work Phone: [facility] 250 DO Work Phone: Payers Date Payer Category Payer Self-pay 2017 Medicare [id number] 2017 Private Health Insurance ACI [id number] 2008 Medicare 1959 Medicare [id number] 1959 Self-pay [id number] 1959 Unknown [id number] 1946 Unknown [id number] 1946 Unknown [id number] 1946 Unknown [id number] 1946 Unknown [id number] [id number] 1946 Unknown [id number] [id number] [id number] [facility] [id number] Unknown [id number] Unknown Unknown [place] [id number] Unknown [id number] Unknown [id number] Social History Date Type Detail Facility Social alcohol use Social alcohol use - [facility] [id number] DO Work Phone: Sex Assigned At [facility] Other Start: 1945 Sex Assigned At Female F [facility] Start: 05-12-2023 Tobacco smoking status [facility] Tobacco smoking consumption unknown (finding) [facility] Start: 1945 Sex assigned at Not on file N [facility] Start: 05-12-2023 Tobacco smoking status [facility] Smoker (finding) [facility] Sex Female (finding) [facility] Medical Equipment Procedure Code Equipment Code [...] (True Metrix Glucose Test Strip) strip Start: 12-11-2024 Lancets (Easy To uch Safety Lancets) 21 gauge misc Start: 05-01-2024 Blood Sugar Diagnostic (Onetouch Ultra Test) strip Start: 08-17-2023 End: 11-01-2023 Blood Sugar Diagnostic (True Metrix Glucose Test Strip) strip Start: 11-01-2023 End: 11-01-2023 Blood Sugar Diagnostic (True Metrix Glucose Test Strip) strip Start: 11-01-2023 End: 11-08-2023 Blood Sugar Diagnostic (True Metrix Glucose Test Strip) strip Start: 11-08-2023 End: 12-11-2024 Lancets (Ultra T hin Lancets) 30 gauge misc Start: 08-17-2023 End: 05-01-2024 Clinical Notes 04-05-2023 to 04-17-2024 SKYE Hathaway - 04/17/2024 11:15 AM ESTRama Lopes MA - 04/17/2024 11:15 AM EST Note Date & Type Note Facility 04-17-2024 History of Present illness Narrative Paid $100 for CHIU repair Patient's left hearing aid was dropped off with a broken wire. I replaced the 2M L old style Signia booky. Patient was notified of $100 for repair. Cosigned by ARMEN Newsome at 04/18/2024 10:33 AM EST documented in this encounter [facility] 02-06-2024 Note Patient Education Lindsey rick Cardiovascular Stroke: Care Instructions Overview A stroke is damage to the brain that occurs when a blood vessel in the brain bursts or is blocked by a blood clot. Without blood and the oxygen it carries, part of the brain is damaged. The part of your body controlled by that part of your brain may not function properly now. The brain is an amazing organ that can heal itself to some degree. The stroke you had damaged part of your brain. But other parts of your brain may take over in some way for the damaged areas. Your doctor will talk with you about what you can do to prevent another stroke. You can help by managing other health problems that raise your risk, such as atrial fibrillation or high blood pressure. Have a heart-healthy lifestyle which includes being active, eating healthy foods, staying at a healthy weight, and not smoking. You may also take medicine that prevents blood clots. Enter a stroke rehabilitation (rehab) program if your doctor recommends it. Stroke rehab is training and therapy to help you recover, prevent problems, and relearn how to do everyday things you have not been able to do since your stroke. The focus will depend on how the stroke has affected your ability to do the things you want and need to do. Follow-up care is a ackerman part of your treatment and safety. Be sure to make and go to all appointments, and call your doctor if you are having problems. It's also a good idea to know your test results and keep a list of the medicines you take. How can you care for yourself at home? ? Attend stroke rehabilitation (rehab) if your doctor recommends it. Your rehab plan will be based on your goals and how the stroke affected you. ? You will get instructions on how to manage specific problems that you might have because of the stroke. ? Manage other health problems that raise your risk of another stroke. These include atrial fibrillation, diabetes, high blood pressure, and high cholesterol. ? Have a heart-healthy lifestyle. ? Don't smoke and avoid secondhand smoke. ? Limit alcohol to 2 drinks a day for men and 1 drink a day for women. ? Stay at a healthy weight. Lose weight if you need to. ? Be active. Ask your doctor what type and level of activity is safe for you. ? Eat heart-healthy foods. These include vegetables, fruits, nuts, beans, lean meat, fish, and whole grains. Limit sodium and sugar. ? If you think you may have a problem with alcohol or drug use, talk to your doctor. Medicines ? Be safe with medicines. Take your medicines exactly as prescribed. Call your doctor if you think you are having a problem with your medicine. You will get more details on the specific medicines your doctor prescribes. ? You may take a few medicines to help lower your risk of another stroke. These include: ? Blood pressure medicine such as an JESI (angiotensin-converting enzyme) inhibitor, angiotensin II receptor uriel (ARBs), or diuretic. ? Cholesterol medicine such as a statin. ? Aspirin or another blood thinner to prevent blood clots. ? If your doctor prescribed a blood thinner, be sure you get instructions about how to take your medicine safely. Blood thinners can cause serious bleeding problems. ? Do not take any xijq-pni-gezwggb medicines or herbal products without talking to your doctor first. ? If you take hormonal control or hormone therapy, talk to your doctor about whether they are right for you. They may raise the risk of stroke in some people. For caregivers ? Make the home safe. You may get advice from the stroke rehab team about what changes might be needed. Here are some examples. Set up a bedroom that does not require climbing stairs. Be sure the bathroom is on the same floor. Move throw rugs and furniture that could cause falls. Make sure that the lighting is good. Put grab bars and seats in tubs and showers. ? Provide transportation until they can drive again. ? Find out what they can do and what they need help with. Try not to do things that they can do on their own. Help them learn and practice new skills. ? Visit and talk with them often. Try doing activities together that you both enjoy, such as playing cards or board games. Encourage other people to visit too. ? Take care of yourself. Here are some tips that might help. Do not try to do everything yourself. Ask the stroke rehab team for help. Ask friends and family members to help. Eat well, get enough rest, and take time to do things that you enjoy. Keep up with your own doctor visits, and make sure to take your medicines regularly. Join a local support group. Find out if you qualify for home health care visits to help with rehab or for adult day care. When should you call for help? Call 911 anytime you think you may need emergency care. For example, call if: ? You have signs of another stroke. These may include: ? Sudden numbness, tingling, weakness, or loss of movement in your face, arm, or leg, especially on only one (more content not included)... [facility] 02-06-2024 Note Nursing Discharge Isidro mmary Entered On: 02/06/2024 12:03 EDT Performed On: 02/06/2024 12:03 EDT by Celsa Miller RN, DC Information Discharged to : Home Mode of Discharge : Wheelchair Discharge Transportation : Private vehicle *Special Services and Community Resources Prior to Admission : None Belongings Sent Home With : see rosanne note Reg VTE Warfarin at Discharge : No Celsa Miller RN - 02/06/2024 12:03 EDT Education Instructions given to : Patient TeachBack Methodology : TeachBack, Demonstration, Explanation Barriers to Learning : None evident Celsa Miller RN - 02/06/2024 12:03 EDT Post-Hospital Education Adult Grid Activity Expectations : Verbalizes understanding, Demonstrates Bladder Management : Verbalizes understanding, Demonstrates Bowel Management : Verbalizes understanding, Demonstrates Community Resources : Verbalizes understanding, Demonstrates Diagnostic Results : Verbalizes understanding, Demonstrates Disease Process : Verbalizes understanding, Demonstrates Equipment/Devices : Verbalizes understanding, Demonstrates Importance of Follow-Up Visits : Verbalizes understanding, Demonstrates Invasive Line Care : Verbalizes understanding, Demonstrates Pain Management : Verbalizes understanding, Demonstrates Physical Limitations : Verbalizes understanding, Demonstrates Plan of Care : Verbalizes understanding, Demonstrates Postoperative Instructions : Verbalizes understanding, Demonstrates Substance Abuse : Verbalizes understanding, Demonstrates When to Call Health Care Provider : Verbalizes understanding, Demonstrates Celsa Miller RN - 02/06/2024 12:03 EDT Health Maintenance Education Adult Grid Allergies : Verbalizes understanding, Demonstrates Bathing/Hygiene : Verbalizes understanding, Demonstrates Diet/Nutrition : Verbalizes understanding, Demonstrates Exercise : Verbalizes understanding, Demonstrates Immunizations : Verbalizes understanding, Demonstrates Oral Care : Verbalizes understanding, Demonstrates Stogie Packer Smoke : Verbalizes understanding, Demonstrates Smoking Cessation : Verbalizes understanding, Demonstrates Celsa Miller RN - 02/06/2024 12:03 EDT Medication Education Adult Grid Drug to Drug Interactions : Verbalizes understanding, Demonstrates Drug to Food Interactions : Verbalizes understanding, Demonstrates Med Dosage, Route, Scheduling : Verbalizes understanding, Demonstrates Med Generic/Brand Name, Purpose, Action : Verbalizes understanding, Demonstrates Med Preadministration Procedures : Verbalizes understanding, Demonstrates Med Special Administration, Storage : Verbalizes understanding, Demonstrates Medication Precautions : Verbalizes understanding, Demonstrates Safety, Medication : Verbalizes understanding, Demonstrates Angela NEWBY, Celsa - 02/06/2024 12:03 EDT [facility] 02-06-2024 Note PT Inpatient Evaluat ion Acute Entered On: 02/06/2024 11:33 EDT Performed On: 02/06/2024 10:42 EDT by Dequan PT, DPT, Manju Reason for Treatment Subjective Statement PT : Pt states she is at functional baseline. Denies any physcial symptoms. States she does not recall any events from yesterday - recalls being at home and waking up at hospital. Past Medical History PT : DM, lupus, HTM ,CHF Chief Complaint PT : admit 02/04 w/ sudden onset confusion while horseback riding w/ family NIH SS: 1 - confusion DX: acute confusion, suspect transient global amnesia - R/O TIA, uncontrolled HTN, hypertensive encephalopathy Dequan PT, DPT, Manju - 02/06/2024 11:25 EDT General Info Precautions RTF : Communication CONSTANT Order, 02/07/2024 08:00:00 EDT, Constant Order, Check PLT count on Day 2 after initiation of Heparin or Lovenox, Notify Physician if PLTs less than 100,000 Repeat PLT count every 3 days., Ordered Consult Physician, 02/06/2024 10:10:00 EDT, EDUARDO OATES MD, positive troponin, Ordered Communication CONSTANT Order, 02/06/2024 08:22:00 EDT, Constant Order, pt can gop to MRI off tele, Ordered Aspiration Precautions, 02/05/2024 16:45:00 EDT, Constant Order, per protocol, Ordered Communication CONSTANT Order, 02/05/2024 16:45:00 EDT, Constant Order, Refer to ED Nursing Flowsheet for Dysphagia screening results. If passed, initiate Safe Diet consistency. Dysphagia pureed-honey like liquids until Dysphagia evaluation. If failed, keep NPO including medicati..., Ordered Communication CONSTANT Order, 02/05/2024 16:45:00 EDT, Constant Order, STAT EKG for Chest Pain, STAT ABGs for Acute Respiratory Distress, STAT Potassium/Magnesium for any significant change in condition/rhythm, Ordered Communication CONSTANT Order, 02/05/2024 16:45:00 EDT, Constant Order, Current ACLS Provider may, Initiate [place] [employer] Advanced Cardiac Life support Algorithm per patient code status, Ordered Consult Physician, 02/05/2024 16:45:00 EDT, LORAINE THOMAS MD, tia vs tga, Neurology, Completed Misc Nutrition Task to Nursing, 02/05/2024 16:45:00 EDT, Constant Order, Initiate diet/consistency as specified per Speech Therapy recommendation, Ordered Notify Provider, 02/05/2024 16:45:00 EDT, Constant Order, Notify Physician of blood glucose results greater than 150 or less than 70., Ordered Oxygen Therapy, 02/05/2024 16:45:00 EDT, 2-3L / Nasal Cannula, Constant Order, to maintain SPO2 greater than 92%, Ordered Seizure Precautions, Constant Order, Ordered Consult Physician, 02/05/2024 15:25:00 EDT, LORAINE THOMAS MD, acute confusion, Completed Level of Care Order, 02/05/2024 15:25:00 EDT, Medical Outpatient with Observation Services, MALICK SARGENT MD, Ordered Transfer Care of Patient to Attending, 02/05/2024 15:25:00 EDT, Upon discharge from the ED, all continued medications and orders become the responsibility of the admitting/attending physician., Ordered Misc Nutrition Task to Nursing, 02/05/2024 14:06:00 EDT, Constant Order, NPO, Ordered Basic Command Following : Intact Safety/Judgment : Intact Pain Present : No actual or suspected pain Ability to Make Needs Known PT : Yes Orientation Assessment : Oriented x 4 Affect/Behavior : Appropriate, Cooperative SHARITA Baires PTT, Manju - 02/06/2024 11:25 EDT History, Problems History of Comorbidities,Personal Factor : 3-4 personal factors and/or comorbidities SHARITA Baires PTT, Manju - 02/06/2024 11:25 EDT Home Environment Living Environment : Home Environment *ADL: Independent Performed By: Valarie Gardiner 02/06/2024 *Cognitive-Communication Skills: Independent Performed By: Valarie Gardiner 02/06/2024 *Instrumental ADL: Independent Performed By: Valarie Gardiner 02/06/2024 *Mobility: Independent Performed By: Valarie Gardiner 02/06/2024 Devices/Equipment at Home: Shower - walk-in, Toilet - high Performed By: Valarie Gardiner 02/06/2024 Inside Stairs Rail: Rail on left going up Performed By: Valarie Gardiner 02/06/2024 Kitchen: 1st floor Performed By: Valarie Gardiner 02/06/2024 Laundry: 1st floor Performed By: Valarie Gardiner 02/06/2024 Lives In: Multilevel home Performed By: Valarie Gardiner 02/06/2024 Lives With: Lives alone Performed By: Valarie Gardiner 02/06/2024 Living Situation: Home Independently Performed By: Valarie Gardiner 02/06/2024 Patient's Responsibilities: Community mobility, Injection Specialist, Health and wellness, Home management, Laundry, Leisure/Play/Hobbies, Parenting/Care of others, Personal ADL, Shopping, Social participation Performed By: Valarie Gardiner 02/06/2024 Primary Bathroom: 2nd floor Performed By: Valarie Gardiner 02/06/2024 Primary Bedroom: 2nd floor Performed By: Valarie Gardiner 02/06/2024 *Living Situation : Home Independently *Lives With : Lives alone Lives In : Multilevel home Dequan EPSTEIN DPT, Manju - 02/06/2024 11:25 EDT Stairs I (more content not included)... [facility] 02-06-2024 Note OT Inpatient Evaluat ion Acute Entered On: 02/06/2024 10:57 EDT Performed On: 02/06/2024 10:34 EDT by Valarie Gardiner Reason for Treatment Past Medical History OT : Falls, lupus, DM Chief Complaint OT : 78 y.o. F admitted for confusion/?TIA Precautions : Full code, falls, heart healthy, seizure, aspiration Jose PRATHER/Amy Valarie E - 02/06/2024 10:45 EDT General Information Precautions RTF : Communication CONSTANT Order, 02/07/2024 08:00:00 EDT, Constant Order, Check PLT count on Day 2 after initiation of Heparin or Lovenox, Notify Physician if PLTs less than 100,000 Repeat PLT count every 3 days., Ordered Consult Physician, 02/06/2024 10:10:00 EDT, ИВАН VALDEZ, EDUARDO, positive troponin, Ordered Communication CONSTANT Order, 02/06/2024 08:22:00 EDT, Constant Order, pt can gop to MRI off tele, Ordered Aspiration Precautions, 02/05/2024 16:45:00 EDT, Constant Order, per protocol, Ordered Communication CONSTANT Order, 02/05/2024 16:45:00 EDT, Constant Order, Refer to ED Nursing Flowsheet for Dysphagia screening results. If passed, initiate Safe Diet consistency. Dysphagia pureed-honey like liquids until Dysphagia evaluation. If failed, keep NPO including medicati..., Ordered Communication CONSTANT Order, 02/05/2024 16:45:00 EDT, Constant Order, STAT EKG for Chest Pain, STAT ABGs for Acute Respiratory Distress, STAT Potassium/Magnesium for any significant change in condition/rhythm, Ordered Communication CONSTANT Order, 02/05/2024 16:45:00 EDT, Constant Order, Current ACLS Provider may, Initiate [employer] [employer] Advanced Cardiac Life support Algorithm per patient code status, Ordered Consult Physician, 02/05/2024 16:45:00 EDT, TREVOR VALDEZ, LORAINE, tia vs tga, Neurology, Completed [facility] Nutrition Task to Nursing, 02/05/2024 16:45:00 EDT, Constant Order, Initiate diet/consistency as specified per Speech Therapy recommendation, Ordered Notify Provider, 02/05/2024 16:45:00 EDT, Constant Order, Notify Physician of blood glucose results greater than 150 or less than 70., Ordered Oxygen Therapy, 02/05/2024 16:45:00 EDT, 2-3L / Nasal Cannula, Constant Order, to maintain SPO2 greater than 92%, Ordered Seizure Precautions, Constant Order, Ordered Consult Physician, 02/05/2024 15:25:00 EDT, LORAINE THOMAS MD, acute confusion, Completed Level of Care Order, 02/05/2024 15:25:00 EDT, Medical Outpatient with Observation Services, ROSETTA VALDEZ, MALICK, Ordered Transfer Care of Patient to Attending, 02/05/2024 15:25:00 EDT, Upon discharge from the ED, all continued medications and orders become the responsibility of the admitting/attending physician., [facility] to Nursing, 02/05/2024 14:06:00 EDT, Constant Order, NPO, Ordered Pain Present : No actual or suspected pain Orientation Assessment : Oriented x 4 Affect/Behavior : Appropriate, Alert, Calm, Cooperative, Oriented Ability to Make Needs Known OT : Yes Safety/Judgment : Intact Basic Command Following : Intact AR UE Weight Bearing : Full weight bearing AR LE Weight Bearing : Full weight bearing AR Diet Consistency : Regular AR Liquid Viscosity : All liquids Culture/Spiritual Beliefs to Incorporate : No Valarie Gardiner - 02/06/2024 10:45 EDT History, Problems History of Problems, Comorbidities Rehab : This is a 78 y/o female, with pmhx of DM, presenting to the ED via EMS for an evaluation of confusion with last known well time as 1330. Pt notes that she was horseback riding with her children, when she had sudden onset confusion. She notes of no facial deficits or one-sided weakness. Pt denies fever, chills, nausea, chest or abdominal pain. The pt has voiced no other complaints, symptoms, or concerns at this time. Per history obtained by family, no reported trauma and this is never happened before. Patient now with short-term memory and asking similar questions Valarie Gardiner - 02/06/2024 10:45 EDT Home Environment Living Environment : Home Environment No qualifying data available *Living Situation : Home Independently *Lives With : Lives alone Lives In : Multilevel home Valarie Gardiner - 02/06/2024 10:45 EDT Rehabilitation Stairs Grid Inside Stairs Basement Stairs Number of Stairs : 13 13 Rail : Rail on left going up Rail on left going up Valarie Gardiner - 02/06/2024 10:45 EDT Valarie Gardiner E - 02/06/2024 10:45 EDT Home Setup Grid Primary Bedroom : 2nd floor Primary Bathroom : 2nd floor Kitchen : 1st floor Laundry : 1st floor Valarie Gardiner - 02/06/2024 10:45 EDT Patient's Responsibilities Rehab : Community mobility, Injection Specialist, Health and wellness, Home management, Laundry, Leisure/Play/Hobbies, Parenting/Care of others, Personal ADL, Shopping, Social participation Valarie Gardiner - 02/06/2024 10:45 EDT Home Environment II Living Environment : Home Environment No qualifying data available Devices/Equipment at Home : Shower - walk-in, Toilet - high [place] (more content not included)... [facility] 02-06-2024 Note Communication Log En tered On: 02/06/2024 10:14 EDT Performed On: 02/06/2024 10:14 EDT by Linette Sharp Call Log Physician Call Log Physician requesting : ROSETTA VALDEZ, MALICK BISHOP MD Patient Location : [id number] Physician being called : TREVOR VALDEZ, EDUARDO BROWN MD Reason : Consult Consult Telephone number : [phone] Time Call Placed : 00:35 EDT 10:13 EDT Comment : left msg 02/06/24 answering service notified (Calry) Linette Sharp - 02/06/2024 10:14 EDT Linette Sharp - 02/06/2024 10:14 EDT [facility] 02-06-2024 Note Communication Log En tered On: 02/06/2024 10:14 EDT Performed On: 02/06/2024 10:13 EDT by Linette Sharp Call Log Physician Call Log Physician requesting : ROSETTA VALDEZ, MALICK BISHOP MD Patient Location : [id number] 147 Physician being called : TREVOR VALDEZ, EDUARDO BROWN MD Reason : Consult Consult Telephone number : [phone] Time Call Placed : 00:35 EDT 10:13 EDT Comment : left msg 02/06/24 answering service notified (Carly) Linette Sharp - 02/06/2024 10:13 EDT Linette Sharp - 02/06/2024 10:13 EDT [facility] 02-06-2024 Note Communication Log En tered On: 02/06/2024 0:33 EDT Performed On: 02/06/2024 0:32 EDT by Luann Muñoz Call Log Physician Call Log Physician requesting : MALICK SARGENT MD Patient Location : 147 Physician being called : LORAINE THOMAS MD Reason : Consult Time Call Placed : 00:35 EDT Comment : left g Luann Muñoz - 02/06/2024 0:32 EDT [facility] 02-05-2024 Note Immunization Screeni ng Entered On: 02/05/2024 21:32 EDT Performed On: 02/05/2024 21:32 EDT by Esau Silverman RN Immunization Screening Immunizations Current : Yes Last Tetanus : Greater than 5 years Wilman and Wilman COVID-19 Vaccine : Yes Aged 65 and older receive 2 COVID boosters : Yes Esau Silverman RN - 02/05/2024 21:32 EDT [facility] Comment on above: Order Comment: Order entered secondary to inpatient admission. Result Comment: 02-05-2024 Note ED Nursing Discharge Summary Entered On: 02/05/2024 20:56 EDT Performed On: 02/05/2024 20:54 EDT by Rhea Bell RN IN Information [id number] ED IV's : Continue upon transfer ED IV Site Assessment : Yes, Completed in IView ED Vitals Completed : Yes ED Final Assessment Completed : Yes ED Progress Note Completed : Yes Complete all PRN/Pain response forms? : No ED Disassociate Patient from Monitor : Yes Updated Depart Time : Yes ED Belongings sent w patient [id number] : Yes Valuables Complete : No Rhea Bell RN - 02/05/2024 20:56 EDT Education Instructions given to : Patient TeachBack Methodology : Explanation Barriers to Learning : None evident Rhea Bell RN - 02/05/2024 20:56 EDT Post-Hospital Education Adult Grid Plan of Care : Verbalizes understanding Rhea Bell RN - 02/05/2024 20:56 EDT ED Assistance Summary Assistance Given? : No Rhea Bell RN - 02/05/2024 20:56 EDT [facility] 02-05-2024 Note CECILIA MCKEON :1945 Registration Date:02/05/2024 Chief Complaint confusion History of Present Illness 78 year old female who is brought in with confusion. Patient [place] [facility] [place]. While getting off the horse made a comment that son felt was strange. Once in their car did not recall having been on the horse ride, did not recall where they were, was asking repetitive questions. Son made patient smile and checked for focal deficits, none present. Speech was clear. She has been in her usual state of health. She is asking repetitive questions in ER, does not recall much of event. Now states she thinks she had a dream of possibly riding a horse today. She reports history of chf for which she takes coreg alone, denies any recent exacerbation. Son's report she was hospitalized for ileitis a few months ago but completed antibiotics and recovered well. Denies any other recent infections. Review of Systems 10 system ros negative except as noted in HPI Physical Exam Vitals & Measurements HR: 94 (Peripheral) HR: 91 (Monitored) RR: 21 BP: 176/ 110 SpO2: 97% Alert, oriented to self, not place or situation No pallor Lungs clear CV rrr Abd soft nontender Ext pulses intact, no edema Neuro - oriented to self, short term recall impaired but terminal gauger supervisor intact, motor 5/5, sensory is intact, cranial nerves intact Assessment/Plan Acute Confusion Suspect Transient Global Amnesia, rule out TIA Uncontrolled HTN, hypertensive encephalopathy may also contribute - patient will be treated as potential tia/cva though clinical presentation favors tga - for now asa and statin - resume coreg for htn, if needed iv hydralazine but avoid overcorrection allow for permissive htn while ruling out cva, aim sbp 150-160 - check echo, carotids, MRI - consult neurology History of CHF, not in exacerbation - will review echo, continue coreg Full Code Observation admit Plan of care and test results reviewed with sons at bedside Problem List/Past Medical History htn, chf Procedure/Surgical History No qualifying data available. Medications Inpatient acetaminophen, 650 mg= 2 tabs, ORAL, [id number], PRN acetaminophen, 650 mg= 2 tabs, ORAL, [id number], PRN acetaminophen, 650 mg= 2 tabs, ORAL, [id number], PRN aspirin, 325 mg= 1 tabs, ORAL, DAILY WITH BREAKFAST aspirin, 300 mg= 1 supp, Rectal, DAILY atorvastatin, 80 mg= 2 tabs, ORAL, QHS carvedilol(Coreg), 25 mg= 1 tabs, ORAL, BID docusate(docusate sodium), 100 mg= 1 caps, ORAL, BID enoxaparin(Lovenox), 40 mg= 0.4 mL, Subcutaneous, QHS hydrALAZINE = Apresoline, 10 mg= 0.5 mL, IV Push, [id number], PRN melatonin, 5 mg= 1 tabs, ORAL, QHS/[id number], PRN naloxone = Narcan, 0.4 mg= 1 mL, IV Push, PRN, PRN perflutren(Definity), 2 mL, IV Push, PRN, PRN sodium chloride(Saline Flush), 3 mL, IV Push, [id number] sodium chloride(Saline Flush), 3 mL, IV Push, PRN, PRN sodium chloride(Saline Flush), 3 mL, IV Push, [id number] sodium chloride(Saline Flush), 3 mL, IV Push, PRN, PRN sodium chloride(Saline Flush), 8 mL, IV Push, PRN, PRN Home carvedilol(Coreg 25 mg oral tablet), 25 mg= 1 tabs, ORAL, BID Allergies No Known Allergies Social History Alcohol - Denies Alcohol Use Substance Abuse - Denies Substance Abuse Tobacco - Denies Tobacco Use Family History negative stroke Lab Results Test Name Test Result Date/Time BUN 26 mg/dL 02/05/2024 14:28 EDT Na 145 mmol/L 02/05/2024 14:28 EDT K4.2 mmol/L 02/05/2024 14:28 EDT Chloride 112 mmol/L 02/05/2024 14:28 EDT CO2, venous 25.0 mmol/L 02/05/2024 14:28 EDT Glucose 131 mg/dL 02/05/2024 14:28 EDT Creatinine 0.9 mg/dL 02/05/2024 14:28 EDT Total Protein 6.9 g/dL 02/05/2024 14:28 EDT Calcium 10.0 mg/dL 02/05/2024 14:28 EDT Bilirubin, Total 0.40 mg/dL 02/05/2024 14:28 EDT Alk Phos 76 unit/L 02/05/2024 14:28 EDT GOT 33 unit/L 02/05/2024 14:28 EDT GPT 29 unit/L 02/05/2024 14:28 EDT BUN/Creat Ratio 28.9 02/05/2024 14:28 EDT Calculated Osmolality 295 mOsm/kg 02/05/2024 14:28 EDT Globulin 3.0 g/dL 02/05/2024 14:28 EDT A/G Ratio 1.3 02/05/2024 14:28 EDT ALB 3.9 g/dL 02/05/2024 14:28 EDT Troponin HS 0 Hr 9 pg/mL 02/05/2024 14:28 EDT Troponin HS 2 Hr 48 pg/mL 02/05/2024 15:58 EDT Delta Troponin 2 Hr 39 pg/mL 02/05/2024 15:58 EDT Glomerular Filtration Rate >60 mL/min/1.73m? 02/05/2024 14:28 EDT GFR AA >60 02/05/2024 14:28 EDT Protime Patient 10.8 seconds 02/05/2024 14:07 EDT INR 1.0 02/05/2024 14:07 EDT APTT Patient 34.4 seconds 02/05/2024 14:07 EDT WBC 5.0 x103/uL 02/05/2024 14:28 EDT MDW 18.68 02/05/2024 14:28 EDT RBC 4.72 x106/uL 02/05/2024 14:28 EDT HGB 13.6 g/dL 02/05/2024 14:28 EDT HCT 41.4 % 02/05/2024 14:28 EDT MCV 87.5 fL 02/05/2024 14:28 EDT MCH 28.8 pg 0 (more content not included)... [facility] 07-05-2023 Evaluation note Encounter Date Diagnosis Assessment Notes Jul, Dysuria (ICD-10 - R30.0) [facility] 01-24-2024 Evaluation note* Encounter Date Diagnosis Assessment Notes Treatment Notes Treatment Clinical Notes May, Flank pain (ICD-10 - R10.9) [facility] Other 12-13-2023 Evaluation note* Encounter Date Diagnosis Assessment Notes Treatment Notes Treatment Clinical Notes Apr, Chronic cough (ICD-10 - R05.3) Eval CXR due to length of cough. r/o pneumonia or other interstitial markings. Finish antibiotics and steroids. Call if cough continues for potential pulm referral. [facility] Other 11-06-2023 Evaluation note* Encounter Date Diagnosis [...] unspecified (ICD-10 - I42.9) CARDIOMYOPATHY assess labs [facility] Other Evaluation noteNo [email or web address] [email or web address] Other Evaluation noteNo assessment information available [facility] Work Phone: Evaluation note* Diagnosis Onset Date Resolution Status LLQ abdominal pain acute [facility] Work Phone: Evaluation note* Diagnosis Onset Date Resolution Status LLQ abdominal pain acute RLQ abdominal pain acute [facility] Work Phone: Evaluation note* Diagnosis Onset Date Resolution Status LLQ abdominal pain acute RLQ abdominal pain acute Inflammatory bowel disease a cute Abdominal fluid collection a cute Benign essential HTN acute [id number] acute [facility] Work Phone: Evaluation note* Diagnosis Onset Date Resolution Status Benign essential HTN acute Hyperlipidemia LDL goal <100 acute Transient global amnesia acu te [facility] Work Phone: Evaluation note* Diagnosis Sensorineural hearing loss, bilateral- Primary [facility] Diagnosis Onset Date Resolution Status Admit Date Balance disorder acute Janembe 2024 10:49am Benign essential HTN acute Jan 10:49am Fatigue acute February 05, 2025 10:49am Type 2 diabetes mellitus with hyperglycemia, without long-term current use acute February 05, 2025 10:49am [facility] Work Phone: History general Narrative - Reported* Type Description [...] procedures, hx of, Problem Comment : D&C [place] Oral surgery Cataract Colonoscopy Normal - 06/16/2010, Problem Status : Active, Surgical History Problem Title : surg ical procedures, hx of, Problem Description : surgical procedures, hx of, Problem Comment : D&C [place] Oral surgery Cataract, Problem Status : Active, Surgical History Problem Title : Tongue surgery, Problem Status : Active, [facility] Other History general Narrative - Reported* Type [...] : Active,, Medical History Problem Title : [facility]: Congestive heart failure, Problem Status : Active,, Medical History Problem Title : MEDICAL: [place] a, Problem Status : Active,, Medical History Problem Title : [facility] Annual Wellness Exam, Problem Description : Medicare Annual Wellness Exam, Problem Comment : [id number], Problem Status : Active,, Medical History Problem Title : [facility] Part B,CMOD Checklist #1, Problem Description : [...] Problem Comment : Hx cardiomyopathy - Dr. Adams Hx Rheumatic fever w resultant hearing loss [...] procedures, hx of, Problem Comment : D&C [place] Oral surgery Cataract Colonoscopy Normal - 06/16/2010, Problem Status : Active, Surgical History Problem Title : surg ical procedures, hx of, Problem Description : surgical procedures, hx of, Problem Comment : D&C [place] Oral surgery Cataract, Problem Status : Active, Surgical History Problem Title : Tongue surgery, Problem Status : Active, [facility] Other History general Narrative - Reported* Type Description Date Medical History Cardiomyopathy Medical History 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, without long-term current use of insulin Medical History Peripheral polyneuropathy Surgical History Cardiac surgery Surgical History Dilation and Curettage of Uteru s Surgical History Gum surgery Surgical History D&C [place] Surgical History Problem Title : Tongue surgery, Problem Status : Active, Hospitalization History see surgical history [facility] Other Reason for referral (narrative)No reason for referral information available[facility] Work Phone: Summary Purpose Family History Unknown Family Member [...] disease Abdominal fluid collection Benign essential HTN [id number] Chief Complaint stomach cramps , liq uids bowels Unknown hospital follow up [facility] f/u, stomach pain follow up/flu shot Reason for Visit LLQ abdominal pain RLQ abdominal pain Inflammatory bowel disease Abdominal fluid collection Benign essential HTN [id number] Chief Complaint follow up/flu shot Urine sample, burning Reason for Visit Benign essential HTN Hyperlipidemia LDL goal <100 Transient global amnesia Chief Complaint Admit Date Dizziness February 05, 2025 10:49am Reason for Visit Admit Date Balance disorder February 05, 2025 10:49am Benign essential HTN February 05, 2025 10:49am Fatigue February 05, 2025 10:49am Type 2 diabetes mellitus wit h hyperglycemia, without long-term current use February 05, 2025 10:49am Additional Source Comments INFORMATION SOURCE (unrecogn ized section and content) DATE CREATED AUTHOR 11/01/2020 [facility] DATE CREATED AUTHOR AUTHOR'S ORGANIZ ATION 09/10/2021 [email or web address] DATE CREATED AUTHOR AUTHOR'S ORGANIZ ATION 10/11/2021 [facility] DATE CREATED AUTHOR AUTHOR'S ORGANIZ ATION 11/27/2023 [facility] DATE CREATED AUTHOR AUTHOR'S ORGANIZ ATION 11/28/2023 [place] [employer] [facility] DATE CREATED AUTHOR AUTHOR'S ORGANIZ ATION 02/24/2024 [facility] DATE CREATED AUTHOR AUTHOR'S ORGANIZ ATION 04/19/2024 [facility] EPIC REASON FOR VISIT (unrecogniz ed section and content) FLU ShotlabsWELLNESSglucose meterWELLNESSOn Going Cough for MonthsCXRUA-PainmessageUA Care Teams (unrecognized sec tion and content) Team Status: Active Member Role Status Dates PHYSICIAN NO FAMILY Primary Care Provider Active Team Status: Active Member Role Status Dates PHYSICIAN NO FAMILY Primary Care Provider Active Start: January 05, 2024 Adrian Singh MD Attending Provider Active St art: January 05, 2024 Team Status: Inactive Member Role Status Dates PHYSICIAN NO FAMILY Primary Care Provider Active Start: February 15, 2024 End: February 15, 2024 Adrian Singh MD Attending Provider Active St art: February 15, 2024 End: February 15, 2024 Team Status: Inactive Member Role Status Dates PHYSICIAN NO FAMILY Primary Care Provider Active Start: March 15, 2024 End: March 15, 2024 Cedrick Tijerina DO Attending Provider Active Sta rt: March 15, 2024 End: March 15, 2024 Team Status: Inactive Member Role Status Dates Adrian Singh MD Attending Provider Active St art: April 05, 2023 End: April 05, 2023 Team Status: Inactive Member Role Status Dates Adrian Singh MD Attending Provider Active St art: May 12, 2023 End: May 12, 2023 Team Status: Inactive Member Role Status Dates Adrian Singh MD Attending Provider Active St art: June 23, 2023 End: June 23, 2023 Team Status: Inactive Member Role Status Dates PHYSICIAN NO FAMILY Primary Care Provider Active Start: November 19, 2023 End: November 19, 2023 Adrian Singh MD Attending Provider Active St art: November 19, 2023 End: November 19, 2023 Team Status: Active Member Role Status Dates PHYSICIAN NO FAMILY Primary Care Provider Active Start: November 20, 2023 Lara Starks Attending Provider Active Start: Fara 2023 Team Status: Active Member Role Status Dates PHYSICIAN NO FAMILY Primary Care Provider Active Start: November 21, 2023 Lara Starks Attending Provider Active Start: Fara gibson 2023 Team Status: Active Member Role Status Dates PHYSICIAN NO FAMILY Primary Care Provider Active Start: November 22, 2023 Lara Raudel Attending Provider Active Start: Fara 2023 Team Status: Inactive Member Role Status Dates PHYSICIAN NO FAMILY Primary Care Provider Active Start: November 22, 2023 End: November 22, 2023 Man Dale MD [facility] Attending Provider Active Start: November 22, 2023 End: November 22, 2023 Team Status: Inactive Member Role Status Dates PHYSICIAN NO FAMILY Primary Care Provider Active Start: November 25, 2023 End: November 25, 2023 Adrian Singh MD Attending Provider Active St art: November 25, 2023 End: November 25, 2023 Team Status: Inactive Member Role Status Dates PHYSICIAN NO FAMILY Primary Care Provider Active Start: December 07, 2023 End: December 07, 2023 Adrian Singh MD Attending Provider Active St art: December 07, 2023 End: December 07, 2023 Team Status: Active Member Role Status Dates Adrian Singh MD Primary Care Provider Active Team Status: Inactive Member Role Status Dates Adrian Singh MD Primary Care Provider Active Start: February 05, 2025 End: February 05, 2025 Adrian Singh MD Attending Provider Active St art: February 05, 2025 End: February 05, 2025 Goals (unrecognized section and content) Goals may [...] BE BASED ON THE PRIMARY CLINICAL RECORDS. [employer] provides no warranty or guarantee of the accuracy or completeness of information in this document.
[2025-02-07 09:21] LABS: Hematocrit 41.6 % (36.0-48.0); Hemoglobin 13.6 g/dL (12.0-16.0); Immature Granulocytes Abs Auto 0.01 10^3/uL (0.00-0.03); Immature Granulocytes Pct Auto 0.3 % (0.0-0.5); Lymphocytes Absolute Auto 1.0 10^3/uL (1.2-3.8); Mean Corpuscular HGB Conc 32.7 g/dL (29.9-35.2); Mean Corpuscular Hemoglobin 29.2 pg (26.7-34.0); Mean Corpuscular Volume 89.3 fL (81.0-99.0); Platelet Count 144 10^3/uL (150-450); Red Blood Count 4.66 10^6/uL (4.20-5.40); White Blood Count 3.7 10^3/uL (4.0-11.0)
[2025-02-07 09:51] LABS: Alanine Aminotransferase 31 U/L (14-59); Albumin Globulin Ratio 1.1; Albumin Level 3.9 g/dL (3.4-5.0); Alkaline Phosphatase 73 U/L (46-116); Anion Gap 12.7; Aspartate Amino Transferase 18 U/L (15-37); Blood Urea Nitrogen 29.0 mg/dL (7.0-18.0); Calcium 9.2 mg/dL (8.5-10.1); Carbon Dioxide 27.4 mmol/L (21.0-32.0); Chloride 107 mmol/L (98-107); Cholesterol 251 mg/dL (<=200); Estimated GFR (African America >60 (>=60 mL/min/1.73m^2); Estimated GFR (Non-African Ame >60 (>=60 mL/min/1.73m^2); Globulin 3.7 g/dL; Glucose 102 mg/dL (74-106); HDL Cholesterol 57 mg/dL (40-60); Magnesium 2.0 mg/dL (1.8-2.4); Potassium 4.1 mmol/L (3.5-5.1); Sodium 143 mmol/L (136-145); TSH W/ REFLEX FT4 2.668 uIU/mL (0.358-3.740); Total Protein 7.6 g/dL (6.4-8.2); Triglycerides 124 mg/dL (<=150); VLDL CHOLESTEROL 24.8 mg/dL
== END 2025-02-07 08:38 | disposition home or self-care (01) ==
LOC: LAB 08:40
PROVIDERS: PCP Family Medicine; Visit Provider Family Medicine
DX: E11.65 Type 2 diabetes mellitus with hyperglycemia (principal); R26.89 Other abnormalities of gait and mobility; I10 Essential (primary) hypertension; R53.83 Other fatigue
CPT/HCPCS: 36415; 80053; 80061; 82043; 82570; 83036; 83735; 84443; 85025